=== PATIENT | female | born 1945 | race Caucasian/White ===

== ENCOUNTER 2022-09-21 15:17 | Inpatient (IN) | payer MEDICARE, SELFPAY ==
--- NOTE | ~2022-09-21 | CT_ITS ---
EXAMINATION: CT HEAD WITHOUT CONTRAST (STROKE PROTOCOL) CLINICAL INFORMATION: Stroke protocol. Dysarthria and left mouth drop. COMPARISON: None TECHNIQUE: Contiguous axial imaging was performed from the skull base to vertex without intravenous administration of contrast. This CT examination was performed using dose optimization techniques as appropriate, variously including the following: *Automated exposure control *Adjustment of mA and/or kV according to patient size (this includes techniques or standardized protocols for targeted exams where dose is matched to indication/reason for exam; i.e. extremities or head) *Use of iterative reconstruction technique DLP: 687 mGy-cm FINDINGS: There is no acute intra-axial, extra-axial bleed, masses or midline shift. There is encephalomalacia left occipital lobe from old insult. There is extensive white matter changes with hypodensity in the deep white matter right frontal lobe and left posterior parietal lobe. There is encephalomalacia along the tract of previous left parietal craniotomy and likely ventriculostomy catheter. No acute infarction evolution seen. There is extensive periventricular hypodensity in both cerebral hemispheres. The lateral ventricles are symmetrical in size and configuration without enlargement. Bone windows reveal no calvarial fracture or bony normality. There is no scalp soft tissue normality. The paranasal sinuses and mastoid air cells are well-aerated. CT/CT head for stroke IMPRESSION: No acute intracranial process seen. Left occipital lobe encephalomalacia from old insult or surgery. Left posterior parietal lobe craniotomy with encephalomalacia tract from and colostomy. Extensive white matter changes most prominent in the right frontal lobe and left posterior parietal lobe. These are unchanged to previous exam 08/18/2014 This critical result was discussed with Dr. Brooks Hugo at 3:45 PM on 09/21/2022. It was ascertained that the content and urgency of the report was understood at the time of direct communication.
--- NOTE | ~2022-09-21 | CT_ITS ---
EXAMINATION: CT ANGIOGRAM NECK WITH CONTRAST CT ANGIOGRAM BRAIN WITH CONTRAST CLINICAL INFORMATION: Dysarthria. Left mouth droop. COMPARISON: Head CT performed earlier today. TECHNIQUE: Test bolus sequences followed by intravenous administration 100 mL of Omnipaque 350. Helical imaging was performed in the axial plane from the thoracic inlet to the skull vertex. Delayed postcontrast imaging of the head was also performed. The data was processed at the cytology technologist workstation for generation of MIP sequences. Angled MIPs and volume rendered reformatted images were also generated at an offline 3D workstation. Stenoses are assessed in accordance with NASCET criteria unless otherwise indicated. This CT examination was performed using dose optimization techniques as appropriate, variously including the following: *Automated exposure control *Adjustment of mA and/or kV according to patient size (this includes techniques or standardized protocols for targeted exams where dose is matched to indication/reason for exam; i.e. extremities or head) *Use of iterative reconstruction technique DLP: 1509 mGy-cm FINDINGS: Head CT: There is no intracranial hemorrhage, extra-axial collection, or mass effect. Multiple chronic infarcts are seen including in the bilateral frontal lobes, left more than right parietal lobes, bilateral cerebellar hemispheres, and gerson. Background changes of moderate chronic microangiopathy is also noted. There is no abnormal enhancement. The dural venous sinuses appear patent. Left parietal craniotomy changes are noted. The extracranial structures are within normal limits. Neck CTA: The aortic arch demonstrates atheromatous calcifications but the great vessel origins are patent. Significant atheromatous changes are seen along the bilateral subclavian arteries. Both common carotid arteries are patent with atheromatous changes noted. Atheromatous changes are seen at the carotid bifurcations resulting in 60% stenosis the proximal right internal carotid artery and 50% stenosis of the proximal left internal carotid artery. Both cervical ICAs are patent. Significant atheromatous changes are seen at the carotid siphons without significant narrowing. 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 However, the more superior V2 through V3 segments are occluded. The left vertebral artery appears significantly dominant and patent throughout its cervical course. Head CTA: The dominant left vertebral artery is patent and reconstitutes the right vertebral artery. The basilar artery is patent. Both laboratory asst are patent. There is focal moderate to severe stenosis of the proximal right P2 TALENT SCOUT segment. Intracranial ICAs are patent. Both ACAs are patent. Both MCAs are patent with mild atheromatous changes noted. A focus of calcific plaque is seen within the left M2 segment in the mid sylvian fissure resulting in moderate stenosis. No aneurysm is seen. Non-vascular findings: The cervical soft tissues are within normal limits. No consolidation is seen in the upper lungs. Significant emphysema is demonstrated. There is a left chest wall pacemaker. Significant degenerative changes are seen within the spine. There is chronic fusion across the C5-C6 level with grade 1 anterolisthesis of C4 on C5. Chronic appearing compression fractures are seen at T4, T5, and T6 CT/CT angio head neck stroke IMPRESSION: CT HEAD: No intracranial hemorrhage or large acute infarction. Multiple chronic infarcts are seen in the cerebral hemispheres, cerebellar hemispheres, and gerson. Background changes of moderate chronic microangiopathy. CTA NECK: 1. 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 However, the more superior V2 through V3 segments are occluded. Left vertebral artery is patent. 2. Atheromatous changes at the bilateral carotid bifurcations resulting in 60% stenosis of the proximal right internal carotid artery and 50% stenosis of the proximal left internal carotid artery. CTA HEAD: 1. No large vessel occlusion. Focal moderate to severe stenosis of the proximal right P2 TALENT SCOUT segment. 2. Moderate stenosis of the left M2 segment in the mid Sylvian fissure.
--- NOTE | 2022-09-21 15:25 | ECG_ITS ---
Test Reason : STROKE Blood Pressure : / mmHG Vent. Rate : 080 BPM Atrial Rate : 080 BPM P-R Int : 166 ms QRS Dur : 148 ms QT Int : 458 ms P-R-T Axes : 000 151 028 degrees QTc Int : 528 ms AV dual-paced rhythm Abnormal ECG When compared with ECG of 13-JAN-2020 16:15, No significant change was found Referred By: Oanh Guy Electronically Signed By:JAQUAN PINEDA
--- NOTE | 2022-09-21 15:29 | ED_ITS ---
HPI - Neuro Symptoms/Deficit General Chief Complaint: Stroke Stated Complaint: L side droop per EMS Time Seen by Provider: 09/21/22 15:21 Source: patient and EMS Mode of arrival: EMS Limitations: no limitations History of Present Illness HPI Narrative: Patient comes to the emergency room complaining of sudden onset of difficulty speaking, left-sided mouth drooping and left arm weakness. Patient states it occurred approximately 30-40 minutes prior to arrival. Patient has history of CVAs, patient's daughter noticed that the patient had left-sided mouth drooping, when patient tried speaking, she could not speak right. Patient states that her symptoms lasted for approximately 10 minutes. When EMS arrived, patient's symptoms were still present. They gradually starting improving. On arrival, patient speaking in full sentences, barely noticeable slurred speech. Patient has left-sided mouth drooping. Minimally decreased strength in the left upper extremity, normal strength in lower extremities. Patient is not on any blood thinners, initial blood pressure recorded by EMS, 125/79 Related Data Allergies Allergy/AdvReac Type Severity Reaction Status Date / Time latex [LATEX] Allergy Severe ANAPHYLAXIS Unverified 02/01/21 10:05 Sulfa (Sulfonamide Allergy Severe ANAPHYLAXIS Unverified 02/01/21 10:05 Antibiotics) [SULFA (SULFONAMIDE ANTIBIOTICS)] walnut Allergy Severe ANAPHYLAXIS Unverified 02/01/21 10:05 heparin [HEPARIN] Allergy Intermediate HIVES Unverified 02/01/21 10:05 prednisone [PREDNISONE] Allergy Unknown UNKNOWN Unverified 02/01/21 10:05 Review of Systems Review of Systems: Constitutional : No Weight loss, No Fever, No Chills, No Night Sweats, No Fatigue, No Malaise ENT/Mouth : No Hearing loss, No Ear Pain, No Nasal Congestion, No Sinus Pain, No Hoarseness, No sore throat, No Rhinorrhea, No Swallowing Difficulty Eyes: No Eye Pain, No Swelling, No Redness, No Foreign Body, No Discharge, No Vision Changes Cardiovascular : No Chest Pain, No SOB, No Dyspnea on Exertion, No Orthopnea, No Edema, No Palpitations Respiratory : No Cough, No Sputum, No Wheezing, No Smoke Exposure, No Dyspnea Gastrointestinal : No Nausea, No Vomiting, No Diarrhea, No Constipation, No abdominal Pain, No Hematochezia, No Melena Genitourinary : no irregular bleeding, No Dysuria, No Urinary Frequency, No Hematuria, No Urinary Incontinence, No Urgency, No Flank Pain, No Urinary Flow Changes, No Hesitancy Musculoskeletal : No joint pain, No Myalgias, No Joint Swelling Skin : No Skin Lesions, No rash Neuro : Complaining of sudden onset of difficulty speaking, left-sided mouth droop, slurred speech, left arm weakness Dizziness, No Headache Psych : No Anxiety/Panic, No Depression, No SI/HI/AH/VH, No Social Issues, Heme/Lymph: No Bruising, No Bleeding,No Lymphadenopathy Endocrine : No Polyuria, No Polydipsia, No Temperature Intolerance [facility] Social History Social History (System 02/01/21 @ 10:05 by Grace Marquez) Alcohol intake: never Smoked in Last 30 Days: No Use of substances other than those prescribed or required for medical reasons: No Advance Directives: No Advance Directives Information Provided: Yes Physical Exam Vital Signs: Vital Signs: Last Vital Signs Temp 97.9 F 09/21/22 15:49 Pulse 81 09/21/22 15:49 Resp 16 09/21/22 15:49 BP 141/62 H 09/21/22 15:49 Pulse Ox 98 09/21/22 15:49 O2 Del Method 09/21/22 15:49 BMI result Body Mass Index 22.3 Const: Other: Appearance: Alert. Oriented X3. No acute distress. Eyes: Pupils equal, round and reactive to light. ENT: Pharynx normal. Neck: Normal inspection. Neck supple. No lymph nodes noted. No crepitus CVS: Normal heart rate and rhythm. Pulses normal. Normal S1 and S2 Respiratory: No respiratory distress. Breath sounds normal. No Wheezing. No rales Abdomen: Soft and nontender. No rigidity. No distention. Skin: Skin warm and dry. Normal skin color. Normal skin turgor. Extremities: No lower extremity edema. No Lacerations. No Rash Neuro: Oriented X 3. Patient has left-sided mouth droop, for a 5 strength in left upper extremity, 5/5 in right upper extremity, 5/5 strength i in bilateral lower extremities. Patient speaking in full sentences, no dysarthria, barely noticeable slurred speech Psych: calm, cooperative, normal affect Course Course Course Narrative: -on arrival to the ED, NIH score 1. -patient was taking for CT scan of the head, CTA head and neck -at this time on arrival, patient's symptoms are relatively mild: Mild left- sided mouth droop, no significant dysarthria, no aphasia, 4 of 5 strength in left upper extremity, normal strength in other extremities, no drift. Patient unlikely to be a candidate for tPA because patient's symptoms are relatively mild, patient has been improving over the last 20 minutes, and the risk of tPA at waist the benefits. -15:50, I discussed the patient with Dr. Rios, tPA not advised, only full-dose aspirin -head CT is negative for acute findings. CTA of head and neck is pending Medications Administered Discontinued Medications Generic Name Dose Route Start Last Admin Trade Name Freq PRN Reason Stop Dose Admin Aspirin 325 mg 09/21/22 15:50 09/21/22 15:59 Aspirin Enteric Coated 325 Mg Tablet. PO 09/21/22 15:51 325 mg ONCE ONE Administration Iohexol 100 ml 09/21/22 15:45 09/21/22 15:45 Iohexol 350 Mg/Ml 100 Ml Infus..Btl IV 09/21/22 15:46 75 ml ONCE ONE Administration Medical Decision Making Medical Decision Making [facility] Narrative: -at time of admission, patient is alert and oriented x3, no acute distress, speaking in full sentences, states she feels well. Patient still has mild to moderate left-sided mouth droop. -I discussed the patient with Dr. Romeo, no carotid endarterectomy needed at this time. -patient will follow-up with neurology tomorrow. -patient being admitted. Differential Diagnosis Differential Diagnoses: The differential diagnosis associated with the presentation includes (TIA, CVA, migraine) Admission/Observation Consideration of admission/observation: Escalation of care including admissi on/observation considered (Patient has had multiple CVAs in the past, last 1 several years ago. There was significant CT changes from her previous CT scan in 2014) Consult Healthcare Provider Management of the patient was discussed with: Hospitalist (Discussed the patient with Dr. Bell) and Pin Machine Tender (I discussed the patient with Dr. Rios, no tPA recommended at this time. I also discussed the patient with Dr. Romeo, no carotid endarterectomy recommended at this time. ) Lab Data [facility] Lab Attestation statement: I reviewed the patient's lab results. 09/21/22 16:03 09/21/22 16:03 Labs: Lab Results 09/21/22 09/21/22 09/21/22 Range/Units 15:50 16:03 16:03 WBC 10.5 (4.8-10.8) X10*3/uL RBC 4.16 L (4.20-5.50) X10*6/uL Hgb 11.9 L (12.0-16.0) g/dl Hct 36.1 L (37.0-47.0) % MCV 86.8 (80.0-98.0) fL MCH 28.6 (27.0-33.0) pg MCHC 33.0 (31.0-35.0) g/dl RDW 13.4 (11.0-16.0) % Plt Count 165 (160-400) X10*3/uL MPV 10.8 (9.4-12.3) fL Immature Gran % (Auto) 0.4 (0.0-0.4) % Neut % (Auto) 82.7 H (45-73) % Lymph % (Auto) 9.6 L (20-40) % [place] % (Auto) 5.4 (2-11) % Eos % (Auto) 1.7 (0-4) % Baso % (Auto) 0.2 (0-2) % Lymph # (Auto) 1.0 L (1.2-4.9) X10*3/uL [place] # (Auto) 0.6 (0.1-1.2) X10*3/uL Eos # (Auto) 0.2 (0.0-0.4) X10*3/uL Baso # (Auto) 0.0 (0.0-0.2) X10*3/uL Abs Immat Gran (auto) 0.04 H (0.00-0.03) X10*3/uL Absolute Neuts (auto) 8.7 H (2.0-8.3) x10*3/uL Absolute Nucleated RBC 0.000 (0.0-0.012) X10*3/uL Nucleated RBC % (auto) 0.0 (0.0-0.2) /100WBC PT (10.0-13.1) SEC INR (0.9-1.1) Sodium 136 (135-145) mmol/L Potassium 3.7 (3.3-5.1) mmol/L Chloride 98 (96-108) mmol/L Carbon Dioxide 28 (22-29) mmol/L Anion Gap 14 (12-20) BUN 15 (9-16) mg/dL Creatinine 1.00 (0.5-1.4) mg/dL Estim Creat Clear Calc 44.4 Estimated GFR 54 POC Glucose 152 H (60-115) mg/dL Random Glucose 173 H (60-115) mg/dL Calcium 9.2 (8.4-10.2) mg/dL Magnesium 1.8 (1.6-2.6) mg/dL Total Bilirubin 0.5 (0.0-1.0) mg/dL Direct Bilirubin 0.2 (0.0-0.5) mg/dL AST 17 (5-31) U/L ALT 9 (0-31) U/L Alkaline Phosphatase 100 (39-117) U/L Troponin I High Sens (<3.5-17.0) ng/L Total Protein 6.6 (6.5-8.0) g/dL Albumin 4.0 (3.5-5.0) g/dL Urine Color Urine Appearance Urine pH (5.0-9.0) Ur Specific [place] (1.005-1.025) Urine Protein (Neg-Trace) mg/dL Urine Glucose (UA) (Negative) mg/dL Urine Ketones (Negative) mg/dL Urine Blood (Negative) Urine Nitrite (Negative) Ur Leukocyte Esterase (Negative) COVID-19 ([facility]) (Negative) COVID-19 Clin Com 09/21/22 09/21/22 09/21/22 Range/Units 16:03 16:03 16:03 WBC (4.8-10.8) X10*3/uL RBC (4.20-5.50) X10*6/uL Hgb (12.0-16.0) g/dl Hct (37.0-47.0) % MCV (80.0-98.0) fL MCH (27.0-33.0) pg MCHC (31.0-35.0) g/dl RDW (11.0-16.0) % Plt Count (160-400) X10*3/uL MPV (9.4-12.3) fL Immature Gran % (Auto) (0.0-0.4) % Neut % (Auto) (45-73) % Lymph % (Auto) (20-40) % [place] % (Auto) (2-11) % Eos % (Auto) (0-4) % Baso % (Auto) (0-2) % Lymph # (Auto) (1.2-4.9) X10*3/uL [place] # (Auto) (0.1-1.2) X10*3/uL Eos # (Auto) (0.0-0.4) X10*3/uL Baso # (Auto) (0.0-0.2) X10*3/uL Abs Immat Gran (auto) (0.00-0.03) X10*3/uL Absolute Neuts (auto) (2.0-8.3) x10*3/uL Absolute Nucleated RBC (0.0-0.012) X10*3/uL Nucleated RBC % (auto) (0.0-0.2) /100WBC PT 11.8 (10.0-13.1) SEC INR 1.0 (0.9-1.1) Sodium (135-145) mmol/L Potassium (3.3-5.1) mmol/L Chloride (96-108) mmol/L Carbon Dioxide (22-29) mmol/L Anion Gap (12-20) BUN (9-16) mg/dL Creatinine (0.5-1.4) mg/dL Estim Creat Clear Calc Estimated GFR POC Glucose (60-115) mg/dL Random Glucose (60-115) mg/dL Calcium (8.4-10.2) mg/dL Magnesium (1.6-2.6) mg/dL Total Bilirubin (0.0-1.0) mg/dL Direct Bilirubin (0.0-0.5) mg/dL AST (5-31) U/L ALT (0-31) U/L Alkaline Phosphatase (39-117) U/L Troponin I High Sens 6.8 (<3.5-17.0) ng/L Total Protein (6.5-8.0) g/dL Albumin (3.5-5.0) g/dL Urine Color Urine Appearance Urine pH (5.0-9.0) Ur Specific [place] (1.005-1.025) Urine Protein (Neg-Trace) mg/dL Urine Glucose (UA) (Negative) mg/dL Urine Ketones (Negative) mg/dL Urine Blood (Negative) Urine Nitrite (Negative) Ur Leukocyte Esterase (Negative) COVID-19 ([facility]) Negative (Negative) COVID-19 Clin Com See Note 09/21/22 Range/Units 16:10 WBC (4.8-10.8) X10*3/uL RBC (4.20-5.50) X10*6/uL Hgb (12.0-16.0) g/dl Hct (37.0-47.0) % MCV (80.0-98.0) fL MCH (27.0-33.0) pg MCHC (31.0-35.0) g/dl RDW (11.0-16.0) % Plt Count (160-400) X10*3/uL MPV (9.4-12.3) fL Immature Gran % (Auto) (0.0-0.4) % Neut % (Auto) (45-73) % Lymph % (Auto) (20-40) % [place] % (Auto) (2-11) % Eos % (Auto) (0-4) % Baso % (Auto) (0-2) % Lymph # (Auto) (1.2-4.9) X10*3/uL [place] # (Auto) (0.1-1.2) X10*3/uL Eos # (Auto) (0.0-0.4) X10*3/uL Baso # (Auto) (0.0-0.2) X10*3/uL Abs Immat Gran (auto) (0.00-0.03) X10*3/uL Absolute Neuts (auto) (2.0-8.3) x10*3/uL Absolute Nucleated RBC (0.0-0.012) X10*3/uL Nucleated RBC % (auto) (0.0-0.2) /100WBC PT (10.0-13.1) SEC INR (0.9-1.1) Sodium (135-145) mmol/L Potassium (3.3-5.1) mmol/L Chloride (96-108) mmol/L Carbon Dioxide (22-29) mmol/L Anion Gap (12-20) BUN (9-16) mg/dL Creatinine (0.5-1.4) mg/dL Estim Creat Clear Calc Estimated GFR POC Glucose (60-115) mg/dL Random Glucose (60-115) mg/dL Calcium (8.4-10.2) mg/dL Magnesium (1.6-2.6) mg/dL Total Bilirubin (0.0-1.0) mg/dL Direct Bilirubin (0.0-0.5) mg/dL AST (5-31) U/L ALT (0-31) U/L Alkaline Phosphatase (39-117) U/L Troponin I High Sens (<3.5-17.0) ng/L Total Protein (6.5-8.0) g/dL Albumin (3.5-5.0) g/dL Urine Color Yellow Urine Appearance Clear Urine pH 7.5 (5.0-9.0) Ur Specific [place] 1.010 (1.005-1.025) Urine Protein Negative (Neg-Trace) mg/dL Urine Glucose (UA) Negative (Negative) mg/dL Urine Ketones Negative (Negative) mg/dL Urine Blood Negative (Negative) Urine Nitrite Negative (Negative) Ur Leukocyte Esterase Negative (Negative) COVID-19 ([facility]) (Negative) COVID-19 Clin Com Independent Interpretation I performed an independent interpretation of an: EKG (ABD well paced rhythm, heart rate 80, no ST segment depression or elevation, nonspecific T-wave inversion in lead 2, QTC 528) and CT Scan (My head CT scan interpretation: Several chronic infarcts, no bleed) Radiology Impression Discussion of test interpretation with radiology: I have reviewed the radiologist's reading. Radiologist Impression: FINDINGS: Head CT: There is no intracranial hemorrhage, extra-axial collection, or mass effect. Multiple chronic infarcts are seen including in the bilateral frontal lobes, left more than right parietal lobes, bilateral cerebellar hemispheres, and gerson. Background changes of moderate chronic microangiopathy is also noted. There is no abnormal enhancement. The dural venous sinuses appear patent. Left parietal craniotomy changes are noted. The extracranial structures are within normal limits. Neck CTA: The aortic arch demonstrates atheromatous calcifications but the great vessel origins are patent. Significant atheromatous changes are seen along the bilateral subclavian arteries. Both common carotid arteries are patent with atheromatous changes noted. Atheromatous changes are seen at the carotid bifurcations resulting in 60% stenosis the proximal right internal carotid artery and 50% stenosis of the proximal left internal carotid artery. Both cervical ICAs are patent. Significant atheromatous changes are seen at the carotid siphons without significant narrowing. 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 However, the more superior V2 through V3 segments are occluded. The left vertebral artery appears significantly dominant and patent throughout its cervical course. Head CTA: The dominant left vertebral artery is patent and reconstitutes the right vertebral artery. The basilar artery is patent. Both prepress supervisor are patent. There is focal moderate to severe stenosis of the proximal right P2 DIRECTOR OF [employer]POR[employer] REAL E[employer] segment. Intracranial ICAs are patent. Both ACAs are patent. Both MCAs are patent with mild atheromatous changes noted. A focus of calcific plaque is seen within the left M2 segment in the mid sylvian fissure resulting in moderate stenosis. No aneurysm is seen. Non-vascular findings: The cervical soft tissues are within normal limits. No consolidation is seen in the upper lungs. Significant emphysema is demonstrated. There is a left chest wall pacemaker. Significant degenerative changes are seen within the spine. There is chronic fusion across the C5-C6 level with grade 1 anterolisthesis of C4 on C5. Chronic appearing compression fractures are seen at T4, T5, and T6 CT/CT angio head? neck stroke IMPRESSION: CT HEAD: No intracranial hemorrhage or large acute infarction. Multiple chronic infarcts are seen in the cerebral hemispheres, cerebellar hemispheres, and gerson. Background changes of moderate chronic microangiopathy. ? CTA NECK: 1.? 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 However, the more superior V2 through V3 segments are occluded. Left vertebral artery is patent. 2.? Atheromatous changes at the bilateral carotid bifurcations resulting in 60% stenosis of the proximal right internal carotid artery and 50% stenosis of the proximal left internal carotid artery. ? CTA HEAD: 1.? No large vessel occlusion. Focal moderate to severe stenosis of the proximal right P2 [employer] segment. 2.? Moderate stenosis of the left M2 segment in the mid Sylvian fissure. External Record Review External record reviewed: Inpatient record (I reviewed the -system for medical history.) NIH Stroke Scale Level of Consciousness: Alert Level of Consciousness Questions: Answers both questions correctly Level of Consciousness Commands: Performs both tasks correctly Best Gaze: Normal Visual: No visual loss Facial Palsy: Minor paralyis Motor Arm (Right): No drift Motor Arm (Left): No drift Motor Leg (Right): No drift Motor Leg (Left): No drift Limb Ataxia: Absent Sensory: Normal Best Language: No aphasia Dysarthia: Normal Extinction and Inattention: No abnormality Score: 1 Discharge Plan Discharge Clinical Impression: Cerebrovascular accident Patient Disposition: Admitted As Inpatient
[2022-09-21] MEDS: iohexoL 350 MG/ML 100 ML INFUS..BTL IV (15:45)
[2022-09-21 15:49] VITALS: BP 128/86; BP 141/62; PULSE 81; PULSE 85; RESP 16; TEMP 36.6; O2SAT 97; O2SAT 98; BMI 22.3
[2022-09-21 15:54] LABS: Glucose, Whole Blood 152 mg/dL (60-115)
[2022-09-21] MEDS: Aspirin Enteric Coated 325 MG TABLET.DR PO (15:59)
--- NOTE | 2022-09-21 16:12 | MHC.STROKE ---
Addendum entered by Tina Whaley RN 09/22/22 12:02: I MET WITH THE PATIENT AFTER DR. YEAGER ROUNDED, SEE HIS NOTE. WE REVIEWED HIS DIAGNOSIS, PLAN OF CARE, RECOMMENDATIONS. I REVIEWED HER INDIVIDUAL RISK FACTORS, NEW MEDICATIONS, SHE WILL TRY THE STATIN BUT SHE IS NOT SURE IF SHE WILL DEVELOP A RASH LIKE SHE DID IN THE PAST. PNEUMATIC COMPRESSION DEVICES ARE ON. WE DISCUSSED HER 2006 BRAIN SURGERY DONE IN [place] BY DR ROSALES. SHE IS VERY OPTIMISTIC AND POSITIVE AND WILL COMPLY WITH ANY RECOMMENDATIONS. THE STROKE EDUCATION BOOKLET AND POWER POINT HANDOUT WAS REVIEWED. WE DISCUSSED THE LOCATION OF HER STROKE AND THE CORRELATING SYMPTOMS. Addendum entered by Tina Whaley RN 09/22/22 09:59: I CLARIFIED THAT THE PATIENT PASSED THE NURSING SWALLOW SCREEN PRIOR TO ASPIRIN GIVEN AT 1559. Original Note: 1507 STROKE PROTOCOL ACTIVATED, CALLED BY ED. EMS PRE-NOTIFIED AT 1504, PATIENT ARRIVED AT 1517. EXAMINED BY PROVIDER ONSET 30-45MIN PUMP TESTER, SYMPTOMS LEFT DROOPP, WEAKNESS, DYSARTHRIA AND IMPROVING, NIHSS 1. DIRECT TO CT AND CTA, NO BLEED PRIOR STROKE NOTED ? CRANIOTOMY (LEFT PARIETAL AREA PRIOR TO 2013 IN OLD SCANS) CASE DISCUSSED WITH DR GILLIAM AND THROMBOLYTICS (TPA- aLTEPLASE) EXCLUDED BASED ON NIHSS = 1 AND IM[address] SYMPTOMS. SEE DR. THOMPSON NOTE. SHE PASSED NURSING SWALLOW SCREEN. I WILL CONTINUE TO FOLLOW.
[2022-09-21 16:13] LABS: MANUAL DIFF FLAG NO
[2022-09-21 16:14] LABS: White Blood Count 10.5 X10*3/uL (4.8-10.8)
[2022-09-21 16:15] LABS: Basophils Percent Auto 0.2 % (0-2); Eosinophils Absolute Auto 0.2 X10*3/uL (0.0-0.4); Eosinophils Percent Auto 1.7 % (0-4); Hematocrit 36.1 % (37.0-47.0); Hemoglobin 11.9 g/dl (12.0-16.0); Imm Gran Abs Auto 0.04 X10*3/uL (0.00-0.03); Imm Gran Pct Auto 0.4 % (0.0-0.4); Lymphocytes Percent Auto 9.6 % (20-40); Mean Corpuscular Hemoglobin 28.6 pg (27.0-33.0); Mean Corpuscular Volume 86.8 fL (80.0-98.0); Mean Platelet Volume 10.8 fL (9.4-12.3); Monocytes Absolute Auto 0.6 X10*3/uL (0.1-1.2); Monocytes Percent Auto 5.4 % (2-11); Neutrophils Absolute Auto 8.7 x10*3/uL (2.0-8.3); Neutrophils Percent Auto 82.7 % (45-73); Platelet Count 165 X10*3/uL (160-400); Red Blood Count 4.16 X10*6/uL (4.20-5.50); Red Cell Distribution Width 13.4 % (11.0-16.0)
[2022-09-21 16:18] LABS: Appearance Urine Clear; Color Urine Yellow; Glucose Urine UA Negative (Negative); Leukocyte Esterase Urine Negative (Negative); Nitrite Urine Negative (Negative); PH 7.5 (5.0-9.0); Urine Blood Negative (Negative); Urine Ketones Negative (Negative); Urine Protein Negative (Neg-Trace)
[2022-09-21 16:24] LABS: Prothrombin Time 11.8 SEC (10.0-13.1)
[2022-09-21 16:29] LABS: COVID-19 Test Negative (Negative); IDNOW Serial# 16C4AD1C
[2022-09-21 16:35] LABS: Troponin-I High Sensitivity 6.8 ng/L (<3.5-17.0)
--- OUTSIDE RECORDS SUMMARY | 2022-09-21 16:36 | XMS_ITS | Continuity of Care Document ---
:1945 Author Organization [facility] Address [address] [place] [id number] Care Team Providers Name Role Phone Cyrus MAX MD, Riki Grace Primary Care Physician [place] [facility] [place] 02/26/20 - 02/29/[address] [address]- [facility] Discharge Disposition: A-D/C Home Attending Physician: Eddie Salguero MD, Tomas Admitting Physician: Michelle Venegas MD Referring Physician: Not on Staff, Referring MD Allergies, Adverse Reactions, Alerts Substance Reaction Severity Status sulfADIAZINE Active heparin1 Active predniSONE Active Latex Persistent Moderate Active Nuts walnuts Active 1 I go crazy Immunizations Given and Recorded Vaccine Date Status Refusal Reason influenza virus vaccine, inactivated 05/28/15 Given pneumococcal 23-valent vaccine 04/21/12 Given Medications albuterol CFC free 90 mcg/inh inhalation aerosol 2, puffs, Inhalation, Every 4 hours, PRN, # 1 each, Refills 2, Tot. Refills 2, Maintenance, 05/09/1615:55:42, Inhaler, Route to Pharmacy Electronically, [id number], [facility] [id number] Start Date: 05/09/16 Stop Date: 08/07/16 Status: Orderedaspirin 81 mg oral tablet = 81 mg, By Mouth, Daily, # 30 tablet, 2 Refills, Maintenance, 05/09/16 15:57:18, Tablet Start Date: 05/09/16 Stop Date: 08/07/16 Status: OrderedCoreg 6.25 mg oral tablet 6.25 mg, 1, tablet, By Mouth, 2 times a day, Maintenance, 02/27/20 15:29:00 EDT Start Date: 02/27/20 Status: Ordereddigoxin 0.125 mg oral tablet 125 mcg, 1, tablet, By Mouth, Every Wednesday, Wednesday and Wednesday, Maintenance, 02/27/20 15:32:00 EDT Start Date: 02/27/20 Status: Ordereddoxycycline hyclate 100 mg oral tablet = 100 mg, By Mouth, Every 12 hours, for 7 days, # 14 tablet, 0 Refills, Acute 03/07/20 10:32:00 EDT,02/29/20 10:32:00 EDT, Tablet, [facility], 166, cm, 02/29/20 7:54:00 EDT, Height, 55.5, kg, 02/26/20 22:38:00 EDT, Dry Weight Start Date: 02/29/20 Stop Date: 03/07/20 Status: OrderedEntresto 97 mg-103 mg oral tablet 1 tablet, By Mouth, 2 times a day, Maintenance, 02/27/20 15:28:00 EDT, Tablet Start Date: 02/27/20 Status: OrderedFlovent Diskus 250 mcg/inh inhalation powder 2 puffs, Inhalation, 2 times a day Start Date: 02/27/20 Status: Orderedisosorbide mononitrate 60 mg oral tablet, extended release 1.5 tablet = 90 mg, By Mouth, Daily in AM, Maintenance, 02/27/20 15:27:00 EDT, ER Tablet Start Date: 02/27/20 Status: OrderedLasix 40 mg oral tablet 40 mg, 1, tablet, By Mouth, Daily, Refills 0, Maintenance, 02/29/20 10:31:00 EDT Start Date: 02/29/20 Status: Orderedlevothyroxine 0.025 mg oral tablet 1.5 tablet = 37.5 mcg, By Mouth, Daily, Maintenance, 02/27/20 15:27:00 EDT, Tablet Start Date: 02/27/20 Status: Orderedmagnesium oxide 400 mg oral tablet = 400 mg, By Mouth, 2 times a day, # 28 tablet, 0 Refills, Soft Stop, 06/10/18 13:49:02 EDT, Tablet Start Date: 06/10/18 Stop Date: 06/24/18 Status: Orderedmorphine 30 mg oral capsule, extended release = 30 mg, By Mouth, 3 times a day, 0 Refills, Maintenance, 08/16/15 1:48:37 Start Date: 08/16/15 Status: Orderednitroglycerin 0.4 mg sublingual spray 1 sprays = 0.4 mg, Sublingual, Every 5 minutes, PRN for chest pain, # 12 Gm, 3 Refills, Maintenance,09/04/15 8:23:54, [place], 1 sprays Sublingual Every 5 minutes,x3 doses/times,PRN:for chest pain Start Date: 09/04/15 Status: OrderedSensipar 30 mg oral tablet 1 tablet = 30 mg, By Mouth, Daily, # 30 tablet, 0 Refills, Maintenance, 05/09/16 15:58:38, Tablet Start Date: 05/09/16 Status: OrderedSodium Bicarbonate-Sodium Citrate = 650 mg, By Mouth, Daily, 0 Refills, Maintenance, 05/05/16 8:43:37 Start Date: 05/05/16 Status: Ordered Problem List Condition Effective Dates Status Health Status Informant ICD (implantable Active cardioverter-defibrillator) in place(Confirmed) COPD mixed type(Confirmed) Active Chronic systolic heart Active failure(Confirmed) Hx of CABG(Confirmed) Active History of colon cancer(Confirmed) Active Hx of mitral valve repair(Confirmed) Active Ileostomy present(Confirmed) Active Ischemic cardiomyopathy(Confirmed) Active Mitral regurgitation(Confirmed) Active NSVT (nonsustained ventricular Active tachycardia)(Confirmed) Results Orders for Microbiology Reports Name Date Anaerobic Culture (ANAEROBIC CULTURE) 02/27/20 Tissue Culture w/ Gram Smear 02/27/20 Blood Culture 02/26/20 Blood Culture #2 02/26/20 Microbiology Reports TEST:Anaerobic Culture STATUS:Unauthenticated BODY SITE: SOURCE:[email or web address] COLLECTED DATE/TIME:02/27/20 2:09 PMAnaerobic Culture SPECIMEN DESCRIPTION : TISSUE SWAB SPECIAL REQUESTS : NONE CULTURE : NO ANAEROBES ISOLATED SO FAR. REPORT STATUS : PRELIMINARY REPORT TEST:Tissue/Biopsy Culture STATUS:Unauthenticated BODY SITE: SOURCE:TISSUE1 COLLECTED DATE/TIME:02/27/20 2:00 PMTissue/Biopsy Culture SPECIMEN DESCRIPTION : TISSUE CHEST SWAB SPECIAL REQUESTS : NONE GRAM STAIN : 1+ WHITE BLOOD CELLS 3+ RBC'S NO ORGANISMS SEEN CULTURE : NO GROWTH TO DATE REPORT STATUS : PRELIMINARY REPORT TEST:Blood Culture, Second Order STATUS:Unauthenticated BODY SITE: SOURCE:Blood COLLECTED DATE/TIME:02/26/20 11:06 PMBlood Culture, Second Order SPECIMEN DESCRIPTION : BLOOD NO SITE SPECIAL REQUESTS : NONE CULTURE : NO GROWTH AFTER 48 HOURS REPORT STATUS : PRELIMINARY REPORT TEST:Blood Culture STATUS:Unauthenticated BODY SITE: SOURCE:Blood COLLECTED DATE/TIME:02/26/20 10:56 PMBlood Culture SPECIMEN DESCRIPTION : BLOOD NO SITE SPECIAL REQUESTS : NONE CULTURE : NO GROWTH AFTER 48 HOURS REPORT STATUS : PRELIMINARY REPORT Radiology Reports Exam Date Time Procedure Performing Provider Status 02/27/20 11:43 AM Chest 2 Views Frontal and Lat Sundar , Debi; A uth (Verified) Notes:(Chest 2 Views Frontal and Lat) Reason For Exam: F/U abnl PCXR;Other: RESULT: Chest 2 Views Frontal and Lat Chest 2 Views Frontal and Lat Reason: Other:; F U abnl PCXR; Clinical Question(s): Pneumonia COMPARISON: 02/27/2020 at 0744 hours FINDINGS: LINES AND TUBES: Stable pacer leads LUNGS AND PLEURA: No left upper lobe airspace disease current exam. No acute cardiopulmonary process. Convex density noted posteriorly on the lateral view is stable dating back to 09/01/2015. IMPRESSION: No acute cardiopulmonary process. Left upper lobe airspace disease on the prior exam may have been artifactual and related to overlapping bone vasculature. It could have also been due to atelectasis that has resolved. Convex density noted posteriorly on the lateral is stable dating back to at least 09/01/2015. It may correspond to an focus of chronic juxtapleural round atelectasis WSN: [id number] Ordering Physician: Leonor Mann MD Dictated By: Theodore Noyola MD Dictated Date/Time: 02/27/20 1:01 pm Reviewed By: Theodore Noyola MD Signed By: Theodore Noyola MD Signed Date/Time: 02/27/20 1:01 pm Transcribed By: [email or web address] Transcribed Date/Time: 02/27/20 12:56 pm Exam Date Time Procedure Performing Provider Status 02/27/20 8:10 AM Chest Portable Sundar , Debi; Auth (Verified) Notes:(Chest Portable) Reason For Exam: PreopRESULT: Chest Portable Chest Portable Reason: Preop; Clinical Question(s): Preop COMPARISON: 06/09/2018 FINDINGS: LINES AND TUBES: Stable pacer leads LUNGS AND PLEURA: Left upper lobe airspace disease Left lower lobe airspace disease is unchanged Calcified pleural plaques IMPRESSION: Left upper lobe airspace disease. Findings may be due to left upper lobe pneumonia. Follow-up plain film recommended to document resolution. Stable left lower lobe airspace disease may be due to chronic atelectasis or scar A [place] message has been communicated via the [employer] system on 02/27/2020 8:15 AM, Message ID [id number]. WSN: [id number] Ordering Physician: Dafne Aguirre Dictated By: Theodore Noyola MD Dictated Date/Time: 02/27/20 8:15 am Reviewed By: Theodore Noyola MD Signed By: Theodore Noyola MD Signed Date/Time: 02/27/20 8:15 am Transcribed By: JIMENEZ Transcribed Date/Time: 02/27/20 8:12 am Vital Signs Most recent to oldest [Reference 1 2 3 Range]: Height 166 cm 166 cm 166 cm (02/29/20 7:54 AM) (02/29/20 3:11 AM) (02/28/20 11:06 PM) Weight 64.3 kg (02/26/20 7:46 PM) Oxygen Saturation [94-100 %] 96 % 97 % 97 % (02/29/20 7:54 AM) (02/29/20 3:11 AM) (02/28/20 11:06 PM) Pulse Rate [55-90 bpm] 71 bpm 71 bpm 81 bpm (02/29/20 9:48 AM) (02/29/20 7:54 AM) (02/29/20 3:11 A M) Body Mass Index [18.5-24.99] 23.33 (02/26/20 7:46 PM) Blood Pressure [90-138/55-84 mm 110/49 mm Hg 110/49 mm Hg 111/53 mm Hg Hg] (02/29/20 9:48 AM) (02/29/20 7:54 AM) (02/29/20 3:11 A M) Respiratory Rate [16-30 br/min] 16 br/min 16 br/min 18 br/min (02/29/20 2:49 PM) (02/29/20 1:49 PM) (02/29/20 7:54 A M) Temperature [96.8-100.4 DegF] 98.1 DegF 97.9 DegF 97 .7 DegF (02/29/20 7:54 AM) (02/29/20 3:11 AM) (02/28/20 11:06 PM) Liters per Minute 1 L/min 1 L/min 1 L/min (02/29/20 7:54 AM) (02/29/20 3:11 AM) (02/28/20 11:06 PM) Mode of Delivery (Oxygen) Nasal cannula Nasal cannula Room a ir (02/29/20 7:54 AM) (02/29/20 3:11 AM) (02/28/20 11:06 PM) Blood pressure sites Arm, right Arm, right Arm, right (02/29/20 7:54 AM) (02/29/20 3:11 AM) (02/28/20 11:06 PM) Temperature Route Oral Oral Oral (02/29/20 7:54 AM) (02/29/20 3:11 AM) (02/28/20 11:06 PM) Dry Weight 55.5 kg (02/26/20 7:46 PM) Social History Social History Type Response Smoking Status Former 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
[2022-09-21 16:48] LABS: Alanine Aminotransferase 9 U/L (0-31); Alkaline Phosphatase 100 U/L (39-117); Anion Gap 14 (12-20); Aspartate Amino Transferase 17 U/L (5-31); Bilirubin Direct 0.2 mg/dL (0.0-0.5); Bilirubin Total 0.5 mg/dL (0.0-1.0); Blood Urea Nitrogen 15 mg/dL (9-16); Calcium 9.2 mg/dL (8.4-10.2); Carbon Dioxide 28 mmol/L (22-29); Chloride 98 mmol/L (96-108); Creatinine Clr Calc Pharmacy 44.4; Estimated Glomerular Filt Rate 54; Glucose Random 173 mg/dL (60-115); Magnesium 1.8 mg/dL (1.6-2.6); Potassium 3.7 mmol/L (3.3-5.1); Sodium 136 mmol/L (135-145); Total Protein 6.6 g/dL (6.5-8.0)
--- NOTE | 2022-09-21 20:23 | PHA.MEDREC ---
Pharmacy Consult ? Medication Reconciliation Pharmacy has completed the medication reconciliation.
--- NOTE | 2022-09-21 20:26 | PM.IMHP ---
History of Present Illness Date of Service: 09/21/22 Attending physician on admission: Adenike Bell Chief Complaint: facial droop, dysarthria 76-year-old female with history of coronary artery disease s/p CABG, HFrEF of 15-20%, s/p resection of left ventricular aneurysm in 2005, history of sustained V-tach with AICD in place, history of colon cancer s/p ileostomy, hypertension, dyslipidemia, history of cavernous hemangioma of the occipital lobe s/p resection, hypoparathyroidism, hypothyroidism, history CVA, depression/anxiety, osteoarthritis of multiple joints on chronic opioids presented to the ED via EMS earlier today after developing sudden onset dysarthria with left-sided facial droop with immediate EMS dispatch. By the time EMS arrived, dysarthria had resolved though facial droop has persisted. She does take baby aspirin daily but is no longer on a statin as she has experienced rashes in the past. She does follow with Dr. Novoa at [facility]. She is a former smoker who quit 8 years ago but denies any drug or alcohol use. On arrival vital stable, BP 141/62. Hematology studies significant for a stable chronic normocytic anemia. Renal function baseline, electrolytes normal. Glucose 152. Lipid panel pending . Urinalysis unremarkable. Head CT was without any acute intracranial process but did show extensive white matter changes most prominent the right frontal lobe and left posterior parietal lobe unchanged from prior exam. CTA of the head and neck did not reveal any large vessel occlusion does show focal moderate to severe stenosis of the proximal right P2 SCCM ADMINISTRATOR segment and moderate stenosis of the left M2 segment in the mid sylvian fissure. Patient treated with 324 mg aspirin in the ED. case discussed with vascular surgery, no carotid endarterectomy needed at this time. Case discussed with Neurology, no tPA recommended at this time given limited deficit. Patient to be observed overnight for TIA versus CVA. Review of Systems Review of Systems: General: No fevers, malaise, unintentional weight loss HEENT: No blurred vision, diplopia. Cardiovascular: No chest pain, palpitations, or leg edema Respiratory: No shortness of breath, wheezing, cough GI: No abdominal pain, nausea, vomiting, diarrhea, constipation, melena, hematochezia : No dysuria, hematuria, increased urinary frequency, decreased urinary output MSK: No myalgia, back pain Neuro: +dysarthria, + left-sided facial droop. No headaches, weakness, paresthesias Skin: No rashes or lesions [facility] Medical History (Updated 09/21/22 @ 20:41 by MADINA Santos) CAD (coronary artery disease) Carotid artery stenosis Cavernous hemangioma Cerebrovascular accident CHF (congestive heart failure) Former smoker History of colon cancer History of sustained ventricular tachycardia HLD (hyperlipidemia) HTN (hypertension) Hypoparathyroidism Hypothyroidism Opioid dependence Osteoarthritis Surgical History AICD (automatic cardioverter/defibrillator) present S/P aneurysm repair S/P CABG (coronary artery bypass graft) S/P ileostomy Social History Household Members: Family Household Members Other:: Daughter [facility] Do you presently have visiting nurse or other home services: Yes (home health aides 5 days a week, 2 hours a day) Alcohol intake: never Patient Tobacco Use Status: Never used Tobacco Smoked in Last 30 Days: No Use of substances other than those prescribed or required for medical reasons: No Have you been hit, kicked, punched, or otherwise hurt by someone within the past year? If so, by whom?: No Do you feel safe in your current relationship?: No Current Relationship Is there a partner from a previous relationship who is making you feel unsafe now?: No Are you made to feel afraid or neglected: No Spiritual Healthcare Practices: Sabianist Advance Directives: No Advance Directives Information Provided: Yes Do you have thoughts of harming others: None Do you have a plan to hurt others: No Plan Recently lost weight without trying: No Nutrition Risks: No Nutritional Risk Patient : No : No Poor oral hygiene: No service: No Current occupational status: retired Meds Allergies Allergy/AdvReac Type Severity Reaction Status Date / Time latex [LATEX] Allergy Severe ANAPHYLAXIS Verified 09/22/22 01:58 Sulfa (Sulfonamide Allergy Severe ANAPHYLAXIS Verified 09/22/22 01:58 Antibiotics) [SULFA (SULFONAMIDE ANTIBIOTICS)] walnut Allergy Severe ANAPHYLAXIS Verified 09/22/22 01:58 heparin [HEPARIN] Allergy Intermediate HIVES Verified 09/22/22 01:58 prednisone [PREDNISONE] Allergy Unknown UNKNOWN Verified 09/22/22 01:58 Active Medications: Current Medications Acetaminophen (Acetaminophen 325 Mg Tablet) 650 mg PO Q6H PRN PRN Reason: Pain, Mild (Pain Scale 1-3) Aspirin (Aspirin Enteric Coated 81 Mg Tablet.) 81 mg PO DAILY [facility] Carvedilol (Carvedilol 6.25 Mg Tablet) 6.25 mg PO BID [facility]; Protocol Cinacalcet (Cinacalcet Hcl 30 Mg Tablet) 30 mg PO DAILY [facility] Digoxin (Digoxin 0.125 Mg Tablet) 0.125 mg PO MOWEFR@0900 [facility] Enoxaparin Sodium (Enoxaparin Sodium 40 Mg/0.4 Ml Syringe) 40 mg SUBCUT Q24H [facility] Fluticasone Propionate (Fluticasone Propionate 250 Mcg Blst.W.Dev) 2 puff INHALE DAILY [facility] Furosemide (Furosemide 40 Mg Tablet) 40 mg PO DAILY@1700 [facility]; Protocol Furosemide (Furosemide 40 Mg Tablet) 80 mg PO DAILY [facility]; Protocol Isosorbide Mononitrate (Isosorbide Mononitrate 30 Mg Tab.Er.24h) 90 mg PO DAILY [facility]; Protocol Levothyroxine Sodium (Levothyroxine Sodium 25 Mcg Tablet) 37.5 mcg PO DAILY [facility] Magnesium Oxide (Magnesium Oxide 400 Mg Tablet) 800 mg PO DAILY [facility] Morphine Sulfate (Morphine Sulfate Er 30 Mg Tablet.Er) 30 mg PO TID [facility] Omeprazole (Omeprazole 20 Mg Capsule.) 20 mg PO BID [facility] Ondansetron HCl (Ondansetron Hcl 4 Mg/2 Ml Vial) 4 mg IVPUSH Q8H PRN PRN Reason: Nausea and Vomiting Pharmacy Consult (Consult Rx Perform Med Rec) 1 each MISCELLANE ONCE PRN PRN Reason: Consult order Sacubitril/Valsartan (Sacubitril/Valsartan 97/103 1 Tab Tablet) 1 tab PO BID [facility]; Protocol Sodium Bicarbonate (Sodium Bicarbonate 650 Mg Tablet) 650 mg PO BID [facility] Home Medications Medication Instructions Recorded Confirmed Last Taken Type albuterol sulfate 90 mcg/actuation 2 puff inhalation Q4H PRN 09/21/22 09/21/22 Unknown History aerosol inhaler (Ventolin HFA) Shortness Of Breath carvedilol 6.25 mg tablet 1 tab PO BID 09/21/22 09/21/22 09/21/22 History cinacalcet 30 mg tablet 1 tab PO DAILY 09/21/22 09/21/22 09/21/22 History digoxin 125 mcg (0.125 mg) tablet 0.125 mg PO MOWEFR@0900 09/21/22 09/21/22 09/21/22 History fluticasone propionate 250 1 puff inhalation BID 09/21/22 09/21/22 09/21/22 History mcg/actuation blister powder for inhalation (Flovent Diskus) furosemide 80 mg tablet 40 mg PO DAILY@1700 09/21/22 09/21/22 09/20/22 History furosemide 80 mg tablet 80 mg PO DAILY 09/21/22 09/21/22 09/21/22 History isosorbide mononitrate 60 mg 90 mg PO DAILY 09/21/22 09/21/22 09/21/22 History tablet,extended release 24 hr levothyroxine 25 mcg tablet 37.5 mcg PO DAILY 09/21/22 09/21/22 09/21/22 History magnesium oxide 400 mg (241.3 mg 1 tab PO BID 09/21/22 09/21/22 09/21/22 History magnesium) tablet morphine 30 mg tablet,extended 1 tab PO TID 09/21/22 09/21/22 09/21/22 History release nitroglycerin 400 mcg/spray 1 - 2 spray sublingual Q5M PRN 09/21/22 09/21/22 Unknown History translingual PALPATATIONS omeprazole 20 mg capsule,delayed 20 mg PO BID 09/21/22 09/21/22 09/21/22 History release sacubitril 97 mg-valsartan 103 mg 1 tab PO BID 09/21/22 09/21/22 09/21/22 History tablet (Entresto) sodium bicarbonate 650 mg tablet 1 tab PO BID 09/21/22 09/21/22 09/21/22 History sucralfate 1 gram tablet 1 tab PO QID 09/21/22 09/21/22 09/21/22 History Physical Exam Vital Signs and Narrative: Vital Signs: Last Vital Signs Temp 97.9 F 09/21/22 15:49 Pulse 81 09/21/22 15:49 Resp 16 09/21/22 15:49 BP 141/62 H 09/21/22 15:49 Pulse Ox 98 09/21/22 15:49 O2 Del Method 09/21/22 15:49 BMI result Body Mass Index 22.3 Constitutional - Awake and Alert, No apparent distress Eyes - PERRLA, EOMI Cardiovascular - S1S2, RRR, No edema Respiratory - Normal lung expansion, Normal respiratory effort, No respiratory distress, CTA bilaterally Gastrointestinal - NT / ND; +BS; No rebound or guarding Extremities - no calf tenderness bilaterally, no swelling Skin - Warm/Dry Neurological - Alert & oriented x3, CN II-XII in tact, 5/5 strength BUE and BLE. Speaking in full sentences, no slurred speech Psychological - Appropriate affect Results Labs 09/21/22 16:03 09/21/22 16:03 Labs: Laboratory Results - last 24 hr 09/21/22 09/21/22 09/21/22 15:50 16:03 16:03 MCV 86.8 MCH 28.6 MCHC 33.0 RDW 13.4 Plt Count 165 MPV 10.8 Immature Gran % (Auto) 0.4 Neut % (Auto) 82.7 H Lymph % (Auto) 9.6 L Mcintosh % (Auto) 5.4 Eos % (Auto) 1.7 Baso % (Auto) 0.2 Lymph # (Auto) 1.0 L Mcintosh # (Auto) 0.6 Eos # (Auto) 0.2 Baso # (Auto) 0.0 Abs Immat Gran (auto) 0.04 H Absolute Neuts (auto) 8.7 H Absolute Nucleated RBC 0.000 Nucleated RBC % (auto) 0.0 PT INR Anion Gap 14 Estim Creat Clear Calc 44.4 Estimated GFR 54 POC Glucose 152 H Random Glucose 173 H Calcium 9.2 Magnesium 1.8 Total Bilirubin 0.5 Direct Bilirubin 0.2 AST 17 ALT 9 Alkaline Phosphatase 100 Troponin I High Sens Total Protein 6.6 Albumin 4.0 Urine Color Urine Appearance Urine pH Ur Specific [place] Urine Protein Urine Glucose (UA) Urine Ketones Urine Blood Urine Nitrite Ur Leukocyte Esterase COVID-19 ([facility]) COVID-19 Clin Com 09/21/22 09/21/22 09/21/22 16:03 16:03 16:03 MCV MCH MCHC RDW Plt Count MPV Immature Gran % (Auto) Neut % (Auto) Lymph % (Auto) Mcintosh % (Auto) Eos % (Auto) Baso % (Auto) Lymph # (Auto) Mcintosh # (Auto) Eos # (Auto) Baso # (Auto) Abs Immat Gran (auto) Absolute Neuts (auto) Absolute Nucleated RBC Nucleated RBC % (auto) PT 11.8 INR 1.0 Anion Gap Estim Creat Clear Calc Estimated GFR POC Glucose Random Glucose Calcium Magnesium Total Bilirubin Direct Bilirubin AST ALT Alkaline Phosphatase Troponin I High Sens 6.8 Total Protein Albumin Urine Color Urine Appearance Urine pH Ur Specific [place] Urine Protein Urine Glucose (UA) Urine Ketones Urine Blood Urine Nitrite Ur Leukocyte Esterase COVID-19 ([facility]) Negative COVID-19 Clin Com See Note 09/21/22 16:10 MCV MCH MCHC RDW Plt Count MPV Immature Gran % (Auto) Neut % (Auto) Lymph % (Auto) Mcintosh % (Auto) Eos % (Auto) Baso % (Auto) Lymph # (Auto) Mcintosh # (Auto) Eos # (Auto) Baso # (Auto) Abs Immat Gran (auto) Absolute Neuts (auto) Absolute Nucleated RBC Nucleated RBC % (auto) PT INR Anion Gap Estim Creat Clear Calc Estimated GFR POC Glucose Random Glucose Calcium Magnesium Total Bilirubin Direct Bilirubin AST ALT Alkaline Phosphatase Troponin I High Sens Total Protein Albumin Urine Color Yellow Urine Appearance Clear Urine pH 7.5 Ur Specific [place] 1.010 Urine Protein Negative Urine Glucose (UA) Negative Urine Ketones Negative Urine Blood Negative Urine Nitrite Negative Ur Leukocyte Esterase Negative COVID-19 ([facility]) COVID-19 Clin Com Imaging Radiologist's Impressions: Impressions Head CT 09/21/22 15:25 IMPRESSION: No acute intracranial process seen. Left occipital lobe encephalomalacia from old insult or surgery. Left posterior parietal lobe craniotomy with encephalomalacia tract from and colostomy. Extensive white matter changes most prominent in the right frontal lobe and left posterior parietal lobe. These are unchanged to previous exam 08/18/2014 This critical result was discussed with Dr. Brooks Hugo at 3:45 PM on 09/21/2022. It was ascertained that the content and urgency of the report was understood at the time of direct communication. Head/Neck CTA 09/21/22 15:44 IMPRESSION: CT HEAD: No intracranial hemorrhage or large acute infarction. Multiple chronic infarcts are seen in the cerebral hemispheres, cerebellar hemispheres, and gerson. Background changes of moderate chronic microangiopathy. CTA NECK: 1. 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 However, the more superior V2 through V3 segments are occluded. Left vertebral artery is patent. 2. Atheromatous changes at the bilateral carotid bifurcations resulting in 60% stenosis of the proximal right internal carotid artery and 50% stenosis of the proximal left internal carotid artery. CTA HEAD: 1. No large vessel occlusion. Focal moderate to severe stenosis of the proximal right P2 SCCM ADMINISTRATOR segment. 2. Moderate stenosis of the left M2 segment in the mid Sylvian fissure. Assessment and Plan (1) Cerebrovascular accident: Status: Acute Plan 76-year-old female with history of coronary artery disease s/p CABG, COPD, HFrEF of 15-20%, s/p resection of left ventricular aneurysm in 2005, history of sustained V-tach with AICD in place, history of colon cancer s/p ileostomy, hypertension, dyslipidemia, history of cavernous hemangioma of the occipital lobe s/p resection, hypoparathyroidism, hypothyroidism, history CVA, depression/anxiety, osteoarthritis of multiple joints on chronic opioids to be observed for TIA vs CVA. #TIA vs acute CVA -dysarthria resolved. Still with left-sided facial droop. No other focal weakness/paresthesias -head CT without acute intracranial abnormality. CTA head/neck with moderate to severe right-sided carotid stenosis and moderate left carotid stenosis -no endarterectomy per vascular surgery -neurology consulted -given 325 mg aspirin in the ED. Continue baby aspirin daily -initiate atorvastatin 80 mg nightly (historically has gotten rash from statins but no anaphylaxis, agrees to Benadryl if she develops rash) -passed nursing swallow eval. Speech consult placed -PT/OT -echocardiogram ordered -MRI brain ordered -admit to telemetry #CAD/HLD -continue asa, bb, initiate statin, isosorbide -Follows with Dr. Novoa at [facility] #HFrEF- no acute exacerbation -continue Lasix, Entresto #Sustained VTach -AICD in place -Continue digoxin #COPD- without acute exacerbation -continue Flovent -albuterol p.r.n. # osteoarthritis/opioid dependence -continue morphine # hypothyroidism -continue levothyroxine Do not intubate per patient DVT prophylaxis-Lovenox Time Spent With Patient Time: Total time managing care of this patient today ____ minutes. Quality Stroke Does the patient have a stroke diagnosis?: Yes Reason for No Anti-thrombotic by Day Two: Not indicated VTE Prior VTE?: No VTE Risk Level:: Medical - moderate - high VTE Device Contraindication: Treatment Not Indicated VTE Drug Contraindication: N/A - Med Ordered
[2022-09-21 20:33] LABS: Cholesterol 215 mg/dL; HDL Cholesterol 41 mg/dL; LDL Cholesterol Calculated 121 mg/dl; Triglycerides 267 mg/dL
[2022-09-21 21:04] VITALS: BP 128/73; PULSE 80; RESP 12; TEMP 36.8; O2SAT 98
[2022-09-21] MEDS: Sodium Bicarbonate 650 MG TABLET PO (21:12)
[2022-09-21] MEDS: Magnesium Oxide 400 MG TABLET PO (21:13)
[2022-09-21] MEDS: Morphine Sulfate ER 30 MG TABLET.ER PO (21:13)
[2022-09-21] MEDS: Atorvastatin Calcium 80 MG TABLET PO (21:13)
[2022-09-21] MEDS: Omeprazole 20 MG CAPSULE.DR PO (21:26)
[2022-09-21] MEDS: Sucralfate 1 GM TABLET PO (21:26)
[2022-09-21] MEDS: Sacubitril/Valsartan 97/103 1 TAB TABLET PO (21:27)
--- NOTE | 2022-09-21 21:35 | PC.NURSE ---
Pt refused Lovenox due to allergy to Heparin in the past. Hospitalist made aware.
--- NOTE | 2022-09-21 21:39 | PC.NURSE ---
Pt refused carvedilol. Pt stated that she takes this med BID but she normally takes it once in the morning and again around 1400. Pt had already taken second dose of carvedilol at home this afternoon.
--- NOTE | 2022-09-21 22:49 | MHC.CM.PN ---
MIA 09/21. Met with Lina mcgovern&Ox4 woman, who lives with her daughter. Pt has an extensive medical hx. HCP on file. HCP/daughter Stephanie Wells ([phone]). PCP Luis Alberto Bridges. GRIS on file. Full Code. [facility]. 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 Uses home Oxygen at 2L from [employer]. Has a nebulizer and a rollator walker. J&J, Pfizer x4. D/C plan: Home without services. Daughter will transport home. CM following for d/c needs.
[2022-09-22] VITALS (10 sets, daily range): BP systolic 109–163; BP diastolic 53–73; PULSE 75–92; RESP 16–20; TEMP 36.3–37.1; O2SAT 94–100; BMI 21.5
--- NOTE | 2022-09-22 01:03 | PC.NURSE ---
Nurse to nurse report called to [facility], spoke to JOANA Taylor patient to be transported to to [facility] bed [id number] in a stretcher bed, on continuous rn cardiac, and supplemental O2 at 2 LPM NC.
[2022-09-22] MEDS: Levothyroxine Sodium 25 MCG TABLET 37.5 MCG PO (05:53)
[2022-09-22 06:14] LABS: MANUAL DIFF FLAG NO
[2022-09-22 06:17] LABS: Basophils Percent Auto 0.3 % (0-2); Eosinophils Absolute Auto 0.2 X10*3/uL (0.0-0.4); Eosinophils Percent Auto 2.1 % (0-4); Hematocrit 35.7 % (37.0-47.0); Hemoglobin 11.7 g/dl (12.0-16.0); Imm Gran Abs Auto 0.04 X10*3/uL (0.00-0.03); Imm Gran Pct Auto 0.4 % (0.0-0.4); Lymphocytes Absolute Auto 1.3 X10*3/uL (1.2-4.9); Mean Corpuscular HGB Conc 32.8 g/dl (31.0-35.0); Mean Corpuscular Hemoglobin 28.5 pg (27.0-33.0); Mean Corpuscular Volume 87.1 fL (80.0-98.0); Monocytes Absolute Auto 0.7 X10*3/uL (0.1-1.2); Monocytes Percent Auto 6.2 % (2-11); Neutrophils Absolute Auto 8.4 x10*3/uL (2.0-8.3); Platelet Count 151 X10*3/uL (160-400); Red Cell Distribution Width 13.5 % (11.0-16.0); White Blood Count 10.6 X10*3/uL (4.8-10.8)
[2022-09-22 06:33] LABS: Anion Gap 14 (12-20); Blood Urea Nitrogen 13 mg/dL (9-16); Carbon Dioxide 33 mmol/L (22-29); Chloride 99 mmol/L (96-108); Creatinine Clr Calc Pharmacy 44.4; Estimated Glomerular Filt Rate 54; Glucose Random 110 mg/dL (60-115); Potassium 4.1 mmol/L (3.3-5.1); Sodium 142 mmol/L (135-145)
--- NOTE | 2022-09-22 07:00 | CA_ITS ---
Transthoracic Echocardiogram Patient (Last, First, Middle): Marilu Whaley, Gender: Female Date of : 1945 Age: 76 Procedure Date: 09/22/2022 Procedure Type: Transthoracic Echocardiogram [place] [facility] [place]: 165.1 cm Weight: 58.51 kg BSA: 1.64 m2 Heart Rate: bpm BP: 141 / 60 mmHg Warehouse Lead: MIGUEL Referring MD: Ronald Corea MD Symptoms: tia Study Quality: Fair, contrast Conclusions: - The left ventricular systolic function is severely decreased. The visually estimated ejection fraction is between 25-30%. - The apical inferior, basal inferior, apical septum, and basal inferolateral segments are akinetic. - The mid inferolateral segment is aneurysmal. - There is mildly decreased right ventricular systolic function. - There is moderate mitral valve regurgitation. Findings Procedure Information Contrast agent, definity, is being given per protocol without apparent complications. Left Ventricle Moderately increased left ventricular cavity size. The left ventricular systolic function is severely decreased. The visually estimated ejection fraction is between 25-30%. There is evidence of regional wall motion abnormalities. Diastolic function is indeterminate on the basis of available data. There is moderate septal asymmetric hypertrophy. Wall Motion Rest Echo Findings The apical inferior, basal inferior, apical septum, and basal inferolateral segments are akinetic. The mid inferolateral segment is aneurysmal. Right Ventricle Normal right ventricular cavity size. There is mildly decreased right ventricular systolic function. There is an ICD wire seen in the right ventricle. Atria The left atrium is moderately dilated. The right atrium is normal in size. Aortic Valve There is a normal trileaflet aortic valve. There is mild calcification of the aortic valve. There is no aortic valve stenosis. There is trace (trivial) aortic valve regurgitation. Mitral Valve There is moderate mitral valve regurgitation. There is no mitral valve stenosis. Mitral annuloplasty ring. Mean gradient across the mitral valve 3mmHg. Pulmonic Valve The pulmonic valve is likely normal. Tricuspid Valve Normal tricuspid valve structure. There is trace tricuspid valve regurgitation. There is no evidence of pulmonary hypertension. Great Vessels The asc aorta is normal in size. Small plaque is seen in the sino tubular ridge. Venous The inferior vena cava is normal in size and collapses greater than 50% with inspiration. Pericardium/Pleural There is no evidence of pericardial effusion. Prior Study Comparison Changes noted compared to prior study dated: 01/09/2019. Inferolateral wall appearing aneurysmal. Measurements 2D Linear Measurements IVSd: 1.40 0.6-0.9/0.6-1.0 cm LVIDd: 5.80 3.9-5.3/4.2-5.9 cm LVIDd Index: 3.54 2.4-3.2/2.2-3.1 cm/m2 LVIDs: 4.60 2.0-3.6 cm LVPWd: 1.01 0.7-1.1 cm LA Diam: 3.50 2.7-3.8/3.0-4.0 cm LAIDs Index: 2.13 1.5-2.3 cm/m2 LV Mass: 372.61 67-162/88-224 g LV Mass Index: 227.20 43-95/49-115 g/m2 LVOT Diam: 2.00 3.0+(-)1.3 cm 2D Systolic Function EF 4C: 41.60 >55% EF 2C: 36.30 >55% EF BiP: 38.60 >55% Mitral Valve MV VTI: 0.32 MV Pk Josep: 1.24 MV Mn Josep: 0.91 MV Pk Grad: 6.00 MV Mn Grad: 3.00 MV Pk E: 1.03 MV PK A: 1.13 MV Decel Time: 251.00 E/A: 0.90 E'Lateral: 3.68 E'Medial: 3.45 E/E' Med: 29.90 E/E' Lat: 28.00 PHT: 73.00 MVA PHT: 3.01 MVA Continuity: 1.87 Decel [place]: 4.10 MR VTI: 1.56 Aortic Valve AoV Pk Josep: 1.23 AoV Mn Josep: 0.98 AoV VTI: 0.25 AoV Pk Grad: 6.00 Aov Mn Grad: 4.00 STORMY Cont.VTI: 2.45 AI Pk Josep: 3.61 AI [place]: 2.31 LVOT LVOT Pk Josep: 0.87 LVOT Mn Josep: 0.66 LVOT VTI: 0.19 LVOT Pk Grad: 3.00 LVOT Mn Grad: 2.00 LVOT Diam: 2.00 LVOT Area: 3.14 Diastolic Function MV Pk E: 1.03 MV Pk A: 1.13 E/A: 0.90 E'Medial: 3.45 E/E' Med: 29.90 E' Laterial: 3.68 E/E' Lat: 28.00 Right Ventricle TAPSE (mm): 14.60 TVS' Josep: 7.95 Tricuspid Valve TR Pk Josep: 1.59 TR Pk Grad: 10.00 RA Press: 3.00 RVSP: 13.00 Great Vessels Aorta Sinus of Valsalva: 3.69 2.0-3.[address] [place]: 2.60 1.7-3.4 cm Ao Asc: 3.80 2.1-3.4 cm Updated in Other Vendor System with Status of Final Lawson Cho MD electronically signed on 09/23/2022 12:26:29 PM with status of Final
[2022-09-22] MEDS: Magnesium Oxide 400 MG TABLET PO ×2 (07:46→20:57)
[2022-09-22] MEDS: Sodium Bicarbonate 650 MG TABLET PO ×2 (07:46→20:58)
[2022-09-22] MEDS: Sucralfate 1 GM TABLET PO ×4 (07:47→20:58)
[2022-09-22] MEDS: Sacubitril/Valsartan 97/103 1 TAB TABLET PO ×2 (07:47→20:58)
[2022-09-22] MEDS: carvediloL 6.25 MG TABLET PO ×2 (07:47→20:57)
[2022-09-22] MEDS: Isosorbide Mononitrate 30 MG TAB.ER.24H 90 MG PO (07:47)
[2022-09-22] MEDS: Morphine Sulfate ER 30 MG TABLET.ER PO ×3 (07:48→20:57)
[2022-09-22] MEDS: Furosemide 40 MG TABLET 80 MG PO (07:49)
[2022-09-22] MEDS: Cinacalcet HCl 30 MG TABLET PO (07:50)
[2022-09-22] MEDS: Aspirin Enteric Coated 81 MG TABLET.DR PO (07:50)
[2022-09-22] MEDS: Fluticasone Propionate 250 MCG BLST.W.DEV 1 PUFF INHALE ×2 (08:03→19:12)
--- NOTE | 2022-09-22 08:30 | PC.NURSE ---
At 0827, pt had 5 beats of PVCs. Pt was asymptomatic. notified, cont monitoring
--- NOTE | 2022-09-22 09:31 | P.CNNE_ITS ---
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 By the time EMS arrived, dysarthria had resolved though facial droop has persisted. She is on aspirin 81mg daily but is no longer on a statin as she has experienced rashes in the past. Vascular surgery with no need for immediate intervention.? Patient has a vascular surgeon outpatient that she will follow with.Head CT shows no acute intracranial process but did show extensive white matter changes most prominent the right frontal lobe and left posterior parietal lobe unchanged from prior exam.? CTA of the head and neck did not reveal any large vessel occlusion does show focal moderate to severe stenosis of the proximal right P2 COURSE DEVELOPER segment and moderate stenosis of the left M2 segment in the mid sylvian fissure. Review of Systems Review of Systems: General: No fevers, malaise, unintentional weight loss HEENT: No blurred vision, diplopia. Cardiovascular: No chest pain, palpitations, or leg edema Respiratory: No shortness of breath, wheezing, cough GI: No abdominal pain, nausea, vomiting, diarrhea, constipation, melena, hematochezia : No dysuria, hematuria, increased urinary frequency, decreased urinary output MSK: No myalgia, back pain Neuro: +dysarthria, + left-sided facial droop. No headaches, weakness, paresthesias Skin: No rashes or lesions PMFSH Past Medical History Medical History CAD (coronary artery disease) Carotid artery stenosis Cavernous hemangioma Cerebrovascular accident CHF (congestive heart failure) Former smoker History of colon cancer History of sustained ventricular tachycardia HLD (hyperlipidemia) HTN (hypertension) Hypoparathyroidism Hypothyroidism Opioid dependence Osteoarthritis Surgical History Surgical History AICD (automatic cardioverter/defibrillator) present S/P aneurysm repair S/P CABG (coronary artery bypass graft) S/P ileostomy Social History Social History Household Members: Family Household Members Other:: Daughter Housing: Condominium Do you presently have visiting nurse or other home services: Yes (home health aides 5 days a week, 2 hours a day) Alcohol intake: never Patient Tobacco Use Status: Never used Tobacco Smoked in Last 30 Days: No Use of substances other than those prescribed or required for medical reasons: No Have you been hit, kicked, punched, or otherwise hurt by someone within the past year? If so, by whom?: No Do you feel safe in your current relationship?: No Current Relationship Is there a partner from a previous relationship who is making you feel unsafe now?: No Are you made to feel afraid or neglected: No Spiritual Healthcare Practices: Rastafari Advance Directives: No Advance Directives Information Provided: Yes Do you have thoughts of harming others: None Do you have a plan to hurt others: No Plan Recently lost weight without trying: No Nutrition Risks: No Nutritional Risk Patient : No : No Poor oral hygiene: No service: No Current occupational status: retired [employer] Allergies Allergy/AdvReac Type Severity Reaction Status Date / Time latex [LATEX] Allergy Severe ANAPHYLAXIS Verified 09/22/22 01:58 Sulfa (Sulfonamide Allergy Severe ANAPHYLAXIS Verified 09/22/22 01:58 Antibiotics) [SULFA (SULFONAMIDE ANTIBIOTICS)] walnut Allergy Severe ANAPHYLAXIS Verified 09/22/22 01:58 heparin [HEPARIN] Allergy Intermediate HIVES Verified 09/22/22 01:58 prednisone [PREDNISONE] Allergy Unknown UNKNOWN Verified 09/22/22 01:58 Active Medications: Current Medications Acetaminophen (Acetaminophen 325 Mg Tablet) 650 mg PO Q6H PRN PRN Reason: Pain, Mild (Pain Scale 1-3) Aspirin (Aspirin Enteric Coated 81 Mg Tablet.) 81 mg PO DAILY [facility] Last Admin: 09/22/22 07:50 Dose: 81 mg Carvedilol (Carvedilol 6.25 Mg Tablet) 6.25 mg PO BID [facility]; Protocol Last Admin: 09/22/22 07:47 Dose: 6.25 mg Cinacalcet (Cinacalcet Hcl 30 Mg Tablet) 30 mg PO DAILY [facility] Last Admin: 09/22/22 07:50 Dose: 30 mg Digoxin (Digoxin 0.125 Mg Tablet) 0.125 mg PO MOWEFR@0900 [facility] Fluticasone Propionate (Fluticasone Propionate 250 Mcg Blst.W.Dev) 1 puff INHALE RBID [facility] Last Admin: 09/22/22 08:03 Dose: 1 puff Furosemide (Furosemide 40 Mg Tablet) 40 mg PO DAILY@1700 [facility]; Protocol Furosemide (Furosemide 40 Mg Tablet) 80 mg PO DAILY [facility]; Protocol Last Admin: 09/22/22 07:49 Dose: 80 mg Isosorbide Mononitrate (Isosorbide Mononitrate 30 Mg Tab.Er.24h) 90 mg PO DAILY [facility]; Protocol Last Admin: 09/22/22 07:47 Dose: 90 mg Levothyroxine Sodium (Levothyroxine Sodium 25 Mcg Tablet) 37.5 mcg PO DAILY@0630 [facility] Last Admin: 09/22/22 05:53 Dose: 37.5 mcg Magnesium Oxide (Magnesium Oxide 400 Mg Tablet) 400 mg PO BID [facility] Last Admin: 09/22/22 07:46 Dose: 400 mg Morphine Sulfate (Morphine Sulfate Er 30 Mg Tablet.Er) 30 mg PO TID [facility] Last Admin: 09/22/22 07:48 Dose: 30 mg Omeprazole (Omeprazole 20 Mg Capsule.Dr) 20 mg PO BID@0630,1630 [facility] Last Admin: 09/22/22 06:00 Dose: Not Given Ondansetron HCl (Ondansetron Hcl 4 Mg/2 Ml Vial) 4 mg IVPUSH Q8H PRN PRN Reason: Nausea and Vomiting Pharmacy Consult (Consult Rx Perform Med Rec) 1 each MISCELLANE ONCE PRN PRN Reason: Consult order Sacubitril/Valsartan (Sacubitril/Valsartan 97/103 1 Tab Tablet) 1 tab PO BID [facility]; Protocol Last Admin: 09/22/22 07:47 Dose: 1 tab Sodium Bicarbonate (Sodium Bicarbonate 650 Mg Tablet) 650 mg PO BID [facility] Last Admin: 09/22/22 07:46 Dose: 650 mg Sucralfate (Sucralfate 1 Gm Tablet) 1 gm PO QID [facility] Last Admin: 09/22/22 07:47 Dose: 1 gm Home Medications Medication Instructions Recorded Confirmed Last Taken Type albuterol sulfate 90 mcg/actuation 2 puff inhalation Q4H PRN 09/21/22 09/21/22 Unknown History aerosol inhaler (Ventolin HFA) Shortness Of Breath carvedilol 6.25 mg tablet 1 tab PO BID 09/21/22 09/21/22 09/21/22 History cinacalcet 30 mg tablet 1 tab PO DAILY 09/21/22 09/21/22 09/21/22 History digoxin 125 mcg (0.125 mg) tablet 0.125 mg PO MOWEFR@0900 09/21/22 09/21/22 09/21/22 History fluticasone propionate 250 1 puff inhalation BID 09/21/22 09/21/22 09/21/22 History mcg/actuation blister powder for inhalation (Flovent Diskus) furosemide 80 mg tablet 40 mg PO DAILY@1700 09/21/22 09/21/22 09/20/22 History furosemide 80 mg tablet 80 mg PO DAILY 09/21/22 09/21/22 09/21/22 History isosorbide mononitrate 60 mg 90 mg PO DAILY 09/21/22 09/21/22 09/21/22 History tablet,extended release 24 hr levothyroxine 25 mcg tablet 37.5 mcg PO DAILY 09/21/22 09/21/22 09/21/22 History magnesium oxide 400 mg (241.3 mg 1 tab PO BID 09/21/22 09/21/22 09/21/22 History magnesium) tablet morphine 30 mg tablet,extended 1 tab PO TID 09/21/22 09/21/22 09/21/22 History release nitroglycerin 400 mcg/spray 1 - 2 spray sublingual Q5M PRN 09/21/22 09/21/22 Unknown History translingual PALPATATIONS omeprazole 20 mg capsule,delayed 20 mg PO BID 09/21/22 09/21/22 09/21/22 History release sacubitril 97 mg-valsartan 103 mg 1 tab PO BID 09/21/22 09/21/22 09/21/22 History tablet (Entresto) sodium bicarbonate 650 mg tablet 1 tab PO BID 09/21/22 09/21/22 09/21/22 History sucralfate 1 gram tablet 1 tab PO QID 09/21/22 09/21/22 09/21/22 History Physical Exam Vital Signs: Vital Signs: Last Vital Signs Temp 97.4 F 09/22/22 07:31 Pulse 84 09/22/22 08:15 Resp 20 09/22/22 08:05 BP 141/60 H 09/22/22 07:31 Pulse Ox 94 09/22/22 07:31 O2 Del Method 09/22/22 07:31 O2 Flow Rate 2 09/22/22 07:31 BMI result Body Mass Index 21.5 Const: Other: Appearance: Alert. Oriented X3. No acute distress. Eyes: Pupils equal, round and reactive to light. ENT: Pharynx normal. Neck: Normal inspection. Neck supple. No lymph nodes noted. No crepitus CVS: Normal heart rate and rhythm. Pulses normal. Normal S1 and S2 Respiratory: No respiratory distress. Breath sounds normal. No Wheezing. No rales Abdomen: Soft and nontender. No rigidity. No distention. Skin: Skin warm and dry. Normal skin color. Normal skin turgor. Extremities: No lower extremity edema. No Lacerations. No Rash Neuro: Oriented X 3. Patient has left-sided mouth droop, for a 5 strength in left upper extremity, 5/5 in right upper extremity, 5/5 strength i in bilateral lower extremities. Patient speaking in full sentences, no dysarthria, barely noticeable slurred speech Psych: calm, cooperative, normal affect Neuro: Other: No dysarthria. slight left angle of mouth droop but no other facial weakness. Visual jain are full. 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 Results Labs 09/22/22 05:38 09/22/22 05:38 Labs: Short CBC 09/21/22 09/22/22 Range/Units 16:03 05:38 WBC 10.5 10.6 (4.8-10.8) X10*3/uL Hgb 11.9 L 11.7 L (12.0-16.0) g/dl Hct 36.1 L 35.7 L (37.0-47.0) % Plt Count 165 151 L (160-400) X10*3/uL BMP 09/21/22 09/22/22 16:03 05:38 Sodium 136 142 Potassium 3.7 4.1 Chloride 98 99 Carbon Dioxide 28 33 H BUN 15 13 Creatinine 1.00 1.00 Calcium 9.2 10.0 D Liver Function 09/21/22 Range/Units 16:03 Total Bilirubin 0.5 (0.0-1.0) mg/dL Direct Bilirubin 0.2 (0.0-0.5) mg/dL AST 17 (5-31) U/L ALT 9 (0-31) U/L Alkaline Phosphatase 100 (39-117) U/L Albumin 4.0 (3.5-5.0) g/dL Urine 09/21/22 Range/Units 16:10 Urine Color Yellow Urine Appearance Clear Urine pH 7.5 (5.0-9.0) Ur Specific [place] 1.010 (1.005-1.025) Urine Protein Negative (Neg-Trace) mg/dL Urine Glucose (UA) Negative (Negative) mg/dL Assessment and Plan (1) Cerebrovascular accident: Status: Acute New small vessel right hemisphere stroke. Unable to get MRI because of defibrillator. Recommendation. She is not a candidate for vascular intervention. Start Plavix 75 mg in addition to ASA 81mg. Review list of her allergies with statins and see if one of them can be started. Reports itching rash previously to some of them. PT/OT. Time Spent With Patient Time: Total time managing care of this patient today ____ minutes. Procedures Date of Service Date of Service: 09/22/22
--- NOTE | 2022-09-22 10:56 | MHC.CM.PN ---
pt now inpatient imm on chart
--- NOTE | 2022-09-22 11:25 | MHC.SP.ADU ---
Referring provider: Loranie Moore NP Reason for Referral: Assess speech and langauge, s/p TIA V. CVA Type of Treatment: Date of Plan of Treatment: 09/22/22 Onset of Symptoms/Illness: 09/21/23 Date Treatment Started: 09/22/22 Medical Diagnosis: TIA v. Acute CVA Primary Speech Language Diagnosis: R47.1 Dysarthria Secondary Speech Language Diagnosis: History Patient is a 76 year old woman who lives with her daughter. Patient was at home when she suddenly began to have garbled speech, L Facial droop, daughter called EMS who brought her to the ED. In ED, most of patients issues with slurred/garbled speech had resolved. CT of heat completed 09/21 indicated no acute findings. 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 Patient reported that at baseline, she is on 2L O2. Patient passed nurses' swallow screening, is on and has been tolerating regular food with thin liquids. Patient reported very occasional difficulty swallowing at baseline (coughing occasionally on liquids). Medical History: Cancer: other Cardiovascular Disease High Blood Pressure Stroke Thyroid Issues Other: s/p CABG, HfEP of 15-20, s/p resection of L ventricular aneurysm (2005), Colon CA s/p ileostomy, HLD, Hypoparathyroidism Hypothyroidism, Depression/Anxiety, osteoarthritis of multiple joints. Medication List: See chart Recent Hospitalizations: No Respiratory Needs: Nasal Cannula Patient Orientation: Alert & Oriented x 4 Social History: Employment Status: Retired Highest level of education obtained: Completed Bachelor's Current Living Situation: Lives in private home with daughter. Assistive Devices in use: Glasses/Contacts Comment: Past Speech Language Therapy: None Other Therapies Seen in Current Calendar Year: None Other: Swallowing History: Dysphagia Specific: Within Functional Limits Comments: Patient passed nursing swallowing screening. Full bedside swallow was not requested for this patient, patient was observed taking sips of water with timely swallow noted, no evidence of signs of aspiration. Pre-eval Risk for Aspiration: Pre-evaluation Dietary Consistencies: Regular Pre-eval Liquid Intake: Thin Pre-eval Medication Intake: Whole with Liquid Reported Speech, Language, Cognition difficulties: Not Applicable Comments: Patient had episode of difficulty with speech (slurred, garbled) at onset of her symptoms, but they are now largely resolved. Quality of Life: Excellent Patient Stated Goal of Speech-Language Therapy: Assess speech and language Assessment Speech Production: Within Functional Limits Clinical Impression: Intact Observations: Patient evidences clear speech with appropriate intonation and prosody. On close observation, patient had very mild difficulty with production of multisyllabic words (mild slurring), with patient reporting some mild lingual heaviness. As most of patient's speech issues have resolved since yesterday, it is likely this mild residual issue will also resolve. Informal Voice Assessment: Voice Loudness: Normal Voice Nasal Resonance: Normal Voice Oral Resonance: Normal Voice Phonatory-based Quality: Normal Voice Pitch: Normal Voice Other Observations: Reverse Phonation Clinical Impression: Intact Clinicial Observations: Tests of Speech & Lang Adults: BNT Clinical Impression: Intact Observations: Patient was administered the [place] Naming Test, Short Version, in its entirety, evidencing 100% accuracy on all tasks, including confrontation naming, word finding, concrete and abstract comprehension tasks, conversational and narrative verbal expression, basic reading and writing tasks. All aspects of language are WFL. During testing, patient evidenced and noted some mild issues with her L visual field, including noting some gold flashes in L eye. Tests of Cognition: Clinical Impression: Observations: Augmentative and Alternative Communication: Observations: Impressions and Recommendations Summary: Impact on Daily Function/Activity Limitations: Daily Activities: None Interpersonal Interactions: None Education: None Employment: None Community: None Prognosis for Improvement: Excellent Comment: All aspects of language are WFL. All aspects of speech are also WFL, with the exception of mild difficulty producing multisyllabic words. As all other aspects of speech difficulty quickly resolved, prognosis for spontaneous resolution of mild residual speech issues is also very likely. Recommendation for Speech Therapy: NA:Typical Evaluation Frequency/Duration: Discharge from speech as all aspects are WFL. 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
--- NOTE | 2022-09-22 12:39 | HO.PM.IMPN ---
Subjective Subjective Date of Service: 09/22/22 Interval History: stroke with dysarthria and facial droop Review of Systems Denies any chest pain or shortness of breath Speech seems to be improving Physical Exam Vital Signs: Vital Signs: Last Vital Signs Temp 98.0 F 09/22/22 10:59 Pulse 82 09/22/22 10:59 Resp 16 09/22/22 10:59 BP 114/59 L 09/22/22 10:59 Pulse Ox 98 09/22/22 10:59 O2 Del Method 09/22/22 10:59 O2 Flow Rate 2 09/22/22 07:31 BMI result Body Mass Index 21.5 Appearance: Alert.? Oriented X3.? not in distress.? cvs: rrr, [id number] . res: clear to auscultation ,no rhonchii or wheezing abd: no rebound or guarding ,nt, bs present. ext pulses present , no cyanosis ,Gait well balanced well coordinated. neuro: axo3 , left-sided mouth droop, for a 5 strength in left upper extremity, 5/5 in right upper extremity, 5/5 strength i in bilateral lower extremities.? Patient speaking in full sentences, no dysarthria, barely noticeable slurred speech Objective Data Active Medications Acetaminophen (Acetaminophen 325 Mg Tablet) 650 mg PO Q6H PRN PRN Reason: Pain, Mild (Pain Scale 1-3) Aspirin (Aspirin Enteric Coated 81 Mg Tablet.) 81 mg PO DAILY [facility] Last Admin: 09/22/22 07:50 Dose: 81 mg Documented By: BERTA Carvedilol (Carvedilol 6.25 Mg Tablet) 6.25 mg PO BID [facility]; Protocol Last Admin: 09/22/22 07:47 Dose: 6.25 mg Documented By: BERTA Cinacalcet (Cinacalcet Hcl 30 Mg Tablet) 30 mg PO DAILY [facility] Last Admin: 09/22/22 07:50 Dose: 30 mg Documented By: BERTA Clopidogrel Bisulfate (Clopidogrel Bisulfate 75 Mg Tablet) 75 mg PO DAILY [facility] Digoxin (Digoxin 0.125 Mg Tablet) 0.125 mg PO MOWEFR@0900 [facility] Fluticasone Propionate (Fluticasone Propionate 250 Mcg Blst.W.Dev) 1 puff INHALE RBID [facility] Last Admin: 09/22/22 08:03 Dose: 1 puff Documented By: TRACEY Furosemide (Furosemide 40 Mg Tablet) 40 mg PO DAILY@1700 [facility]; Protocol Furosemide (Furosemide 40 Mg Tablet) 80 mg PO DAILY [facility]; Protocol Last Admin: 09/22/22 07:49 Dose: 80 mg Documented By: BERTA Isosorbide Mononitrate (Isosorbide Mononitrate 30 Mg Tab.Er.24h) 90 mg PO DAILY [facility]; Protocol Last Admin: 09/22/22 07:47 Dose: 90 mg Documented By: BERTA Levothyroxine Sodium (Levothyroxine Sodium 25 Mcg Tablet) 37.5 mcg PO DAILY@0630 [facility] Last Admin: 09/22/22 05:53 Dose: 37.5 mcg Documented By: BERNARD Magnesium Oxide (Magnesium Oxide 400 Mg Tablet) 400 mg PO BID [facility] Last Admin: 09/22/22 07:46 Dose: 400 mg Documented By: BERTA Morphine Sulfate (Morphine Sulfate Er 30 Mg Tablet.Er) 30 mg PO TID [facility] Last Admin: 09/22/22 07:48 Dose: 30 mg Documented By: BERTA Omeprazole (Omeprazole 20 Mg Capsule.Dr) 20 mg PO BID@0630,1630 [facility] Last Admin: 09/22/22 06:00 Dose: Not Given Documented By: BERNARD Non-Admin Reason: ytoo soon Ondansetron HCl (Ondansetron Hcl 4 Mg/2 Ml Vial) 4 mg IVPUSH Q8H PRN PRN Reason: Nausea and Vomiting Pharmacy Consult (Consult Rx Perform Med Rec) 1 each MISCELLANE ONCE PRN PRN Reason: Consult order Sacubitril/Valsartan (Sacubitril/Valsartan 97/103 1 Tab Tablet) 1 tab PO BID [facility]; Protocol Last Admin: 09/22/22 07:47 Dose: 1 tab Documented By: BERTA Sodium Bicarbonate (Sodium Bicarbonate 650 Mg Tablet) 650 mg PO BID [facility] Last Admin: 09/22/22 07:46 Dose: 650 mg Documented By: BERTA Sucralfate (Sucralfate 1 Gm Tablet) 1 gm PO QID [facility] Last Admin: 09/22/22 07:47 Dose: 1 gm Documented By: HO.PHANLYM Labs 09/22/22 05:38 09/22/22 05:38 Labs: Laboratory Results - last 24 hr 09/21/22 09/21/22 09/21/22 15:50 16:03 16:03 MCV 86.8 MCH 28.6 MCHC 33.0 RDW 13.4 Plt Count 165 MPV 10.8 Immature Gran % (Auto) 0.4 Neut % (Auto) 82.7 H Lymph % (Auto) 9.6 L Candler % (Auto) 5.4 Eos % (Auto) 1.7 Baso % (Auto) 0.2 Lymph # (Auto) 1.0 L Candler # (Auto) 0.6 Eos # (Auto) 0.2 Baso # (Auto) 0.0 Abs Immat Gran (auto) 0.04 H Absolute Neuts (auto) 8.7 H Absolute Nucleated RBC 0.000 Nucleated RBC % (auto) 0.0 PT INR Anion Gap 14 Estim Creat Clear Calc 44.4 Estimated GFR 54 POC Glucose 152 H Random Glucose 173 H Calcium 9.2 Magnesium 1.8 Total Bilirubin 0.5 Direct Bilirubin 0.2 AST 17 ALT 9 Alkaline Phosphatase 100 Troponin I High Sens Total Protein 6.6 Albumin 4.0 Triglycerides 267 Cholesterol 215 LDL Cholesterol, Calc 121 HDL Cholesterol 41 Urine Color Urine Appearance Urine pH Ur Specific Grants Urine Protein Urine Glucose (UA) Urine Ketones Urine Blood Urine Nitrite Ur Leukocyte Esterase COVID-19 ([facility]) COVID-19 Clin Com 09/21/22 09/21/22 09/21/22 16:03 16:03 16:03 MCV MCH MCHC RDW Plt Count MPV Immature Gran % (Auto) Neut % (Auto) Lymph % (Auto) Candler % (Auto) Eos % (Auto) Baso % (Auto) Lymph # (Auto) Candler # (Auto) Eos # (Auto) Baso # (Auto) Abs Immat Gran (auto) Absolute Neuts (auto) Absolute Nucleated RBC Nucleated RBC % (auto) PT 11.8 INR 1.0 Anion Gap Estim Creat Clear Calc Estimated GFR POC Glucose Random Glucose Calcium Magnesium Total Bilirubin Direct Bilirubin AST ALT Alkaline Phosphatase Troponin I High Sens 6.8 Total Protein Albumin Triglycerides Cholesterol LDL Cholesterol, Calc HDL Cholesterol Urine Color Urine Appearance Urine pH Ur Specific Grants Urine Protein Urine Glucose (UA) Urine Ketones Urine Blood Urine Nitrite Ur Leukocyte Esterase COVID-19 ([facility]) Negative COVID-19 Clin Com See Note 09/21/22 09/22/22 09/22/22 16:10 05:38 05:38 MCV 87.1 MCH 28.5 MCHC 32.8 RDW 13.5 Plt Count 151 L MPV 11.0 Immature Gran % (Auto) 0.4 Neut % (Auto) 79.0 H Lymph % (Auto) 12.0 L Candler % (Auto) 6.2 Eos % (Auto) 2.1 Baso % (Auto) 0.3 Lymph # (Auto) 1.3 Candler # (Auto) 0.7 Eos # (Auto) 0.2 Baso # (Auto) 0.0 Abs Immat Gran (auto) 0.04 H Absolute Neuts (auto) 8.4 H Absolute Nucleated RBC 0.000 Nucleated RBC % (auto) 0.0 PT INR Anion Gap 14 Estim Creat Clear Calc 44.4 Estimated GFR 54 POC Glucose Random Glucose 110 Calcium 10.0 D Magnesium Total Bilirubin Direct Bilirubin AST ALT Alkaline Phosphatase Troponin I High Sens Total Protein Albumin Triglycerides Cholesterol LDL Cholesterol, Calc HDL Cholesterol Urine Color Yellow Urine Appearance Clear Urine pH 7.5 Ur Specific Grants 1.010 Urine Protein Negative Urine Glucose (UA) Negative Urine Ketones Negative Urine Blood Negative Urine Nitrite Negative Ur Leukocyte Esterase Negative COVID-19 ([facility]) COVID-19 Clin Com Assessment and Plan (1) Cerebrovascular accident: Status: Acute (2) Carotid artery stenosis: Status: Acute Plan 76-year-old female with history of coronary artery disease s/p CABG, COPD, HFrEF of 15-20%, s/p resection of left ventricular aneurysm in 2005, history of sustained V-tach with AICD in place, history of colon cancer s/p ileostomy, hypertension, dyslipidemia, history of cavernous hemangioma of the occipital lobe s/p resection, hypoparathyroidism, hypothyroidism, history CVA, depression/anxiety, osteoarthritis of multiple joints on chronic opioids to be observed for TIA vs CVA. #possible New small vessel right hemisphere stroke: -dysarthria resolved.? Still with left-sided facial droop.? No other focal weakness/paresthesias -head CT without acute intracranial abnormality.? CTA head/neck with moderate to severe right-sided carotid stenosis and moderate left carotid stenosis vascular -no acute intervention ,outpatient follow up for above. -passed nursing swallow eval.? Speech consult placed,PT/OT mri,echocardiogram ordered continue asa,plavix , atorvastatin 80 mg nightly (historically has gotten rash from statins but no anaphylaxis, agrees to Benadryl if she develops rash) admit to telemetry #CAD/HLD -continue asa, bb, initiate statin, isosorbide -Follows with Dr. Novoa at [facility] #HFrEF- no acute exacerbation -continue Lasix, Entresto #Sustained VTach -AICD in place -Continue digoxin #COPD- without acute exacerbation -continue Flovent -albuterol p.r.n. # osteoarthritis/opioid dependence -continue morphine # hypothyroidism -continue levothyroxine Do not intubate per patient DVT prophylaxis-Lovenox inpatient need:possible New small vessel right hemisphere stroke:neuro workup and echo pending Time Spent With Patient Time: Total time managing care of this patient today ____ minutes. Quality Stroke Does the patient have a stroke diagnosis?: Yes Reason for No Anti-thrombotic by Day Two: Not indicated VTE Prior VTE?: No VTE Risk Level:: Medical - moderate - high VTE Device Contraindication: N/A - Device Ordered VTE Drug Contraindication: Treatment Not Indicated
[2022-09-22] MEDS: Clopidogrel Bisulfate 75 MG TABLET PO (13:06)
[2022-09-22] MEDS: Omeprazole 20 MG CAPSULE.DR PO (16:30)
[2022-09-23 04:00] VITALS: BP 123/56; PULSE 80; RESP 18; TEMP 36.9; O2SAT 98
[2022-09-23] MEDS: Acetaminophen 325 MG TABLET 650 MG PO (04:04)
[2022-09-23] MEDS: Omeprazole 20 MG CAPSULE.DR PO (06:31)
[2022-09-23] MEDS: Levothyroxine Sodium 25 MCG TABLET 37.5 MCG PO (06:31)
[2022-09-23 07:20] VITALS: BP 130/63; PULSE 80; RESP 14; TEMP 35.8; O2SAT 99
[2022-09-23] MEDS: Sacubitril/Valsartan 97/103 1 TAB TABLET PO (07:29)
[2022-09-23] MEDS: Sodium Bicarbonate 650 MG TABLET PO (07:30)
[2022-09-23] MEDS: Cinacalcet HCl 30 MG TABLET PO (07:30)
[2022-09-23] MEDS: Morphine Sulfate ER 30 MG TABLET.ER PO ×2 (07:30→14:04)
[2022-09-23] MEDS: Isosorbide Mononitrate 30 MG TAB.ER.24H 90 MG PO (07:31)
[2022-09-23] MEDS: Digoxin 0.125 MG TABLET PO (07:31)
[2022-09-23] MEDS: Magnesium Oxide 400 MG TABLET PO (07:32)
[2022-09-23] MEDS: Aspirin Enteric Coated 81 MG TABLET.DR PO (07:32)
[2022-09-23] MEDS: Sucralfate 1 GM TABLET PO ×2 (07:32→14:04)
[2022-09-23] MEDS: Furosemide 40 MG TABLET 80 MG PO (07:32)
[2022-09-23] MEDS: Clopidogrel Bisulfate 75 MG TABLET PO (07:32)
[2022-09-23] MEDS: Fluticasone Propionate 250 MCG BLST.W.DEV 1 PUFF INHALE (07:40)
[2022-09-23 07:44] VITALS: PULSE 62; RESP 20; O2SAT 98
[2022-09-23] MEDS: carvediloL 6.25 MG TABLET PO (08:06)
[2022-09-23] MEDS: Atorvastatin Calcium 80 MG TABLET PO (09:19)
--- NOTE | 2022-09-23 11:11 | W.MHC.F2F ---
Service Date Service Date: 09/23/22 Encounter Date of encounter: 09/23/22 Encounter: cva Reasons for Services Signs and symptoms assessed: Monitor for any weakness or numbness or speech problems or any vision changes. Reason for long term: CV/CP assess and/or care, medication management, medication treatment and teach disease management Reason for physical therapy: home safety and mobility, therapeutic exercises, restore joint function, gait/transfer training, assess need for DME, ADL training, energy conservation and other MD Overseeing Care: Riki Bridges III Homebound: Leaving the home is medically contraindicated at this time without the asist of a device and/or another person due th the listed conditions above and below. Reason homebound: weakness related to hospital stay Homebound supporting statement: Patient came with the possible CVA , generalized weak post hospitalization-need help to go to appointments and PT at home. Certification: Based on the above findings, I certify that this patient is confined to the home and needs intermittent long term care, physical therapy and/or speech therapy, or continues to need occupational therapy. The patient is under my care, and I have initiated the establishment of the plan of care. The patient will be followed by a physician who will periodically review the plan of care. Time Spent With Patient Time: Total time managing care of this patient today ____ minutes.
--- NOTE | 2022-09-23 11:50 | MHC.CM.PN ---
pt dcd today with suzanne yi
[2022-09-23 12:00] VITALS: BP 130/58; PULSE 80; RESP 12; TEMP 36; O2SAT 97
--- NOTE | 2022-09-24 08:49 | P.DS_ITS ---
DS: Providers Provider Date of Service: 09/23/22 Date of admission: 09/22/22 10:01 Primary care physician: Riki Bridges III, MD Consults: 09/21/22 20:07 Consult to Neurology Routine Consulting Provider: [facility] Reason for consultation: TIA/CVA DS: Diagnosis Discharge Diagnosis (1) Cerebrovascular accident: Status: Acute (2) Carotid artery stenosis: Status: Acute DS: Summary Hospital Course Hospital Course: Date of service and discharge:09/23/22 76-year-old female with history of coronary artery disease s/p CABG, HFrEF of 15-20%, s/p resection of left ventricular aneurysm in 2005, history of sustained V-tach with AICD in place, history of colon cancer s/p ileostomy, hypertension, dyslipidemia, history of cavernous hemangioma of the occipital lobe s/p resection, hypoparathyroidism, hypothyroidism, history CVA, depression/anxiety, osteoarthritis of multiple joints on chronic opioids presented to the ED via EMS earlier today after developing sudden onset dysarthria with left-sided facial droop with immediate EMS dispatch.? By the time EMS arrived, dysarthria had resolved though facial droop has persisted.? She does take baby aspirin daily but is no longer on a statin as she has experienced rashes in the past.? She does follow with Dr. Novoa at [facility].? She is a former smoker who quit 8 years ago but denies any drug or alcohol use.? On arrival vital stable, BP 141/62.? Hematology studies significant for a stable chronic normocytic anemia.? Renal function baseline, electrolytes normal.? Glucose 152.? Lipid panel pending .? Urinalysis unremarkable.? Head CT was without any acute intracranial process but did show extensive white matter changes most prominent the right frontal lobe and left posterior parietal lobe unchanged from prior exam.? CTA of the head and neck did not reveal any large vessel occlusion does show focal moderate to severe stenosis of the proximal right P2 DRILL SERGEANT segment and moderate stenosis of the left M2 segment in the mid sylvian fissure.? Patient treated with 324 mg aspirin in the ED. case discussed with vascular surgery, no carotid endarterectomy needed at this time.? Case discussed with Neurology, no tPA recommended at this time given limited deficit.? Patient to be observed overnight for TIA versus CVA. Hospital course: Patient was admitted for dysarthria with left-sided facial droop-further workup including CTA head was done:carotid stenosis as seen on head and neck CT angiogram-seen by neuro and also discussed with vascular: No immediate surgical intervention recommended. Patient was started on aspirin/Plavix/statin on admission. echo seems similar to before (01/09/19)-ef 20-30%(please see detailed report in imaging section. Unable to get MRI because of defibrillator. Patient said she had previously rash with statin but this time with atorvastatin she is so far tolerating. She is advised to stop statin if any rash, in addition also given Benadryl prescription. Liver functions and this admission seems fine. Echo: Findings noted, please see details in imaging section. Both cardiac echo and carotid findings of CTA: Discussed with the patient's item processor Dr. Novoa: Patient's item processor has appointment with the patient tomorrow, considering new echo findings(The mid inferolateral segment is aneurysmal): Her item processor will decide out patiently use of anticoagulation if needed. Patient was advised to follow-up out patiently with vascular. Patient said she had previously rash with statin but this time with atorvastatin she is so far tolerating. She is advised to stop statin if any rash, in addition also given Benadryl prescription. Liver functions and this admission seems fine. Plan: Continue aspirin Plavix and statin If any new rash or itching with statin please stop statin and use Benadryl and check with nearest emergency room or PCP. Needs to follow-up with vascular. Above management discussed with the patient in detail and she understand and in agreement with the above plan, time spent 50 minute. Time Spent with Patient Time attestation: Total time managing care of this patient today ____ minutes. Discharge coordination time: Greater than 30 minutes Quality: Safe Use of Opioids Does Pt have an Active Cancer Diagnosis on the Problem List?: No Quality: Stroke Does the patient have a stroke diagnosis?: No Physical Exam Vital Signs: Vital Signs: Last Vital Signs Temp 96.8 F 09/23/22 12:00 Pulse 80 09/23/22 12:00 Resp 12 09/23/22 12:00 BP 130/58 L 09/23/22 12:00 Pulse Ox 97 09/23/22 12:00 O2 Del Method 09/23/22 12:00 O2 Flow Rate 3 09/23/22 12:00 BMI result Body Mass Index 21.5 Appearance: Alert.? Oriented X3.? not in distress.? cvs: rrr, [id number] . res: clear to auscultation ,no rhonchii or wheezing abd: no rebound or guarding ,nt, bs present. ext pulses present , no cyanosis ,Gait well balanced well coordinated. neuro: axo3 ,? left-sided mouth droop, for a 5 strength in left upper extremity, 5/5 in right upper extremity, 5/5 strength i in bilateral lower extremities.? Patient speaking in full sentences, no dysarthria, barely noticeable slurred speech. DS: Data Imaging Chest x-ray: Radiologist's impression: ITS Impressions Head CT 09/21/22 15:25 IMPRESSION: No acute intracranial process seen. Left occipital lobe encephalomalacia from old insult or surgery. Left posterior parietal lobe craniotomy with encephalomalacia tract from and colostomy. Extensive white matter changes most prominent in the right frontal lobe and left posterior parietal lobe. These are unchanged to previous exam 08/18/2014 This critical result was discussed with Dr. Brooks Hugo at 3:45 PM on 09/21/2022. It was ascertained that the content and urgency of the report was understood at the time of direct communication. Head/Neck CTA 09/21/22 15:44 IMPRESSION: CT HEAD: No intracranial hemorrhage or large acute infarction. Multiple chronic infarcts are seen in the cerebral hemispheres, cerebellar hemispheres, and gerson. Background changes of moderate chronic microangiopathy. CTA NECK: 1. 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 However, the more superior V2 through V3 segments are occluded. Left vertebral artery is patent. 2. Atheromatous changes at the bilateral carotid bifurcations resulting in 60% stenosis of the proximal right internal carotid artery and 50% stenosis of the proximal left internal carotid artery. CTA HEAD: 1. No large vessel occlusion. Focal moderate to severe stenosis of the proximal right P2 DRILL SERGEANT segment. 2. Moderate stenosis of the left M2 segment in the mid Sylvian fissure. echo: Conclusions: - The left ventricular systolic function is severely decreased.? The visually estimated ejection fraction is between 25-30%.? ? ? - The apical inferior, basal inferior, apical septum, and basal? inferolateral segments are akinetic. ? - The mid inferolateral segment is aneurysmal. ? - There is mildly decreased right ventricular systolic function. - There is moderate mitral valve regurgitation.? Findings Procedure Information Contrast agent, definity, is being given per protocol without apparent complications. Left Ventricle Moderately increased left ventricular cavity size.? The left ventricular systolic function is severely decreased.? The visually estimated ejection fraction is between 25-30%.? There is evidence of regional wall motion abnormalities.? Diastolic function is indeterminate on the basis of available data.? There is moderate septal asymmetric hypertrophy. Wall Motion Rest Echo Findings The apical inferior, basal inferior, apical septum, and basal inferolateral segments are akinetic. The mid inferolateral segment is aneurysmal. Right Ventricle Normal right ventricular cavity size.? There is mildly decreased right ventricular systolic function.? There is an ICD wire seen in the right ventricle. Atria The left atrium is moderately dilated.? The right atrium is normal in size. Aortic Valve There is a normal trileaflet aortic valve.? There is mild calcification of the aortic valve.? There is no aortic valve stenosis.? There is trace (trivial) aortic valve regurgitation. Mitral Valve There is moderate mitral valve regurgitation.? There is no mitral valve stenosis.? Mitral annuloplasty ring. Mean gradient across the mitral valve 3mmHg. Pulmonic Valve The pulmonic valve is likely normal. Tricuspid Valve Normal tricuspid valve structure.? There is trace tricuspid valve regurgitation.? There is no evidence of pulmonary hypertension. Great Vessels The asc aorta is normal in size.? Small plaque is seen in the sino tubular ridge. Venous The inferior vena cava is normal in size and collapses greater than 50% with inspiration. Pericardium/Pleural There is no evidence of pericardial effusion. Prior Study Comparison Changes noted compared to prior study dated:? 01/09/2019.? Inferolateral wall appearing aneurysmal. Discharge Plan Discharge Anticipated Discharge Date/Time: 09/23/22 08:10 Patient Disposition: Home Health Service Discharge Diagnosis: CVA ,carotid stenosis Referrals: elara [Other] - 1 Week Riki Bridges III, MD [Primary Care Provider] - 1 Week (follow up outpatient) Loco Romeo MD [Physician] - 1 Week (follow up outpatient.) Physician,Unknown J [Physician] - 1 Week Discharge Medications: New clopidogrel 75 mg Tablet 75 mg PO DAILY Qty: 30 0RF aspirin 81 mg Tablet,Delayed Release (Dr/Ec) 81 mg PO DAILY Qty: 30 0RF atorvastatin 80 mg tablet 80 mg PO DAILY Qty: 30 0RF diphenhydramine HCl [Benadryl] 25 mg capsule 25 mg PO DAILY PRN (Reason: itching) Qty: 10 0RF Continued carvedilol 6.25 mg tablet 1 tab PO BID sucralfate 1 gram tablet 1 tab PO QID morphine 30 mg tablet extended release 1 tab PO TID levothyroxine 25 mcg tablet 37.5 mcg PO DAILY isosorbide mononitrate 60 mg tablet extended release 24 hr 90 mg PO DAILY magnesium oxide 400 mg (241.3 mg magnesium) tablet 1 tab PO BID furosemide 80 mg tablet 80 mg PO DAILY furosemide 80 mg tablet 40 mg PO DAILY@1700 sodium bicarbonate 650 mg tablet 1 tab PO BID nitroglycerin 400 mcg/spray spray,non-aerosol 1 - 2 spray sublingual Q5M PRN (Reason: PALPATATIONS) omeprazole 20 mg capsule,delayed release(DR/EC) 20 mg PO BID digoxin 125 mcg (0.125 mg) tablet 0.125 mg PO MOWEFR@0900 albuterol sulfate [Ventolin HFA] 90 mcg/actuation Hfa Aerosol Inhaler 2 puff INHALATION Q4H PRN (Reason: Shortness Of Breath) Flovent Diskus 250 mcg/actuation blister with device 1 puff inhalation BID cinacalcet 30 mg tablet 1 tab PO DAILY Entresto 97-103 mg tablet 1 tab PO BID Discharge Orders: Discharge Order (Routine); Ordered 09/23/22 Ordered By: Ronald Corea Diet: Low fat, low cholesterol Activity on Discharge: As tolerated Stand Alone Forms: Patient Portal Discharge page Care Plan Goals: patient came with dysarthria/facial droop-please see below. Health Concerns: Patient was admitted for dysarthria with left-sided facial droop-further workup including CTA head was done:carotid stenosis as seen on head and neck CT angiogram-seen by neuro and also discussed with vascular: No immediate surgical intervention recommended. Patient was started on aspirin/Plavix/statin on admission. Unable to get MRI because of defibrillator. Patient said she had previously rash with statin but this time with atorvastatin she is so far tolerating. She is advised to stop statin if any rash, in addition also given Benadryl prescription. Liver functions and this admission seems fine. Echo: Findings noted, please see details in imaging section. Patient was advised to follow-up out patiently with vascular. Plan of Treatment: As above. Assessment: As above. Patient Instructions: Carotid Artery Disease (DC), Ischemic Stroke (DC) Discharge Date/Time: 09/23/22 15:40
== END 2022-09-23 15:40 | disposition home health service (06) | DRG 65 ==
LOC: HO.ED 20:11 → HO.EDOVER 20:22 → HO.IMC 09-22 00:50
PROVIDERS: Admitting Provider Physician Assistant; Emergency Provider Emergency Medicine; PCP Internal Medicine; Visit Provider Internal Medicine
DX: I63.9 Cerebral infarction, unspecified (principal); F11.20 Opioid dependence, uncomplicated; I50.22 Chronic systolic (congestive) heart failure; I47.20 Ventricular tachycardia, unspecified; R29.810 Facial weakness; I25.10 Atherosclerotic heart disease of native coronary artery without angina pectoris; E78.5 Hyperlipidemia, unspecified; R29.701 NIHSS score 1; E03.9 Hypothyroidism, unspecified; M19.90 Unspecified osteoarthritis, unspecified site; Z20.822 Contact with and (suspected) exposure to COVID-19; Z95.1 Presence of aortocoronary bypass graft; Z95.810 Presence of automatic (implantable) cardiac defibrillator; Z85.038 Personal history of other malignant neoplasm of large intestine; Z87.892 Personal history of anaphylaxis; Z91.040 Latex allergy status; Z88.2 Allergy status to sulfonamides; Z88.8 Allergy status to other drugs, medicaments and biological substances; Z79.02 Long term (current) use of antithrombotics/antiplatelets; Z79.82 Long term (current) use of aspirin; Z79.890 Hormone replacement therapy; Z79.899 Other long term (current) drug therapy; I65.23 Occlusion and stenosis of bilateral carotid arteries
CPT/HCPCS: 36415; 70450; 70496; 70498; 80048; 80061; 80076; 81003; 82947; 83735; 84484; 85025; 85610; 87635; 93005; 93306; 94640; 97162; 97166; 97535; 99222; 99285; Q9957; Q9967

== ENCOUNTER 2023-03-19 14:42 | Emergency (ER) | payer MEDICARE, SELFPAY ==
--- NOTE | ~2023-03-19 | XR_ITS ---
EXAMINATION: XR CHEST CLINICAL INFORMATION: Respiratory distress COMPARISON: 01/13/2020 TECHNIQUE: 2 views of the chest were obtained. FINDINGS: Left chest wall pacer remains in place. Spinal stimulator wiring over the lower thoracic spine. Cardiac leads overlie the chest. Mitral annular hardware. Lungs are well expanded. Increased patchy opacity at the right base. No pleural effusion or pneumothorax. The cardiomediastinal silhouette is unchanged, with a calcified aorta. XR/XR chest 2V IMPRESSION: Increased patchy opacity at the right base which could represent atelectasis or pneumonia.
--- NOTE | 2023-03-19 14:49 | ECG_ITS ---
Test Reason : resp distress Blood Pressure : / mmHG Vent. Rate : 080 BPM Atrial Rate : 080 BPM P-R Int : 152 ms QRS Dur : 140 ms QT Int : 436 ms P-R-T Axes : 000 148 021 degrees QTc Int : 502 ms AV dual paced rhythm Abnormal ECG When compared with ECG of 21-SEP-2022 16:16, No significant changes seen Referred By: Ciara Coyle Electronically Signed By:Nilesh Meza
[2023-03-19 14:51] VITALS: BP 110/64; BP 119/59; PULSE 80; RESP 16; TEMP 37.1; O2SAT 100; O2SAT 96; BMI 21.9
[2023-03-19 15:00] VITALS: BP 119/59; PULSE 81; RESP 15; TEMP 37.1; O2SAT 99
--- NOTE | 2023-03-19 15:12 | PC.NURSE ---
pt a&o x4, pleasant, calm, and cooperative. reporting sob with increasingly worse cough. pt comes from home where she lives with her daughter and daughter is certified orthoptist. pt med list and medical scenario provided by daughter and on cart at bedside. pt changed over to hospital attire and placed on monitor. on 2L O2 N/C and sating 100%. vss. wctm
[2023-03-19 15:42] LABS: MANUAL DIFF FLAG NO
[2023-03-19 15:54] LABS: Basophils Percent Auto 0.1 % (0-2); Eosinophils Absolute Auto 0.2 X10*3/uL (0.0-0.4); Eosinophils Percent Auto 1.7 % (0-4); Hematocrit 31.8 % (37.0-47.0); Hemoglobin 9.5 g/dl (12.0-16.0); Imm Gran Abs Auto 0.14 X10*3/uL (0.00-0.03); Imm Gran Pct Auto 1.1 % (0.0-0.4); Lymphocytes Absolute Auto 1.1 X10*3/uL (1.2-4.9); Lymphocytes Percent Auto 8.3 % (20-40); Mean Corpuscular HGB Conc 29.9 g/dl (31.0-35.0); Mean Corpuscular Hemoglobin 25.5 pg (27.0-33.0); Mean Corpuscular Volume 85.5 fL (80.0-98.0); Mean Platelet Volume 10.8 fL (9.4-12.3); Monocytes Absolute Auto 0.9 X10*3/uL (0.1-1.2); Monocytes Percent Auto 6.6 % (2-11); Neutrophils Absolute Auto 10.9 x10*3/uL (2.0-8.3); Neutrophils Percent Auto 82.2 % (45-73); Platelet Count 170 X10*3/uL (160-400); Red Blood Count 3.72 X10*6/uL (4.20-5.50); Red Cell Distribution Width 13.7 % (11.0-16.0); White Blood Count 13.3 X10*3/uL (4.8-10.8)
[2023-03-19 15:59] LABS: Alanine Aminotransferase 19 U/L (0-31); Albumin Level 3.6 g/dL (3.5-5.0); Alkaline Phosphatase 85 U/L (39-117); Anion Gap 9 (12-20); Aspartate Amino Transferase 12 U/L (5-31); Bilirubin Total 0.5 mg/dL (0.0-1.0); Blood Urea Nitrogen 21 mg/dL (9-16); Calcium 9.7 mg/dL (8.4-10.2); Carbon Dioxide 31 mmol/L (22-29); Chloride 101 mmol/L (96-108); Creatinine Clr Calc Pharmacy 42.8; Estimated Glomerular Filt Rate 53; Glucose Random 147 mg/dL (60-115); Magnesium 2.1 mg/dL (1.6-2.6); Potassium 3.5 mmol/L (3.3-5.1); Sodium 137 mmol/L (135-145); Total Protein 6.1 g/dL (6.5-8.0)
[2023-03-19 16:01] LABS: COVID-19 Test Negative (Negative); IDNOW Serial# 08D9AD1C; IDNOW Serial# BCCEAD1C; Influenza A Negative (Negative); Influenza B2 Negative (Negative)
[2023-03-19 16:03] LABS: Troponin-I High Sensitivity 5.6 ng/L (<3.5-17.0)
[2023-03-19 16:03] LABS: VBG Base Excess 13.2 mmol/L; VBG HCO3 38 mmol/L (22-26); VBG pCO2 49 mmHg; VBG pH 7.49 (7.32-7.43); VBG pO2 96 mmHg
[2023-03-19 16:04] LABS: Venous Blood Gas Refer to POC result
[2023-03-19 16:27] VITALS: BP 106/55; PULSE 80; RESP 19; TEMP 36.7; O2SAT 97
--- NOTE | 2023-03-19 16:31 | MHC.EDTECH ---
Patient checked for inc and is dry
--- NOTE | 2023-03-19 16:41 | ED.GENADULT ---
HPI - General Adult General Chief complaint: Dyspnea Stated complaint: Respiratory distress per EMS Time Seen by Provider: 03/19/23 16:27 Source: patient Mode of arrival: EMS Limitations: no limitations History of Present Illness HPI narrative: Patient comes emergency room complaining of worsening cough. Patient states that she was recently discharged with a upper respiratory infection, finished a course of doxycycline. Patient states that after she finished a course of antibiotics, the cough started getting worse. Patient uses 2 L of oxygen at home at baseline for cardiac issues. Patient states that other than the cough and shortness of breath with coughing, she does not have any other complaints. Related Data Home Medications Medication Instructions Recorded Confirmed albuterol sulfate 90 mcg/actuation 2 puff inhalation Q4H PRN 09/21/22 09/21/22 aerosol inhaler (Ventolin HFA) Shortness Of Breath carvedilol 6.25 mg tablet 1 tab PO BID 09/21/22 09/21/22 cinacalcet 30 mg tablet 1 tab PO DAILY 09/21/22 09/21/22 digoxin 125 mcg (0.125 mg) tablet 0.125 mg PO MOWEFR@0900 09/21/22 09/21/22 fluticasone propionate 250 1 puff inhalation BID 09/21/22 09/21/22 mcg/actuation blister powder for inhalation (Flovent Diskus) furosemide 80 mg tablet 40 mg PO DAILY@1700 09/21/22 09/21/22 furosemide 80 mg tablet 80 mg PO DAILY 09/21/22 09/21/22 isosorbide mononitrate 60 mg 90 mg PO DAILY 09/21/22 09/21/22 tablet,extended release 24 hr levothyroxine 25 mcg tablet 37.5 mcg PO DAILY 09/21/22 09/21/22 magnesium oxide 400 mg (241.3 mg 1 tab PO BID 09/21/22 09/21/22 magnesium) tablet morphine 30 mg tablet,extended 1 tab PO TID 09/21/22 09/21/22 release nitroglycerin 400 mcg/spray 1 - 2 spray sublingual Q5M PRN 09/21/22 09/21/22 translingual PALPATATIONS omeprazole 20 mg capsule,delayed 20 mg PO BID 09/21/22 09/21/22 release sacubitril 97 mg-valsartan 103 mg 1 tab PO BID 09/21/22 09/21/22 tablet (Entresto) sodium bicarbonate 650 mg tablet 1 tab PO BID 09/21/22 09/21/22 sucralfate 1 gram tablet 1 tab PO QID 09/21/22 09/21/22 Previous Rx's Medication Instructions Recorded aspirin 81 mg tablet,delayed 81 mg PO DAILY #30 tabs 09/23/22 release atorvastatin 80 mg tablet 80 mg PO DAILY #30 tabs 09/23/22 clopidogrel 75 mg tablet 75 mg PO DAILY #30 tabs 09/23/22 diphenhydramine HCl 25 mg capsule 25 mg PO DAILY PRN itching #10 caps 09/23/22 (Benadryl) levofloxacin 500 mg tablet 500 mg PO DAILY #9 tabs 03/19/23 Allergies Allergy/AdvReac Type Severity Reaction Status Date / Time latex [LATEX] Allergy Severe ANAPHYLAXIS Verified 09/22/22 01:58 Sulfa (Sulfonamide Allergy Severe ANAPHYLAXIS Verified 09/22/22 01:58 Antibiotics) [SULFA (SULFONAMIDE ANTIBIOTICS)] walnut Allergy Severe ANAPHYLAXIS Verified 09/22/22 01:58 heparin [HEPARIN] Allergy Intermediate HIVES Verified 09/22/22 01:58 prednisone [PREDNISONE] Allergy Unknown UNKNOWN Verified 09/22/22 01:58 Review of Systems Review of Systems: Constitutional : No Weight loss, No Fever, No Chills, No Night Sweats, No Fatigue, No Malaise ENT/Mouth : No Hearing loss, No Ear Pain, No Nasal Congestion, No Sinus Pain, No Hoarseness, No sore throat, No Rhinorrhea, No Swallowing Difficulty Eyes: No Eye Pain, No Swelling, No Redness, No Foreign Body, No Discharge, No Vision Changes Cardiovascular : No Chest Pain, No SOB, No Dyspnea on Exertion, No Orthopnea, No Edema, No Palpitations Respiratory : Complaining productive cough , complaining of Wheezing, No Smoke Exposure, complaining of dyspnea with coughing Gastrointestinal : No Nausea, No Vomiting, No Diarrhea, No Constipation, No abdominal Pain, No Hematochezia, No Melena Genitourinary : no irregular bleeding, No Dysuria, No Urinary Frequency, No Hematuria, No Urinary Incontinence, No Urgency, No Flank Pain, No Urinary Flow Changes, No Hesitancy Musculoskeletal : No joint pain, No Myalgias, No Joint Swelling Skin : No Skin Lesions, No rash Neuro : No Weakness, No Numbness, No Paresthesias, No Loss of Consciousness, No Dizziness, No Headache Psych : No Anxiety/Panic, No Depression, No SI/HI/AH/VH, No Social Issues, Heme/Lymph: No Bruising, No Bleeding,No Lymphadenopathy Endocrine : No Polyuria, No Polydipsia, No Temperature Intolerance [facility] Past Medical History Medical History CAD (coronary artery disease) Carotid artery stenosis Cavernous hemangioma Cerebrovascular accident CHF (congestive heart failure) Former smoker History of colon cancer History of sustained ventricular tachycardia HLD (hyperlipidemia) HTN (hypertension) Hypoparathyroidism Hypothyroidism Opioid dependence Osteoarthritis Surgical History AICD (automatic cardioverter/defibrillator) present S/P aneurysm repair S/P CABG (coronary artery bypass graft) S/P ileostomy Social History Social History Household Members: Family Household Members Other:: Daughter Housing: Condominium Do you presently have visiting nurse or other home services: Yes (home health aides 5 days a week, 2 hours a day) Alcohol intake: never Patient Tobacco Use Status: Never used Tobacco Smoked in Last 30 Days: No Use of substances other than those prescribed or required for medical reasons: No Advance Directives: No Advance Directives Information Provided: Yes service: No Current occupational status: retired Physical Exam ED Vital Signs: Vital Signs - 24 hr 03/19/23 14:51 03/19/23 15:00 03/19/23 16:27 Temperature 98.8 F 98.8 F 98.0 F Pulse Rate 80 81 80 Respiratory Rate 16 15 19 Blood Pressure 119/59 L 119/59 L 106/55 L Pulse Oximetry 96 99 97 Oxygen Delivery Method Nasal Cannula Nasal Cannula Nasal Cannula Oxygen Flow Rate 2 2 BMI result Body Mass Index 21.9 Const Other: Appearance: Alert. Oriented X3. No acute distress. Eyes: Pupils equal, round and reactive to light. ENT: Pharynx normal. Neck: Normal inspection. Neck supple. No lymph nodes noted. No crepitus CVS: Normal heart rate and rhythm. Pulses normal. Normal S1 and S2 Respiratory: No respiratory distress. Bilateral rales, no wheezing, no crackles Abdomen: Soft and nontender. No rigidity. No distention. Colostomy bag in the abdomen Skin: Skin warm and dry. Normal skin color. Normal skin turgor. Extremities: No lower extremity edema. No Lacerations. No Rash Neuro: Oriented X 3. No motor deficit. No sensory deficit. Moving all extremities. No slurred speech. CN 2 through 12 grossly intact Psych: calm, cooperative, normal affect Medical Decision Making Medical Decision Making MDM Narrative: -patient failed outpatient treatment with doxycycline, we will switch her antibiotics to Levaquin. Admission is considered -I discussed the labs with the patient. Patient's white blood cell count is bumped 13.3. Patient has been on steroids in doxycycline for URI. -my interpretation of chest x-ray: Bilateral lower lobe pneumonia. Pacemaker/defibrillator in place. Per Radiology: Right lower lobe pneumonia versus atelectasis -patient uses 2 L at home, patient is saturating 98%. We will give the patient 1 dose of levofloxacin. Patient states that other than the coughing, she feels at baseline and from the respiratory standpoint, she feels that she could go home. -however, I discussed the rest of the labs with the patient, her hemoglobin is 9.5 which is new from her. Since August 2022, her hemoglobin dropped from 11.7-9.5. Patient states that she has notice black stool in the ostomy bag, but attributed to eating a lot of cherries. Patient does take Eliquis , patient has a significant cardiac and vascular history. -occult stools test: Negative -chronic anemia, possibly iron deficiency, patient will follow-up with her primary care physician -as mentioned above, admission was considered and offered/discussed with the patient. Patient did fail outpatient antibiotic treatment. Patient states that she would prefer to home with new antibiotics and states that if she gets any worse, she will return. At this time, patient does not wish to stay in the hospital. Patient states that she is able to walk by herself, feels at baseline, declined any further home services -patient does not have fever, blood pressure 119/59, heart rate 80, oxygen 2 L at baseline, home dose, sepsis not suspected Differential Diagnosis Differential Diagnoses: The differential diagnosis associated with the presentation includes (Pneumonia, bronchitis, CHF) Admission/Observation Consideration of admission/observation: Escalation of care including admission/observation considered (Patient declined admission) Lab Data MDM Lab Attestation statement: I reviewed the patient's lab results. 03/19/23 15:36 03/19/23 15:36 Labs: Lab Results 03/19/23 03/19/23 03/19/23 Range/Units 15:36 15:36 15:36 WBC 13.3 H (4.8-10.8) X10*3/uL RBC 3.72 L (4.20-5.50) X10*6/uL Hgb 9.5 L (12.0-16.0) g/dl Hct 31.8 L (37.0-47.0) % MCV 85.5 (80.0-98.0) fL MCH 25.5 L (27.0-33.0) pg MCHC 29.9 L (31.0-35.0) g/dl RDW 13.7 (11.0-16.0) % Plt Count 170 (160-400) X10*3/uL MPV 10.8 (9.4-12.3) fL Immature Gran % (Auto) 1.1 H (0.0-0.4) % Neut % (Auto) 82.2 H (45-73) % Lymph % (Auto) 8.3 L (20-40) % [place] % (Auto) 6.6 (2-11) % Eos % (Auto) 1.7 (0-4) % Baso % (Auto) 0.1 (0-2) % Lymph # (Auto) 1.1 L (1.2-4.9) X10*3/uL [place] # (Auto) 0.9 (0.1-1.2) X10*3/uL Eos # (Auto) 0.2 (0.0-0.4) X10*3/uL Baso # (Auto) 0.0 (0.0-0.2) X10*3/uL Abs Immat Gran (auto) 0.14 H (0.00-0.03) X10*3/uL Absolute Neuts (auto) 10.9 H (2.0-8.3) x10*3/uL Absolute Nucleated RBC 0.000 (0.0-0.012) X10*3/uL Nucleated RBC % (auto) 0.0 (0.0-0.2) /100WBC VBG pH (7.32-7.43) VBG pCO2 mmHg VBG pO2 mmHg VBG HCO3 (22-26) mmol/L VBG O2 Saturation % VBG Base Excess mmol/L Sodium 137 (135-145) mmol/L Potassium 3.5 (3.3-5.1) mmol/L Chloride 101 (96-108) mmol/L Carbon Dioxide 31 H (22-29) mmol/L Anion Gap 9 L (12-20) BUN 21 H (9-16) mg/dL Creatinine 1.02 (0.5-1.4) mg/dL Estim Creat Clear Calc 42.8 Estimated GFR 53 Random Glucose 147 H (60-115) mg/dL Calcium 9.7 (8.4-10.2) mg/dL Magnesium 2.1 (1.6-2.6) mg/dL Total Bilirubin 0.5 (0.0-1.0) mg/dL AST 12 (5-31) U/L ALT 19 (0-31) U/L Alkaline Phosphatase 85 (39-117) U/L Troponin I High Sens 5.6 (<3.5-17.0) ng/L Total Protein 6.1 L (6.5-8.0) g/dL Albumin 3.6 (3.5-5.0) g/dL Stool Occult Blood (NEGATIVE) COVID-19 (LINH) (Negative) COVID-19 Clin Com Influenza Type A (SHAWNA) (Negative) Influenza Type B (SHAWNA) (Negative) Influenza A & B Note 03/19/23 03/19/23 03/19/23 Range/Units 15:36 15:36 15:56 WBC (4.8-10.8) X10*3/uL RBC (4.20-5.50) X10*6/uL Hgb (12.0-16.0) g/dl Hct (37.0-47.0) % MCV (80.0-98.0) fL MCH (27.0-33.0) pg MCHC (31.0-35.0) g/dl RDW (11.0-16.0) % Plt Count (160-400) X10*3/uL MPV (9.4-12.3) fL Immature Gran % (Auto) (0.0-0.4) % Neut % (Auto) (45-73) % Lymph % (Auto) (20-40) % [place] % (Auto) (2-11) % Eos % (Auto) (0-4) % Baso % (Auto) (0-2) % Lymph # (Auto) (1.2-4.9) X10*3/uL [place] # (Auto) (0.1-1.2) X10*3/uL Eos # (Auto) (0.0-0.4) X10*3/uL Baso # (Auto) (0.0-0.2) X10*3/uL Abs Immat Gran (auto) (0.00-0.03) X10*3/uL Absolute Neuts (auto) (2.0-8.3) x10*3/uL Absolute Nucleated RBC (0.0-0.012) X10*3/uL Nucleated RBC % (auto) (0.0-0.2) /100WBC VBG pH 7.49 H (7.32-7.43) VBG pCO2 49 mmHg VBG pO2 96 mmHg VBG HCO3 38 H (22-26) mmol/L VBG O2 Saturation 100.0 % VBG Base Excess 13.2 mmol/L Sodium (135-145) mmol/L Potassium (3.3-5.1) mmol/L Chloride (96-108) mmol/L Carbon Dioxide (22-29) mmol/L Anion Gap (12-20) BUN (9-16) mg/dL Creatinine (0.5-1.4) mg/dL Estim Creat Clear Calc Estimated GFR Random Glucose (60-115) mg/dL Calcium (8.4-10.2) mg/dL Magnesium (1.6-2.6) mg/dL Total Bilirubin (0.0-1.0) mg/dL AST (5-31) U/L ALT (0-31) U/L Alkaline Phosphatase (39-117) U/L Troponin I High Sens (<3.5-17.0) ng/L Total Protein (6.5-8.0) g/dL Albumin (3.5-5.0) g/dL Stool Occult Blood (NEGATIVE) COVID-19 (LINH) Negative (Negative) COVID-19 Clin Com See Note Influenza Type A (SHAWNA) Negative (Negative) Influenza Type B (SHAWNA) Negative (Negative) Influenza A & B Note See Note 03/19/23 Range/Units 16:55 WBC (4.8-10.8) X10*3/uL RBC (4.20-5.50) X10*6/uL Hgb (12.0-16.0) g/dl Hct (37.0-47.0) % MCV (80.0-98.0) fL MCH (27.0-33.0) pg MCHC (31.0-35.0) g/dl RDW (11.0-16.0) % Plt Count (160-400) X10*3/uL MPV (9.4-12.3) fL Immature Gran % (Auto) (0.0-0.4) % Neut % (Auto) (45-73) % Lymph % (Auto) (20-40) % [place] % (Auto) (2-11) % Eos % (Auto) (0-4) % Baso % (Auto) (0-2) % Lymph # (Auto) (1.2-4.9) X10*3/uL [place] # (Auto) (0.1-1.2) X10*3/uL Eos # (Auto) (0.0-0.4) X10*3/uL Baso # (Auto) (0.0-0.2) X10*3/uL Abs Immat Gran (auto) (0.00-0.03) X10*3/uL Absolute Neuts (auto) (2.0-8.3) x10*3/uL Absolute Nucleated RBC (0.0-0.012) X10*3/uL Nucleated RBC % (auto) (0.0-0.2) /100WBC VBG pH (7.32-7.43) VBG pCO2 mmHg VBG pO2 mmHg VBG HCO3 (22-26) mmol/L VBG O2 Saturation % VBG Base Excess mmol/L Sodium (135-145) mmol/L Potassium (3.3-5.1) mmol/L Chloride (96-108) mmol/L Carbon Dioxide (22-29) mmol/L Anion Gap (12-20) BUN (9-16) mg/dL Creatinine (0.5-1.4) mg/dL Estim Creat Clear Calc Estimated GFR Random Glucose (60-115) mg/dL Calcium (8.4-10.2) mg/dL Magnesium (1.6-2.6) mg/dL Total Bilirubin (0.0-1.0) mg/dL AST (5-31) U/L ALT (0-31) U/L Alkaline Phosphatase (39-117) U/L Troponin I High Sens (<3.5-17.0) ng/L Total Protein (6.5-8.0) g/dL Albumin (3.5-5.0) g/dL Stool Occult Blood NEGATIVE (NEGATIVE) COVID-19 (LINH) (Negative) COVID-19 Clin Com Influenza Type A (SHAWNA) (Negative) Influenza Type B (SHAWNA) (Negative) Influenza A & B Note Independent Interpretation I performed an independent interpretation of an: Plain X-Ray Radiology Impression Discussion of test interpretation with radiology: I have reviewed the radiologist's reading. Radiologist Impression: FINDINGS: Left chest wall pacer remains in place. Spinal stimulator wiring over the lower thoracic spine. Cardiac leads overlie the chest. Mitral annular hardware. Lungs are well expanded. Increased patchy opacity at the right base. No pleural effusion or pneumothorax. The cardiomediastinal silhouette is unchanged, with a calcified aorta. XR/XR chest 2V IMPRESSION: Increased patchy opacity at the right base which could represent atelectasis or pneumonia. ? Critical Care Time Critical Care Time Critical Care Time: Yes Total Critical Care Time: 60 Attestation: I have personally provided critical care time. Time includes review of lab data, radiology results, discussion with consultants, and monitoring for potential decompensation. Intervention performed as documented. Discharge Plan Discharge Clinical Impression: Pneumonia, Anemia in chronic illness Patient Disposition: Home, Self-Care Instructions: Pneumonia (ED) Additional Instructions: Please follow-up with your primary care physician tomorrow. If you have any worsening or new symptoms, please return to the emergency room or call 911 Prescriptions: New levofloxacin 500 mg tablet 500 mg PO DAILY Qty: 9 0RF No Action carvedilol 6.25 mg tablet 1 tab PO BID sucralfate 1 gram tablet 1 tab PO QID morphine 30 mg tablet extended release 1 tab PO TID levothyroxine 25 mcg tablet 37.5 mcg PO DAILY isosorbide mononitrate 60 mg tablet extended release 24 hr 90 mg PO DAILY magnesium oxide 400 mg (241.3 mg magnesium) tablet 1 tab PO BID furosemide 80 mg tablet 80 mg PO DAILY furosemide 80 mg tablet 40 mg PO DAILY@1700 sodium bicarbonate 650 mg tablet 1 tab PO BID nitroglycerin 400 mcg/spray spray,non-aerosol 1 - 2 spray sublingual Q5M PRN (Reason: PALPATATIONS) omeprazole 20 mg capsule,delayed release(DR/EC) 20 mg PO BID digoxin 125 mcg (0.125 mg) tablet 0.125 mg PO MOWEFR@0900 albuterol sulfate [Ventolin HFA] 90 mcg/actuation Hfa Aerosol Inhaler 2 puff INHALATION Q4H PRN (Reason: Shortness Of Breath) Flovent Diskus 250 mcg/actuation blister with device 1 puff inhalation BID cinacalcet 30 mg tablet 1 tab PO DAILY Entresto 97-103 mg tablet 1 tab PO BID clopidogrel 75 mg Tablet 75 mg PO DAILY Qty: 30 0RF aspirin 81 mg Tablet,Delayed Release (Dr/Ec) 81 mg PO DAILY Qty: 30 0RF atorvastatin 80 mg tablet 80 mg PO DAILY Qty: 30 0RF diphenhydramine HCl [Benadryl] 25 mg capsule 25 mg PO DAILY PRN (Reason: itching) Qty: 10 0RF
[2023-03-19 17:14] LABS: OBS Int Ctl Valid YES; OBS1 NEGATIVE (NEGATIVE)
[2023-03-19] MEDS: levoFLOXacin 500 MG TABLET PO (17:41)
== END 2023-03-19 18:14 | disposition home or self-care (01) ==
PROVIDERS: Physician Assistant Medical; Emergency Provider Emergency Medicine; PCP Internal Medicine
DX: J18.9 Pneumonia, unspecified organism (principal); D63.8 Anemia in other chronic diseases classified elsewhere; Z20.822 Contact with and (suspected) exposure to COVID-19; R06.02 Shortness of breath; I11.0 Hypertensive heart disease with heart failure; I50.9 Heart failure, unspecified; Z87.891 Personal history of nicotine dependence; Z79.899 Other long term (current) drug therapy; Z79.82 Long term (current) use of aspirin
CPT/HCPCS: 36415; 71046; 80053; 82272; 82803; 83735; 84484; 85025; 87502; 87635; 93005; 99283; 99284

== ENCOUNTER → 2023-03-19 14:49 | Outpatient (BNV) | payer MEDICARE, SELFPAY | PROVIDERS: Emergency Provider Emergency Medicine; PCP Internal Medicine; Visit Provider Internal Medicine Cardiovascular Disease | DX: R06.03 Acute respiratory distress (principal) | CPT/HCPCS: 93010 ==

== ENCOUNTER 2023-05-10 20:34 | Emergency (ER) | payer MEDICARE, OTHER, SELFPAY ==
--- NOTE | 2023-05-10 | ECG_ITS ---
Test Reason : SYNSCOPY Blood Pressure : / mmHG Vent. Rate : 080 BPM Atrial Rate : 000 BPM P-R Int : 000 ms QRS Dur : 150 ms QT Int : 436 ms P-R-T Axes : 000 146 023 degrees QTc Int : 502 ms AV dual-paced rhythm Abnormal ECG When compared with ECG of 19-MAR-2023 15:01, No significant change was found Referred By: Generic ED Physician Electronically Signed By:SCOOBY TUCKER
--- NOTE | ~2023-05-10 | CT_ITS ---
EXAMINATION: CT HEAD WITHOUT CONTRAST CLINICAL INFORMATION: TIA. Seizure. COMPARISON: None available. TECHNIQUE: Contiguous axial imaging was performed from the skull base to vertex without intravenous administration of contrast. This CT examination was performed using dose optimization techniques as appropriate, variously including the following: *Automated exposure control *Adjustment of mA and/or kV according to patient size (this includes techniques or standardized protocols for targeted exams where dose is matched to indication/reason for exam; i.e. extremities or head) *Use of iterative reconstruction technique DLP: 687 mGy-cm FINDINGS: There is no evidence of an extra-axial collection. There is no evidence of intra-axial or extra-axial hemorrhage. Ventricles and extra-axial CSF spaces are prominent suggestive of generalized atrophy. There is nonspecific periventricular white matter disease. There is a left parietal bone craniotomy defect. There is low-attenuation in the left posterior parietal lobe likely representing post operative encephalomalacia. There is encephalomalacia or old infarct of the left occipital lobe. There is an old periventricular and subcortical white matter infarct in the right frontal lobe and question smaller similar finding in left frontal lobe. There are old bilateral cerebellar infarcts. These findings appear unchanged. No mass, mass effect or acute infarct is seen. No skull fracture. Visualized paranasal sinuses, mastoid air cells and middle ears are clear. CT/CT head/brain wo IV con IMPRESSION: No acute findings. Stable head CT from August 2022.
[2023-05-10 21:00] VITALS: BP 124/60; BP 137/65; PULSE 76; PULSE 78; RESP 18; TEMP 36.8; O2SAT 100; BMI 21.0
--- NOTE | 2023-05-10 21:09 | MHC.EDTECH ---
This tech assumed care of this pt upon arrival. EKG completed and handed into provider. PT placed on cardiac monitorand changed over into hospital gown. Pt placed on 2L Oxygen nasal cannula. Red fall risk precaution wristband and red socks placed on pt
--- NOTE | 2023-05-10 21:36 | ED_ITS ---
HPI - General Adult General Chief complaint: General Medical Stated complaint: nausea and eye twitching Time Seen by Provider: 05/10/23 21:34 Source: patient Mode of arrival: EMS History of Present Illness HPI narrative: This is a 76-year-old female with history of coronary artery disease s/p CABG, EFof 15-20%, s/p resection of left ventricular aneurysm in 2005, history of sustained V-tach with AICD in place, history of colon cancer s/p ileostomy, hypertension, dyslipidemia, history of cavernous hemangioma of the occipital lobe s/p resection, hypoparathyroidism, hypothyroidism, history CVA with no deficits, depression/anxiety, osteoarthritis of multiple joints on chronic opioids presented to the ED a TIA with dysarthria on 09/21 on Eliquis comes here for eye twitching dizziness and nausea symptoms started 18:30 lasted for about half an hour EMS gave patient Zofran and feeling much better patient missed her Eliquis for last 1 week no focal weakness also patient complaining of mild headache Related Data Home Medications Medication Instructions Recorded Confirmed albuterol sulfate 90 mcg/actuation 2 puff inhalation Q4H PRN 09/21/22 09/21/22 aerosol inhaler (Ventolin HFA) Shortness Of Breath carvedilol 6.25 mg tablet 1 tab PO BID 09/21/22 09/21/22 cinacalcet 30 mg tablet 1 tab PO DAILY 09/21/22 09/21/22 digoxin 125 mcg (0.125 mg) tablet 0.125 mg PO MOWEFR@0900 09/21/22 09/21/22 fluticasone propionate 250 1 puff inhalation BID 09/21/22 09/21/22 mcg/actuation blister powder for inhalation (Flovent Diskus) furosemide 80 mg tablet 40 mg PO DAILY@1700 09/21/22 09/21/22 furosemide 80 mg tablet 80 mg PO DAILY 09/21/22 09/21/22 isosorbide mononitrate 60 mg 90 mg PO DAILY 09/21/22 09/21/22 tablet,extended release 24 hr levothyroxine 25 mcg tablet 37.5 mcg PO DAILY 09/21/22 09/21/22 magnesium oxide 400 mg (241.3 mg 1 tab PO BID 09/21/22 09/21/22 magnesium) tablet morphine 30 mg tablet,extended 1 tab PO TID 09/21/22 09/21/22 release nitroglycerin 400 mcg/spray 1 - 2 spray sublingual Q5M PRN 09/21/22 09/21/22 translingual PALPATATIONS omeprazole 20 mg capsule,delayed 20 mg PO BID 09/21/22 09/21/22 release sacubitril 97 mg-valsartan 103 mg 1 tab PO BID 09/21/22 09/21/22 tablet (Entresto) sodium bicarbonate 650 mg tablet 1 tab PO BID 09/21/22 09/21/22 sucralfate 1 gram tablet 1 tab PO QID 09/21/22 09/21/22 Previous Rx's Medication Instructions Recorded aspirin 81 mg tablet,delayed 81 mg PO DAILY #30 tabs 09/23/22 release atorvastatin 80 mg tablet 80 mg PO DAILY #30 tabs 09/23/22 clopidogrel 75 mg tablet 75 mg PO DAILY #30 tabs 09/23/22 diphenhydramine HCl 25 mg capsule 25 mg PO DAILY PRN itching #10 caps 09/23/22 (Benadryl) levofloxacin 500 mg tablet 500 mg PO DAILY #9 tabs 03/19/23 apixaban 5 mg tablet (Eliquis) 5 mg PO BID #90 tabs 05/11/23 Allergies Allergy/AdvReac Type Severity Reaction Status Date / Time latex [LATEX] Allergy Severe ANAPHYLAXIS Verified 05/10/23 21:15 Sulfa (Sulfonamide Allergy Severe ANAPHYLAXIS Verified 05/10/23 21:15 Antibiotics) [SULFA (SULFONAMIDE ANTIBIOTICS)] walnut Allergy Severe ANAPHYLAXIS Verified 05/10/23 21:15 heparin [HEPARIN] Allergy Intermediate HIVES Verified 05/10/23 21:15 prednisone [PREDNISONE] Allergy Unknown Hives Verified 05/10/23 21:15 Review of Systems 2 Review of Systems: Yes all other systems are reviewed and are negative PMFSH Past Medical History Medical History Carotid artery stenosis Former smoker Opioid dependence Osteoarthritis Cavernous hemangioma Hypothyroidism Hypoparathyroidism History of colon cancer History of sustained ventricular tachycardia CHF (congestive heart failure) CAD (coronary artery disease) HLD (hyperlipidemia) HTN (hypertension) Cerebrovascular accident Surgical History S/P ileostomy AICD (automatic cardioverter/defibrillator) present S/P CABG (coronary artery bypass graft) S/P aneurysm repair Social History Social History Household Members: Family Household Members Other:: Daughter [facility] Do you presently have visiting nurse or other home services: Yes (home health aides 5 days a week, 2 hours a day) Alcohol intake: never Patient Tobacco Use Status: Never used Tobacco Smoked in Last 30 Days: No Use of substances other than those prescribed or required for medical reasons: No Advance Directives: No Advance Directives Information Provided: Yes service: No Current occupational status: retired Physical Exam ED Vital Signs: Vital Signs - 24 hr 05/10/23 21:00 05/10/23 21:46 05/10/23 23:30 Temperature 98.2 F Pulse Rate 78 71 Respiratory Rate 18 14 Blood Pressure 137/65 119/56 L Pulse Oximetry 100 100 98 Oxygen Delivery Method Room Air Nasal Cannula Nasal Cannula Oxygen Flow Rate 2 2 05/11/23 01:20 Temperature Pulse Rate 80 Respiratory Rate 16 Blood Pressure 115/52 L Pulse Oximetry 99 Oxygen Delivery Method Nasal Cannula Oxygen Flow Rate 2 BMI result Body Mass Index 21.0 Appearance: Alert. Oriented X3. No acute distress. Eyes: PERRLA, No Nystagmus ENT: Pharynx normal. Oral Mucosa moist Neck: Normal inspection. Neck supple. CVS: Normal heart rate and rhythm. Pulses normal. Respiratory: No respiratory distress. Equal air entry bilateral, no wheezing/rales/rhonchi Abdomen: Soft and nontender. Bowel sounds are present, no mass palpable, no CVA tenderness Skin: Skin warm and dry. Normal skin color. Normal skin turgor. Extremities: No lower extremity edema. No calf tenderness Neuro: Oriented X 3. No motor deficit. No sensory deficit.No cerebellar signs , cranial nerves II-XII intact Medications Administered Discontinued Medications Generic Name Dose Route Start Last Admin Trade Name Freq PRN Reason Stop Dose Admin Apixaban 5 mg 05/11/23 01:05 05/11/23 01:18 Apixaban 5 Mg Tablet PO 05/11/23 01:06 5 mg ONCE ONE Administration Medical Decision Making Medical Decision Making MDM Narrative: patient with short lasting twitching movements of the forehead etiology not clear possible seizure patient advised to follow-up with neurologist/PCP or to the ER if recurrence of the same ,advised to continue same medication will give a dose of Eliquis here and prescribed Differential Diagnosis Differential Diagnoses: The differential diagnosis associated with the presentation includes TIA/ seizure/abnormal muscle movement Lab Data MDM Lab Attestation statement: I reviewed the patient's lab results. 05/10/23 22:27 05/10/23 22:27 Labs: Lab Results 05/10/23 05/10/23 Range/Units 22:27 23:29 WBC 8.3 (4.8-10.8) X10*3/uL RBC 3.48 L (4.20-5.50) X10*6/uL Hgb 8.6 L (12.0-16.0) g/dl Hct 28.1 L (37.0-47.0) % MCV 80.7 (80.0-98.0) fL MCH 24.7 L (27.0-33.0) pg MCHC 30.6 L (31.0-35.0) g/dl RDW 14.7 (11.0-16.0) % Plt Count 167 (160-400) X10*3/uL MPV 10.4 (9.4-12.3) fL Immature Gran % (Auto) 0.2 (0.0-0.4) % Neut % (Auto) 81.3 H (45-73) % Lymph % (Auto) 10.4 L (20-40) % [place] % (Auto) 6.0 (2-11) % Eos % (Auto) 2.0 (0-4) % Baso % (Auto) 0.1 (0-2) % Lymph # (Auto) 0.9 L (1.2-4.9) X10*3/uL [place] # (Auto) 0.5 (0.1-1.2) X10*3/uL Eos # (Auto) 0.2 (0.0-0.4) X10*3/uL Baso # (Auto) 0.0 (0.0-0.2) X10*3/uL Abs Immat Gran (auto) 0.02 (0.00-0.03) X10*3/uL Absolute Neuts (auto) 6.7 (2.0-8.3) x10*3/uL Absolute Nucleated RBC 0.000 (0.0-0.012) X10*3/uL Nucleated RBC % (auto) 0.0 (0.0-0.2) /100WBC PT 11.7 (11.1-13.3) SEC INR 1.0 (0.9-1.1) Sodium 139 (135-145) mmol/L Potassium 3.4 (3.3-5.1) mmol/L Chloride 102 (96-108) mmol/L Carbon Dioxide 28 (22-29) mmol/L Anion Gap 12 (12-20) BUN 13 (9-16) mg/dL Creatinine 1.17 (0.5-1.4) mg/dL Estim Creat Clear Calc 37.3 Estimated GFR 45 Random Glucose 147 H (60-115) mg/dL Calcium 10.5 H D (8.4-10.2) mg/dL Total Bilirubin 0.4 (0.0-1.0) mg/dL AST 16 (5-31) U/L ALT 9 (0-31) U/L Alkaline Phosphatase 87 (39-117) U/L Total Protein 6.3 L (6.5-8.0) g/dL Albumin 3.8 (3.5-5.0) g/dL Urine Color Yellow Urine Appearance Clear Urine pH 7.0 (5.0-9.0) Ur Specific [place] <= 1.005 (1.005-1.025) Urine Protein Negative (Neg-Trace) mg/dL Urine Glucose (UA) Negative (Negative) mg/dL Urine Ketones Negative (Negative) mg/dL Urine Blood Negative (Negative) Urine Nitrite Negative (Negative) Ur Leukocyte Esterase Trace H (Negative) Urine RBC 0-2 (0-2) /HPF Urine WBC 0-5 (0-5) /HPF Ur Squamous Epith Cells 0-2 (0-2) /HPF Urine Bacteria None Seen (None Seen) Hyaline Casts 0-2 (0-2) /LPF Discharge Plan Discharge Clinical Impression: Muscle twitch Patient Disposition: Home, Self-Care Instructions: Muscle Spasm (ED) Additional Instructions: cause of your muscles which again is not very clear possible TIA/ seizure disorder take medication as prescribed and follow with PCP/neurology Prescriptions: New Eliquis 5 mg tablet 5 mg PO BID Qty: 90 0RF No Action carvedilol 6.25 mg tablet 1 tab PO BID sucralfate 1 gram tablet 1 tab PO QID morphine 30 mg tablet extended release 1 tab PO TID levothyroxine 25 mcg tablet 37.5 mcg PO DAILY isosorbide mononitrate 60 mg tablet extended release 24 hr 90 mg PO DAILY magnesium oxide 400 mg (241.3 mg magnesium) tablet 1 tab PO BID furosemide 80 mg tablet 80 mg PO DAILY furosemide 80 mg tablet 40 mg PO DAILY@1700 sodium bicarbonate 650 mg tablet 1 tab PO BID nitroglycerin 400 mcg/spray spray,non-aerosol 1 - 2 spray sublingual Q5M PRN (Reason: PALPATATIONS) omeprazole 20 mg capsule,delayed release(DR/EC) 20 mg PO BID digoxin 125 mcg (0.125 mg) tablet 0.125 mg PO MOWEFR@0900 albuterol sulfate [Ventolin HFA] 90 mcg/actuation Hfa Aerosol Inhaler 2 puff INHALATION Q4H PRN (Reason: Shortness Of Breath) Flovent Diskus 250 mcg/actuation blister with device 1 puff inhalation BID cinacalcet 30 mg tablet 1 tab PO DAILY Entresto 97-103 mg tablet 1 tab PO BID clopidogrel 75 mg Tablet 75 mg PO DAILY Qty: 30 0RF aspirin 81 mg Tablet,Delayed Release (Dr/Ec) 81 mg PO DAILY Qty: 30 0RF atorvastatin 80 mg tablet 80 mg PO DAILY Qty: 30 0RF diphenhydramine HCl [Benadryl] 25 mg capsule 25 mg PO DAILY PRN (Reason: itching) Qty: 10 0RF levofloxacin 500 mg tablet 500 mg PO DAILY Qty: 9 0RF Interventions: ED Discharge Assessment Last Done: 05/11/23 01:35 Discharge Date/Time: 05/11/23 02:12
[2023-05-10 21:46] VITALS: O2SAT 100
--- NOTE | 2023-05-10 21:47 | PC.NURSE ---
Pt BIBA from home, reports onset of left eye twitching lasting about 20 mins while eating and watching TV , Nausea, then when EMS arrived Pt reported dizziness while getting on stretcher. Pt reports chronic ileostomy site pain. Pt reports not taking eliquis d/t pharmacy not being able to fill scrip because physician not approved . Pt placed on bedside monitor, EKG obtained and reviewed by provider. No facial droop, no eye twitching, no arm drift, bilateral hand quality assurance auditor equal, no limb ataxia noted.
[2023-05-10 22:32] LABS: MANUAL DIFF FLAG NO
[2023-05-10 22:33] LABS: Basophils Percent Auto 0.1 % (0-2); Eosinophils Absolute Auto 0.2 X10*3/uL (0.0-0.4); Hematocrit 28.1 % (37.0-47.0); Hemoglobin 8.6 g/dl (12.0-16.0); Imm Gran Abs Auto 0.02 X10*3/uL (0.00-0.03); Imm Gran Pct Auto 0.2 % (0.0-0.4); Lymphocytes Absolute Auto 0.9 X10*3/uL (1.2-4.9); Lymphocytes Percent Auto 10.4 % (20-40); Mean Corpuscular HGB Conc 30.6 g/dl (31.0-35.0); Mean Corpuscular Hemoglobin 24.7 pg (27.0-33.0); Mean Corpuscular Volume 80.7 fL (80.0-98.0); Mean Platelet Volume 10.4 fL (9.4-12.3); Monocytes Absolute Auto 0.5 X10*3/uL (0.1-1.2); Neutrophils Absolute Auto 6.7 x10*3/uL (2.0-8.3); Neutrophils Percent Auto 81.3 % (45-73); Platelet Count 167 X10*3/uL (160-400); Red Blood Count 3.48 X10*6/uL (4.20-5.50); Red Cell Distribution Width 14.7 % (11.0-16.0); White Blood Count 8.3 X10*3/uL (4.8-10.8)
[2023-05-10 22:41] LABS: Prothrombin Time 11.7 SEC (11.1-13.3)
[2023-05-10 22:49] LABS: Alanine Aminotransferase 9 U/L (0-31); Albumin Level 3.8 g/dL (3.5-5.0); Alkaline Phosphatase 87 U/L (39-117); Anion Gap 12 (12-20); Aspartate Amino Transferase 16 U/L (5-31); Bilirubin Total 0.4 mg/dL (0.0-1.0); Blood Urea Nitrogen 13 mg/dL (9-16); Calcium 10.5 mg/dL (8.4-10.2); Carbon Dioxide 28 mmol/L (22-29); Chloride 102 mmol/L (96-108); Creatinine Clr Calc Pharmacy 37.3; Estimated Glomerular Filt Rate 45; Glucose Random 147 mg/dL (60-115); Potassium 3.4 mmol/L (3.3-5.1); Sodium 139 mmol/L (135-145); Total Protein 6.3 g/dL (6.5-8.0)
[2023-05-10 23:30] VITALS: BP 119/56; PULSE 71; RESP 14; O2SAT 98
[2023-05-10 23:36] LABS: Appearance Urine Clear; Color Urine Yellow; Glucose Urine UA Negative (Negative); Leukocyte Esterase Urine Trace (Negative); Nitrite Urine Negative (Negative); Specific Gravity - Urine <= 1.005 (1.005-1.025); UMIC TRIGGER UACC YES; Urine Blood Negative (Negative); Urine Ketones Negative (Negative); Urine Protein Negative (Neg-Trace)
[2023-05-10 23:44] LABS: Bacteria Urine None Seen (None Seen); Hyaline Casts Urine 0-2 /LPF (0-2); RBC Urine 0-2 /HPF (0-2); Squamous Epithelial Cell Urine 0-2 /HPF (0-2); WBC Urine 0-5 /HPF (0-5)
[2023-05-11] MEDS: Apixaban 5 MG TABLET PO (01:18)
[2023-05-11 01:20] VITALS: BP 115/52; PULSE 80; RESP 16; O2SAT 99
== END 2023-05-11 02:12 | disposition home or self-care (01) ==
PROVIDERS: Emergency Provider Internal Medicine
DX: R11.2 Nausea with vomiting, unspecified (principal); R25.3 Fasciculation; I25.10 Atherosclerotic heart disease of native coronary artery without angina pectoris; R55 Syncope and collapse; R94.31 Abnormal electrocardiogram [ECG] [EKG]; R51.9 Headache, unspecified; Z79.899 Other long term (current) drug therapy; Z79.01 Long term (current) use of anticoagulants
CPT/HCPCS: 36415; 70450; 80053; 81001; 85025; 85610; 93005; 99284

== ENCOUNTER 2023-06-30 15:51 | Emergency (ER) | payer MEDICARE, OTHER, SELFPAY ==
[2023-06-30 15:58] VITALS: BP 164/80; PULSE 80; O2SAT 94; BMI 21.3
[2023-06-30 16:05] VITALS: BP 139/64; PULSE 80; RESP 16; TEMP 36.7; O2SAT 97
--- OUTSIDE RECORDS SUMMARY | 2023-06-30 16:46 | XMS_ITS | Continuity of Care Document ---
Author Name Unknown Organization [facility] Address [address] [place] [address] Drd[address] daniel, [address] [place] [address]- Care Team Providers Care Freight Coordinator Name Role Phone Riki Bridges III, MD Primary Care Physician [phone] [id number]): [facility] - 04/14/23 [facility] [address] [place] [address] Drive, [address] [place], [place] [address] Attending Physician: Joi Leyva DO Referring Physician: Riki Bridges III, MD Allergies, Adverse Reactions, Alerts Substance Reaction Severity Status sulfADIAZINE rash Mild Active heparin 1 Mild Active predniSONE Mild Active atorvastatin rash Mild Active Latex rash, trouble breathing Mild Acti ve Nuts hard time breathing walnuts Mild Active Pollen sneezing, watery eyes Mild Active 1 I go crazy Immunizations Given and Recorded Vaccine Date Status Refusal Reason influenza virus vaccine, inactivated 05/28/15 Give n pneumococcal 23-valent vaccine 04/21/12 Given Medications albuterol CFC free 90 mcg/inh inhalation aerosol 2, puffs, Inhalation, Every 4 hours, PRN, # 1 each, Refills 2, Tot. Refills 2, Maintenance, 05/09/16 15:55:42, Inhaler, Route to Pharmacy Electronically, [id number], [facility] [id number] Start Date: 05/09/16 Stop Date: 08/07/16 Status: Ordered apixaban 5 mg oral tablet 1 tablet = 5 mg, By Mouth, 2 times a day, # 60 tablet, 0 Refills, Maintenance, 02/11/23 16:18:00 EDT, Tablet Start Date: 02/11/23 Status: Ordered aspirin 81 mg oral tablet = 81 mg, By Mouth, Daily, # 30 tablet, 2 Refills, Maintenance, 05/09/16 15:57:18, Tablet Start Date: 05/09/16 Stop Date: 08/07/16 Status: Ordered cephalexin monohydrate 500 mg oral capsule 1 capsule = 500 mg, By Mouth, Every 12 hours, # 6 capsule, 0 Refills, Maintenance, 02/16/23 14:05:00 EDT, Capsule, [facility], Partial fill upon patient request if the prescription is for a schedule II opioid drug., 165.1, cm, 02/16/23 9... Start Date: 02/16/23 Stop Date: 02/19/23 Status: Ordered Coreg 6.25 mg oral tablet 6.25 mg, 1, tablet, By Mouth, 2 times a day, Maintenance, 02/27/20 15:29:00 EDT Start Date: 02/27/20 Status: Ordered digoxin 0.125 mg oral tablet 125 mcg, 1, tablet, By Mouth, Every Wednesday, Wednesday and Wednesday, Maintenance, 02/27/20 15:32:00 EDT Start Date: 02/27/20 Status: Ordered Entresto 97 mg-103 mg oral tablet 1 tablet, By Mouth, 2 times a day, Maintenance, 02/27/20 15:28:00 EDT, Tablet Start Date: 02/27/20 Status: Ordered Flovent Diskus 250 mcg/inh inhalation powder 2 puffs, Inhalation, 2 times a day Start Date: 02/27/20 Status: Ordered furosemide 80 mg oral tablet 80 mg, 1, tablet, By Mouth, Daily, # 30 tablet, Refills 0, Maintenance, 02/11/23 16:17:00 EDT Start Date: 02/11/23 Status: Ordered isosorbide mononitrate 60 mg oral tablet, extended release 1.5 tablet = 90 mg, By Mouth, Daily in AM, Maintenance, 02/27/20 15:27:00 EDT, ER Tablet Start Date: 02/27/20 Status: Ordered Lasix 40 mg oral tablet 40 mg, 1, tablet, By Mouth, Daily at supper, Refills 0, Maintenance, 02/29/20 10:31:00 EDT Start Date: 02/29/20 Status: Ordered levothyroxine 0.025 mg oral tablet 1.5 tablet = 37.5 mcg, By Mouth, Daily, Maintenance, 02/27/20 15:27:00 EDT, Tablet Start Date: 02/27/20 Status: Ordered magnesium oxide 400 mg oral tablet = 400 mg, By Mouth, 2 times a day, # 28 tablet, 0 Refills, Soft Stop, 06/10/18 13:49:02 EDT, Tablet Start Date: 06/10/18 Stop Date: 06/24/18 Status: Ordered morphine 30 mg oral capsule, extended release = 30 mg, By Mouth, 3 times a day, 0 Refills, Maintenance, 08/16/15 1:48:37 Start Date: 08/16/15 Status: Ordered nitroglycerin 0.4 mg sublingual spray 1 sprays = 0.4 mg, Sublingual, Every 5 minutes, PRN as needed for chest pain, not to exceed 3 doses/15 min--if pain persists, seek medical attention, # 4.9 Gm, 0 Refills, Maintenance, 02/11/23 16:18:00 EDT, [place] Start Date: 02/11/23 Status: Ordered omeprazole 20 mg oral delayed release tablet 1 tablet = 20 mg, By Mouth, 2 times a day, # 60 tablet, 0 Refills, Maintenance, 02/11/23 16:19:00 EDT, EC Tablet Start Date: 02/11/23 Status: Ordered Praluent Pen 150 mg/mL subcutaneous solution = 150 mg, Subcutaneous Infusion, every 2 weeks, 0 Refills, Maintenance, 02/11/23 16:22:00 EDT Start Date: 02/11/23 Status: Ordered Sensipar 30 mg oral tablet 1 tablet = 30 mg, By Mouth, Daily, # 30 tablet, 0 Refills, Maintenance, 05/09/16 15:58:38, Tablet Start Date: 05/09/16 Status: Ordered Sodium Bicarbonate-Sodium Citrate = 650 mg, By Mouth, 2 times a day, 0 Refills, Maintenance, 05/05/16 8:43:37 EDT Start Date: 05/05/16 Status: Ordered sucralfate 1 gm oral tablet 1 Gm, 1, tablet, By Mouth, 4 times a day, # 120 tablet, Refills 0, Maintenance, 02/11/23 16:19:00 EDT Start Date: 02/11/23 Status: Ordered Problem List Condition Confirmation Course Effective Dates Status Health Status Informant ICD (implantable cardioverter-defibrillat or) in place Confirmed Active COPD mixed type Confirmed Active Chronic pain Confirmed Active Chronic systolic heart failure Confirmed Active Chronic, continuous use of opioids Confirmed Active Chronic GERD Confirmed Active Hx of CABG Confirmed Active History of colon cancer Confirmed Active Hx of mitral valve repair Confirmed Active Hyperlipidemia Confirmed Active Hyperparathyroidism Confirmed Active Hypothyroidism Confirmed Active Ileostomy present Confirmed Active Ischemic cardiomyopathy Confirmed Active Mitral regurgitation Confirmed Active NSVT (nonsustained ventricular tachycardia) Confirmed Active OP (osteoporosis) Confirmed Active Rheumatoid arthritis Confirmed Active Social History Social History Type Response Smoking Status Former smoker; Type: Cigarettes; Other: pt states stopped smoking 2 months ago; entered on: 05/21/15 Sex Patient Care team information Care Team Personnel Name: Lis Rayo RN Position: [facility] SN RN Member Role: Primary Care Nurse Name: Fauzia Griffin Position: [facility] SN Support Member Role: Lifetime Consulting Physician Name: Darrick Yañez MD Position: [facility] PCO w/OE and EZ Script Member Role: Lifetime Consulting Physician Name: Riki Bridges III, MD Position: Reference Physician Member Role: PCP Address: Address: [address] [place] [id number]- Name: Elizabeth López RN Position: [facility] MR W/ Merge Member Role: Primary Care Nurse Name: Twila Torres MD Position: [facility] Physician - Primary Care Member Role: Lifetime Consulting Physician Address: Address: [address] [place] [address] [facility] [address] Name: Nirali Wisdom RN Position: [facility] RN Member Role: Primary Care Nurse Name: Janice Anton NP Position: [facility] Associate Professional Member Role: Primary Care Nurse Address: Address: [address] [place] [address] [place] [address]- Name: Joe Pathak DO Position: [facility] Renal MD Member Role: Lifetime Consulting Physician Address: Address: [address] [place], [place] [address] [place] [address]- Name: Alyssa Brenner RN Position: [facility] OB RN Member Role: Primary Care Nurse Name: Diego Chaney RN Position: S RN Member Role: Primary Care Nurse Name: Walker Mendez RN Position: [facility] RN Member Role: Primary Care Nurse Name: Barbara Tapia RN Position: S RN Member Role: Primary Care Nurse Name: Yaquelin Londono NP Position: Reference Physician Member Role: Primary Care Nurse Address: Address: [address] [place] [id number]- Name: Amira Farah RN Position: [facility] SN RN Member Role: Primary Care Nurse Name: Yunior BERNARD, Manasa Figueredo Position: S RN Member Role: Primary Care Nurse Care Team Related Persons Name: ROBERT MARROQUIN Address: home [address] [place] [address] Name: BRITTNEY SHEFFIELD Address: home [address] [place] [address]
--- OUTSIDE RECORDS SUMMARY | 2023-06-30 16:46 | XMS_ITS | Continuity of Care Document ---
Author Name Unknown Organization [facility] Address [address] [place] [address] Dr[address] daniel, [address] [place] [address]- Care Team Providers Care Internal Controls Specialist Name Role Phone Cyrus MAX MD, Riki Grace Primary Care Physician [place] [facility] Date[place]s): 02/17/23 - 03/19/[address] [facility] [address] [place] [address] Drive, [address] [place] [address]- Allergies, Adverse Reactions, Alerts Substance Reaction Severity [...] 05/09/16 15:55:42, Inhaler, Route to Pharmacy Electronically, [id number], [facility] [address] Start Date: 05/09/16 Stop Date: 08/07/16 Status: [...] 0 Refills, Maintenance, 02/16/23 14:05:00 EDT, Capsule, [facility], Partial fill upon patient [...] Gm, 0 Refills, Maintenance, 02/11/23 16:18:00 EDT, [place] Start Date: 02/11/23 Status: Ordered omeprazole 20 [...] Team Personnel Name: Lis Rayo RN Position: [facility] SN RN Member Role: Primary Care Nurse Name: Fauzia Griffin Position: [facility] SN Support Member Role: Lifetime Consulting Physician Name: Darrick Yañez MD Position: [facility] PCO w/OE and EZ Script Member Role: Lifetime Consulting Physician Name: Riki Bridges III, MD Position: Reference Physician Member Role: PCP Address: Address: [address] [place] [id number] Name: Elizabeth López RN Position: [facility] MR W/ Merge Member Role: Primary Care Nurse Name: Twila Torres MD Position: [facility] Physician - Primary Care Member Role: Lifetime Consulting Physician Address: Address: [address] [place] [address] [facility] [address] Name: Nirali Wisdom RN Position: [facility] RN Member Role: Primary Care Nurse Name: Janice Anton NP Position: [facility] Associate Professional Member Role: Primary Care Nurse Address: Address: [address] [place] [address] Infectious Disease [place], [place] [address] Name: Joe Pathak DO Position: [facility] Renal MD Member Role: Lifetime Consulting Physician Address: Address: [address] [place] [address] [address] [facility] [place] [address]- Name: Alyssa Brenner RN Position: [facility] OB RN Member Role: Primary Care Nurse Name: Diego Chaney RN Position: [facility] RN Member Role: Primary Care Nurse Name: Walker Mendez RN Position: [facility] RN Member Role: Primary Care Nurse Name: Barbara Tapia RN Position: [facility] RN Member Role: Primary Care Nurse Name: Yaquelin Londono NP Position: Reference Physician Member Role: Primary Care Nurse Address: Address: [address] [place] [id number]- Name: Amira Farah RN Position: [facility] RN Member Role: Primary Care Nurse Name: Yunior BERNARD, Manasa Figueredo Position: S RN Member Role: Primary Care Nurse Care Team Related Persons Name: ROBERT MARROQUIN Address: home [address] [place] [address] Name: BRITTNEY SHEFFIELD Address: home [address] [place] [address]
--- OUTSIDE RECORDS SUMMARY | 2023-06-30 16:46 | XMS_ITS | Continuity of Care Document ---
Author Name Unknown Organization [facility] Address [address] [place] [address] maría, [address] [place] [address]- Care Team Providers Care Telecommunications Analyst Name Role Phone Riki Bridges III, MD Primary Care Physician Encounter [facility] Date(s): 09/30/22 - 10/30/22 [facility] [address] [place] [address] Drive, [address] [place], [place] [address] Attending Physician: Admtr, Ar8 Admitting Physician: Admtr, Ar8 Referring Physician: Admtr, Ar8 Allergies, Adverse Reactions, Alerts Substance Reaction Severity Status sulfADIAZINE Active heparin 1 Active predniSONE Active atorvastatin Active Latex Persistent Moderate Active Nuts walnuts [...] 05/09/16 15:55:42, Inhaler, Route to Pharmacy Electronically, [id number], [facility] [id number] Start Date: 05/09/16 Stop Date: 08/07/16 Status: Ordered aspirin 81 mg oral tablet = 81 mg, By Mouth, Daily, # 30 tablet, 2 Refills, Maintenance, 05/09/16 15:57:18, Tablet Start Date: 05/09/16 Stop Date: 08/07/16 Status: Ordered Coreg 6.25 mg oral tablet [...] a day Start Date: 02/27/20 Status: Ordered isosorbide mononitrate 60 mg oral [...] chest pain, # 12 Gm, 3 Refills, Maintenance, 09/04/15 8:23:54, [place], 1 sprays Sublingual Every 5 minutes,x3 doses/times,PRN:for chest pain Start Date: 09/04/15 Status: Ordered Sensipar 30 mg oral tablet 1 tablet = 30 mg, By Mouth, Daily, # 30 tablet, 0 Refills, Maintenance, 05/09/16 15:58:38, Tablet Start Date: 05/09/16 Status: Ordered Sodium Bicarbonate-Sodium Citrate = 650 mg, By Mouth, Daily, 0 Refills, Maintenance, 05/05/16 8:43:37 Start Date: 05/05/16 Status: Ordered Problem List Condition Confirmation Course Effective Dates Status H ealth Status Informant 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 Chronic systolic heart failure Confirmed Active Hx of CABG Confirmed Active History of colon cancer Confirmed Active Hx of mitral valve repair Confirmed Active Ileostomy present Confirmed Active Ischemic cardiomyopathy Confirmed Active Mitral regurgitation Confirmed Active NSVT (nonsustained ventricular tachycardia) Confirmed Active Social History Social History Type Response Smoking Status Former smoker; Type: Cigarettes; Other: pt states stopped smoking 2 months ago; entered on: 05/21/15 Sex Patient Care team information Care Team Personnel Name: Lis Rayo RN Position: [facility] SN RN Member Role: Primary Care Nurse Name: Fauzia Griffin Position: [facility] PCO OFFICE STAFF Member Role: Lifetime Consulting Physician Name: Darrick Yañez MD Position: [facility] PCO w/OE and EZ Script Member Role: Lifetime Consulting Physician Name: Liliana Gunderson RN Position: [facility] RN Member Role: Primary Care Nurse Name: Riki Bridges III, MD Position: [facility] Ambulatory (view) Member Role: PCP Address: Address: [address] [place] [address] Name: Elizabeth López RN Position: [facility] MR W/ Merge Member Role: Primary Care Nurse Name: Twila Torres MD Position: [facility] Physician -Physician Practices Member Role: Lifetime Consulting Physician Address: Address: [address] [place] [address] [facility] [address] Name: Nirali Wisdom RN Position: [facility] RN Member Role: Primary Care Nurse Name: Janice Anton NP Position: [facility] Associate Professional Member Role: Primary Care Nurse Address: Address: [address] [place] [address] Infectious Disease [place], [place] [address] Name: Joe Pathak DO Position: [facility] Renal MD Member Role: Lifetime Consulting Physician Address: Address: [address] [place] [address] [address] [facility] [place] [address]- [place] Name: Alyssa Brenner RN Position: [facility] OB RN Member Role: Primary Care Nurse Name: Ritu RNDiego Position: S RN Member Role: Primary Care Nurse Name: Vanessa RNWalker Position: S RN Member Role: Primary Care Nurse Name: Barbara Tapia RN Position: [facility] RN Member Role: Primary Care Nurse Name: Yaquelin Londono NP Position: Reference Physician Member Role: Primary Care Nurse Address: Address: [address] [place] [address]- Name: Amira Farah RN Position: [facility] SN RN Member Role: Primary Care Nurse Name: Manasa Mojica RN Position: S RN Member Role: Primary Care Nurse Care Team Related Persons Name: ROBERT MARROQUIN Address: home [address] [place] [address] Name: BRITTNEY SHEFFIELD Address: home [address] [place] [address]
--- OUTSIDE RECORDS SUMMARY | 2023-06-30 16:46 | XMS_ITS | Continuity of Care Document ---
Author Name Unknown Organization [facility] Address [address] [place] [address]- Care Team Providers Care Degreaser Operator Name Role Phone Cyrus MAX MD, Riki Grace Primary Care Physician [phone] Encounter [facility] Date(s): 02/12/23 - 03/14/23 [facility] [address] [place], [place] [address] Attending Physician: Admtr, Yaron Admitting Physician: Admtr, Ar8 Referring Physician: Admtr, [...] 05/09/16 15:55:42, Inhaler, Route to Pharmacy Electronically, [id number], [facility] [id number] Start Date: 05/09/16 Stop Date: 08/07/16 Status: [...] 0 Refills, Maintenance, 02/16/23 14:05:00 EDT, Capsule, [facility], Partial fill upon patient [...] Gm, 0 Refills, Maintenance, 02/11/23 16:18:00 EDT, [place] Start Date: 02/11/23 Status: Ordered omeprazole 20 [...] Team Personnel Name: Lis Rayo RN Position: [facility] SN RN Member Role: Primary Care Nurse Name: Fauzia Griffin Position: [facility] SN Support Member Role: Lifetime Consulting Physician Name: Darrick Yañez MD Position: [facility] PCO w/OE and EZ Script Member Role: Lifetime Consulting Physician Name: Riki Bridges III, MD Position: Reference Physician Member Role: PCP Address: Address: [address] [place] [address]- Name: Elizabeth López RN Position: [facility] MR W/ Merge Member Role: Primary Care Nurse Name: Twila Torres MD Position: [facility] Physician - Primary Care Member Role: Lifetime Consulting Physician Address: Address: [address] [place] [address] [facility] [address] Name: Nirali Wisdom RN Position: [facility] RN Member Role: Primary Care Nurse Name: Janice Anton NP Position: [facility] Associate Professional Member Role: Primary Care Nurse Address: Address: [address] [place] [address] [place] [address]- Name: Joe Pathak DO Position: [facility] Renal MD Member Role: Lifetime Consulting Physician Address: Address: [address] [place], [place] [address]E [facility] [place] [address]- Name: Alyssa Brenner RN Position: [facility] OB RN Member Role: Primary Care Nurse Name: Diego Chaney RN Position: S RN Member Role: Primary Care Nurse Name: Walker Mendez RN Position: [facility] RN Member Role: Primary Care Nurse Name: Barbara Tapia RN Position: S RN Member Role: Primary Care Nurse Name: Yaquelin Londono NP Position: Reference Physician Member Role: Primary Care Nurse Address: Address: [address] [place] [address]- Name: Amira Farah RN Position: [facility] SN RN Member Role: Primary Care Nurse Name: Yunior BERNARD, Manasa Figueredo Position: S RN Member Role: Primary Care Nurse Care Team Related Persons Name: ROBERT MARROQUIN Address: home [address] [place] [address] Name: BRITTNEY SHEFFIELD Address: home [address] [place] [address]
--- OUTSIDE RECORDS SUMMARY | 2023-06-30 16:46 | XMS_ITS | Continuity of Care Document ---
Author Name Unknown Organization [facility] Address [address] [place] [address] Drdania daniel, [address] [place] [address]- Care Team Providers Care Cotton Weigher Operator Name Role Phone Cyrus MAX MD, Riki Grace Primary Care Physician Encounter [facility] Date(s): 03/15/23 - 04/14/23 [facility] [address] [place] [address] Drive, [address] [place], [place] [address] Attending Physician: Admtr, Ar8 Admitting Physician: Admtr, Ar8 Referring Physician: Admtr, Ar8 Allergies, Adverse Reactions, Alerts Substance Reaction Severity Status sulfADIAZINE rash Mild Active heparin 1 Mild Active Latex rash, trouble breathing Mild Acti ve Pollen sneezing, watery eyes Mild Active Nuts hard time breathing walnuts Mild Active predniSONE Mild Active atorvastatin rash Mild Active 1 I go crazy Immunizations Given and Recorded Vaccine Date Status Refusal Reason influenza virus vaccine, inactivated 05/28/15 Give n pneumococcal 23-valent vaccine 04/21/12 Given Medications albuterol CFC free 90 mcg/inh inhalation aerosol 2, puffs, Inhalation, Every 4 hours, PRN, # 1 each, Refills 2, Tot. Refills 2, Maintenance, 05/09/16 15:55:42, Inhaler, Route to Pharmacy Electronically, [id number], [facility] [address] Start Date: 05/09/16 Stop Date: 08/07/16 Status: [...] 0 Refills, Maintenance, 02/16/23 14:05:00 EDT, Capsule, [facility], Partial fill upon patient request [...] Gm, 0 Refills, Maintenance, 02/11/23 16:18:00 EDT, [place] Start Date: 02/11/23 Status: Ordered omeprazole 20 [...] 0, Maintenance, 02/11/23 16:19:00 EDT Start Date: 6/15/23 Status: Ordered Problem List Condition Confirmation Course [...] Team Personnel Name: Lis Rayo RN Position: [facility] SN RN Member Role: Primary Care Nurse Name: Fauzia Griffin Position: [facility] SN Support Member Role: Lifetime Consulting Physician Name: Darrick Yañez MD Position: [facility] PCO w/OE and EZ Script Member Role: Lifetime Consulting Physician Name: Riki Bridges III, MD Position: Reference Physician Member Role: PCP Address: Address: [address] [place] [address]- Name: Elizabeth López RN Position: [facility] MR W/ Merge Member Role: Primary Care Nurse Name: Twila Torres MD Position: [facility] Physician - Primary Care Member Role: Lifetime Consulting Physician Address: Address: [address] [place] [address] Geriatric [facility] [place] [address]- Name: Nirali Wisdom RN Position: [facility] RN Member Role: Primary Care Nurse Name: Janice Anton NP Position: [facility] Associate Professional Member Role: Primary Care Nurse Address: Address: [address] [place] [address] [place] [address]- Name: Joe Pathak DO Position: [facility] Renal MD Member Role: Lifetime Consulting Physician Address: Address: [address] [place], [place] [address]E [facility] [place] [address]- Name: Alyssa Brenner RN Position: [facility] OB RN Member Role: Primary Care Nurse Name: Diego Chaney RN Position: [facility] RN Member Role: Primary Care Nurse Name: Walker Mendez RN Position: [facility] RN Member Role: Primary Care Nurse Name: Barbara Tapia RN Position: S RN Member Role: Primary Care Nurse Name: Yaquelin Londono NP Position: Reference Physician Member Role: Primary Care Nurse Address: Address: [address] [place] [id number] Name: Amira Farah RN Position: [facility] RN Member Role: Primary Care Nurse Name: Manasa Mojica RN Position: [facility] RN Member Role: Primary Care Nurse Care Team Related Persons Name: CARA ROBERTSHELLEY PEREZ Address: home [address] [place] [address] Name: BRITTNEY SHEFFIELD Address: home [address] [place] [address]
--- OUTSIDE RECORDS SUMMARY | 2023-06-30 16:46 | XMS_ITS | Continuity of Care Document ---
Author Name Unknown Organization [facility] Address [address] [place] [address] Drdania daniel, [address] [place] [address]- Care Team Providers Care Telephone Lineworker Name Role Phone Cyrus MAX MD, Riki Grace Primary Care Physician Encounter [facility] [id number] Date(s): 01/27/23 - 02/26/23 [facility] [address] [place] [address] Drive, [address] [place] [address]- Allergies, Adverse Reactions, Alerts Substance Reaction Severity [...] 05/09/16 15:55:42, Inhaler, Route to Pharmacy Electronically, [id number], [facility] [id number] Start Date: 05/09/16 Stop Date: 08/07/16 Status: [...] 0 Refills, Maintenance, 02/16/23 14:05:00 EDT, Capsule, [facility], Partial fill upon patient request [...] Gm, 0 Refills, Maintenance, 02/11/23 16:18:00 EDT, [place] Start Date: 02/11/23 Status: Ordered omeprazole 20 [...] Team Personnel Name: Lis Rayo RN Position: [facility] SN RN Member Role: Primary Care Nurse Name: Fauzia Griffin Position: [facility] SN Support Member Role: Lifetime Consulting Physician Name: Darrick Yañez MD Position: [facility] PCO w/OE and EZ Script Member Role: Lifetime Consulting Physician Name: Riki Bridges III, MD Position: Reference Physician Member Role: PCP Address: Address: [address] [place] [address] Name: Elizabeth López RN Position: [facility] MR W/ Merge Member Role: Primary Care Nurse Name: Twila Torres MD Position: [facility] Physician - Primary Care Member Role: Lifetime Consulting Physician Address: Address: [address] [place] [address] [facility] [address] Name: Nirali Wisdom RN Position: [facility] RN Member Role: Primary Care Nurse Name: Janice Anton NP Position: [facility] Associate Professional Member Role: Primary Care Nurse Address: Address: [address] [place] [address] Infectious Disease [place], [place] [address] Name: Joe Pathak DO Position: [facility] Renal MD Member Role: Lifetime Consulting Physician Address: Address: [address] [place] [address] [address] [facility] [place] [address]- Name: Alyssa Brenner RN Position: [facility] OB RN Member Role: Primary Care Nurse Name: Diego Chaney RN Position: [facility] RN Member Role: Primary Care Nurse Name: Walker Mendez RN Position: [facility] RN Member Role: Primary Care Nurse Name: Barbara Tapia RN Position: [facility] RN Member Role: Primary Care Nurse Name: Yaquelin Londono NP Position: Reference Physician Member Role: Primary Care Nurse Address: Address: [address] [place] [address]- Name: Amira Farah RN Position: [facility] RN Member Role: Primary Care Nurse Name: Yunior BERNARD, Manasa Figueredo Position: S RN Member Role: Primary Care Nurse Care Team Related Persons Name: ROBERT MARROQUIN Address: home [address] [place] [address] Name: BRITTNEY SHEFFIELD Address: home [address] [place] [address]
--- OUTSIDE RECORDS SUMMARY | 2023-06-30 16:46 | XMS_ITS | Continuity of Care Document ---
Author Name Unknown Organization [facility] Address [address] [place] [address] Drdania daniel, [address] [place] [address]- Care Team Providers Care Rotary Cutter Name Role Phone Riki Bridges III, MD Primary Care Physician [phone] [id number] - 03[facility]10[facility] [address] [place] [address] Drive, [address] [place], [place] [address] Attending Physician: Joi Leyva DO Referring [...] 05/09/16 15:55:42, Inhaler, Route to Pharmacy Electronically, [id number], [facility] [id number] Start Date: 05/09/16 Stop Date: 08/07/16 Status: [...] 0 Refills, Maintenance, 02/16/23 14:05:00 EDT, Capsule, [facility], Partial fill upon patient [...] Gm, 0 Refills, Maintenance, 02/11/23 16:18:00 EDT, [place] Start Date: 02/11/23 Status: Ordered omeprazole 20 [...] (osteoporosis) Confirmed Active Rheumatoid arthritis Confirmed Active Vital Signs Most recent to oldest [Reference Range]: 1 Height 165.10 cm (03/03/23 10:49 AM) Weight 57 kg (03/03/23 10:49 AM) Body Mass Index [18.5-24.99 kg/m2] 20.91 kg/m2 (03/03/23 10:49 AM) Social History Social History Type Response Smoking Status Former smoker; Type: Cigarettes; Other: pt states stopped smoking 2 months ago; entered on: 05/21/15 Sex Patient Care team information Care Team Personnel Name: Lis Rayo RN Position: [facility] SN RN Member Role: Primary Care Nurse Name: Fauzia Griffin Position: [facility] SN Support Member Role: Lifetime Consulting Physician Name: Darrick Yañez MD Position: [facility] PCO w/OE and EZ Script Member Role: Lifetime Consulting Physician Name: Riki Bridges III, MD Position: Reference Physician Member Role: PCP Address: Address: [address] [place] [id number] Name: Elizabeth López RN Position: [facility] MR W/ Merge Member Role: Primary Care Nurse Name: Twila Torres MD Position: [facility] Physician - Primary Care Member Role: Lifetime Consulting Physician Address: Address: [address] [place] [address] [facility] [address] Name: Nirali Wisdom RN Position: [facility] RN Member Role: Primary Care Nurse Name: Janice Anton NP Position: [facility] Associate Professional Member Role: Primary Care Nurse Address: Address: [address] [place] [address] Infect[address] Name: Joe Pathak DO Position: [facility] Renal MD Member Role: Lifetime Consulting Physician Address: Address: [address] [place], [place] [address]E [facility] [place] [address]- Name: Alyssa Brenner RN Position: [facility] OB RN Member Role: Primary Care Nurse Name: Diego Chaney RN Position: S RN Member Role: Primary Care Nurse Name: Walker Mendez RN Position: S RN Member Role: Primary Care Nurse Name: Barbara Tapia RN Position: S RN Member Role: Primary Care Nurse Name: Yaquelin Londono NP Position: Reference Physician Member Role: Primary Care Nurse Address: Address: [address] [place] [address]- Name: Amira Farah RN Position: [facility] SN RN Member Role: Primary Care Nurse Name: Yunior BERNARD, Manasa Figueredo Position: [facility] RN Member Role: Primary Care Nurse Care Team Related Persons Name: ROBERT MARROQUIN Address: home [address] [place] [address] Name: BRITTNEY SHEFFIELD Address: home [address] [place] [address]
--- OUTSIDE RECORDS SUMMARY | 2023-06-30 16:46 | XMS_ITS | Continuity of Care Document ---
Author Name Unknown Organization [facility] ter Address [address] [place] [address]- Care Team Providers Care Brush Fabrication Supervisor Name Role Phone Cyrus MAX MD, Riki Grace Primary Care Physician [phone] Encounter [facility] Date(s): 02/16/23 - 02/16/[address] [address] Discharge Disposition: A-D/C Home Attending Physician: Joi Leyva DO Admitting Physician: Joi Leyva DO Referring Physician: Joi Leyva DO Allergies, Adverse Reactions, Alerts Substance Reaction Severity [...] 05/09/16 15:55:42, Inhaler, Route to Pharmacy Electronically, [id number], [email or web address] Start Date: 05/09/16 Stop Date: 08/07/16 Status: [...] 0 Refills, Maintenance, 02/16/23 14:05:00 EDT, Capsule, [facility], Partial fill upon patient [...] Gm, 0 Refills, Maintenance, 02/11/23 16:18:00 EDT, [place] Start Date: 02/11/23 Status: Ordered omeprazole 20 [...] Most recent to oldest [Reference Range]: 1 2 3 Height 165.10 cm (02/16/23 9:50 AM) 165.10 cm (02/11/23 5:07 PM) Weight 57.72 kg (02/16/23 9:50 AM) 57.27 kg (02/11/23 5:07 PM) Oxygen Saturation [94-100 %] 98 % (02/16/23 2:30 PM) 97 % (02/16/23 1:45 PM) 96 % (02/16/23 1:30 PM) Pulse Rate [55-90 bpm] 79 bpm (02/16/23 9:50 AM) Body Mass Index [18.5-24.99 kg/m2] 21.18 kg/m2 (02/16/23 9:50 AM) 21.01 kg/m2 (02/11/23 5:07 PM) Blood Pressure [90-138/55-84 mm Hg] 130/61mm Hg (02/16/23 1:45 PM) 108/45mm Hg (02/16/23 1:30 PM) 108/45mm Hg (02/16/23 1:15 PM) Respiratory Rate [16-30 br/min] 24 br/min (02/16/23 1:45 PM) 13 br/min *L* (02/16/23 1:30 PM) 20 br/min (02/16/23 1:15 PM) Temperature [96.8-100.4 DegF] 98.9 DegF (02/16/23 12:45 PM) 98.1 DegF (02/16/23 9:50 AM) Liters per Minute 2 L/min (02/16/23 1:15 PM) 5 L/min (02/16/23 12:45 PM) 2 L/min (02/16/23 9:50 AM) Mode of Delivery (Oxygen) Nasal cannula (02/16/23 2:30 PM) Nasal cannula (02/16/23 1:15 PM) Simple face mask (02/16/23 12:45 PM) Blood pressure sites Arm, right (02/16/23 9:50 AM) Temperature Route Temporal (02/16/23 12:45 PM) Temporal (02/16/23 9:50 AM) Dry Weight 57.27 kg (02/11/23 5:07 PM) Weight Obtained Via Patient/family state d (02/16/23 9:50 AM) Patient/family stated (02/11/23 5:07 PM) Dry Weight Obtained Via Patient/family s tated (02/11/23 5:07 PM) Social History Social History Type Response Smoking Status Former smoker; Type: Cigarettes; Other: pt states stopped smoking 2 months ago; entered on: 05/21/15 Sex Note * Kirstie Bull RN: PERFORM Event Display: Discharge/Transfer Note Hospital Authored Date: [id number] Nursing Discharge Note Entered On: 02/16/2023 15:24 EDT Performed On: 02/16/2023 15:23 EDT by Kirstie Bull RN Nursing Discharge Note 2 Discharge Time : 02/16/2023 14:58 EDT Discharge Level of Care at Discharge : Home/Long Term/Foster Care Patient Left Unit Via : Wheelchair Patient Accompanied Off Unit with : Responsible adult DC Instructions Provided & Signed by Pt : Yes Patient Understands D/C Instructions : Yes Patient Instructions Discharge Signed : Yes Did Pt have Specialty Bed or Wound Vac : No Kirstie Bull RN - 02/16/2023 15:23 EDT * Elizabeth Henao: PERFORM, MODIFY, SIGN, VERIFY Event Display: Discharge/Transfer Note Hospital Authored Date: [id number] Patient: ZAID ORONA Age: 77 years Sex: Female : 1945 Associated Diagnoses: None Author: Elizabeth Henao Discharge Information Date: 02/16/23 Service: Neurosurgery Pre-operative diagnosis: Chronic Pain Syndrome, Lqg-zu-Lasrasj of [place] Spinal Cord Stimulator Post-operative diagnosis: same Operation: removal and replacement of Briceno Spinal Cord Stimulator Generator. (Entire system is MRI compatible) Surgeon: Joi Leyva DO [facility] Hospital Course This is a 77-year-old female who presented outpatient for evaluation of SCS generator battery change. She had no focal neurologic deficits on exam. Surgery was tolerated well, without complication. Postoperatively, she is ambulatory, tolerating p.o., and voiding freely. She will be discharged home with Keflex 500 mg twice daily x3 days. Discussed postoperative expectations with patient. She expressed good understanding, all questions answered. Neurosurgery postoperative instructions provided ondischarge. Alert and oriented x 3 No acute cardio respiratory distress Surgical incision closed with dermabond, C/D/I Speech is clear, fluent and appropriate Slight left facial droop, corrects with smile Cranial nerves are grossly intact. Upper extremities; deltoid 5/5 bilaterally, triceps 5/5 bilaterally, biceps 5/5 bilaterally, hand oxyhydrogen welder 5/5 bilaterally, finger intrinsics 5/5 bilaterally Sensation intact throughout upper extremities Lower extremities: hip flexion 5/5 bilaterally, knee extension 5/5 bilaterally, dorsiflexion 5/5 bilaterally, plantar flexion 5/5 bilaterally, EHL 5/5 bilaterally Sensation intact throughout lower extremities Discharge Plan Diet/Activity/Patient Education/Follow Up Follow Up with: Riki Leyva 03/03/2023 10:45 AM. Discharge Disposition Discharge: home. MEDICATION LIST (Selected) Prescriptions Prescribed Sensipar 30 mg oral tablet: 1 tablet = 30 mg, By Mouth, Daily, # 30 tablet, 0 Refills, Maintenance,05/09/16 15:58:38, Tablet albuterol CFC free 90 mcg/inh inhalation aerosol: 2, puffs, Inhalation, Every 4 hours, PRN, # 1 each, Refills 2, Tot. Refills 2, Maintenance, 05/09/16 15:55:42, Inhaler, Route to Pharmacy Electronically, [id number], [facility] [id number] aspirin 81 mg oral tablet: = 81 mg, By Mouth, Daily, # 30 tablet, 2 Refills, Maintenance, 05/09/16 15:57:18, Tablet cephalexin monohydrate 500 mg oral capsule: 1 capsule = 500 mg, By Mouth, Every 12 hours, # 6 capsule, 0 Refills, Maintenance, 02/16/23 14:05:00 EDT, Capsule, [facility], Partial fill upon patient request if the prescription is for a schedule II opioid drug., 165.1, cm, 02/16/23 9... magnesium oxide 400 mg oral tablet: = 400 mg, By Mouth, 2 times a day, # 28 tablet, 0 Refills, SoftStop, 06/10/18 13:49:02 EDT, Tablet Documented Medications Documented Coreg 6.25 mg oral tablet: 6.25 mg, 1, tablet, By Mouth, 2 times a day, Maintenance, 02/27/20 15:29:00 EDT Entresto 97 mg-103 mg oral tablet: 1 tablet, By Mouth, 2 times a day, Maintenance, 02/27/20 15:28:00 EDT, Tablet Flovent Diskus 250 mcg/inh inhalation powder: 2 puffs, Inhalation, 2 times a day Lasix 40 mg oral tablet: 40 mg, 1, tablet, By Mouth, Daily at supper, Refills 0, Maintenance, 02/29/20 10:31:00 EDT Praluent Pen 150 mg/mL subcutaneous solution: = 150 mg, Subcutaneous Infusion, every 2 weeks, 0 Refills, Maintenance, 02/11/23 16:22:00 EDT Sodium Bicarbonate-Sodium Citrate: = 650 mg, By Mouth, 2 times a day, 0 Refills, Maintenance, 05/05/16 8:43:37 EDT apixaban 5 mg oral tablet: 1 tablet = 5 mg, By Mouth, 2 times a day, # 60 tablet, 0 Refills, Maintenance, 02/11/23 16:18:00 EDT, Tablet digoxin 0.125 mg oral tablet: 125 mcg, 1, tablet, By Mouth, Every Wednesday, Wednesday and Wednesday, Maintenance, 02/27/20 15:32:00 EDT furosemide 80 mg oral tablet: 80 mg, 1, tablet, By Mouth, Daily, # 30 tablet, Refills 0, Maintenance, 02/11/23 16:17:00 EDT isosorbide mononitrate 60 mg oral tablet, extended release: 1.5 tablet = 90 mg, By Mouth, Daily in AM, Maintenance, 02/27/20 15:27:00 EDT, ER Tablet levothyroxine 0.025 mg oral tablet: 1.5 tablet = 37.5 mcg, By Mouth, Daily, Maintenance, 02/27/20 15:27:00 EDT, Tablet morphine 30 mg oral capsule, extended release: = 30 mg, By Mouth, 3 times a day, 0 Refills, Maintenance, 08/16/15 1:48:37 nitroglycerin 0.4 mg sublingual spray: 1 sprays = 0.4 mg, Sublingual, Every 5 minutes, PRN as needed for chest pain, not to exceed 3 doses/15 min--if pain persists, seek medical attention, # 4.9 Gm, 0 Refills, Maintenance, 02/11/23 16:18:00 EDT, [place] omeprazole 20 mg oral delayed release tablet: 1 tablet = 20 mg, By Mouth, 2 times a day, # 60 tablet, 0 Refills, Maintenance, 02/11/23 16:19:00 EDT, EC Tablet sucralfate 1 gm oral tablet: 1 Gm, 1, tablet, By Mouth, 4 times a day, # 120 tablet, Refills 0, Maintenance, 02/11/23 16:19:00 EDT * Kirstie Bull RN: PERFORM Event Display: Patient Education/Instruction Authored Date: [id number] Inpatient Adult Discharge Instructions [address] [address] Name: ZAID OROAN : 1945 Visit: 02/16/2023 09:18:00 Current Date: 02/16/2023 14:30 Account: [id number] Inpatient Adult Discharge Instructions We would like to thank you for allowing us to assist you with your healthcare needs. The following includes patient education materials and information regarding your injury/illness. Our entire staffstrives to provide an excellent experience for our patients and their families. PLEASE ENSURE YOU FOLLOW-UP PER THE INSTRUCTIONS BELOW! ?? YOUR OPINION IS IMPORTANT TO US! Please complete the survey you may receive by mail or email. Your feedback will be used to make improvements to the healthcare experiences of our patients and their families. Surveys are administered by [employer] ?? If further treatment with your primary care physician or another doctor is recommended, it is important for you to keep the appointment. Call your primary care physician or return to the Emergency Department immediately if your condition worsens, fails to improve, or new symptoms develop. If you need to find a doctor, you can call [facility] for a referral at [phone] or toll free at [phone] ([phone]) or log in to [email or web address].. ?? You can view and manage your care through the patient portal or by using a health care bette of your choosing. [email or web address] is a website that allows you to securely view your medical information including your hospital discharge summary, office visit summaries, medications and follow-up visits. You can also request appointments, renew medications, and request access to your medical information using a health care bette of your choosing, or just ask a question. You can enroll at [email or web address] or register during your next office visit. You have been discharged from [facility], Patient Care Unit: PANU. If you have any questions regarding these instructions after you leave, please call us and we will be happy to assist you. [facility] Your Care Team Attending Physician Joi Leyva DO Discharging Providers Elizabeth Henao Reason for Admission CHRONIC PAIN REPLACEMENTSPIN CORD STIM [facility] IP Tests Performed Below is a partial list of the tests performed during your hospitalization. You may have had other tests and procedures not included in this list. Please discuss all test results with your provider. Primary Care Provider Cyrus MAX MD, Riki Grace Advance Directive Health Care Proxy on File Yes - Health Care Proxy Discharge Vitals Temperature: 98.9 DegF Height: 165.1 cm Pulse Rate: 79 bpm Weight: 57.72 kg Respiratory Rate: 24 br/min Body Mass Index: 21.18 kg/m2 Systolic Blood Pressure: 130 mm Hg Body surface area: 1.63 Diastolic Blood Pressure: 61 mm Hg ?? Oxygen Saturation: 97 % ?? Studies Pending All tests and labs ordered during this hospital stay have been completed unless listed below. Please discuss all pending results with your provider listed above in these instructions. ?? No incomplete studies found What to do next Instructions From Your Doctor Discharge Orders Scheduled Follow-Up Appointments Wednesday 10:45 AM EDT ?? With: Joi Leyva DO Where: [facility] [address] [place] [address] [place] [address]- Status: Pending Wednesday 10:45 AM EDT ?? With: Joi Leyva DO Where: [facility] [address] [place] [address] [place] [address]- Status: Pending You Need to Schedule the Following Appointments Follow Up with??Joi Leyva When:??03/03/2023 10:45 AM EDT Where: [address] [place] [address]- Business (1) Follow Up with??Riki Bridges When:??In 0 days Where: [address] [place] [id number]- Business (1) Discharge Medications ZAID ORONA :1945 Visit Date:02/16/2023 Medications: Please continue your medications until treatment is completed or stopped by your provider. Medications not listed below should be discontinued. Discuss any questions related to medications with your provider. What How Much When Instructions Next Dose New Cephalexin (cephalexin monohydrate 500 mg oral capsule) 1 capsule Oral Every 12 hours Duration: 3 [facility] SCH[facility] Unchanged Albuterol (albuterol CFC free 90 mcg/ inh inhalation aerosol) 2 puff(s) Inhalation Every 4 hours as needed for Wheezing/Shortness of Breath Duration: 30 Days as scheduled Unchanged alirocumab (Praluent Pen 150 mg/ mL subcutaneous solution) 150 Milligram Subcutaneous Infusion every 2 weeks ?? as scheduled Unchanged apixaban (apixaban 5 mg oral tablet) 1 tab(s) Oral Twice a day Resume tomorrow Unchanged Aspirin (aspirin 81 mg oral tablet) 81 Milligram Oral Daily Duration: 30 Days Resume Tomorrow Unchanged Carvedilol (Coreg 6.25 mg oral tablet) 1 tab(s) Oral Twice a day As scheduled Unchanged Cinacalcet (Sensipar 30 mg oral tablet) 1 tab(s) Oral Daily as scheduled Unchanged Digoxin (digoxin 0.125 mg oral tablet) 1 tab(s) Oral Wednesday, Wednesday and Wednesday as scheduled Unchanged Fluticasone (Flovent Diskus 250 mcg/ inh inhalation powder) 2 puff(s) Inhalation Twice a day as scheduled Unchanged Furosemide (furosemide 80 mg oral tablet) 1 tab(s) Oral Daily as scheduled Unchanged Furosemide (Lasix 40 mg oral tablet) 1 tab(s) Oral Daily at supper as scheduled Unchanged Isosorbide Mononitrate (isosorbide mononitrate 60 mg oral tablet, extended release) 1.5 tab(s) Oral Daily in the morning as scheduled Unchanged Levothyroxine (levothyroxine 0.025 mg oral tablet) 1.5 tab(s) Oral Daily as scheduled Unchanged Magnesium Oxide (magnesium oxide 400 mg oral tablet) 400 Milligram Oral Twice a day Duration: 14 Days as scheduled Unchanged Morphine (morphine 30 mg oral capsule, extended release) 30 Milligram Oral 3 times a day as scheduled Unchanged Nitroglycerin (nitroglycerin 0.4 mg sublingual spray) 1 spray(s) Sublingual Every 5 minutes as needed for as needed for chest pain not to exceed 3 doses/ 15 min--if pain persists, seek medical attention ?? as Needed Unchanged Omeprazole (omeprazole 20 mg oral delayed release tablet) 1 tab(s) Oral Twice a day as scheduled Unchanged sacubitril-valsartan (Entresto 97 mg-103 mg oral tablet) 1 tab(s) Oral Twice a day as scheduled Unchanged Sodium Bicarbonate-Sodium Citrate 650 Milligram Oral Twice a day as scheduled Unchanged Sucralfate (sucralfate 1 gm oral tablet) 1 tab(s) Oral 4 times a day as scheduled Pharmacy Information [facility]: [address] [place], [place] [id number] [phone] Test Results Below is a partial list of the most recent Laboratory test results done prior to this discharge. You may have had other tests and procedures not included in this list. Please discuss all test resultswith your provider. Allergies (NKA means No Known Allergies) Latex??(rash, trouble breathing) Nuts??(hard time breathing, walnuts) Pollen??(sneezing, watery eyes) atorvastatin??(rash) heparin predniSONE sulfADIAZINE??(rash) Problems Active Problems??(18) Chronic GERD?? Chronic pain?? Chronic systolic heart failure?? Chronic, continuous use of opioids?? COPD mixed type?? History of colon cancer?? Hx of CABG?? Hx of mitral valve repair?? Hyperlipidemia?? Hyperparathyroidism?? Hypothyroidism?? ICD (implantable cardioverter-defibrillator) in place?? Ileostomy present?? Ischemic cardiomyopathy?? Mitral regurgitation?? NSVT (nonsustained ventricular tachycardia)?? OP (osteoporosis)?? Rheumatoid arthritis?? Education Materials Below is the list of Educational Leaflet Providered with your Discharge Instructions. Surgery Medical Daystay Surgical Overnight Discharge Instructions?? Neurosurgery-Lumbar Discharge Instructions?? Valuables and Belongings I fully understand and agree that [facility] accepts no responsibility for all my personal property including clothing, toilet articles, radios, jewelry, dentures, hearing aids, rings, money, or any other property that is in my possession or is brought to me after admission. I understand certain valuables may be placed in a hospital safe for a short period of time. I understand that the hospital is not liable for loss or damage due to accident, fire, or other natural occurrence while said property is in the safe. I accept full responsibility for any personal property that I keep with me, and will not hold the hospital responsible in case of loss or disappearance. I acknowledge that i have been encouraged to send valuables and belongings home. ?? Review of Valuable and Belonging List: With patient Date for Pt to Sign Valuables/Belongings: 02/16/23 09:50:00 ?? Valuables & Belongings ?? Clothes Electronic devices Jewelry Monetary Items Personal devices Miscellaneous Medications (Valuables) Valuables at Bedside Pants, Shirt, Shoes, Undergarments ? Wheelchair, Other: O2 tank ? Valuables Sent Home ? Valuables Sent to Security ? Other Discharge Information ? Pulmonary Rehab Status?? Pulmonary Rehab Discharge Status?? Respiratory Rate: 24 br/min ? Common Emergency Awareness Tips IS IT A STROKE? Act FAST and Check for these signs: FACE Does the face look uneven? ARM Does one arm drift down? SPEECH Does their speech sound strange? TIME Call at any sign of stroke ?? Heart Attack Signs Chest discomfort: Most heart attacks involve discomfort in the center of the chest and lasts more than a few minutes, or goes away and comes back. It can feel like uncomfortable pressure, squeezing, fullness or pain. Discomfort in upper body: Symptoms can include pain or discomfort in one or both arms, back, neck, jaw or stomach. Shortness of breath: With or without discomfort. Other signs: Breaking out in a cold sweat, nausea, or lightheaded. Remember, MINUTES DO MATTER. If you experience any of these heart attack warning signs, call to get immediate medical attention! ?? Smoking can increase your chances of developing chronic health problems and can cause harmful effects to other family members in your house. If you smoke, you are strongly encouraged to quit. Please call [facility] at [phone] or [phone] ([phone]) or log in to [email or web address] for referrals to smoking cessation programs. ?? 873 Suicide & Crisis Lifeline is available 22/03 if you or someone you know needs to find a reason to keep living. By calling 224 you'll be connected to a skilled, trained counselor at a crisis center in your area. INPATIENT DISCHARGE INSTRUCTIONS SIGNATURE PAGE ZAID ORONA Location:[facility] Registration Date and Time:02/16/2023 09:18 EDT Primary Care Physician: Cyrus MAX MD, Riki Grace, Attending Physician: Joi Leyva DO, I ZAID ORONA, have received the above patient education materials/instructions and have verbalized understanding. If ambulance or transport services are being used I further acknowledge being given a choice of service. ?? If you need to contact me, please call me at this number: . Patient/Hose Handler Name: Patient/Hose Handler Signature: Relationship to Patient: Witness Name/Signature: Date: * Elizabeth Henao: PERFORM, SIGN, VERIFY Event Display: Patient Education Handout Authored Date: [id number] * Sammie Camacho RN: PERFORM Event Display: Patient Education Leaflets Authored Date: [id number] Surgery Medical Daystay Surgical Overnight Discharge Instructions ?? 295 Medical Daystay/Surgical Overnight Discharge Instructions ? Since your coordination and judgment may be altered by medication and/or anesthesia, a responsible adult must drive you home from the hospital. ? If you have received medication for pain or sedation while under our care, you should not drive, operate machinery, drink alcohol, or sign any legal documents for 24 hours.?? You should have someone with you at home tonight. ? Remain at home the day of discharge.?? You may be up and about unless otherwise instructed by your physician. ? You may resume your daily prescription medication schedule.?? Any depressant medication should be avoided for 24 hours unless otherwise instructed by your surgeon or anesthesiologist. ? Call your physician for a follow-up appointment.? If you experience unusual or severe pain not relied by your pain medication, excessive bleedingor drainage, persistent nausea and vomiting, excessive swelling or redness, foul odor from incisionsite or fever over 100.6F, you need to call your physician. ? A follow-up phone call by a nurse will be made the day after your procedure.?? If you have stayed with us over night, you will not be receiving a follow-up phone call. ? Nausea and vomiting are a common side effect of prescription pain medication.?? We recommend that pills are not taken on an empty stomach.?? While taking any prescription pain medication you should not drive or drink alcohol. ? * Ratna PAINTER, Elizabeth Reese: PERFORM Event Display: Patient Education Leaflets Authored Date: [id number] Neurosurgery-Lumbar Discharge Instructions ?? 205 Neurosurgery Discharge Instructions ?? Postoperative instructions vary due to many different types of surgery.?? Your specific needs may require modifications to these instructions by your surgeon. ?? Diet ??? You should resume your usual diet at home unless instructed otherwise ?? Medications ??? You will be provided with a medication reconciliation when you leave the hospital explaining which medications you should continue and which you should stop ??? You may be discharged home with prescriptions with new medications which should be explained to you prior to discharge ?? Bowel Regimen ??? Narcotic pain medications commonly cause constipation ??? You should use an uodj-llo-nlwbftw stool softener, such as Colace or Senna, for as long as you are experiencing constipation ??? You should use an ehyc-ooi-havpqzc oral laxative or rectal suppository if you do not have a bowel movement within 3 days after your surgery ?? Incision and Wound Care ??? You should remove your dressing on the 3rd postoperative day ??? You do not need to apply any other dressing or bandage ??? Do not apply creams, lotions, or ointments to the incision ??? If you have steri-strips, these will fall off on their own ??? * Remove after 2 weeks if they have not fallen off yet ??? If you have manan/sutures, these will be removed at your follow up appointment ??? Yo u should call the office if you experience any of the following: ??? Redness, swelling, or increasing pain/tenderness of the surgical incision site ??? Discharge of pus, blood, or other fluid from the surgical incision site ??? Wound separation ??? Temperature greater than 101.5 F ?? Bathing ??? Do not shower or get your incision wet until the 3rd postoperative day ??? Do not soak the incision in a bath, pool or any other body of water for 4 weeks ??? You should gently pat the incision dry with a towel immediately after bathing ? Activity ??? Do not drive for 2 weeks unless instructed otherwise ??? Do not drive while taking narcotic pain medication or muscle relaxants ??? Do not lift more than 15 to 20 lbs until seen again by your surgeon ??? Do not perform any strenuous activities, exercises or movements until instructed otherwise ??? Do not resume sexual activity until you feel comfortable.?? Do not perform activities or positions that place stress on the operated area ??? _ ??? Call your primary care physician for all questions and problems not related to your surgery, such as chronic medical conditions, e.g., diabetes, hypertension, etc. ??? Call [facility] for any questions or problems related to your surgery??? _ [facility] [address] [place] [address] , [address], [place], [place] [phone] _ ? Patient Care team information Care Team Personnel Name: Lis Rayo RN Position: [facility] SN RN Member Role: Primary Care Nurse Name: Fauzia Griffin Position: [facility] AMB Office Staff Member Role: Lifetime Consulting Physician Name: Darrick Yañez MD Position: [facility] PCO w/OE and EZ Script Member Role: Lifetime Consulting Physician Name: Riki Brigdes III, MD Position: Reference Physician Member Role: PCP Address: Address: [address] [place] [id number]- Name: Elizabeth López RN Position: [facility] MR W/ Merge Member Role: Primary Care Nurse Name: Twila Torres MD Position: [facility] Physician - Primary Care Member Role: Lifetime Consulting Physician Address: Address: [address] [place] [address] [facility] [place] [address]- Name: Nirali Wisdom RN Position: [facility] RN Member Role: Primary Care Nurse Name: Janice Anton NP Position: [facility] Associate Professional Member Role: Primary Care Nurse Address: Address: [address] [place] [address] [place] [address]- Name: Joe Pathak DO Position: [facility] Renal MD Member Role: Lifetime Consulting Physician Address: Address: [address] [place], [place] [address] [place] [address]- Name: Alyssa Brenner RN Position: [facility] OB RN Member Role: Primary Care Nurse Name: Diego Chaney RN Position: [facility] RN Member Role: Primary Care Nurse Name: Walker Mendez RN Position: [facility] RN Member Role: Primary Care Nurse Name: Barbara Tapia RN Position: [facility] RN Member Role: Primary Care Nurse Name: Yaquelin Londono NP Position: Reference Physician Member Role: Primary Care Nurse Address: Address: [address] [place] [address]- Name: Amira Farah RN Position: [facility] SN RN Member Role: Primary Care Nurse Name: Manasa Mojica RN Position: [facility] RN Member Role: Primary Care Nurse Care Team Related Persons Name: ROBERT MARROQUIN Address: [address] [facility] [address] [place] [address] Name: BRITTNEY SHEFFIELD Address: home [address] [place] [address]
--- OUTSIDE RECORDS SUMMARY | 2023-06-30 16:46 | XMS_ITS | Continuity of Care Document ---
Author Name Unknown Organization [facility] y Address [address] [place] [address] maría, [address] [place] [address]- Care Team Providers Care Utility Technician Name Role Phone Riki Bridges III, MD Primary Care Physician [phone] Encounter [facility] Date(s): 09/30/22 - 10/07/22 [facility] [address] [place] [address] Drive, [address] [place], [place] [address] Attending Physician: Gilberto Melendez MD Referring Physician: Riki Bridges III, MD Allergies, [...] 05/09/16 15:55:42, Inhaler, Route to Pharmacy Electronically, [id number], [place] [id number] Start Date: 05/09/16 Stop Date: 08/07/16 Status: [...] 12 Gm, 3 Refills, Maintenance, 09/04/15 8:23:54, Rowena, 1 sprays Sublingual Every 5 minutes,x3 doses/times,PRN:for [...] Active NSVT (nonsustained ventricular tachycardia) Confirmed Active Vital Signs Most recent to oldest [Reference Range]: 1 Height 166 cm (09/30/22 11:00 AM) Weight 59 kg (09/30/22 11:00 AM) Body Mass Index [18.5-24.99 kg/m2] 21.41 kg/m2 (09/30/22 11:00 AM) Social History Social History Type Response Smoking Status Former smoker; Type: Cigarettes; Other: pt states stopped smoking 2 months ago; entered on: 05/21/15 Sex Patient Care team information Care Team Personnel Name: Lis Rayo RN Position: [facility] SN RN Member Role: Primary Care Nurse Name: Fauzia Griffin Position: [facility] PCO OFFICE STAFF Member Role: Lifetime Consulting Physician Name: Darrick Yañez MD Position: [facility] PCO w/OE and EZ Script Member Role: Lifetime Consulting Physician Name: Liliana Gunderson RN Position: [facility] RN Member Role: Primary Care Nurse Name: Riki Bridges III, MD Position: [facility] Ambulatory (view) Member Role: PCP Address: Address: [address] [place] [id number] Name: Elizabeth López RN Position: [facility] MR W/ Merge Member Role: Primary Care Nurse Name: Twila Torres MD Position: [facility] Physician -Physician Practices Member Role: Lifetime Consulting Physician Address: Address: [address] [place] [address] [facility] [place] [address]- Name: Nirali Wisdom RN Position: [facility] RN Member Role: Primary Care Nurse Name: Janice Anton NP Position: [facility] Associate Professional Member Role: Primary Care Nurse Address: Address: [address] [facility] [place] [address]- [place] Name: Joe Pathak DO Position: [facility] Renal MD Member Role: Lifetime Consulting Physician Address: Address: [address] [facility] [address] [facility] [place] [address]- [place] Name: Alyssa Brenner RN Position: [facility] OB RN Member Role: Primary Care Nurse Name: Diego Chaney RN Position: [facility] RN Member Role: Primary Care Nurse Name: Walker Mendez RN Position: [facility] RN Member Role: Primary Care Nurse Name: Kristen Vu RN Position: [facility] RN Member Role: Primary Care Nurse Name: Barbara Tapia RN Position: [facility] RN Member Role: Primary Care Nurse Name: Yaquelin Londono NP Position: Reference Physician Member Role: Primary Care Nurse Address: Address: [address] [place] [id number]- [place] Name: Amira Farah RN Position: [facility] SN RN Member Role: Primary Care Nurse Name: Yunior BERNARD, Manasa Figueredo Position: [facility] RN Member Role: Primary Care Nurse Care Team Related Persons Name: ROBERT MARROQUIN Address: home [address] [place] [address] Name: BRITTNEY SHEFFIELD Address: home [address] [place] [address]
[2023-06-30 17:50] VITALS: BP 124/49; PULSE 80; RESP 16; O2SAT 100
--- NOTE | 2023-06-30 18:02 | ED.FEMALEGU ---
HPI - Female Genitourinary General Chief complaint: Vaginal Bleeding Stated complaint: VAGINAL BLEEDING SINCE MORNING, HAS NOT SUBSIDED Time Seen by Provider: 06/30/23 16:33 Source: patient Mode of arrival: EMS History of Present Illness HPI Narrative: 77-year-old female is on chronic anticoagulation presents via EMS for an episode of urinating this morning and noting that she had significant amount of blood in the toilet bowl and she feels that this is coming from her vagina. Patient has recently started Ranolazine. Related Data Home Medications Medication Instructions Recorded Confirmed albuterol sulfate 90 mcg/actuation 2 puff inhalation Q4H PRN 09/21/22 06/30/23 aerosol inhaler (Ventolin HFA) Shortness Of Breath carvedilol 6.25 mg tablet 1 tab PO BID 09/21/22 06/30/23 cinacalcet 30 mg tablet 1 tab PO DAILY 09/21/22 06/30/23 digoxin 125 mcg (0.125 mg) tablet 0.125 mg PO MOWEFR@0900 09/21/22 06/30/23 fluticasone propionate 250 2 puff inhalation DAILY 09/21/22 06/30/23 mcg/actuation blister powder for inhalation (Flovent Diskus) furosemide 80 mg tablet 40 mg PO DAILY@1700 09/21/22 06/30/23 furosemide 80 mg tablet 80 mg PO DAILY 09/21/22 06/30/23 isosorbide mononitrate 60 mg 90 mg PO DAILY 09/21/22 06/30/23 tablet,extended release 24 hr levothyroxine 25 mcg tablet 37.5 mcg PO DAILY 09/21/22 06/30/23 magnesium oxide 400 mg (241.3 mg 1 tab PO BID 09/21/22 06/30/23 magnesium) tablet morphine 30 mg tablet,extended 1 tab PO TID 09/21/22 06/30/23 release nitroglycerin 400 mcg/spray 1 - 2 spray sublingual Q5M PRN 09/21/22 06/30/23 translingual PALPATATIONS omeprazole 20 mg capsule,delayed 20 mg PO BID 09/21/22 06/30/23 release sacubitril 97 mg-valsartan 103 mg 1 tab PO BID 09/21/22 06/30/23 tablet (Entresto) sodium bicarbonate 650 mg tablet 1 tab PO BID 09/21/22 06/30/23 sucralfate 1 gram tablet 1 tab PO QID 09/21/22 06/30/23 alirocumab 150 mg/mL subcutaneous 150 mg subcut Q14D 06/30/23 06/30/23 pen injector (Praluent Pen) diclofenac sodium 1 % topical gel 1 g topical 5XD PRN Pain 06/30/23 06/30/23 Previous Rx's Medication Instructions Recorded aspirin 81 mg tablet,delayed 81 mg PO DAILY #30 tabs 09/23/22 release apixaban 5 mg tablet (Eliquis) 5 mg PO BID #90 tabs 05/11/23 Allergies Allergy/AdvReac Type Severity Reaction Status Date / Time latex [LATEX] Allergy Severe ANAPHYLAXIS Verified 06/30/23 15:58 Sulfa (Sulfonamide Allergy Severe ANAPHYLAXIS Verified 06/30/23 15:58 Antibiotics) [SULFA (SULFONAMIDE ANTIBIOTICS)] walnut Allergy Severe ANAPHYLAXIS Verified 06/30/23 15:58 heparin [HEPARIN] Allergy Intermediate HIVES Verified 06/30/23 15:58 prednisone [PREDNISONE] Allergy Unknown Hives Verified 06/30/23 15:58 Review of Systems Review of Systems: Pertinent positives and negatives as stated in HPI [facility] Past Medical History Source: nursing notes reviewed Medical History Carotid artery stenosis Former smoker Opioid dependence Osteoarthritis Cavernous hemangioma Hypothyroidism Hypoparathyroidism History of colon cancer History of sustained ventricular tachycardia CHF (congestive heart failure) CAD (coronary artery disease) HLD (hyperlipidemia) HTN (hypertension) Cerebrovascular accident Surgical History S/P ileostomy AICD (automatic cardioverter/defibrillator) present S/P CABG (coronary artery bypass graft) S/P aneurysm repair Social History Social History Household Members: Family Household Members Other:: Daughter Housing: Condominium Do you presently have visiting nurse or other home services: Yes (home health aides 5 days a week, 2 hours a day) Alcohol intake: never Patient Tobacco Use Status: Never used Tobacco Smoked in Last 30 Days: No Use of substances other than those prescribed or required for medical reasons: No Any prior treatment program specific to substance use: No Advance Directives: No service: No Current occupational status: retired Physical Exam Vital Signs: Vital Signs: Last Vital Signs Temp 98.1 F 06/30/23 16:05 Pulse 80 06/30/23 17:50 Resp 16 06/30/23 17:50 BP 124/49 L 06/30/23 17:50 Pulse Ox 100 06/30/23 17:50 O2 Del Method Room Air 06/30/23 17:50 O2 Flow Rate 2 06/30/23 16:05 BMI result Body Mass Index 21.3 VITAL SIGNS: Reviewed. GENERAL: Well developed, well nourished, in no acute distress. HEAD: Normocephalic/atraumatic EYES: PERRLA, EOMI EARS: Ext canals without abnormality NOSE: Nares patent bilateral OROPHARYNX: no oral lesions noted, posterior pharynx clear NECK: Supple, no adenopathy LUNGS: Normal breath sounds. No adventitious sounds or accessory muscle use. SpO2<100> CARDIOVASCULAR: Regular rate and rhythm without noted murmurs ABDOMEN: Soft, non-tender, non-distended with bowel sounds, ostomy is patent with no evidence of bleeding in the stool. JOANIE: [assembly machine set up mechanic- Janice]There are no a no rectal abnormalities, no stigmata of bleeding, no inflamed hemorrhoids. : [assembly machine set up mechanic- Janice]There is noted stigmata of bleeding along the labia majora but on visual inspection there is no obvious blood around the urethral meatus and no obvious bleeding coming from the vaginal opening. PELVIC Exam: [assembly machine set up mechanic- Janice] on insertion of the smallest speculum that we have there is no stigmata of bleeding, no blood noted in any of the vaginal fornices. MUSCULOSKELETAL: No tenderness, deformities, or effusions noted on gross inspection. EXTREMITIES: No cyanosis, clubbing or edema. SKIN: Inspection of the skin reveals no rashes NEUROLOGIC: Alert and oriented x 4. Strength and sensation to light touch were grossly intact x 4. Medical Decision Making Medical Decision Making MDM Narrative: 77-year-old female with history and clinical presentation, DDX: Hematuria, rectal bleeding. I reviewed all investigations and hematologic indices are not significant for leukocytosis or thrombocytopenia and patient has a chronically stable anemia. Patient is on anticoagulation and urine sample does demonstrate presence of microscopic blood. Coagulation results are consistent with chronic anticoagulation with INR-1.3 and PT-15.6. Chemistry indices are negative for CALLI and there is no evidence of electrolyte or liver enzyme abnormalities. I discussed all results with patient at bedside and she knows that she will follow-up with primary care doctor and also be provided with a referral for Urology. Differential Diagnosis Differential Diagnoses: The differential diagnosis associated with the presentation includes Please see the discussion above Admission/Observation Consideration of admission/observation: Escalation of care including admission/observation considered Please see the discussion above Lab Data MDM Lab Attestation statement: I reviewed the patient's lab results. Please see the discussion above 06/30/23 19:28 06/30/23 19:28 Labs: Lab Results 06/30/23 06/30/23 Range/Units 19:04 19:28 WBC 8.8 (4.8-10.8) X10*3/uL RBC 3.64 L (4.20-5.50) X10*6/uL Hgb 8.6 L (12.0-16.0) g/dl Hct 28.5 L (37.0-47.0) % MCV 78.3 L (80.0-98.0) fL MCH 23.6 L (27.0-33.0) pg MCHC 30.2 L (31.0-35.0) g/dl RDW 15.3 (11.0-16.0) % Plt Count 180 (160-400) X10*3/uL MPV 10.9 (9.4-12.3) fL Immature Gran % (Auto) 0.2 (0.0-0.4) % Neut % (Auto) 87.2 H (45-73) % Lymph % (Auto) 7.5 L (20-40) % Hooker % (Auto) 4.3 (2-11) % Eos % (Auto) 0.6 (0-4) % Baso % (Auto) 0.2 (0-2) % Lymph # (Auto) 0.7 L (1.2-4.9) X10*3/uL Hooker # (Auto) 0.4 (0.1-1.2) X10*3/uL Eos # (Auto) 0.1 (0.0-0.4) X10*3/uL Baso # (Auto) 0.0 (0.0-0.2) X10*3/uL Abs Immat Gran (auto) 0.02 (0.00-0.03) X10*3/uL Absolute Neuts (auto) 7.7 (2.0-8.3) x10*3/uL Absolute Nucleated RBC 0.000 (0.0-0.012) X10*3/uL Nucleated RBC % (auto) 0.0 (0.0-0.2) /100WBC PT 15.6 H D (11.1-13.3) SEC INR 1.3 H (0.9-1.1) Sodium 138 (135-145) mmol/L Potassium 4.1 D (3.3-5.1) mmol/L Chloride 99 (96-108) mmol/L Carbon Dioxide 28 (22-29) mmol/L Anion Gap 15 (12-20) BUN 14 (9-16) mg/dL Creatinine 0.95 (0.5-1.4) mg/dL Estim Creat Clear Calc 46.0 Estimated GFR 57 Random Glucose 134 H (60-115) mg/dL Calcium 10.5 H (8.4-10.2) mg/dL Total Bilirubin 0.3 (0.0-1.0) mg/dL AST 22 (5-31) U/L ALT 8 (0-31) U/L Alkaline Phosphatase 79 (39-117) U/L Total Protein 7.1 (6.5-8.0) g/dL Albumin 4.0 (3.5-5.0) g/dL Urine Color Yellow Urine Appearance Clear Urine pH 7.5 (5.0-9.0) Ur Specific [place] 1.010 (1.005-1.025) Urine Protein Trace (Neg-Trace) mg/dL Urine Glucose (UA) Negative (Negative) mg/dL Urine Ketones Negative (Negative) mg/dL Urine Blood Large (3+) H (Negative) Urine Nitrite Negative (Negative) Ur Leukocyte Esterase Negative (Negative) Urine RBC 0-2 (0-2) /HPF Urine WBC 0-5 (0-5) /HPF Ur Squamous Epith Cells 0-2 (0-2) /HPF Urine Bacteria None Seen (None Seen) Hyaline Casts 0-2 (0-2) /LPF External Record Review External record reviewed: Outpatient record, Prior outpatient labs and Prior outpatient radiology Chronic Conditions Patient?s care impacted by: Hypertension and Other Chronic anticoagulation. Critical Care Time Critical Care Time Critical Care Time: Yes Total Critical Care Time: 30 Attestation: I personally attest to this time spent taking care of the patient. Discharge Plan Discharge Clinical Impression: Chronic anticoagulation, Hematuria Patient Disposition: Home, Self-Care Instructions: Hematuria (ED), Blood Thinners (ED) Additional Instructions: 1. Resume all home medications as prescribed. 2. Please call the office of your primary care doctor 1st thing in the morning and set up an appointment for re-evaluation further outpatient management. 3. You have been given a referral to follow-up with urology and should call the office as well in the morning and set up an appointment for re-evaluation. Return to the ER for any worsening symptoms. Prescriptions: No Action carvedilol 6.25 mg tablet 1 tab PO BID sucralfate 1 gram tablet 1 tab PO QID morphine 30 mg tablet extended release 1 tab PO TID levothyroxine 25 mcg tablet 37.5 mcg PO DAILY isosorbide mononitrate 60 mg tablet extended release 24 hr 90 mg PO DAILY magnesium oxide 400 mg (241.3 mg magnesium) tablet 1 tab PO BID furosemide 80 mg tablet 80 mg PO DAILY furosemide 80 mg tablet 40 mg PO DAILY@1700 sodium bicarbonate 650 mg tablet 1 tab PO BID nitroglycerin 400 mcg/spray spray,non-aerosol 1 - 2 spray sublingual Q5M PRN (Reason: PALPATATIONS) omeprazole 20 mg capsule,delayed release(DR/EC) 20 mg PO BID digoxin 125 mcg (0.125 mg) tablet 0.125 mg PO MOWEFR@0900 albuterol sulfate [Ventolin HFA] 90 mcg/actuation Hfa Aerosol Inhaler 2 puff INHALATION Q4H PRN (Reason: Shortness Of Breath) Flovent Diskus 250 mcg/actuation blister with device 2 puff inhalation DAILY cinacalcet 30 mg tablet 1 tab PO DAILY Entresto 97-103 mg tablet 1 tab PO BID aspirin 81 mg Tablet,Delayed Release (Dr/Ec) 81 mg PO DAILY Qty: 30 0RF Eliquis 5 mg tablet 5 mg PO BID Qty: 90 0RF diclofenac sodium 1 % gel 1 g topical 5XD PRN (Reason: Pain) Praluent Pen 150 mg/mL pen injector 150 mg subcut Q14D Referrals: Riki Bridges III, MD [Primary Care Provider] - Taran Arias MD [Physician] -
--- NOTE | 2023-06-30 18:13 | PC.NURSE ---
vss and up to date. nsr on the cardiac care unit nurse. dr. cantu performed vaginal exam on pt - exam displayed no presence of blood at this time. pt repositioned to comfort. call solano placed within reach.
--- NOTE | 2023-06-30 19:05 | PC.NURSE ---
urine obtained and sent to lab.
[2023-06-30 19:14] LABS: Appearance Urine Clear; Color Urine Yellow; Glucose Urine UA Negative (Negative); Leukocyte Esterase Urine Negative (Negative); Nitrite Urine Negative (Negative); PH 7.5 (5.0-9.0); UMIC TRIGGER UACC YES; Urine Blood Large (3+) (Negative); Urine Ketones Negative (Negative); Urine Protein Trace mg/dL (Neg-Trace)
[2023-06-30 19:22] LABS: Bacteria Urine None Seen (None Seen); Hyaline Casts Urine 0-2 /LPF (0-2); RBC Urine 0-2 /HPF (0-2); Squamous Epithelial Cell Urine 0-2 /HPF (0-2); WBC Urine 0-5 /HPF (0-5)
[2023-06-30 19:32] LABS: MANUAL DIFF FLAG NO
[2023-06-30 19:33] LABS: Basophils Percent Auto 0.2 % (0-2); Eosinophils Absolute Auto 0.1 X10*3/uL (0.0-0.4); Eosinophils Percent Auto 0.6 % (0-4); Hematocrit 28.5 % (37.0-47.0); Hemoglobin 8.6 g/dl (12.0-16.0); Imm Gran Abs Auto 0.02 X10*3/uL (0.00-0.03); Imm Gran Pct Auto 0.2 % (0.0-0.4); Lymphocytes Absolute Auto 0.7 X10*3/uL (1.2-4.9); Lymphocytes Percent Auto 7.5 % (20-40); Mean Corpuscular HGB Conc 30.2 g/dl (31.0-35.0); Mean Corpuscular Hemoglobin 23.6 pg (27.0-33.0); Mean Corpuscular Volume 78.3 fL (80.0-98.0); Mean Platelet Volume 10.9 fL (9.4-12.3); Monocytes Absolute Auto 0.4 X10*3/uL (0.1-1.2); Monocytes Percent Auto 4.3 % (2-11); Neutrophils Absolute Auto 7.7 x10*3/uL (2.0-8.3); Neutrophils Percent Auto 87.2 % (45-73); Platelet Count 180 X10*3/uL (160-400); Red Blood Count 3.64 X10*6/uL (4.20-5.50); Red Cell Distribution Width 15.3 % (11.0-16.0); White Blood Count 8.8 X10*3/uL (4.8-10.8)
--- NOTE | 2023-06-30 19:40 | PC.NURSE ---
labs obtained and sent to lab. pt currently c/o 04/08 RLQ abdominal pain and requesting medication. pt just verbalized to this RN that afternoon meds were missed - will complete med rec and notify provider.
[2023-06-30 19:43] LABS: INTERNATIONAL NORM RATIO 1.3 (0.9-1.1); Prothrombin Time 15.6 SEC (11.1-13.3)
[2023-06-30 19:50] LABS: Alanine Aminotransferase 8 U/L (0-31); Alkaline Phosphatase 79 U/L (39-117); Anion Gap 15 (12-20); Aspartate Amino Transferase 22 U/L (5-31); Bilirubin Total 0.3 mg/dL (0.0-1.0); Blood Urea Nitrogen 14 mg/dL (9-16); Calcium 10.5 mg/dL (8.4-10.2); Carbon Dioxide 28 mmol/L (22-29); Chloride 99 mmol/L (96-108); Estimated Glomerular Filt Rate 57; Glucose Random 134 mg/dL (60-115); Potassium 4.1 mmol/L (3.3-5.1); Sodium 138 mmol/L (135-145); Total Protein 7.1 g/dL (6.5-8.0)
--- NOTE | 2023-06-30 20:33 | PHA.MEDREC ---
Pharmacy Consult ? Medication Reconciliation Pharmacy has completed the medication reconciliation. Utilizde list from [facility] which match current claim history. Joselin Petersen, LowD
--- NOTE | 2023-06-30 20:54 | PC.NURSE ---
medications verified by ED pharmacist - will notify provider so night time meds can be ordered.
[2023-06-30 21:39] VITALS: BP 152/41; PULSE 92; RESP 20; O2SAT 96
--- NOTE | 2023-06-30 21:44 | PC.NURSE ---
vitals up to date, pt dressed and awaiting on ride for p/u. w/c with O2 for transport to car
== END 2023-06-30 22:01 | disposition home or self-care (01) ==
PROVIDERS: Emergency Provider Student in an Organized Health Care Education/Training Program; PCP Internal Medicine
DX: N02.9 Recurrent and persistent hematuria with unspecified morphologic changes (principal); Z79.01 Long term (current) use of anticoagulants; I10 Essential (primary) hypertension; E78.5 Hyperlipidemia, unspecified; Z87.891 Personal history of nicotine dependence; Z79.899 Other long term (current) drug therapy; Z79.82 Long term (current) use of aspirin; Z95.1 Presence of aortocoronary bypass graft
CPT/HCPCS: 36415; 80053; 81001; 85025; 85610; 99283; 99284

== ENCOUNTER 2023-11-06 13:14 | Emergency (ER) | payer MEDICARE, OTHER, SELFPAY ==
[2023-11-06 13:35] VITALS: BP 110/60; BP 138/47; PULSE 80; RESP 18; TEMP 36.6; O2SAT 97; BMI 20.1
--- NOTE | 2023-11-06 13:58 | ED.FEMALEGU ---
HPI - Female Genitourinary General Chief complaint: Urogenital-Female Stated complaint: UNABLE TO URINATE X3 DAYS PER EMS Time Seen by Provider: 11/06/23 13:40 Source: patient Mode of arrival: EMS History of Present Illness HPI Narrative: 77-year-old female who arrives via EMS and states that she has had difficulty passing urine since Wednesday and says that she is on both Xarelto and Lasix. Patient states that she has had to strain in order to forced out drops of urine. She denies any associated fever, chills. She is also on home oxygen at baseline. Related Data Home Medications Medication Instructions Recorded Confirmed albuterol sulfate 90 mcg/actuation 2 puff inhalation Q4H PRN 09/21/22 06/30/23 aerosol inhaler (Ventolin HFA) Shortness Of Breath carvedilol 6.25 mg tablet 1 tab PO BID 09/21/22 06/30/23 cinacalcet 30 mg tablet 1 tab PO DAILY 09/21/22 06/30/23 digoxin 125 mcg (0.125 mg) tablet 0.125 mg PO MOWEFR@0900 09/21/22 06/30/23 fluticasone propionate 250 2 puff inhalation DAILY 09/21/22 06/30/23 mcg/actuation blister powder for inhalation (Flovent Diskus) furosemide 80 mg tablet 40 mg PO DAILY@1700 09/21/22 06/30/23 furosemide 80 mg tablet 80 mg PO DAILY 09/21/22 06/30/23 isosorbide mononitrate 60 mg 90 mg PO DAILY 09/21/22 06/30/23 tablet,extended release 24 hr levothyroxine 25 mcg tablet 37.5 mcg PO DAILY 09/21/22 06/30/23 magnesium oxide 400 mg (241.3 mg 1 tab PO BID 09/21/22 06/30/23 magnesium) tablet morphine 30 mg tablet,extended 1 tab PO TID 09/21/22 06/30/23 release nitroglycerin 400 mcg/spray 1 - 2 spray sublingual Q5M PRN 09/21/22 06/30/23 translingual PALPATATIONS omeprazole 20 mg capsule,delayed 20 mg PO BID 09/21/22 06/30/23 release sacubitril 97 mg-valsartan 103 mg 1 tab PO BID 09/21/22 06/30/23 tablet (Entresto) sodium bicarbonate 650 mg tablet 1 tab PO BID 09/21/22 06/30/23 sucralfate 1 gram tablet 1 tab PO QID 09/21/22 06/30/23 alirocumab 150 mg/mL subcutaneous 150 mg subcut Q14D 06/30/23 06/30/23 pen injector (Praluent Pen) diclofenac sodium 1 % topical gel 1 g topical 5XD PRN Pain 06/30/23 06/30/23 Previous Rx's Medication Instructions Recorded aspirin 81 mg tablet,delayed 81 mg PO DAILY #30 tabs 09/23/22 release apixaban 5 mg tablet (Eliquis) 5 mg PO BID #90 tabs 05/11/23 Allergies Allergy/AdvReac Type Severity Reaction Status Date / Time latex [LATEX] Allergy Severe ANAPHYLAXIS Verified 06/30/23 15:58 Sulfa (Sulfonamide Allergy Severe ANAPHYLAXIS Verified 06/30/23 15:58 Antibiotics) [SULFA (SULFONAMIDE ANTIBIOTICS)] walnut Allergy Severe ANAPHYLAXIS Verified 06/30/23 15:58 heparin [HEPARIN] Allergy Intermediate HIVES Verified 06/30/23 15:58 prednisone [PREDNISONE] Allergy Unknown Hives Verified 06/30/23 15:58 Review of Systems Review of Systems: Pertinent positives and negatives as stated in [facility] Past Medical History Source: nursing notes reviewed Medical History Carotid artery stenosis Former smoker Opioid dependence Osteoarthritis Cavernous hemangioma Hypothyroidism Hypoparathyroidism History of colon cancer History of sustained ventricular tachycardia CHF (congestive heart failure) CAD (coronary artery disease) HLD (hyperlipidemia) HTN (hypertension) Cerebrovascular accident Surgical History S/P ileostomy AICD (automatic cardioverter/defibrillator) present S/P CABG (coronary artery bypass graft) S/P aneurysm repair Social History Social History Household Members: Family Household Members Other:: Daughter Housing: Condominium Do you presently have visiting nurse or other home services: Yes (home health aides 5 days a week, 2 hours a day) Alcohol intake: never Patient Tobacco Use Status: Never used Tobacco Smoked in Last 30 Days: No Use of substances other than those prescribed or required for medical reasons: No Advance Directives: No Advance Directives Information Provided: Yes service: No Current occupational status: retired Physical Exam Vital Signs: Vital Signs: Last Vital Signs Temp 97.9 F 11/06/23 13:35 Resp 18 11/06/23 13:35 BP 138/47 L 11/06/23 13:35 Pulse Ox 97 11/06/23 13:35 O2 Del Method Nasal Cannula 11/06/23 13:35 Oxygen Flow Rate 2 11/06/23 13:35 BMI result Body Mass Index 20.1 VITAL SIGNS: Reviewed. GENERAL: Well developed, well nourished, in no acute distress. HEAD: Normocephalic/atraumatic EYES: PERRLA, EOMI EARS: Ext canals without abnormality NOSE: Nares patent bilateral OROPHARYNX: no oral lesions noted, posterior pharynx clear NECK: Supple, no adenopathy LUNGS: Normal breath sounds. No adventitious sounds or accessory muscle use. SpO2<97> on home 2 L oxygen. CARDIOVASCULAR: Regular rate and rhythm without noted murmurs, no JVD or lower extremity edema. ABDOMEN: Soft, non-tender, non-distended with bowel sounds. MUSCULOSKELETAL: No tenderness, deformities, or effusions noted on gross inspection. EXTREMITIES: No cyanosis, clubbing or edema. SKIN: Inspection of the skin reveals no rashes NEUROLOGIC: Alert and oriented x 4. Strength and sensation to light touch were grossly intact x 4. Medical Decision Making Medical Decision Making MDM Narrative: 77-year-old female with history and clinical presentation, DDX: Urinary retention, inadequate fluid intake, urinary tract infection. Patient otherwise appears well and there are no constitutional symptoms or complaints of shortness of breath/abdominal discomfort. Urinalysis is negative for UTI, bladder scan of patient's bladder only significant for approximately 20 cc, patient otherwise appears well and all results discussed with her bedside and she was encouraged to increase her fluid intake. Differential Diagnosis Differential Diagnoses: The differential diagnosis associated with the presentation includes Please see the discussion above Admission/Observation Consideration of admission/observation: Escalation of care including admission/observation considered Please see the discussion above Lab Data MDM Lab Attestation statement: I reviewed the patient's lab results. Please see the discussion above Labs: Lab Results 11/06/23 Range/Units 13:56 Urine Color Yellow Urine Appearance Clear Urine pH 6.5 (5.0-9.0) Ur Specific [place] 1.015 (1.005-1.025) Urine Protein 300 (3+) H (Neg-Trace) mg/dL Urine Glucose (UA) Negative (Negative) mg/dL Urine Ketones Negative (Negative) mg/dL Urine Blood Trace H (Negative) Urine Nitrite Negative (Negative) Ur Leukocyte Esterase Negative (Negative) Urine RBC 3-5 H (0-2) /HPF Urine WBC 0-5 (0-5) /HPF Ur Squamous Epith Cells 0-2 (0-2) /HPF Urine Bacteria None Seen (None Seen) Hyaline Casts 3-5 (0-2) /LPF External Record Review External record reviewed: Outpatient record and Prior outpatient labs Critical Care Time Critical Care Time Critical Care Time: Yes Total Critical Care Time: 30 Attestation: I personally attest to this time spent taking care of the patient. Discharge Plan Discharge Clinical Impression: Dysuria Patient Disposition: Home, Self-Care Instructions: Dysuria (ED) Additional Instructions: 1. Resume all home medications as prescribed. 2. Although you are on a fluid restriction, you may want to increase your fluids by 250 cc to help facilitate urination. All testing was negative for evidence to suggest a urinary tract infection. 3. Please follow-up with primary care doctor on Wednesday morning. Return to the ER for any worsening symptoms. Prescriptions: No Action carvedilol 6.25 mg tablet 1 tab PO BID sucralfate 1 gram tablet 1 tab PO QID morphine 30 mg tablet extended release 1 tab PO TID levothyroxine 25 mcg tablet 37.5 mcg PO DAILY isosorbide mononitrate 60 mg tablet extended release 24 hr 90 mg PO DAILY magnesium oxide 400 mg (241.3 mg magnesium) tablet 1 tab PO BID furosemide 80 mg tablet 80 mg PO DAILY furosemide 80 mg tablet 40 mg PO DAILY@1700 sodium bicarbonate 650 mg tablet 1 tab PO BID nitroglycerin 400 mcg/spray spray,non-aerosol 1 - 2 spray sublingual Q5M PRN (Reason: PALPATATIONS) omeprazole 20 mg capsule,delayed release(DR/EC) 20 mg PO BID digoxin 125 mcg (0.125 mg) tablet 0.125 mg PO MOWEFR@0900 albuterol sulfate [Ventolin HFA] 90 mcg/actuation Hfa Aerosol Inhaler 2 puff INHALATION Q4H PRN (Reason: Shortness Of Breath) Flovent Diskus 250 mcg/actuation blister with device 2 puff inhalation DAILY cinacalcet 30 mg tablet 1 tab PO DAILY Entresto 97-103 mg tablet 1 tab PO BID aspirin 81 mg Tablet,Delayed Release (Dr/Ec) 81 mg PO DAILY Qty: 30 0RF Eliquis 5 mg tablet 5 mg PO BID Qty: 90 0RF diclofenac sodium 1 % gel 1 g topical 5XD PRN (Reason: Pain) Praluent Pen 150 mg/mL pen injector 150 mg subcut Q14D Referrals: Riki Bridges III, MD [Primary Care Provider] -
[2023-11-06 14:02] LABS: Appearance Urine Clear; Color Urine Yellow; Glucose Urine UA Negative (Negative); Leukocyte Esterase Urine Negative (Negative); Nitrite Urine Negative (Negative); PH 6.5 (5.0-9.0); Specific Gravity - Urine 1.015 (1.005-1.025); UMIC TRIGGER UACC YES; Urine Blood Trace (Negative); Urine Ketones Negative (Negative); Urine Protein 300 (3+) mg/dL (Neg-Trace)
[2023-11-06 14:07] LABS: Bacteria Urine None Seen (None Seen); Squamous Epithelial Cell Urine 0-2 /HPF (0-2); WBC Urine 0-5 /HPF (0-5)
[2023-11-06 14:43] VITALS: BP 133/55; PULSE 68; RESP 16; TEMP 37; O2SAT 96
== END 2023-11-06 16:27 | disposition home or self-care (01) ==
PROVIDERS: Emergency Provider Student in an Organized Health Care Education/Training Program; PCP Internal Medicine
DX: R30.0 Dysuria (principal); R39.198 Other difficulties with micturition; I10 Essential (primary) hypertension
CPT/HCPCS: 81001; 81003; 99283; 99284

== ENCOUNTER 2023-11-11 13:53 | Emergency (ER) | payer MEDICARE, OTHER, SELFPAY ==
--- NOTE | ~2023-11-11 | CT_ITS ---
EXAMINATION: CT ABDOMEN AND PELVIS WITHOUT CONTRAST CLINICAL INFORMATION: Urinary retention. COMPARISON: None available. TECHNIQUE: Multidetector volumetric imaging was performed from the superior aspect of the liver through the pubic symphysis. Sagittal and coronal reformatted images were obtained on the technologist's workstation. This CT examination was performed using dose optimization techniques as appropriate, variously including the following: *Automated exposure control *Adjustment of mA and/or kV according to patient size (this includes techniques or standardized protocols for targeted exams where dose is matched to indication/reason for exam; i.e. extremities or head) *Use of iterative reconstruction technique DLP: 539 mGy-cm FINDINGS: LUNG BASES: There is a right posterior and left diaphragmatic calcified pleural plaques and pleural thickening likely from asbestosis exposure. Heart size enlarged. There are pacer electrodes in right atrium and right ventricle. Also visualized are posterior spinal needle electrodes with hardware along the left posterior back. LIVER, GALLBLADDER, AND BILIARY TREE: The liver is enlarged measuring 18 cm. It has normal contour and no focal lesion seen. No intrahepatic ductal dilatation. Gallbladder is not visualized. PANCREAS: Unremarkable. SPLEEN: Spleen measures 12.2 cm. ADRENAL GLANDS: Bilateral adrenal glands are unremarkable. KIDNEYS AND URETERS: The kidneys are normal in size, shape, and attenuation. No hydronephrosis, hydroureter, or calculi seen. No perinephric stranding. BLADDER: Bladder is nondistended with a Zuniga catheter within. GASTROINTESTINAL TRACT: There is a right lower quadrant ileostomy without any distended small bowel loops. There is likely total or partial colectomy changes. No free air or free fluid seen. ABDOMINAL WALL: No significant hernia is appreciated. LYMPH NODES: No abnormal retroperitoneal lymph nodes. VASCULAR: There is aneurysmal dilatation of mid abdominal aorta measuring 2.7 x 2.1 cm on axial image 23/3. PELVIC VISCERA: There is no pelvic mass, hernia or free fluid. The uterus appears surgically absent. No adnexal mass seen. OSSEOUS STRUCTURES: Mild degenerative disc changes L4-L5 and L5-S1 disc levels. No aggressive lytic or sclerotic process seen. There is a spinal electrode with hardware in the left upper back region. CT/CT abdomen pelvis wo IV con IMPRESSION: 1. No acute intra-abdominal process seen. 2. There is a right lower quadrant ileostomy without any distended small bowel loops. There is likely total or partial colectomy . 3. There is no radiopaque urolith or hydroureteronephrosis. The bladder is nondistended with a Zuniga catheter within. 4. Mild aneurysmal dilatation of mid abdominal aorta. 5. Hepatomegaly Fleischner guidelines were followed.
[2023-11-11 14:11] VITALS: BP 124/64; PULSE 86; O2SAT 94
--- NOTE | 2023-11-11 14:13 | ED.GENADULT ---
HPI - General Adult General Chief complaint: Urogenital-Female Stated complaint: TROUBLE URINATING,ON HOME O2 PER EMS Time Seen by Provider: 11/11/23 17:01 Source: patient and RN notes reviewed Mode of arrival: ambulatory Limitations: no limitations History of Present Illness HPI narrative: This is a 77-year-old female, with a past medical history of carotid artery stenosis, opioid dependence, osteoarthritis, cavernous hemangioma, hypothyroidism, hypoparathyroidism, CHF, CAD, HLD, HTN, and CVA, who presents to the emergency department via EMS with complaints of ?trouble urinating?. Patient states that urinalysis 2 weeks ago she had a blood transfusion as she states that her hemoglobin was 5. She is unsure what caused her to be this anemic. She states that she has had multiple blood transfusions in the past. She states that she was admitted for 5 days at [facility] and states that she was using appear wake for urination. She states that when she was discharged home, she noticed that every time she use the bathroom she really had to strain to empty her bladder. She states that she has to strain so hard a causes her to feel dizzy. She states that she came to [facility] for these symptoms along however there was no acute findings seen on for physical exam. She is here today as she has had worsening trouble urinating, states that she really has to push to empty her bladder. Denies dysuria, hematuria, urinary frequency or urgency. She denies any fevers, chills, dizziness, lightheadedness, chest pain, shortness of breath, abdominal pain, nausea, vomiting or diarrhea. Denies any bloody or black stool. No other complaints or concerns at this time. complaint: Trouble urinating Onset (ago): week(s) Radiation: non-radiation Severity: moderate Pain Consistency: constant Relieving factors: none Exacerbating factors: none Associated symptoms: denies other symptoms Treatments prior to arrival: none Related Data Home Medications Medication Instructions Recorded Confirmed albuterol sulfate 90 mcg/actuation 2 puff inhalation Q4H PRN 09/21/22 06/30/23 aerosol inhaler (Ventolin HFA) Shortness Of Breath carvedilol 6.25 mg tablet 1 tab PO BID 09/21/22 06/30/23 cinacalcet 30 mg tablet 1 tab PO DAILY 09/21/22 06/30/23 digoxin 125 mcg (0.125 mg) tablet 0.125 mg PO MOWEFR@0900 09/21/22 06/30/23 fluticasone propionate 250 2 puff inhalation DAILY 09/21/22 06/30/23 mcg/actuation blister powder for inhalation (Flovent Diskus) furosemide 80 mg tablet 40 mg PO DAILY@1700 09/21/22 06/30/23 furosemide 80 mg tablet 80 mg PO DAILY 09/21/22 06/30/23 isosorbide mononitrate 60 mg 90 mg PO DAILY 09/21/22 06/30/23 tablet,extended release 24 hr levothyroxine 25 mcg tablet 37.5 mcg PO DAILY 09/21/22 06/30/23 magnesium oxide 400 mg (241.3 mg 1 tab PO BID 09/21/22 06/30/23 magnesium) tablet morphine 30 mg tablet,extended 1 tab PO TID 09/21/22 06/30/23 release nitroglycerin 400 mcg/spray 1 - 2 spray sublingual Q5M PRN 09/21/22 06/30/23 translingual PALPATATIONS omeprazole 20 mg capsule,delayed 20 mg PO BID 09/21/22 06/30/23 release sacubitril 97 mg-valsartan 103 mg 1 tab PO BID 09/21/22 06/30/23 tablet (Entresto) sodium bicarbonate 650 mg tablet 1 tab PO BID 09/21/22 06/30/23 sucralfate 1 gram tablet 1 tab PO QID 09/21/22 06/30/23 alirocumab 150 mg/mL subcutaneous 150 mg subcut Q14D 06/30/23 06/30/23 pen injector (Praluent Pen) diclofenac sodium 1 % topical gel 1 g topical 5XD PRN Pain 06/30/23 06/30/23 Previous Rx's Medication Instructions Recorded aspirin 81 mg tablet,delayed 81 mg PO DAILY #30 tabs 09/23/22 release apixaban 5 mg tablet (Eliquis) 5 mg PO BID #90 tabs 05/11/23 Allergies Allergy/AdvReac Type Severity Reaction Status Date / Time latex [LATEX] Allergy Severe ANAPHYLAXIS Verified 06/30/23 15:58 Sulfa (Sulfonamide Allergy Severe ANAPHYLAXIS Verified 06/30/23 15:58 Antibiotics) [SULFA (SULFONAMIDE ANTIBIOTICS)] walnut Allergy Severe ANAPHYLAXIS Verified 06/30/23 15:58 heparin [HEPARIN] Allergy Intermediate HIVES Verified 06/30/23 15:58 prednisone [PREDNISONE] Allergy Unknown Hives Verified 06/30/23 15:58 Review of Systems Review of Systems: Yes all other systems are reviewed and are negative Constitutional: Constitutional: Reports as per [facility] Past Medical History Attestation statement: The following information was validated with the patient. Medical History Carotid artery stenosis Former smoker Opioid dependence Osteoarthritis Cavernous hemangioma Hypothyroidism Hypoparathyroidism History of colon cancer History of sustained ventricular tachycardia CHF (congestive heart failure) CAD (coronary artery disease) HLD (hyperlipidemia) HTN (hypertension) Cerebrovascular accident Surgical History S/P ileostomy AICD (automatic cardioverter/defibrillator) present S/P CABG (coronary artery bypass graft) S/P aneurysm repair Social History Social History Household Members: Family Household Members Other:: Daughter Housing: Condominium Do you presently have visiting nurse or other home services: Yes (home health aides 5 days a week, 2 hours a day) Alcohol intake: never Patient Tobacco Use Status: Never used Tobacco Advance Directives: No Advance Directives Information Provided: Yes service: No Current occupational status: retired Physical Exam ED Vital Signs: Vital Signs - 24 hr 11/11/23 15:32 11/11/23 18:07 11/11/23 19:59 Temperature 98.7 F 97.9 F 98.0 F Pulse Rate 84 74 Respiratory Rate 17 20 Blood Pressure 117/80 135/56 L 141/51 H Pulse Oximetry 95 100 Oxygen Delivery Method Nasal Cannula Nasal Cannula Oxygen Flow Rate 2 11/11/23 20:01 Temperature 98.0 F Pulse Rate 74 Respiratory Rate 20 Blood Pressure 141/55 H Pulse Oximetry 100 Oxygen Delivery Method Nasal Cannula Oxygen Flow Rate 2 BMI result Body Mass Index 0.0 Const General: cooperative, comfortable and no acute distress Orientation/consciousness: patient oriented x3 Limitations: no limitations HENMT Head: Yes normal to inspection, Yes normocephalic and Yes atraumatic Ears: hearing grossly normal bilaterally General nose exam: Normal external nose present Face and sinus: Yes normal facial exam Mouth: Normal oral and palatal mucosa present, oropharynx normal and moist mucous membranes Throat: Yes posterior oropharynx normal Eyes General: appearance normal, both eyes and all related structures Eyelids: Yes eyelids normal Conjunctivae: conjunctivae normal Sclerae: sclerae normal Pupils: Equal, round and reactive pupils present EOM: EOMs intact bilaterally Neck Neck: Yes normal visual inspection, Yes full ROM and Yes no lymphadenopathy Lymphatic: no lymphadenopathy noted Chest Chest palpation & inspection: normal inspection of the chest Resp Effort & Inspection: normal respiratory effort and able to speak in complete sentences Auscultation: clear to auscultation bilaterally, no crackles, no rales, no rhonchi and no wheezes Cardio Rate: regular rate Rhythm: regular rhythm Heart sounds: S1 normal heart sound present and S2 normal heart sound present GI Other: Abdomen is soft, nontender, nondistended Inspection: Yes normal to inspection Skin General skin exam: no rashes or lesions noted Trauma: no lacerations or abrasions Wounds: no wounds Neuro General: patient oriented x3 and moves all extremities Cranial nerves: Yes Equal, round and reactive pupils present Extrem General: Yes normal to inspection Right upper extremity: normal to inspection Left upper extremity: normal to inspection Right lower extremity: normal to inspection Left lower extremity: normal to inspection Course Course Course Narrative: This is an RME: Additional HPI, ROS, PE not included below will be deferred to primary provider. 77-year-old female history of opiate dependence, osteoarthritis, cavernous hemangioma, hypothyroidism, hypoparathyroidism, CHF, CAD, hyperlipidemia, hypertension, CVA presenting with complaints of burning on urination, reports recent hospitalization with anemia that required blood transfusions. Reporting fatigue. Plan at this time labs Reevaluation(s) Reevaluation #1: Bladder scan revealing greater than 650 cc of urine within the bladder, Pitts catheter was placed. CT abdomen and pelvis still pending Time: 18:16 Reevaluation #2: CT abdomen and pelvis revealing no acute intra abdominal process. There is a right lower quadrant ileostomy without any distended small bowel loops. No radiopaque urolith or hydroureteronephrosis. The bladder is nondistended with a Pitts catheter within. 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 Patient is comfortable. I re-evaluated patient, vital signs within normal limits. I explained to her that we need to keep a pitts catheter indwelling until she is able to f/u with outpatient urology. She understands. She is requesting pain medication as she typically gets morphine 30 mg p.o. 3 times a day. Patient medicated with her usual dose, morphine extended release 30 mg by mouth. Patient given strict return precautions. She understands and agrees with plan. Consult with Dr. Gregorio, will do a voiding trial next week. Advised patient to follow-up with the office, advised to call to tomorrow morning. Patient stable for discharge. Time: 19:29 Medications Administered Discontinued Medications Generic Name Dose Route Start Last Admin Trade Name Freq PRN Reason Stop Dose Admin Morphine Sulfate 30 mg 11/11/23 19:40 11/11/23 19:44 Morphine Sulfate Er 30 Mg Tablet.Er PO 11/11/23 19:41 30 mg ONCE ONE Administration Medical Decision Making Medical Decision Making [facility] Narrative: This is a 77-year-old female, with a past medical history of carotid artery stenosis, opioid dependence, osteoarthritis, cavernous hemangioma, hypothyroidism, hypoparathyroidism, CHF, CAD, HLD, HTN, and CVA, who presents to the emergency department via EMS with complaints of ?trouble urinating?. On arrival, vital signs within normal limits, she is nontoxic appearing. She is on 2 L nasal cannula at her baseline. Patient states that she has had these issues since her discharge from [facility] after having appear work for 5 days after being transfused. She was seen at [facility] for similar symptoms last week. This has unresolved. Differential diagnoses include urethral stricture, urethral mass, nephrolithiasis, pyelonephritis, UTI. Plan: Labs, UA, CT Differential Diagnosis Differential Diagnoses: The differential diagnosis associated with the presentation includes See above Admission/Observation Consideration of admission/observation: Escalation of care including admission/observation considered Escalation of care including admission/observation considered however given workup today not warranted at this time. Consult Healthcare Provider Management of the patient was discussed with: Almond Grinder Dr. Gregorio, urologist Lab Data [facility] Lab Attestation statement: I reviewed the patient's lab results. Patient has no leukocytosis, normocytic anemia noted with an H&H of 8.2/27.4. Chemistry within normal limits. Mild hyperglycemia at 133. Urine does not appear to be infected 11/11/23 14:54 11/11/23 14:54 Labs: Lab Results 11/11/23 11/11/23 Range/Units 14:54 15:07 WBC 10.6 (4.8-10.8) X10*3/uL RBC 3.61 L (4.20-5.50) X10*6/uL Hgb 8.2 L (12.0-16.0) g/dl Hct 27.4 L (37.0-47.0) % MCV 75.9 L (80.0-98.0) fL MCH 22.7 L (27.0-33.0) pg MCHC 29.9 L (31.0-35.0) g/dl RDW 21.8 H (11.0-16.0) % Plt Count 198 (160-400) X10*3/uL MPV 10.3 (9.4-12.3) fL Immature Gran % (Auto) 0.3 (0.0-0.4) % Neut % (Auto) 86.5 H (45-73) % Lymph % (Auto) 7.2 L (20-40) % [place] % (Auto) 4.5 (2-11) % Eos % (Auto) 1.2 (0-4) % Baso % (Auto) 0.3 (0-2) % Lymph # (Auto) 0.8 L (1.2-4.9) X10*3/uL [place] # (Auto) 0.5 (0.1-1.2) X10*3/uL Eos # (Auto) 0.1 (0.0-0.4) X10*3/uL Baso # (Auto) 0.0 (0.0-0.2) X10*3/uL Abs Immat Gran (auto) 0.03 (0.00-0.03) X10*3/uL Absolute Neuts (auto) 9.1 H (2.0-8.3) x10*3/uL Absolute Nucleated RBC 0.000 (0.0-0.012) X10*3/uL Nucleated RBC % (auto) 0.0 (0.0-0.2) /100WBC Sodium 137 (135-145) mmol/L Potassium 3.7 (3.3-5.1) mmol/L Chloride 97 (96-108) mmol/L Carbon Dioxide 29 (22-29) mmol/L Anion Gap 15 (12-20) BUN 14 (9-16) mg/dL Creatinine 1.01 (0.5-1.4) mg/dL Estim Creat Clear Calc TNP Estimated GFR 53 Random Glucose 133 H (60-115) mg/dL Calcium 9.8 D (8.4-10.2) mg/dL Total Bilirubin 0.5 (0.0-1.0) mg/dL AST 14 (5-31) U/L ALT 8 (0-31) U/L Alkaline Phosphatase 81 (39-117) U/L Total Protein 6.6 (6.5-8.0) g/dL Albumin 4.1 (3.5-5.0) g/dL Urine Color Yellow Urine Appearance Clear Urine pH 7.5 (5.0-9.0) Ur Specific [place] <= 1.005 (1.005-1.025) Urine Protein Negative (Neg-Trace) mg/dL Urine Glucose (UA) Negative (Negative) mg/dL Urine Ketones Negative (Negative) mg/dL Urine Blood Negative (Negative) Urine Nitrite Negative (Negative) Ur Leukocyte Esterase Negative (Negative) Radiology Impression Discussion of test interpretation with radiology: I have reviewed the radiologist's reading. Discharge Plan Discharge Clinical Impression: Acute urinary retention Patient Disposition: Home, Self-Care Instructions: Pitts Catheter Placement and Care (ED), Acute Urinary Retention in Women (ED) Additional Instructions: You were seen in the emergency department due to difficulty urinating. Your CT scan of your abdomen and pelvis did not show any abnormalities in regards to why you are retaining urine. Your urine does not appear to be infected. Your blood work was reassuring. You do have aneurysmal dilatation of mid abdominal aorta. Please follow-up with your primary care physician regarding this. I have contacted the urologist, Dr. Gregorio, please call tomorrow to make an appointment. Prescriptions: No Action carvedilol 6.25 mg tablet 1 tab PO BID sucralfate 1 gram tablet 1 tab PO QID morphine 30 mg tablet extended release 1 tab PO TID levothyroxine 25 mcg tablet 37.5 mcg PO DAILY isosorbide mononitrate 60 mg tablet extended release 24 hr 90 mg PO DAILY magnesium oxide 400 mg (241.3 mg magnesium) tablet 1 tab PO BID furosemide 80 mg tablet 80 mg PO DAILY furosemide 80 mg tablet 40 mg PO DAILY@1700 sodium bicarbonate 650 mg tablet 1 tab PO BID nitroglycerin 400 mcg/spray spray,non-aerosol 1 - 2 spray sublingual Q5M PRN (Reason: PALPATATIONS) omeprazole 20 mg capsule,delayed release(DR/EC) 20 mg PO BID digoxin 125 mcg (0.125 mg) tablet 0.125 mg PO MOWEFR@0900 albuterol sulfate [Ventolin HFA] 90 mcg/actuation Hfa Aerosol Inhaler 2 puff INHALATION Q4H PRN (Reason: Shortness Of Breath) Flovent Diskus 250 mcg/actuation blister with device 2 puff inhalation DAILY cinacalcet 30 mg tablet 1 tab PO DAILY Entresto 97-103 mg tablet 1 tab PO BID aspirin 81 mg Tablet,Delayed Release (Dr/Ec) 81 mg PO DAILY Qty: 30 0RF Eliquis 5 mg tablet 5 mg PO BID Qty: 90 0RF diclofenac sodium 1 % gel 1 g topical 5XD PRN (Reason: Pain) Praluent Pen 150 mg/mL pen injector 150 mg subcut Q14D Referrals: [facility] [Provider Group] Interventions: ED Discharge Assessment Last Done: 11/11/23 19:59 Discharge Date/Time: 11/11/23 20:07
[2023-11-11 15:00] LABS: MANUAL DIFF FLAG NO
[2023-11-11 15:06] LABS: Basophils Percent Auto 0.3 % (0-2); Eosinophils Absolute Auto 0.1 X10*3/uL (0.0-0.4); Eosinophils Percent Auto 1.2 % (0-4); Hematocrit 27.4 % (37.0-47.0); Hemoglobin 8.2 g/dl (12.0-16.0); Imm Gran Abs Auto 0.03 X10*3/uL (0.00-0.03); Imm Gran Pct Auto 0.3 % (0.0-0.4); Lymphocytes Absolute Auto 0.8 X10*3/uL (1.2-4.9); Lymphocytes Percent Auto 7.2 % (20-40); Mean Corpuscular HGB Conc 29.9 g/dl (31.0-35.0); Mean Corpuscular Hemoglobin 22.7 pg (27.0-33.0); Mean Corpuscular Volume 75.9 fL (80.0-98.0); Mean Platelet Volume 10.3 fL (9.4-12.3); Monocytes Absolute Auto 0.5 X10*3/uL (0.1-1.2); Monocytes Percent Auto 4.5 % (2-11); Neutrophils Absolute Auto 9.1 x10*3/uL (2.0-8.3); Neutrophils Percent Auto 86.5 % (45-73); Platelet Count 198 X10*3/uL (160-400); Red Blood Count 3.61 X10*6/uL (4.20-5.50); Red Cell Distribution Width 21.8 % (11.0-16.0); White Blood Count 10.6 X10*3/uL (4.8-10.8)
[2023-11-11 15:14] LABS: Alanine Aminotransferase 8 U/L (0-31); Albumin Level 4.1 g/dL (3.5-5.0); Alkaline Phosphatase 81 U/L (39-117); Anion Gap 15 (12-20); Aspartate Amino Transferase 14 U/L (5-31); Bilirubin Total 0.5 mg/dL (0.0-1.0); Blood Urea Nitrogen 14 mg/dL (9-16); Calcium 9.8 mg/dL (8.4-10.2); Carbon Dioxide 29 mmol/L (22-29); Chloride 97 mmol/L (96-108); Estimated Glomerular Filt Rate 53; Glucose Random 133 mg/dL (60-115); Potassium 3.7 mmol/L (3.3-5.1); Sodium 137 mmol/L (135-145); Total Protein 6.6 g/dL (6.5-8.0)
[2023-11-11 15:26] LABS: Appearance Urine Clear; Color Urine Yellow; Glucose Urine UA Negative (Negative); Leukocyte Esterase Urine Negative (Negative); Nitrite Urine Negative (Negative); PH 7.5 (5.0-9.0); Specific Gravity - Urine <= 1.005 (1.005-1.025); Urine Blood Negative (Negative); Urine Ketones Negative (Negative); Urine Protein Negative (Neg-Trace)
[2023-11-11 15:32] VITALS: BP 117/80; PULSE 84; RESP 17; TEMP 37.1; O2SAT 95
[2023-11-11 18:07] VITALS: BP 135/56; TEMP 36.6
[2023-11-11] MEDS: Morphine Sulfate ER 30 MG TABLET.ER PO (19:44)
[2023-11-11 19:59] VITALS: BP 141/51; PULSE 74; RESP 20; TEMP 36.7; O2SAT 100
[2023-11-11 20:01] VITALS: BP 141/55; PULSE 74; RESP 20; TEMP 36.7; O2SAT 100
== END 2023-11-11 20:07 | disposition home or self-care (01) ==
PROVIDERS: Physician Assistant; Emergency Provider Emergency Medicine; PCP Internal Medicine
DX: R33.9 Retention of urine, unspecified (principal); R10.2 Pelvic and perineal pain; I25.10 Atherosclerotic heart disease of native coronary artery without angina pectoris; Z79.899 Other long term (current) drug therapy
CPT/HCPCS: 36415; 51702; 74176; 80053; 81003; 85025; 99284

== ENCOUNTER 2023-11-24 10:25 | Outpatient (AMB) | payer MEDICARE, OTHER, SELFPAY ==
--- NOTE | 2023-11-24 10:53 | A.OFFVIS_ITS ---
Intake Intake Visit Reasons: retention/VT Intake Note: New Patient presents for initial visit for retention and voiding trial Urology Medications: none Blood Thinner: aspirin, apixaban PVR: 0ml's Telegraph And Teletype Operator Required: No Accompanied by: Daughter Allergies latex [LATEX] Allergy (Severe, Verified 11/24/23 11:38) ANAPHYLAXIS Sulfa (Sulfonamide Antibiotics) [SULFA (SULFONAMIDE ANTIBIOTICS)] Allergy (S evere, Verified 11/24/23 11:38) ANAPHYLAXIS walnut Allergy (Severe, Verified 11/24/23 11:38) ANAPHYLAXIS heparin [HEPARIN] Allergy (Intermediate, Verified 11/24/23 11:38) HIVES prednisone [PREDNISONE] Allergy (Unknown, Verified 11/24/23 11:38) Hives Medication List - Last Reconciled 11/24/23 by VIRGINIE Milan-SANCHEZ albuterol sulfate 90 mcg/actuation (Ventolin HFA) 2 puffs inhalation Q4H PRN alirocumab (Praluent Pen) 150 mg subcut Q14D apixaban (Eliquis) 5 mg PO BID aspirin 81 mg PO DAILY carvedilol 3.125 mg PO BID cinacalcet 1 tab PO DAILY diclofenac sodium 1% 1 g topical 5XD PRN digoxin 0.125 mg PO MOWEFR@0900 fluticasone furoate 100 mcg/actuation (Arnuity Ellipta) 1 inh inhalation DAILY fluticasone propionate 250 mcg/actuation (Flovent Diskus) 2 puffs inhalation DAILY furosemide 80 mg PO DAILY furosemide 40 mg PO DAILY@1700 isosorbide mononitrate ER 90 mg PO DAILY levothyroxine 37.5 mcg PO DAILY magnesium oxide 1 tab PO BID morphine ER 1 tab PO TID nitroglycerin 1 - 2 sprays sublingual Q5M PRN omeprazole 20 mg PO BID sacubitril-valsartan 24-26 mg (Entresto) 1 tab PO BID sodium bicarbonate 1 tab PO BID sucralfate 1 tab PO QID tamsulosin 0.4 mg PO BEDTIME 30 days HPI HPI Comments History of Present Illness Details Marilu is a very pleasant 77-year-old female patient of Dr. Bridges who was accompanied by her daughter at today's office visit. She has a past medical history of carotid artery stenosis, former smoker, opioid dependence, osteoarthritis, hypothyroidism, congestive heart failure, coronary artery disease status post AICD placement, hyperlipidemia, hypertension, colon cancer status post ileostomy and cerebrovascular accident. She presents to the office today as a new patient for urinary retention. In discussion with the patient today she reports having seeked emergency room care approximately 2 weeks ago for complaints of trouble urinating at which time bladder scan revealed 650 mL at which time a Zuniga catheter was placed and recommendations were made for urology referral. In office voiding trial performed today. Patient was able to successfully independently void without Zuniga catheter. Discussed at length potential causes for urinary retention. She denies any previous history of urinary issues or concerns. In review of patient's chart it appears CT of the abdomen was ordered and performed mi patient was in the emergency room. These results reviewed with the patient today. Bilateral kidneys with no hydronephrosis, hydroureter, or calculi seen. No perinephric stranding. The bladder is nondistended with a Zuniga catheter placed. She otherwise offers no other issues or concerns at this time. [facility] Medical History Carotid artery stenosis Former smoker Opioid dependence Osteoarthritis Cavernous hemangioma Hypothyroidism Hypoparathyroidism History of colon cancer History of sustained ventricular tachycardia CHF (congestive heart failure) CAD (coronary artery disease) HLD (hyperlipidemia) HTN (hypertension) Cerebrovascular accident Surgical History S/P ileostomy AICD (automatic cardioverter/defibrillator) present S/P CABG (coronary artery bypass graft) S/P aneurysm repair Social History Household Members: Family Household Members Other:: Daughter Housing: Condominium Do you presently have visiting nurse or other home services: Yes (home health aides 5 days a week, 2 hours a day) Alcohol intake: never Patient Tobacco Use Status: Never used Tobacco service: No Current occupational status: retired Review of Systems Const Reports as per HPI Eyes Reports no additional complaints ENT Reports no additional complaints Card Reports as per HPI Resp Details: 02 dependent via [place] GI Reports as per HPI Reports as per HPI Musc Reports as per HPI Neuro Reports as per HPI Psych Reports as per HPI Endo Reports as per HPI Physical Exam Const General: cooperative, comfortable, no acute distress, well developed, alert and awake Orientation/consciousness: patient oriented x3 Limitations: wheelchair HEENT Head: Yes normal to inspection, Yes normocephalic and Yes atraumatic Ears: hearing grossly normal bilaterally Eyes General: appearance normal, both eyes and all related structures Neck Neck: Yes normal visual inspection and Yes trachea midline Chest Chest palpation & inspection: normal inspection of the chest Resp Effort & Inspection: normal respiratory effort and able to speak in complete sentences Cardio Rate: regular rate GI Inspection: Yes normal to inspection General: Yes no CVA tenderness Back/Spine/Pelvis Back: no CVA tenderness Skin General skin exam: no rashes or lesions noted Neuro General: patient oriented x3 Extrem General: Yes normal to inspection Psych Appearance: grossly normal and well kempt Mental Status: mental status grossly normal Speech and movement: Normal speech and movement present and Clear speech present Affect: normal affect Attitude: cooperative Thought process: Normal thought process present Thought content: Normal thought content present Insight: Fair insight present (Psych) Judgement: Fair judgement present (Psych) Office Procedures Bladder/Catheter Procedure Details: Patient presents to office for VT and visit with Stacy. 120 mls sterile water instilled through catheter. 16 fr catheter with 10ml balloon removed, patient tolerated well. Patient to void and MA to bladder scan [id number] of Bladder Procedure code (CPT) selection complete Post Void Residual Post Residual Void Post Void Residual (PVR): 0 [id number]-[id number] Void Residual by ultrasound Results Reviewed Results Reviewed: Date of Service: 11/11/23 EXAMINATION: CT ABDOMEN AND PELVIS WITHOUT CONTRAST FINDINGS: LUNG BASES: There is a right posterior and left diaphragmatic calcified pleural plaques and pleural thickening likely from asbestosis exposure. Heart size enlarged. There are pacer electrodes in right atrium and right ventricle. Also visualized are posterior spinal needle electrodes with hardware along the left posterior back. LIVER, GALLBLADDER, AND BILIARY TREE: The liver is enlarged measuring 18 cm. It has normal contour and no focal lesion seen. No intrahepatic ductal dilatation. Gallbladder is not visualized. PANCREAS: Unremarkable. SPLEEN: Spleen measures 12.2 cm. ADRENAL GLANDS: Bilateral adrenal glands are unremarkable. KIDNEYS AND URETERS: The kidneys are normal in size, shape, and attenuation. No hydronephrosis, hydroureter, or calculi seen. No perinephric stranding. BLADDER: Bladder is nondistended with a Zuniga catheter within. GASTROINTESTINAL TRACT: There is a right lower quadrant ileostomy without any distended small bowel loops. There is likely total or partial colectomy changes. No free air or free fluid seen. ABDOMINAL WALL: No significant hernia is appreciated. LYMPH NODES: No abnormal retroperitoneal lymph nodes. VASCULAR: There is aneurysmal dilatation of mid abdominal aorta measuring 2.7 x 2.1 cm on axial image /. PELVIC VISCERA: There is no pelvic mass, hernia or free fluid. The uterus appears surgically absent. No adnexal mass seen. OSSEOUS STRUCTURES: Mild degenerative disc changes L4-L5 and L5-S1 disc levels. No aggressive lytic or sclerotic process seen. There is a spinal electrode with hardware in the left upper back region. IMPRESSION: 1. No acute intra-abdominal process seen. 2. There is a right lower quadrant ileostomy without any distended small bowel loops. There is likely total or partial colectomy . 3. There is no radiopaque urolith or hydroureteronephrosis. The bladder is nondistended with a Zuniga catheter within. 4. Mild aneurysmal dilatation of mid abdominal aorta. 5. Hepatomegaly Assessment & Plan Assessment & Plan (1) Acute urinary retention: Code(s): R33.8 - Other retention of urine Plan In office voiding trial performed; patient was successfully able to independently void Discussed seeking medical treatment if unable to void independently. Start Flomax as discussed and prescribed. Discussed at length potential causes for urinary retention. Recent CT results reviewed with the patient today; as noted above. Follow-up in 1-3 months with PVR; or sooner with any issues, concerns, and or questions. Orders: Orders AMB Bladder/Catheter Procedure Today R33.8 - Other retention of urine AMB Post Void Residual by ultrasound Today R33.8 - Other retention of urine Medications: New tamsulosin 0.4 mg PO BEDTIME 30 days 30 caps 2RF N40.1 - Benign prostatic hyperplasia with lower urinary tract symptoms, R35.1 - Nocturia tamsulosin 0.4 mg PO BEDTIME 30 days 30 caps 2RF N40.1 - Benign prostatic hyperplasia with lower urinary tract symptoms, R35.1 - Nocturia Patient Instructions: The patient had an opportunity to ask questions regarding the treatment plan. All questions were answered. Physical exam, labs, and imaging were discussed and reviewed in detail. As well as risks, benefits, and discussion of treatment choices. No major barriers to understanding were identified. The patient expressed understanding and agreement with the above treatment plan. The patient was made aware they should contact our office by phone for worsening of their current condition, the appearance of new symptoms, or with any questions or concerns. Compliance is encouraged with any medications and follow up testing that is ordered. It is a privilege to be allowed the opportunity to participate in? your urological care.? Again, if you have any questions or concerns If you have any questions or concerns please do not hesitate to contact me. The office is [phone]. This note is constructed using voice recognition software. While every effort has been made to ensure accuracy pull over machine operator errors may have been included. Yours sincerely, VIRGINIE Milan-SANCHEZ Coding Level of Care Code New Pt Level 4 (96867) Diagnoses Acute urinary retention R33.8 CPT Codes Bladder/Catheter Procedure - CPT: 21157-Hyeywckhdz of Bladder ([id number]) Post Residual Void - PVR CPT Code: 41924-Atwl Void Residual by ultrasound ([id number])
== END 2023-11-24 11:35 | disposition home or self-care (01) ==
PROVIDERS: PCP Internal Medicine; Visit Provider Nurse Practitioner Family
DX: R33.8 Other retention of urine (principal)
CPT/HCPCS: 51700; 99204

== ENCOUNTER → 2023-11-24 10:25 | Outpatient (BNVA) | payer MEDICARE, OTHER, SELFPAY | PROVIDERS: PCP Internal Medicine; Visit Provider Nurse Practitioner Family | DX: R33.9 Retention of urine, unspecified (principal); R35.1 Nocturia | CPT/HCPCS: 51700; 51798; 99202 ==

== ENCOUNTER → 2024-03-10 11:22 | Outpatient (BNVA) | payer MEDICARE, OTHER, SELFPAY | PROVIDERS: PCP Internal Medicine; Visit Provider Nurse Practitioner Family | DX: R33.9 Retention of urine, unspecified (principal) | CPT/HCPCS: 51798; 81003; 99212 ==

== ENCOUNTER 2024-04-03 10:26 | Inpatient (IN) | payer MEDICARE, OTHER, SELFPAY ==
[2024-04-03] VITALS (7 sets, daily range): BP systolic 127–146; BP diastolic 56–79; PULSE 66–85; RESP 15–18; TEMP 36.1–37; O2SAT 90–98; BMI 22.4
--- NOTE | ~2024-04-03 | XR_ITS ---
EXAMINATION: XR CHEST CLINICAL INFORMATION: Dyspnea COMPARISON: 2 view chest 03/19/2023 TECHNIQUE: Frontal view of the chest was obtained. FINDINGS: The heart is enlarged. There is central pulmonary vascular prominence and increased interstitial markings increased when compared to 03/19/2023. Again seen are changes of median sternotomy with a 3-lead left chest wall pacemaker, mitral valve annuloplasty and spinal stimulation leads. No focal consolidations or large effusions. XR/XR chest 1V IMPRESSION: Cardiomegaly with pulmonary vascular congestion and increased interstitial markings. Findings are suggestive of CHF with interstitial edema.
--- NOTE | 2024-04-03 10:32 | ECG_ITS ---
Test Reason : SOB Blood Pressure : / mmHG Vent. Rate : 070 BPM Atrial Rate : 000 BPM P-R Int : 000 ms QRS Dur : 144 ms QT Int : 444 ms P-R-T Axes : 000 164 031 degrees QTc Int : 479 ms Ventricular-paced rhythm Abnormal ECG When compared with ECG of 10-MAY-2023 20:50, Vent. rate has decreased BY 10 BPM Referred By: Gina Johnson Electronically Signed By:EREN MCGEE MD
--- OUTSIDE RECORDS SUMMARY | 2024-04-03 11:24 | XMS_ITS | Continuity of Care Document ---
Author Organization [facility] ter Address [address] [place] [address]- Care Team Providers Care Program Director/Traffic Director Name Role Phone Cyrus MAX MD, Riki Grace Primary Care Physician [phone] Encounter [facility] Date(s): 01/12/24 - 01/13/[address] [address] Discharge Disposition: A-Transfer VNA/Home Health Attending Physician: Veronica Lorenz MD Admitting Physician: Veronica Lorenz MD Referring Physician: Patrice Novoa MD Allergies, Adverse Reactions, Alerts Substance Reaction [...] 05/09/16 15:55:42, Inhaler, Route to Pharmacy Electronically, [id number], Subtext [id number] Start Date: 05/09/16 Stop Date: 08/07/16 Status: Ordered amoxicillin 500 mg oral capsule TAKE 4 CAPSULES BY MOUTH ONE HOUR PRIOR TO DENTAL APPOINTMENT Start Date: 12/17/23 Status: Ordered Arnuity Ellipta 100 mcg inhalation powder = 100 mcg, INHALE 1 PUFF INTO THE LUNGS DAILY Start Date: 12/17/23 Status: Ordered aspirin 81 mg oral tablet = 81 mg, By Mouth, Daily, # 30 tablet, 2 Refills, Maintenance, 05/09/16 15:57:18, Tablet Start Date: 05/09/16 Stop Date: 08/07/16 Status: Ordered Coreg 6.25 mg oral tablet 3.125 mg, 0.5, tablet, By Mouth, 2 times a day, Maintenance, 02/27/20 15:29:00 EDT Start Date: 02/27/20 Status: Ordered digoxin 0.125 mg oral tablet 125 mcg, 1, tablet, By Mouth, Every Wednesday, Wednesday and Wednesday, Maintenance, 02/27/20 15:32:00 EDT Start Date: 02/27/20 Status: Ordered Entresto 24 mg-26 mg oral tablet 1 tablet, By Mouth, 2 times a day, # 60 tablet, 0 Refills, Maintenance, 11/03/23 12:48:00 EST, Tablet, [facility], Partial fill upon patient request if the prescription is for a schedule II opioid drug., 1 tablet By Mouth 2 times a day,... Start Date: 11/03/23 Status: Ordered ferrous sulfate 325 mg oral enteric coated tablet 325 mg, By Mouth, Every Wednesday, Wednesday and Wednesday, # 45 tablet, Refills 0, Tot. Refills 0, Maintenance, 11/03/23 12:48:00 EST, Route to Pharmacy Electronically, [facility], Partial fill upon patient request if the prescription is for... Start Date: 11/03/23 Stop Date: 02/01/24 Status: Ordered furosemide 80 mg oral tablet 80 mg, 1, tablet, By Mouth, Daily, # 30 tablet, Refills 0, Maintenance, 02/11/23 16:17:00 EDT Start Date: 02/11/23 Status: Ordered levothyroxine 0.025 mg oral tablet 1.5 tablet = 37.5 mcg, By Mouth, Daily, Maintenance, 02/27/20 15:27:00 EDT, Tablet Start Date: 02/27/20 Status: Ordered magnesium oxide 400 mg oral tablet = 400 mg, By Mouth, 2 times a day, # 28 tablet, 0 Refills, Soft Stop, 06/10/18 13:49:02 EDT, Tablet Start Date: 06/10/18 Stop Date: 06/24/18 Status: Ordered Morphine 30 mg, CR Tablet, By Mouth, 01/13/24 9:00:00 EDT Start Date: 01/13/24 Stop Date: 01/13/24 Status: Completed morphine 30 mg oral capsule, extended release [...] Gm, 0 Refills, Maintenance, 02/11/23 16:18:00 EDT, [place] Start Date: 02/11/23 Status: Ordered omeprazole 20 mg oral delayed release tablet 1 tablet = 20 mg, By Mouth, 2 times a day, # 60 tablet, 0 Refills, Maintenance, 02/11/23 16:19:00 EDT, EC Tablet Start Date: 02/11/23 Status: Ordered Plavix 75 mg oral tablet 75 mg, 1, tablet, By Mouth, Daily, # 90 tablet, Refills 0, Tot. Refills 0, Maintenance, 01/13/24 11:06:00 EDT, Route to Pharmacy Electronically, [id number], Partial fill upon patientrequest if the prescription is for a schedule II op... Start Date: 01/13/24 Status: Ordered Praluent Pen 150 mg/mL subcutaneous [...] 16:19:00 EDT Start Date: 02/11/23 Status: Ordered Tylenol Caplet Extra Strength = 1,000 mg, By Mouth, Every 6 hours, PRN Pain , Moderate, 0 Refills, Maintenance, 12/17/23 10:47:00EDT, Partial fill upon patient request if the prescription is for a schedule II opioid drug. Start Date: 12/17/23 Status: Ordered Problem List Condition Confirmation Course [...] (osteoporosis) Confirmed Active Rheumatoid arthritis Confirmed Active Results Radiology Reports * Exam Date Time Procedure Performing Provider Status 01/13/24 10:06 AM Chest 2 Views Frontal and Lat Lucila Nguyen (Verified) Notes: (Chest 2 Views Frontal and Lat) Reason For Exam: Postop;Postop RESULT: Chest 2 Views Frontal and Lat Examination: Chest performed on 01/13/2024. History: Postop. Findings: Frontal and lateral views of the chest are compared to a prior study dated 10/29/2023. Sternotomy wires are intact. Valve replacement and left atrial occluder device are seen. AICD is demonstrated. The cardiac silhouette is enlarged. The lungs are clear. The osseous and soft tissue structures are unremarkable. Impression: There is no acute cardiopulmonary disease. WSN: [id number] Ordering Physician: Veronica Lorenz Dictated By: Dory Heredia MD Dictated Date/Time: 01/13/24 10:14 a Reviewed By: Dory Heredia MD Signed By: Dory Heredia MD Signed Date/Time: 01/13/24 10:14 am Transcribed By: JIMENEZ Transcribed Date/Time: 01/13/24 10:12 am Vital Signs Most recent to oldest [Reference Range]: 1 2 3 Height 165 cm (01/13/24 1:17 PM) 165 cm (01/13/24 11:45 AM) 165 cm (01/13/24 7:53 AM) Weight 55.7 kg (01/12/24 6:16 PM) 55.7 kg (01/12/24 1:00 PM) 54.5 kg (01/07/24 5:37 PM) Oxygen Saturation [94-100 %] 100 % (01/13/24:17 PM) 100 % (01/13/24 11:45 AM) 100 % (01/13/24 7:53 AM) Pulse Rate [55-90 bpm] 70 bpm (01/13/24:17 PM) 74 bpm (01/13/24 11:45 AM) 70 bpm (01/13/24 7:53 AM) Body Mass Index [18.5-24.99 kg/m2] 20.46 kg/m2 (01/12/24 6:16 PM) 20.46 kg/m2 (01/12/24 1:00 PM) 20.02 kg/m2 (01/07/24 5:37 PM) Blood Pressure [90-138/55-84 mm Hg] 109/37mm Hg (01/13/24 1:17 PM) 125/53mm Hg (01/13/24 11:45 AM) 112/44mm Hg (01/13/24 7:53 AM) Respiratory Rate [16-30 br/min] 18 br/min (01/13/24 1:17 PM) 20 br/min (01/13/24 11:45 AM) 16 br/min (01/13/24 9:04 AM) Temperature [96.8-100.4 DegF] 98.3 DegF (01/13/24 1:17 PM) 98.1 DegF (01/13/24 11:45 AM) 97.7 DegF (01/13/24 7:53 AM) Liters per Minute 2 L/min (01/13/24 1:17 PM) 2 L/min (01/13/24 11:45 AM) 2 L/min (01/13/24 7:53 AM) Mode of Delivery (Oxygen) Nasal cannula (01/13/24 1:17 PM) Nasal cannula (01/13/24 11:45 AM) Nasal cannula (01/13/24 7:53 AM) Blood pressure sites Arm, left (01/13/24 1:17 PM) Arm, left (01/13/24 11:45 AM) Arm, left (01/13/24 7:53 AM) Temperature Route Oral (01/13/24 1:17 PM) Oral (01/13/24 11:45 AM) Oral (01/13/24 7:53 AM) Dry Weight 54.5 kg (01/07/24 5:37 PM) Weight Obtained Via Bed scale (01/12/24 6:16 PM) Patient/family stated (01/12/24 1:00 PM) Patient/family stated (01/07/24 5:37 PM) Dry Weight Obtained Via Patient/family stated (01/07/24 5:37 PM) Social History Social History Type Response Smoking Status Former smoker; Type: Cigarettes; Other: pt states stopped smoking 2 months ago; entered on: 05/21/15 Sex Note * Sammie Alexis RN: PERFORM Event Display: Discharge/Transfer Note Hospital Authored Date: [id number] Nursing Discharge Note Entered On: 01/13/2024 14:02 EDT Performed On: 01/13/2024 13:57 EDT by Sammie Alexis RN Nursing Discharge Note 2 Discharge Time : 01/13/2024 16:00 EDT Sammie Alexis RN - 01/13/2024 16:12 EDT Discharge Level of Care at Discharge : Homehealth/VNA Discharge VNA/Hospice/Home Care(v001) : [facility] [phone] Patient Left Unit Via : Wheelchair Patient Accompanied Off Unit with : Responsible adult, Other: STAFF DC Instructions Provided & Signed by Pt : Yes Patient Understands D/C Instructions : Yes Patient Instructions Discharge Signed : Yes Did Pt have Specialty Bed or Wound Vac : No Sammie Alexis RN - 01/13/2024 13:57 EDT * Veronica Lorenz MD: PERFORM, SIGN, VERIFY Event Display: Discharge/Transfer Note Hospital Authored Date: Patient: ZAID WHALEY Age: 78 years Sex: Female : 1945 Associated Diagnoses: None Author: Veronica Lorenz MD No acute events; chest x-ray shows appendage closure device in left atrium. Physical Examination Vital Signs Reviewed Results: Vitals : VITALS(Date Range: 01/12/2024 0:00 EDT - 01/13/2024 11:09 EDT). General Appearance NAD. HEENT Moist mucous membranes. Respiratory Lungs: CTA. Cardiac Cardiac: no M/G/R. Rhythms: RRR. Abdomen/GI Abdomen: soft, non-tender. Extremities Extremities: no clubbing, no cyanosis. Neurologic Alert & oriented x 3 . 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 hyperlipidemia, ileostomy-chronic abdominal pain is on narcotics daily -- S/P appendage closure device. -- OK to stop apixaban and start ASA 81 mg PO QD and Plavix 75 mg po QD for six months, -- Follow-up SHARMILA in 45 days Discharge Diagnosis: Paroxysmal Atrial Fibrillation TIA Anemia Chronic systolic congestive heart failure NYHA III Congestive heart Failure Discharge Medications Entresto Morphine Mag oxide Levothryoxine Lasix 80 mg PO QD Plavix 75 mg PO QD Coreg 6.25 mg PO BID ASA 81 mg PO QD Albuterol inhaler Sucralfate Sod Bicarb Omeprazole Ntro Fluticasone Ferrous Sulfate Digoxin Sensipar Amoxicillin as prescribed Praluent SQ Acetaminiphen PRN Follow-Up with [facility] Cardiology Kelechi Discharge Medications * Sammie Alexis RN: PERFORM Event Display: Patient Education/Instruction Authored Date: [id number] Inpatient Adult Discharge Instructions. [address] [address] Name: ZAID WHALEY : 1945?? Visit: 01/12/2024 12:49?? Current Date: 01/13/2024 14:37 ?? Account: [id number]?? Inpatient Adult Discharge Instructions We would like [...] and their families. Surveys are administered by [employer], [employer]. ?? If further treatment with your primary care physician or another doctor is recommended, it is important for you to keep the appointment. Call your primary care physician or return to the Emergency Department immediately if your condition worsens, fails to improve, or new symptoms develop. If you need to find a doctor, you can call [facility] [employer] Link for a referral at [phone] or toll free at [phone] ([phone]) or log in to [email or web address].. ?? [facility], in keeping with [facility] guidance, no longer requires face masks for staff, patientsor visitors in most situations. Similiar to time spent indoors at other locations, there is the chance that you were exposed to repiratory viruses during your time with us (such as flu or COVID-19). If you develop symptoms concerning for a viral respiratory infection, please seek testing (and treatment if indicated) from your medical provider or home test kit. ?? You can view and manage your care through the patient portal or by using a health care bette of your choosing. [employer] is a website that allows you to securely view your medical information including your hospital discharge summary, office visit summaries, medications and follow-up visits. You can also request appointments, renew medications, and request access to your medical information using a health care bette of your choosing, or just ask a question. You can enroll at [email or web address] or register during your next office visit. You have been discharged from [facility], Patient Care Unit: S3??. If you have any questions regarding these instructions, including results of studies pending, afteryou leave, please call us and we will be happy to assist you 22/03. [facility] Your Care Team Attending Physician Veronica Lorenz MD?? Consulting Providers Veronica Lorenz MD?? Discharging Providers Veronica Lorenz MD Tests Performed Below is a partial list of the tests performed during your hospitalization. You may have had other tests and procedures not included in this list. Please discuss all test results with your provider. BUN CBC Creatinine INR Lytes Type and Screen XR Chest 2 Views Frontal and Lat No tests performed during this visit.?? Primary Care Provider Riki Bridges III, MD? Advance Directive Health Care Proxy on File Yes - Health Care Proxy Discharge Vitals Temperature: 98.3 DegF Height: 165 cm Pulse Rate: 70 bpm Weight: 55.7 kg Respiratory Rate: 18 br/min Body Mass Index: 20.46 kg/m2 Systolic Blood Pressure: 109 mm Hg Body surface area: 1.6 Diastolic Blood Pressure:??37 mm Hg??Low ?? Oxygen Saturation: 100 % ?? Studies Pending All studies ordered during this hospital stay have been completed unless listed below. Please discuss all pending results with your provider listed above in these instructions. ?? No incomplete studies found?? What to do next Instructions From Your Doctor ?? Orders? 01/13/24 11:15:00 EDT?? You Need to Schedule the Following Appointments Follow Up with??As Needed Follow Up with??Riki Bridges III, MD Where: [address] [place] [id number]- Discharge Medications ZAID WHALEY :1945 Visit Date:01/12/2024 Medications: Please continue your medications until treatment is completed or stopped by your provider. Medications not listed below should be discontinued. Discuss any questions related to medications with your provider. What How Much When Instructions Next Dose New Clopidogrel (Plavix 75 mg oral tablet) 1 tab(s) Oral Daily Pickup at [facility] #[id number] 01/13 Unchanged Acetaminophen (Tylenol Caplet Extra Strength) 1,000 Milligram Oral Every 6 hours as needed for Pain , Moderate as needed Unchanged Albuterol (albuterol CFC free 90 mcg/ inh inhalation aerosol) 2 puff(s) Inhalation Every 4 hours as needed for Wheezing/Shortness of Breath Duration: 30 Days as needed Unchanged alirocumab (Praluent Pen 150 mg/ mL subcutaneous solution) 150 Milligram Subcutaneous Infusion every 2 weeks ?? see instruction Unchanged Amoxicillin (amoxicillin 500 mg oral capsule) TAKE 4 CAPSULES BY MOUTH ONE HOUR PRIOR TO DENTAL APPOINTMENT ?? Unchanged Aspirin (aspirin 81 mg oral tablet) 81 Milligram Oral Daily Duration: 30 Days 01/13 Unchanged Carvedilol (Coreg 6.25 mg oral tablet) 0.5 tab(s) Oral Twice a day 01/12 Unchanged Cinacalcet (Sensipar 30 mg oral tablet) 1 tab(s) Oral Daily 01/13 Unchanged Digoxin (digoxin 0.125 mg oral tablet) 1 tab(s) Oral Wednesday, Wednesday and Wednesday see instruction Unchanged Ferrous Sulfate (ferrous sulfate 325 mg oral enteric coated tablet) 325 Milligram Oral Wednesday, Wednesday and Wednesday Duration: 90 Days see instruction Unchanged Fluticasone (Arnuity Ellipta 100 mcg inhalation powder) 100 Microgram INHALE 1 PUFF INTO THE LUNGS DAILY ?? 01/13 Unchanged Furosemide (furosemide 80 mg oral tablet) 1 tab(s) Oral Daily 01/13 Unchanged Levothyroxine (levothyroxine 0.025 mg oral tablet) 1.5 tab(s) Oral Daily 01/13 Unchanged Magnesium Oxide (magnesium oxide 400 mg oral tablet) 400 Milligram Oral Twice a day Duration: 14 Days 01/12 Unchanged Morphine (morphine 30 mg oral capsule, extended release) 30 Milligram Oral 3 times a day 01/12 Unchanged Nitroglycerin (nitroglycerin 0.4 mg sublingual spray) 1 spray(s) Sublingual Every 5 minutes as needed for as needed for chest pain not to exceed 3 doses/ 15 min--if pain persists, seek medical attention ?? as needed Unchanged Omeprazole (omeprazole 20 mg oral delayed release tablet) 1 tab(s) Oral Twice a day 01/12 Unchanged sacubitril-valsartan (Entresto 24 mg-26 mg oral tablet) 1 tab(s) Oral Twice a day 01/12 Unchanged Sodium Bicarbonate-Sodium Citrate 650 Milligram Oral Twice a day 01/12 Unchanged Sucralfate (sucralfate 1 gm oral tablet) 1 tab(s) Oral 4 times a day 01/12 Pharmacy Information [facility] #[id number]: [address], [place] [id number] [phone] ?? What How Much When Comments Stop Taking apixaban (apixaban 5 mg oral tablet) 1 tab(s) Oral Twice a day Prescription Given During Visit Clopidogrel (Plavix 75 mg oral tablet) - 1 tablet = 75 mg, By Mouth, Daily, # 90 tablet, 0 Refills,[facility] #[id number], [address] [place] [phone]?? Laboratory Results Below is a partial list of the most recent Laboratory test results done prior to this discharge. You may have had other tests and procedures not included in this list. Please discuss all test resultswith your provider. Est Creatinine Clearance - 37.10 mL/min (01/12/2024) BUN (01/12/2024) ???BUN - 17 mg/dL CBC (01/12/2024) ???WBC - 7.7 k/mm3???RBC - 3.68 m/mm3???Hgb - 9.4 Gm/dL???Hct - 31.8 %???MCV - 86.4 femtoliters???MCH - 25.5 pg???MCHC - 29.6 g/dL???Platelet Count - 149 k/mm3???RDW-SD - 48.3 femtoliters???MPV - 10.5 femtoliters???Nucleated RBC (Automated) - 0.0 #/100 WBC'S???Abs. NRBC - 0.0 k/mm3 Creatinine (01/12/2024) ???Creatinine-Blood - 1.11 mg/dL???Estimated GFR Creatinine - 52 ML/MIN/1.73 M2 INR (01/12/2024) ???INR - 1.1???Protime (PT) - 11.4 seconds Lytes (01/12/2024) ???Sodium - 136 mmol/L???Potassium - 4.3 mmol/L???Chloride - 97 mmol/L???Bicarbonate Level - 29 mmol/L???Anion Gap - 10 Type and Screen (01/12/2024) ???Blood Type - O Positive???Antibody Screen - Negative Allergies (NKA means No Known Allergies) Latex??(rash, [...] Educational Leaflet Providered with your Discharge Instructions. [employer] Patient Education - Atrial Fibrillation?? [employer] Patient Education - Afib Guidelines Patient Discharge Instructions?? Valuables and Belongings I fully understand and agree that [facility] accepts no responsibility for all my personal [...] patient Date for Pt to Sign Valuables/Belongings: 01/13/24 13:17:00 ?? Other Discharge Information ? Case Management Discharge Plan?? Discharge Plan?? Discharge Agency Information?? Discharge Level of Care at Discharge: Homehealth/VNA Name of Agency #1: [facility] Dis[facility] VNA/Hospice/Home Care: [facility] [phone] Service Categories #1: Long Term ?? Service Comments #1: The nurse will see you the day after discharge. They will call before they come to set up a time to see you. If they do not call within 24 hours, please call the main VNA number to inquire when they are coming. ?? Pulmonary Rehab Status?? Pulmonary Rehab Discharge Status?? Respiratory Rate: 18 br/min ? Common Emergency Awareness Tips IS [...] are strongly encouraged to quit. Please call [facility] [employer] Link at [phone] or [phone] ([phone]) or log in to [email or web address] for referrals to smoking cessation programs. ?? 620 Suicide & Crisis Lifeline is available 22/03 if you or someone you know needs to find a reason to keep living. By calling 221 you'll be connected to a skilled, trained counselor at a crisis center in your area. INPATIENT DISCHARGE INSTRUCTIONS SIGNATURE ZAID ENGEL Location:[facility] Registration Date and Time:01/12/2024 12:49 EDT Primary Care Physician: Riki Bridges III, MD, Attending Physician: Kelechi ASHFORD, Veronica Ward, I ZAID WHALEY, have received the above patient education materials/instructions and have verbalized understanding. If ambulance or transport services are being used I further acknowledge being given a choice of service. ?? If you need to contact me, please call me at this number: . Patient/Packing Clerk Name: Patient/Packing Clerk Signature: Relationship to Patient: Witness Name/Signature: Date: * Sammie Alexis RN: PERFORM Event Display: Patient Education Leaflets Authored Date: [id number] Atrial Fibrillation ?? Atrial Fibrillation - Video Atrial fibrillation is when the upper chambers of the heart don???t pump normally. Learn what happens in the heart, and how it can be managed. To view the video go to this web address: [email or web address] Or, scan this QR code with your smart phone Last Reviewed Date: 2019 ?? [id number] [employer]. All rights reserved. This information is not intended as a substitute for professional medical care. Always follow your healthcare professional's instructions. ?? * Sammie Alexis RN: PERFORM Event Display: Patient Education Leaflets Authored Date: [id number] Afib Guidelines Patient Discharge Instructions ?? 2 Emergency Department Atrial Fibrillation Patient Discharge Instructions ?? You have been diagnosed with an irregular heart beat called ???AFIB?? or atrial fibrillation. Information about this condition is included below. The emergency room doctor may have given you medication to help control how fast your heart was beating or may have shocked your heart to try to get it back into normal rhythm. You may also have been started on a blood thinner based upon your health and how long you have been in AFIB or are expected to remain in AFIB. If you were started on a blood thinner, it is VERY IMPORTANT that you take the medication as prescribed to help prevent blood clots or a possible stroke. Your doctor or a cold meat cook will decide any further testing and treatment. 1. If prescribed, take medication as directed to control your heart rate and rhythm. 2. Schedule a follow-up appointment with your regular physician within 1week. 3. Call the ED Follow-up nurse at [phone] if you have questions about your medication or need help scheduling a follow-up appointment within 1 week. ?? If you were prescribed a blood thinner, please follow these instructions: ?? 1. Take the medication as prescribed to help prevent blood clots or a possible stroke. 2. You may be prescribed Eliquis (apixaban). This is a newer blood thinner. We strongly recommend you go to the [facility] located on [facility] where they will arrange for you to receive a one month supply. In most instances the initial prescription will be free of charge to you. Your insurance may have special requirements but the pharmacy will do their best to help you. ?([facility] Pharm[facility] telephone ??# [phone]) ?? GENERAL INFORMATION ABOUT ATRIAL FIBRILLATION (see below) ? Atrial Fibrillation?? is a condition where the heart beats in an irregular pattern. It is due to adisturbance in the electrical pathways of the heart. It is a sign of heart disease or other health problem affecting the heart. ?? The most common symptom is ???palpitations?? . This is the feeling that your heart is fluttering, beating fast, hard or irregular. When the heart beats too fast it does not pump blood very well. This can cause other symptoms such as anxiety, fatigue, shortness of breath, chest pain, dizziness orfainting. Atrial Fibrillation may come and go, lasting from a few hours to a couple of days. Or, itmay become chronic, lasting for months at a time, or longer. ?? Atrial Fibrillation may be caused by a disease of the heart or other conditions in the body thataffect the heart: ??? Coronary artery disease (atherosclerosis) ??? High blood pressure ??? Disease of the heart valves ??? Enlarged heart ?? Atrial Fibrillation can also occur without heart disease due to: ??? Overactive thyroid (hyperthyroid) ??? Chronic lung disease (COPD, emphysema, bronchitis) ??? Heavy alcoholuse ??? Cardiac stimulants (cocaine, amphetamines, diet pills, certain decongestant cold medicines,caffeine or nicotine) ??? Infection ??? Blood clot in the lung (pulmonary embolus) ?? Treating or removing these causes will improve success in the treatment of Atrial Fibrillation and reduce your risk of recurrence. ?? Atrial Fibrillation can alternate back and forth with another abnormal rhythm ca lled Atrial Flutter . The risk of stroke increases with either of these conditions. Proper treatment can reduce your risk of stroke. ?? HOME CARE: ??? Resume your usual activities as soon as you are feeling back to normal. ??? If you smoke, stop smoking. Contact your doctor or a local stop-smoking program for help. ??? Avoid cardiac stimulants (cocaine, amphetamines, diet pills, certain decongestant cold medicines, caffeine or nicotine). ??? If medicine is prescribed to prevent recurrence of Atrial Fibrillation, take it exactly as directed. Some medicines must be taken daily, not just when you have symptoms, in order to be effective. ??? If you were prescribed medication to reduce stroke risk (a blood thinner), have your blood tested as advised by your doctor. ?? FOLLOW UP with your doctor as advised by our staff within 1 week. ?? [NOTE: If you had an X-ray or EKG (cardiogram), it will be reviewed by a specialist. You will be notified of any new findings that may affect your care.] ??GET PROMPT MEDICAL ATTENTION if any of the following occur: ? Increasing shortness of breath or swelling in the legs ??? Unexpected weight gain ??? Chest pain or palpitations (the sense that your heart is fluttering, beating fast or hard) ??? Weakness, dizziness, or passing out. ??? Fever of 100.4??F (38??C) or higher, or as directed by your healthcare provider ??? Cough with dark colored orbloody sputum (mucus) ??? Pain, redness or swelling in one leg ??? Signs of stroke: ??? Weakness ofan arm or leg or one side of the face ??? Difficulty with speech or vision ??? Extreme drowsiness, confusion, dizziness or fainting ??? Any signs of bleeding if taking a blood thinner ?? Adapted [id number] [facility], [address] [place] [address]. All rights reserved. This information is not intended as a substitute for professional medical care. Always follow your healthcare professional's instructions. ?? For Patients Prescribed APIXABAN ??MEDICATION INFORMATION SHEET for APIXABAN (Eliquis??) ?? Apixaban is commonly known as a ???blood thinner.?? It affects the ability of the blood to formclots. It is used to prevent or treat blood clots in the legs, lungs, pelvis and heart. ?? DIRECTIONS FOR USE: ??? Take this medicine with a full glass of water, with or without food, at the same time each day.??? Apixaban is a very effective drug, but it can be dangerous if not taken properly. It reduces the ability of the blood to form clots. If you take too much, the medication can cause excess internalor external bleeding. ??? You will NOT need to have regular blood tests to measure the effect of Apixaban. ??? Do not abruptly stop the medicine without talking to your doctor. Stopping these medications when you are not supposed to may increase the chance of blood clots. WHAT TO WATCH FOR: POSSIBLE SIDE EFFECTS: Signs of excess bleeding: increased bruising, prolonged bleeding from cuts, bleeding from the nose or gums, blood in urine, vomit, or stools (red or black color), coughing up blood, or unusually heavy menstrual bleeding (Call your doctor promptly or return to this facility). Bloating, nausea, diarrhea, vomiting, decreased appetite (Contact your doctor if these symptoms persist or become severe). Severe headache, confusion, drowsiness or dizziness (Contact your doctor or return to this facility at once). ?? ALLERGIC REACTIONS: Rash, itching, swelling, trouble swallowing or breathing (Contact your doctor or return to this facility promptly). ?? MEDICAL CONDITIONS: Before starting this medicine, be sure your doctor knows if you have any of the following conditions: ???Stomach ulcer (now, or in the past), ever vomited blood or had bloody stools (black or red color), aneurysm, pericarditis or pericardial effusion, blood disorder ??? Any of these conditions recently:surgery, stroke or TIA (mini-stroke) or spinal puncture ??? Kidney or liver disease, uncontrolled high blood pressure, diabetes, vasculitis, congestive heart failure (CHF), lupus or other collagen-vascular disease, high cholesterol ??? A mechanical or prosthetic heart valve ??? , ; if you are under 18 years of age ??? Recent or planned surgery or dental procedure ?? DRUG INTERACTIONS: Some medicines interfere with the effect of Apixaban. Before starting the medicine, be sure your doctor knows about any prescription or kbfc-ygr-rtluyig/herbal drugs you are taking, especially if you are taking any of the following: ??? Antibiotics: clarithromycin, erythromycin, rifampin ??? Antifungals: intraconazole, ketoconazole ??? HIV medications: indinavir/ritonavir, lopinavir/ritonavir, ??? Cardiac medications: diltiazem, verapamil, dronedarone, avasimibe ??? Seizure medications: carbamazepine, phenytoin ??? Herbals: [place]???s Wort? Others: conivaptan WARNINGS: ??? Consult your doctor if you become while taking this drug. ??? Before having surgery or a dental procedure, notify your doctor that you are taking this drug. They will instruct you when to stop taking this medication before your procedure. ??? Avoid activities with a high riskof injury. If you have a serious blow to the head (fall or car accident with or without loss of consciousness), contact your doctor to be checked for bleeding around the brain. ??? Add this medication to the updated medication list you carry with you so doctors will know you are on it in case of anemergency. ?? [NOTE: This information topic may not include all directions, precautions, medical con ditions, drug/food interactions, and warnings for this drug. Check with your doctor, nurse, or pharmacist for any questions that you may have.] ?? Taking Apixaban ?? Apixaban helps keep your blood from clotting. But they also increase your risk for bleeding. Because of this, it must be taken exactly as directed. You also need to protect yourself from injury. ?? Follow These Tips Take Apixaban at the same time each day. If you miss a dose, take it as soon as you remember???unless it???s almost time for your next dose. If so, skip the missed dose. Do not take a double dose. ??? Don???t take any other medications without checking with your healthcare provider first. This includes aspirin, vitamins, and herbal and other dietary supplements. ??? Tell ALL your healthcare providers (including dentists) that you are taking Apixaban. ??? It???s also a good idea to carry a medication list with you with this medication, and all your other scheduled medications, on it. ??? Use a soft toothbrush and an electric razor. ??? Don???t go barefoot. Exercise care when trimming corns or calluses. ?? When to Call Your Healthcare Provider Call your healthcare provider right away before you take your next dose of Apixaban if you have anyof these problems: ??? Bleeding that doesn???t stop in 10 minutes ??? A xdbqiff-wduh-sadzhc period or bleeding between periods ??? Coughing or throwing up blood ??? Diarrhea or bleeding hemorrhoids ??? Dark urine or black stools ??? Red or shana-dtp-ktsm coe on the skin that get larger ??? A fever or an illness that gets worse ??? Dizziness or fatigue ??? Severe headache and/or confusion ??? Chest pain or trouble breathing ??? A serious fall or a blow to the head ?? Prepared by [facility] Pharmacy staff (GM & DA) 01-11 ? * Event Display: Hemodynamic Procedure Report Authored Date: * Event Display: Lab Data & Pts Medical History Authored Date: EKG study * Event Display: EKG Authored Date: Cardiology * Event Display: Cardiac Rhythm Strips Authored Date: Hospital Progress note * Nirali Wisdom RN: PERFORM, SIGN, VERIFY Event Display: Progress Note Hospital Authored Date: Patient: ZAID WHALEY Age: 78 years Sex: Female : 1945 Associated Diagnoses: None Author: Nirali Wisdom RN Findings Problem Related to Alteration in Cardiac Function (new) : Alteration in Cardiac Function/new 01/13/2024 9:00 EDT Alteration in Cardiac Status Related to Cardiac Procedure Goals & Outcomes, Cardiac Status Pt will resume/maintain adequate cardiac output, Pt will resume/maintain adequate hemodynamic status, Pt will resume/maintain adequate respiratory function, Pt will resume/maintain intact neuro function, Pt will maintain adequate GI/ function appropriate for pt Cardiac Interventions Implemented Assess/monitor cardiac status, Assess/monitor neuro status, Assess/monitor respiratory status Goals/Interventions, Cardiac Yes Cardiac, Problem Start 01/12/2024 12:06 Reviewed Plan with, Cardiac Status Patient Patient Progression, Cardiac Status Plan Initiation . Evaluation Pt alert and oriented X3, paced on tele. Denies any CP, dizziness or SOB. R. groin dsd in place, small staining, intact. 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 Plan for d/c today. See biophysical, CIS and tele for full assessments,.. Patient Care team information Care Team Personnel Name: Dasia Perkins RN Position: [facility] RN Member Role: Primary Care Nurse Name: Lis Rayo RN Position: [facility] MICHAEL Office Staff Member Role: Primary Care Nurse Name: Fauzia Griffin Position: [facility] SN Support Member Role: Lifetime Consulting Physician Name: Darrick Yañez MD Position: [facility] PCO w/OE and EZ Script Member Role: Lifetime Consulting Physician Name: Dory Stack RN Position: [facility] RN Member Role: Primary Care Nurse Name: Riki Bridges III, MD Position: Reference Physician Member Role: PCP Address: Address: [address] [place] [address]- Name: Elizabeth López RN Position: [facility] MR W/ Merge Member Role: Primary Care Nurse Name: Twila Torres MD Position: [facility] Physician - Primary Care Member Role: Lifetime Consulting Physician Address: Address: [address] [place] [address] [facility] [place] [address]- [place] Name: Nirali Wisdom RN Position: [facility] RN Member Role: Primary Care Nurse Name: Janice Anton NP Position: [facility] Associate Professional Member Role: Primary Care Nurse Address: Address: [address] [place] [address] [place] [address]- Name: Joe Pathak DO Position: [facility] Renal MD Member Role: Lifetime Consulting Physician Address: Address: [address] [place], [place] [address] [place] [address]- Name: Saúl Tafoya RN Position: [facility] RN Member Role: Primary Care Nurse Name: Alyssa Brenner RN Position: [facility] OB RN Member Role: Primary Care Nurse Name: Diego Chaney RN Position: [facility] RN Member Role: Primary Care Nurse Name: Rubina Chavez RN Position: [facility] RN Member Role: Primary Care Nurse Name: Jessica Borden RN Position: [facility] RN Member Role: Primary Care Nurse Name: Kristen Vu RN Position: [facility] AMB Nurse Member Role: Primary Care Nurse Name: Barbara Tapia RN Position: [facility] RN Member Role: Primary Care Nurse Name: Yaquelin Londono NP Position: Reference Physician Member Role: Primary Care Nurse Address: Address: [address] [facility] [place] [address]- [place] Name: Amira Farah RN Position: [facility] SN RN Member Role: Primary Care Nurse Name: Uche Whaley RN Position: [facility] RN Member Role: Primary Care Nurse Name: Sammie Alexis RN Position: S RN Member Role: Primary Care Nurse Name: Yunior BERNARD, Manasa Figueredo Position: S RN Member Role: Primary Care Nurse Care Team Related Persons Name: CARA ROBERT PEREZ Address: home [address] [place] [address] Name: YOHANNESBRITTNEY Schreiber Address: home [address] [place] [address]
--- OUTSIDE RECORDS SUMMARY | 2024-04-03 11:24 | XMS_ITS | Continuity of Care Document ---
Author Organization [facility] ter Address [address] [place] [address]- Care Team Providers Care Legal Document Assistant Name Role Phone Cyrus MAX MD, Riki Grace Primary Care Physician Encounter [facility] Date(s): 12/22/23 - 12/22/[address] [address] Discharge Disposition: A-D/C Home Attending Physician: Veronica Lorenz MD Admitting Physician: Veronica Lorenz MD Referring Physician: Patrice Novoa MD Allergies, Adverse Reactions, Alerts Substance Reaction Severity Status sulfADIAZINE rash Mild Active atorvastatin rash Mild Active Latex rash, trouble breathing Mild Acti ve Pollen sneezing, watery eyes Mild Active Nuts hard time breathing walnuts Mild Active heparin 1 Mild Active predniSONE Mild Active 1 I go crazy Immunizations Given and Recorded Vaccine Date Status Refusal Reason influenza virus vaccine, inactivated 05/28/15 Give n pneumococcal 23-valent vaccine 04/21/12 Given Medications albuterol CFC free 90 mcg/inh inhalation aerosol 2, puffs, Inhalation, Every 4 hours, PRN, # 1 each, Refills 2, Tot. Refills 2, Maintenance, 05/09/16 15:55:42, Inhaler, Route to Pharmacy Electronically, [id number], [id number] Start Date: 05/09/16 Stop Date: 08/07/16 Status: Ordered amoxicillin 500 mg oral capsule TAKE 4 CAPSULES BY MOUTH ONE HOUR PRIOR TO DENTAL APPOINTMENT Start Date: 12/17/23 Status: Ordered apixaban 5 mg oral tablet 1 tablet = 5 mg, By Mouth, 2 times a day, # 60 tablet, 0 Refills, Maintenance, 02/11/23 16:18:00 EDT, Tablet Start Date: 02/11/23 Status: Ordered Arnuity Ellipta 100 mcg inhalation powder = 100 mcg, INHALE 1 PUFF INTO THE LUNGS DAILY Start Date: 12/17/23 Status: Ordered aspirin 81 mg oral tablet = 81 mg, By Mouth, Daily, # 30 tablet, 2 Refills, Maintenance, 05/09/16 15:57:18, Tablet Start Date: 05/09/16 Stop Date: 08/07/16 Status: Ordered Centrum Women 50 Plus Multigummies oral tablet, chewable 0 Refills, Maintenance, 12/17/23 11:12:00 EDT, Partial fill upon patient request if the prescription is for a schedule II opioid drug. Start Date: 12/17/23 Status: Ordered Claritin 10 mg oral tablet 10 mg, 1, tablet, By Mouth, Daily, # 10 tablet, Refills 0, Maintenance, 12/17/23 11:12:00 EDT, Partial fill upon patient request if the prescription is for a schedule II opioid drug. Start Date: 12/17/23 Stop Date: 12/27/23 Status: Ordered Coreg 6.25 mg oral tablet [...] 0 Refills, Maintenance, 11/03/23 12:48:00 EST, Tablet, [facility], Partial fill upon patient [...] 11/03/23 12:48:00 EST, Route to Pharmacy Electronically, [facility], Partial fill upon patient [...] 08/16/15 1:48:37 Start Date: 08/16/15 Status: Ordered Mucinex 600 mg oral tablet, extended release 1 tablet = 600 mg, By Mouth, Every 12 hours, PRN Cough, # 14 tablet, 0 Refills, Maintenance, 12/17/23 10:46:00 EDT, ER Tablet, Partial fill upon patient request if the prescription is for a schedule II opioid drug. Start Date: 12/17/23 Stop Date: 12/24/23 Status: Ordered nitroglycerin 0.4 mg sublingual spray 1 sprays = 0.4 mg, Sublingual, Every 5 minutes, PRN as needed for chest pain, not to exceed 3 doses/15 min--if pain persists, seek medical attention, # 4.9 Gm, 0 Refills, Maintenance, 02/11/23 16:18:00 EDT, [place] Start Date: 02/11/23 Status: Ordered omeprazole 20 [...] 16:19:00 EDT Start Date: 02/11/23 Status: Ordered tamsulosin 0.4 mg oral capsule TAKE 1 CAPSULE BY MOUTH AT BEDTIME FOR 30 DAYS Start Date: 12/17/23 Status: Ordered Tums 500 mg oral tablet, chewable 1,000 mg, 2, tablet, Chew, 2 times a day, PRN, # 12 tablet, Refills 0, Maintenance, as needed for dyspepsia, 12/17/23 10:48:00 EDT, Partial fill upon patient request if the prescription is for a schedule II opioid drug. Start Date: 12/17/23 Status: Ordered Tylenol Caplet Extra Strength = [...] 2 months ago; entered on: 05/21/15 Sex EKG study * Event Display: ECG 12-Lead Authored Date: Please click on pdf link to open report * Event Display: ECG 12-Lead Authored Date: Ventricular Rate: 72 BPM Atrial Rate: 72 BPM P-R Interval: 160 ms QRS Duration: 250 ms Q-T Interval: 588 ms QTC Calculation(Bazett): 643 ms R [place]: 114 degrees T [place]: 72 degrees Poor data quality, interpretation may be adversely affected Atrial flutter Right axis deviation Non-specific intra-ventricular conduction block Right ventricular hypertrophy Cannot rule out Septal infarct , age undetermined T wave abnormality, consider inferior ischemia Abnormal ECG When compared with ECG of 01-NOV-2023 09:23, Fusion complexes are now Present Premature ventricular complexes are now Present Vent. rate has increased BY 2 BPM [id number] on 12/22/2023 8:14:06 AM [place]: [facility] * Paty Pagan: PERFORM, SIGN, VERIFY Event Display: [facility] Authored Date: [id number] Patient: ZAID WHALEY Age: 78 years Sex: Female : 1945 Associated Diagnoses: None Author: Paty Pagan Findings Narrative/Incidental pt took pills this AM with jodee, notified anesthesia and Dr. Lorenz, procedure was cancelled. RN called daughter and arranged for pickup. . Patient Care team information Care Team Personnel Name: Dasia Perkins RN Position: [facility] RN Member Role: Primary Care Nurse Name: Lis Rayo RN Position: [facility] MICHAEL Office Staff Member Role: Primary Care Nurse Name: Fauzia Griffin Position: [facility] SN Support Member Role: Lifetime Consulting Physician Name: Darrick Yañez MD Position: [facility] PCO w/OE and EZ Script Member Role: Lifetime Consulting Physician Name: Dory Stack RN Position: [facility] RN Member Role: Primary Care Nurse Name: Riki Bridges III, MD Position: Reference Physician Member Role: PCP Address: Address: [address] [place] [address] - [place] Name: Elizabeth López RN Position: [facility] MR W/ Merge Member Role: Primary Care Nurse Name: Twila Torres MD Position: [facility] Physician - Primary Care Member Role: Lifetime Consulting Physician Address: Address: [address] [facility] [place] [address]- [place] Name: Nirali Wisdom RN Position: [facility] RN Member Role: Primary Care Nurse Name: Janice Anton NP Position: [facility] Associate Professional Member Role: Primary Care Nurse Address: Address: [address] [place] [address] [place]ious [place] [address]- [place] Name: Joe Pathak DO Position: [facility] Renal MD Member Role: Lifetime Consulting Physician Address: Address: [address] [facility] [address] [facility] [place] [address]- [place] Name: Alyssa Brenner RN Position: [facility] OB RN Member Role: Primary Care Nurse Name: Diego Chaney RN Position: [facility] RN Member Role: Primary Care Nurse Name: Jessica Borden RN Position: [facility] RN Member Role: Primary Care Nurse Name: Kristen Vu RN Position: [facility] AMB Nurse Member Role: Primary Care Nurse Name: Barbara Tapia RN Position: [facility] RN Member Role: Primary Care Nurse Name: Yaquelin Londono NP Position: Reference Physician Member Role: Primary Care Nurse Address: Address: [address] [place] [address]- [place] Name: Amira Farah RN Position: [facility] SN RN Member Role: Primary Care Nurse Name: Uche Whaley RN Position: [facility] RN Member Role: Primary Care Nurse Name: Manasa Mojica RN Position: [facility] RN Member Role: Primary Care Nurse Care Team Related Persons Name: CARA ROBERTSHELLEY PEREZ Address: home [address] [place] [address] Name: BRITTNEY SHEFFIELD Address: home [address] [place]
--- OUTSIDE RECORDS SUMMARY | 2024-04-03 11:24 | XMS_ITS | Continuity of Care Document ---
Author Organization [facility] Address [address] [place] [address]- Care Team Providers Care Medical Associate Name Role Phone Cyrus MAX MD, Riki Grace Primary Care Physician Encounter [facility] [place] Date(s): 11/07/23 - 12/07/23 [facility] [address] [place] [address]- [place] Allergies, Adverse Reactions, Alerts Substance Reaction Severity Status sulfADIAZINE rash Mild Active atorvastatin rash Mild Active Latex rash, trouble breathing Mild Acti ve Pollen sneezing, watery eyes Mild Active heparin 1 Mild Active predniSONE Mild Active Nuts hard time breathing walnuts Mild Active 1 I go crazy Immunizations Given and Recorded Vaccine Date Status Refusal Reason influenza virus vaccine, inactivated 05/28/15 Give n pneumococcal 23-valent vaccine 04/21/12 Given Medications albuterol CFC free 90 mcg/inh inhalation aerosol 2, puffs, Inhalation, Every 4 hours, PRN, # 1 each, Refills 2, Tot. Refills 2, Maintenance, 05/09/16 15:55:42, Inhaler, Route to Pharmacy Electronically, [id number], [id number] Start Date: 05/09/16 Stop Date: 08/07/16 Status: [...] 0 Refills, Maintenance, 11/03/23 12:48:00 EST, Tablet, [facility], Partial fill upon patient [...] 11/03/23 12:48:00 EST, Route to Pharmacy Electronically, [facility], Partial fill upon patient request if the prescription is for... Start Date: 11/03/23 Stop Date: 02/01/24 Status: Ordered Flovent Diskus 250 mcg/inh inhalation [...] Gm, 0 Refills, Maintenance, 02/11/23 16:18:00 EDT, [place] Start Date: 02/11/23 Status: Ordered omeprazole 20 [...] Team Personnel Name: Dasia Perkins RN Position: [facility] RN Member Role: Primary Care Nurse Name: Lis Rayo RN Position: [facility] MICHAEL Office Staff Member Role: Primary Care Nurse Name: Fauzia Griffin Position: [facility] SN Support Member Role: Lifetime Consulting Physician Name: Darrick Yañez MD Position: [facility] PCO w/OE and EZ Script Member Role: Lifetime Consulting Physician Name: oDry Stack RN Position: [facility] RN Member Role: Primary Care Nurse Name: Riki Bridges III, MD Position: Reference Physician Member Role: PCP Address: Address: [address] [place] [id number] Name: Elizabeth López RN Position: [facility] MR W/ Merge Member Role: Primary Care Nurse Name: Twila Torres MD Position: [facility] Physician - Primary Care Member Role: Lifetime Consulting Physician Address: Address: [address] [place] [address] Geriatric & [place] [address]- Name: Nirali Wisdom RN Position: [facility] RN Member Role: Primary Care Nurse Name: Janice Anton NP Position: [facility] Associate Professional Member Role: Primary Care Nurse Address: Address: [address] [place] [address] [place] [address]- Name: Joe Pathak DO Position: [facility] Renal MD Member Role: Lifetime Consulting Physician Address: Address: [address] [place] [address] [address] [facility] [place] [address]- Name: Alyssa Brenner RN Position: [facility] OB RN Member Role: Primary Care Nurse Name: Diego Chaney RN Position: [facility] RN Member Role: Primary Care Nurse Name: Jessica Borden RN Position: [facility] RN Member Role: Primary Care Nurse Name: Kristen Vu RN Position: [facility] SN RN Member Role: Primary Care Nurse Name: Barbara Tapia RN Position: [facility] RN Member Role: Primary Care Nurse Name: Yaquelin Londono NP Position: Reference Physician Member Role: Primary Care Nurse Address: Address: [address] [place] [address] [place] [address]- Name: Amira Farah RN Position: [facility] SN RN Member Role: Primary Care Nurse Name: Uche Whaley RN Position: S RN Member Role: Primary Care Nurse Name: Yunior BERNARD, Manasa Figueredo Position: [facility] RN Member Role: Primary Care Nurse Care Team Related Persons Name: ROBERT MARROQUIN Address: home [address] [place] [address] Name: BRITTNEY SHEFFIELD Address: home [address] [place] [address]
--- OUTSIDE RECORDS SUMMARY | 2024-04-03 11:24 | XMS_ITS | Continuity of Care Document ---
Author Organization [facility] ter Address [address] [place] [address]- Care Team Providers Care Research Technician Name Role Phone Cyrus MAX MD, Riki Grace Primary Care Physician Encounter [facility] Date(s[place] 01/18/24 - 02/27/[address] [id number] Attending Physician: Peter Cruz MD Admitting Physician: Peter Cruz MD Referring Physician: Veronica Lorenz MD Allergies, Adverse Reactions, Alerts Substance Reaction Severity Status sulfADIAZINE rash Mild Active Pollen sneezing, watery eyes Mild Active heparin [...] 05/09/16 15:55:42, Inhaler, Route to Pharmacy Electronically, [id number], [facility] [id number] Start Date: 05/09/16 Stop Date: 08/07/16 Status: [...] 0 Refills, Maintenance, 11/03/23 12:48:00 EST, Tablet, [facility], Partial fill upon patient request if the prescription is for a schedule II opioid drug., 1 tablet By Mouth 2 times a day,... Start Date: 11/03/23 Status: Ordered ferrous sulfate 325 mg oral enteric coated tablet 325 mg, By Mouth, Every Wednesday, Wednesday and Wednesday, # 45 tablet, Refills 0, Tot. Refills 0, Maintenance, 11/03/23 12:48:00 EST, Route to Pharmacy Electronically, [facility], Partial fill upon patient [...] Gm, 0 Refills, Maintenance, 02/11/23 16:18:00 EDT, [place] Start Date: 02/11/23 Status: Ordered omeprazole 20 [...] 01/13/24 11:06:00 EDT, [facility] to [facility]ically[id number], Partial fill upon patientrequest if the prescription [...] Team Personnel Name: Dasia Perkins RN Position: [facility] RN Member Role: Primary Care Nurse Name: Lis Rayo RN Position: [facility] MICHAEL Office Staff Member Role: Primary Care Nurse Name: Fauzia Griffin Position: [facility] SN Schedule View Only Member Role: Lifetime Consulting Physician Name: Darrick Yañez MD Position: [facility] PCO w/OE and EZ Script Member Role: Lifetime Consulting Physician Name: Dory Stack RN Position: [facility] RN Member Role: Primary Care Nurse Name: Riki Bridges III, MD Position: Reference Physician Member Role: PCP Address: Address: [address] [place] [id number] Name: Elizabeth López RN Position: [facility] MR W/ Merge Member Role: Primary Care Nurse Name: Twila Torres MD Position: [facility] Physician - Primary Care Member Role: Lifetime Consulting Physician Address: Address: [address] [place] [address] Geriatric & Palliative [place], [place] [address] Name: Nirali Wisdom RN Position: [facility] RN Member Role: Primary Care Nurse Name: Janice Anton NP Position: [facility] Associate Professional Member Role: Primary Care Nurse Address: Address: [address] [place] [address] Infectious Disease [place], [place] [address] Name: Palomo Pathak DOel Elliott Position: [facility] Renal MD Member Role: Lifetime Consulting Physician Address: Address: [address] [facility] [place] [place] [address]- [place] Name: Saúl Tafoya RN Position: [facility] RN Member Role: Primary Care Nurse Name: Alyssa Brenner RN Position: [facility] OB RN Member Role: Primary Care Nurse Name: Diego Chaney RN Position: [facility] RN Member Role: Primary Care Nurse Name: Rubina Chavez RN Position: [facility] RN Member Role: Primary Care Nurse Name: Jessica Borden RN Position: [facility] RN Member Role: Primary Care Nurse Name: Kristen Vu RN Position: [facility] AMB Nurse Member Role: Primary Care Nurse Name: Barbara Tapia RN Position: [facility] RN Member Role: Primary Care Nurse Name: Yaquelin Londono NP Position: Reference Physician Member Role: Primary Care Nurse Address: Address: [address] [place] [address]- Name: Amira Farah RN Position: [facility] SN RN Member Role: Primary Care Nurse Name: Uche Whaley RN Position: [facility] RN Member Role: Primary Care Nurse Name: Sammie Alexis RN Position: [facility] RN Member Role: Primary Care Nurse Name: Manasa Mojica RN Position: [facility] RN Member Role: Primary Care Nurse Care Team Related Persons Name: ROBERT MARROQUIN Address: home [address] [place] [address] Name: BRITTNEY SHEFFIELD Address: home [address] [place] [address]
--- OUTSIDE RECORDS SUMMARY | 2024-04-03 11:25 | XMS_ITS | Continuity of Care Document ---
Author Organization [facility] Address [address] [place] [address]- Care Team Providers Care Retail Center Receptionist Name Role Phone Cyrus MAX MD, Riki Grace Primary Care Physician [place] [facility] [place] 12/[place]/23 - 01/30/24 [facility] [address] [place] [address] [place] Allergies, Adverse Reactions, Alerts Substance Reaction Severity Status sulfADIAZINE rash Mild Active heparin 1 Mild Active predniSONE Mild Active Pollen sneezing, watery eyes Mild Active Nuts hard time breathing walnuts Mild Active atorvastatin rash Mild Active Latex rash, trouble breathing Mild Acti ve 1 I go crazy Immunizations Given and Recorded Vaccine Date Status Refusal Reason influenza virus vaccine, inactivated 05/28/15 Give n pneumococcal 23-valent vaccine 04/21/12 Given Medications albuterol CFC free 90 mcg/inh inhalation aerosol 2, puffs, Inhalation, Every 4 hours, PRN, # 1 each, Refills 2, Tot. Refills 2, Maintenance, 05/09/16 15:55:42, Inhaler, Route to Pharmacy Electronically, [id number], [facility] [id number] Start Date: 05/09/16 Stop Date: 08/07/16 Status: [...] 0 Refills, Maintenance, 11/03/23 12:48:00 EST, Tablet, [facility], Partial fill upon patient [...] 11/03/23 12:48:00 EST, Route to Pharmacy Electronically, [facility], Partial fill upon patient [...] Gm, 0 Refills, Maintenance, 02/11/23 16:18:00 EDT, [place] Start Date: 02/11/23 Status: Ordered omeprazole 20 [...] 01/13/24 11:06:00 EDT, Route to Pharmacy Electronically, [id number], Partial fill upon patientrequest if the prescription [...] Team Personnel Name: Dasia Perkins RN Position: [facility] RN Member Role: Primary Care Nurse Name: Lis Rayo RN Position: [facility] MICHAEL Office Staff Member Role: Primary Care Nurse Name: Fauzia Griffin Position: [facility] SN Schedule View Only Member Role: Lifetime Consulting Physician Name: Darrick Yañez MD Position: [facility] PCO w/OE and EZ Script Member Role: Lifetime Consulting Physician Name: Sreekanth BERNARD, Dory Position: [facility] RN Member Role: Primary Care Nurse Name: Riki Bridges III, MD Position: Reference Physician Member Role: PCP Address: Address: [address] [place] [address]- Name: Elizabeth López RN Position: [facility] MR W/ Merge Member Role: Primary Care Nurse Name: Twila Torres MD Position: [facility] Physician - Primary Care Member Role: Lifetime Consulting Physician Address: Address: [address] [place] [address] Geriatric [place] [address]- Name: Nirali Wisdom RN Position: [facility] RN Member Role: Primary Care Nurse Name: Janice Anton NP Position: [facility] Associate Professional Member Role: Primary Care Nurse Address: Address: [address] [place] [address] [place] [address]- Name: Joe Pathak DO Position: [facility] Renal MD Member Role: Lifetime Consulting Physician Address: Address: [address] [place] [address] [address] [facility] [place] [address]- [place] Name: Saúl Tafoya RN Position: [facility] RN Member Role: Primary Care Nurse Name: Alyssa Brenner RN Position: [facility] OB RN Member Role: Primary Care Nurse Name: Diego Chaney RN Position: [facility] RN Member Role: Primary Care Nurse Name: Rubina Chavez RN Position: [facility] RN Member Role: Primary Care Nurse Name: Jessica Borden RN Position: [facility] RN Member Role: Primary Care Nurse Name: Kristen Vu RN Position: [facility] AMB Nurse Member Role: Primary Care Nurse Name: Barbara Tapia RN Position: [facility] RN Member Role: Primary Care Nurse Name: Yaquelin Londono NP Position: Reference Physician Member Role: Primary Care Nurse Address: Address: [address] [place] [address] [place] [address]- Name: Amira Farah RN Position: [facility] SN RN Member Role: Primary Care Nurse Name: Sammie Alexis RN Position: [facility] RN Member Role: Primary Care Nurse Name: Yunior RN, Manasa Figueredo Position: [facility] RN Member Role: Primary Care Nurse Care Team Related Persons Name: ROBERT MARROQUIN Address: home [address] [place] [address] Name: BRITTNEY SHEFFIELD Address: home [address] [place] [address]
--- OUTSIDE RECORDS SUMMARY | 2024-04-03 11:25 | XMS_ITS | Continuity of Care Document ---
Author Organization [facility] ter Address [address] [place] [id number] Care Team Providers Care Radioisotope Technologist Name Role Phone Cyrus MAX MD, Riki Grace Primary Care Physician [place] [facility] [place]): [place]23 - 11/03/[address] [id number]- Encounter Diagnosis Symptomatic anemia(Final) - 10/29/23 Elevated troponin(Final) - 10/29/23 Chest pain(Final) - 10/29/23 Discharge Disposition: A-Transfer VNA/Home Health Attending Physician: Yamilka Lopes MD Admitting Physician: Kamla Reece MD Referring Physician: Not on Staff, Referring [...] 05/09/16 15:55:42, Inhaler, Route to Pharmacy Electronically, [id number], [facility] [id number] Start Date: 05/09/16 Stop Date: 08/07/16 Status: [...] 0 Refills, Maintenance, 11/03/23 12:48:00 EST, Tablet, [facility], Partial fill upon patient [...] 11/03/23 12:48:00 EST, Route to Pharmacy Electronically, [facility], Partial fill upon patient [...] 08/16/15 1:48:37 Start Date: 08/16/15 Status: Ordered MorPHINE CR Tablet 30 mg, CR Tablet, By Mouth, 11/03/23 9:00:00 EST Start Date: 11/03/23 Stop Date: 11/03/23 Status: Completed MorPHINE CR Tablet 30 mg, CR Tablet, By Mouth, 11/03/23 15:00:00 EST Start Date: 11/03/23 Stop Date: 11/03/23 Status: Completed nitroglycerin 0.4 mg sublingual spray 1 sprays = 0.4 mg, Sublingual, Every 5 minutes, PRN as needed for chest pain, not to exceed 3 doses/15 min--if pain persists, seek medical attention, # 4.9 Gm, 0 Refills, Maintenance, 02/11/23 16:18:00 EDT, [facility] Start Date: 02/11/23 Status: Ordered omeprazole 20 [...] Exam Date Time Procedure Performing Provider Status 10/30/23 11:[address] Abdomen and Pelvi s W/O Contrast Elizabeth Shepherd; Auth (Verified) Notes: (CT Abdomen and Pelvis W/O Contrast) Reason For Exam: pain and low hemoglobin;Pain RESULT: CT Abdomen and Pelvis W/O Contrast CT Abdomen and Pelvis W/O Contrast INDICATION/CLINICAL QUESTION: Reason: Pain; pain and low hemoglobin; Clinical Question(s): Bowel Perforation; Order Comment: / Bowel Perforation. TECHNIQUE: Spiral CT through the abdomen and pelvis without IV contrast formatted in 3 planes. The study was performed without oral contrast. Weight- based protocol using automatic tube modulation wasused to optimize exposure parameters. CTDIvol Body: 13.70 mGy, DLP Body: 639 mGy*cm. COMPARISON: 06/09/2018 CT abdomen and pelvis. FINDINGS: Evaluation of the abdominal and pelvic viscera is suboptimal without intravenous contrast. Epic [facility] Specialist View Findings, Lines and Tubes: ICD in place with leads in the right ventricle and overlying the coronary sinus. Visualized Chest: Bibasilar atelectasis and scarring. Chronic pleural calcification and trace effusion along the right lower lobe, unchanged from 2018. Mild cardiomegaly. Pericardial calcification along the left ventricle, unchanged. Diaphragm: Unremarkable. Liver: Normal morphology and attenuation. Gallbladder: Prior cholecystectomy. Bile ducts: Mild bile duct dilation is similar to prior study and could be due to post cholecystectomy change. Spleen: Calcified granulomas within the spleen related to prior granulomatous disease exposure. Spleen size is normal. Pancreas: Fatty atrophy of the pancreas. No peripancreatic inflammatory changes. Adrenal Glands: Normal. Kidneys and Ureters: No calculi or hydronephrosis. No suspicious masses. Simple appearing cyst in the right kidney interpolar region, not requiring any follow- up. 1.9 cm cyst in the upper pole of theleft kidney has decreased in size from prior study 2018. Bladder: Moderately distended, but otherwise normal. Stomach, Small bowel and Large Bowel: The stomach is normal. The small bowel is normal in caliber, without evidence of a bowel obstruction. The patient is status post proctocolectomy and right lower quadrant end ileostomy. Appendix: Surgically absent Peritoneum, omentum and mesentery: No ascites or pneumoperitoneum. No omental or mesenteric lesions. No evidence of peritoneal or retroperitoneal hemorrhage. Lymph nodes: No pathologically enlarged lymph nodes. Blood vessels: Severe atherosclerotic vascular calcification. 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 Abdominal and pelvic wall: Postoperative changes in the abdominal wall. Right lower quadrant end ileostomy. Mild body wall edema. Reproductive organs: Prior hysterectomy. No adnexal masses. Bones: Old left inferior pubic ramus fracture. Degenerative changes in the sacroiliac joints. Degenerative changes in the lower lumbar spine. Stimulator battery pack in the left gluteal region, with leads extending into the thoracic spine. Median sternotomy, partially imaged. IMPRESSION: 1. No acute findings in the abdomen or pelvis. No evidence of hemorrhage in the abdomen or pelvis. 2. Moderate bladder distention. WSN: [id number] Ordering Physician: Mickey Ruth Dictated By: Joselito Wilkins MD Dictated Date/Time: 10/30/23 5:12 pm Reviewed By: Joselito Wilkins MD Signed By: Joselito Wilkins MD Signed Date/Time: 10/30/23 5:12 pm Transcribed By: JIMENEZ Transcribed Date/Time: 10/30/23 5:03 pm * Exam Date Time Procedure Performing Provider Status 10/29/23 8:[address] Head/Brain W/O Contrast Isaias Fairchild; Auth (Verified) Notes: (CT Head/Brain W/O Contrast) Reason For Exam: altered mental status;Other: RESULT: CT Head/Brain W/O Contrast CT Head/Brain W/O Contrast Reason: Low hemoglobin; altered mental status; Clinical Question(s): Hematoma; TECHNIQUE: Noncontrast head CT using axial technique and reconstructed in axial and coronal planes.Iterative reconstruction techniques are used to optimize dose and image quality. CTDIvol Head: 36.61 mGy, DLP Head: 659 mGy*cm. COMPARISON: None. FINDINGS: Epic [facility] Specialist view findings, lines and tubes: None. BRAIN AND EXTRA-AXIAL SPACES: No parenchymal hemorrhage, midline shift, or mass effect. Gaviria-white matter differentiation is wellpreserved. No acute infarct. Negative insular ribbon sign. Atherosclerotic vascular calcification of the carotid arteries but negative hyperdense vessel sign. 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 Encephalomalacia of the left parieto-occipital lobe. Moderate prominence of the ventricles and sulci consistent with parenchymal volume loss. Severe low-density white matter changes. No subarachnoid hemorrhage. No subdural or epidural collection. CALVARIUM, SKULL BASE, AND SOFT TISSUES: No fractures or suspicious bony lesions. Craniotomy defect and postsurgical changes at the left posterior parietal bone. The paranasal sinuses and mastoid air cells are clear. Status-post bilateral lens extraction. The extracranial soft tissues are unremarkable. IMPRESSION: 1. No acute intracranial pathology. 2. 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 Encephalomalacia of the left parieto-occipital lobe. 3. Severe white matter disease. I have personally reviewed the images and I agree with this report. WSN: [id number] Ordering Physician: Ruthann Baer Dictated By: Dheeraj Araya MD Dictated Date/Time: 10/29/23 9:45 pm Reviewed By: Joe Obrien MD Signed By: Joe Obrien MD Signed Date/Time: 10/29/23 9:50 pm Transcribed By: JIMENEZ Transcribed Date/Time: 10/29/23 9:37 pm * Exam Date Time Procedure Performing Provider Status 10/29/23 8:01 PM Chest 2 Views Frontal and Lat Sylvia Escalante; Auth (Verified) Notes: (Chest 2 Views Frontal and Lat) Reason For Exam: COPD RESULT: Chest 2 Views Frontal and Lat Chest 2 Views Frontal and Lat Hx of Present Illness: coming from home. was seen at [facility], H H extreme low per outpt labs. Using nitro x3 at home for CP, denies CP at this time. 2L NC baseline; Reason: COPD; Clinical Question(s): Pneumonia COMPARISON: 02/27/2020 FINDINGS: LINES AND TUBES: Reidentified neurostimulator and left-sided AICD. LUNGS AND PLEURA: Central vascular engorgement and interstitial prominence has increased since the prior study. No definite focal consolidation. Hyperinflated lungs. HEART, MEDIASTINUM AND SHIRLEY: Slightly increased prominence. BONES AND SOFT TISSUES: No acute abnormality. IMPRESSION: Findings likely related to mild pulmonary edema. No focal consolidation is visualized. WSN: [id number] Ordering Physician: Ruthann Baer Dictated By: Kieran Mendez MD Dictated Date/Time: 10/29/23 8:14 pm Reviewed By: Kieran Mendez MD Signed By: Kieran Mendez MD Signed Date/Time: 10/29/23 8:14 pm Transcribed By: JIMENEZ Transcribed Date/Time: 10/29/23 8:11 pm Vital Signs Most recent to oldest [Reference Range]: 1 2 3 Height 165 cm (11/03/23 3:39 PM) 165 cm (11/03/23 7:28 AM) 165 cm (11/03/23 4:02 AM) Weight 57 kg (11/02/23 8:19 AM) 57 kg (10/30/23 2:22 AM) Oxygen Saturation [94-100 %] 99 % (11/03/23 3:39 PM) 100 % (11/03/23 7:28 AM) 100 % (11/03/23 4:02 AM) Pulse Rate [55-90 bpm] 70 bpm (11/03/23 3:39 PM) 70 bpm (11/03/23 7:28 AM) 78 bpm (11/03/23 4:02 AM) Body Mass Index [18.5-24.99 kg/m2] 20.94 kg/m2 (11/02/23 8:19 AM) 20.94 kg/m2 (10/30/23 2:22 AM) Blood Pressure [90-138/55-84 mm Hg] 102/48mm Hg (11/03/23 3:39 PM) 117/46mm Hg (11/03/23 7:28 AM) 116/46mm Hg (11/03/23 4:02 AM) Respiratory Rate [16-30 br/min] 18 br/min (11/03/23 4:35 PM) 18 br/min (11/03/23 3:39 PM) 17 br/min (11/03/23 8:36 AM) Temperature [96.8-100.4 DegF] 97.9 DegF (11/03/23 3:39 PM) 97.7 DegF (11/03/23 7:28 AM) 97.9 DegF (11/03/23 4:02 AM) Liters per Minute 2 L/min (11/03/23 7:28 AM) 2 L/min (11/03/23 4:02 AM) 2 L/min (11/03/23 12:02 AM) Mode of Delivery (Oxygen) Room air (11/03/23 3:39 PM) Nasal cannula (11/03/23 7:28 AM) Nasal cannula (11/03/23 4:02 AM) Blood pressure sites Arm, right (11/03/23 3:39 PM) Arm, right (11/03/23 7:28 AM) Arm, right (11/03/23 4:02 AM) Temperature Route Oral (11/03/23 3:39 PM) Oral (11/03/23 7:28 AM) Oral (11/03/23 4:02 AM) Dry Weight 57 kg (10/30/23 2:22 AM) Social History Social History Type Response Smoking Status Former smoker; Type: Cigarettes; Other: pt states stopped smoking 2 months ago; entered on: 05/21/15 Sex Endoscopy study * Event Display: GG EGD Please click on pdf link to open report History and physical note * Radha ASHFORD, [place]: PERFORM, MODIFY Event Display: History and Physical Hospital Authored Date: Patient: ??ZAID WHALEY ? Age:??77 Years?Sex:??Female?:??1945?? Chief Complaint/Reason for Consultation coming from home. was seen at [facility], H&H extremly ??low per outpt labs. using nitro x3 at home for CP, denies CP at this time. 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 The patient underwent lab work in the outpatient setting and was called back within normal results of hemoglobin of 5.3 and advised to come to the emergency room for further evaluation. The patient describes worsening shortness of breath for the last 4 days.?? She claims that she was diagnosed with pneumonia over a month ago and continues having mild persistent cough.?? She walks from room to room and gets winded. Denies any lower extremity swelling.?? She denies any fever but complains of occasional chills.?? She has poor appetite and has find herself craving for ice. She denies any nausea or vomiting.?? She has a ileostomy bag and has not paid attention to the stool content and see if there is any dark or red blood in it. In the emergency room, she was found to have a hemoglobin of 5.8 and is currently receiving the first unit of packed red blood cells. Chest x-ray shows mild pulmonary edema. Patient is speaking in full sentences and saturating 100% on 2 L via nasal cannula. Review of Systems A full review of systems was completed and is otherwise negative except as mentioned in history of present illness. Objective ? Vital Signs?? Temperature: 98.3 DegF (10/29/23 22:37:00) Temperature Route: Oral (10/29/23 22:37:00) Pulse Rate: 72 bpm (10/29/23 23:32:00) Respiratory Rate: 18 br/min (10/29/23 23:32:00) Vented: No (10/29/23 23:32:00) Systolic Blood Pressure: 115 mm Hg (10/29/23 23:32:00) Diastolic Blood Pressure: 55 mm Hg (10/29/23 23:32:00) Pulse Pressure: 60 mm Hg (10/29/23 23:32:00) Oxygen Saturation: 100 % (10/29/23 23:32:00) Liters per Minute: 2 L/min (10/29/23 23:32:00) Mode of Delivery (Oxygen): Nasal cannula (10/29/23 23:32:00) Early Warning Score: 0 (10/29/23 23:38:57) ? Physical Exam Constitutional: Alert, in no distress. Mental Status: Oriented to person, place and time. Head: Normocephalic. Eyes: Pupils are equal, round and reactive to light. Extraocular muscles intact. Ear, Nose and Throat: Oropharynx clear, pallor without jaundice,??mucous membranes moist. Ears and nose without masses, lesions or deformities. Trachea midline. Neck: Supple, Full range of motion. Respiratory:??Decreased breath sounds diffusely but clear to auscultation. No wheezing, rales or rhonchi. Cardiovascular: S1 S2 regular. ??She has a loud murmur??5 out of 6??with a palpable thrill. Gastrointestinal: Obese, ileostomy bag in place,??abdomen soft, non-tender, non- distended. Normal bowel sounds. No pulsatile mass. No hepatosplenomegaly. Genitourinary: No costovertebral angle tenderness. Neurologic: Cranial nerves II-XII grossly intact. No focal neurological deficits. Flexor plantar response. Moves all extremities spontaneously. Sensation intact bilaterally. Skin: No rashes or lesions. No petechiae or purpura.?No lower extremity edema. Musculoskeletal: No cyanosis or clubbing. No gross deformities. Normal range of motion. Heme/Lymphatics/Immun: Palpation of neck reveals no swelling or tenderness of neck nodes. Palpationof groin reveals no swelling or tenderness of groin nodes. Psychiatric: Normal mood and affect Assessment/Plan Diagnoses Acute on chronic congestive heart failure ??(I50.9) COPD without exacerbation ??(J44.9) Chest pain ??(R07.9) Chronic kidney disease (CKD), stage II (mild) ??(N18.2) Chronic pain syndrome ??(G89.4) Elevated troponin ??(R79.89) Paroxysmal atrial fibrillation ??(I48.0) Symptomatic anemia ??(D64.9) ?? Assessment:??This is a 77-year-old woman who??was referred by primary care physician??to the emergency room for evaluation and management of severe anemia.??Patient found to have hemoglobin of 5.8??with complaints of worsening shortness of breath for the last 4 days.??Patient unsure about having??bl ack/tarry??colored stool??or??red blood through the??ostomy. ?? Symptomatic anemia (D64.9):??She will be admitted to telemetry bed as inpatient. Patient does describe worsening shortness of breath in the last 4 days, unclear if this bleeding is??subacute or chronic. She has??decreased??MCV??suggestive of iron deficiency anemia. She is currently receiving 1 unit of packed red blood cells. The patient will receive??most likely second unit??of blood tonight. O2 supplementation via nasal cannula 2 L/min. Incentive spirometry every 2 hours while awake Repeat??H&H??1 hour after transfusion is done??and reassess the need for further transfusion.??Monitor H&H every 6 hours afterwards. Patient is hemodynamically stable. The patient will be kept??n.p.o. except for medications after midnight. Protonix 40 mg p.o.??twice a day. Holding Eliquis. I will add iron studies, reticulocyte count??and ferritin level to her previous lab work. GI consult ? Acute on chronic congestive heart failure (I50.9):??Patient with ejection fraction of??20 to 25%. O2 supplementation as mentioned above. She will receive??80 mg of Lasix IV??after??first??transfusion, then continue 80 mg p.o. daily. Patient's chest x-ray shows mild pulmonary edema??but patient??clinically does not look fluid overload. She is saturating 100% on 2 L via nasal cannula. Continue Entresto 1 tablet p.o. twice a day, Coreg??6.25 mg p.o. twice a day??and Imdur 60 mg p.o. daily. Monitor I's and O's??and daily weight. ?ACEI or ARB for LVSD:??ARB has been ordered ?? Paroxysmal atrial fibrillation (I48.0):??Patient with a??permanent pacemaker in place. Continue??beta-siobhan as mentioned above. Holding Eliquis for now??due to severe anemia possible??GI bleed. ?? COPD without exacerbation (J44.9):??O2 supplementation??and??incentive spirometry??as mentioned above. Albuterol??MDI 2 puffs every??4 hours as needed for shortness of breath. ?? Chronic pain syndrome (G89.4):??Patient with a??spinal cord stimulator in place. She??is chronically on morphine??extended release 30 mg p.o. every 8 hours. Continue ?? Chronic kidney disease (CKD), stage II (mild) (N18.2):??Continue to monitor BUN and creatinine. ?? VTE Prophylaxis:??Bilateral compression boots. ?VTE Prophylaxis Assessment:??VTE Prophylaxis Ordered ?? Code Status:??She is a full code. ?Order Code Status:??Code Status Ordered ?? Patient seen and evaluated??on October 29, 2023 at??11:30 PM ?? I spent a total of 75 minutes today reviewing the chart/medical records, speaking with the patient, formulating and discussing the treatment plan, and documenting the findings and encounter. Discharge Planning:? Histories Allergies Allergies ?(Active and Proposed Allergies Only) Pollen? (Severity: Mild, Onset: Unknown) ?Reactions: sneezing, watery eyes sulfADIAZINE? (Severity: Mild, Onset: Unknown) ?Reactions: rash predniSONE? (Severity: Mild, Onset: Unknown) Nuts? (Severity: Mild, Onset: Unknown) ?Reactions: walnuts, hard time breathing Latex? (Severity: Mild, Onset: Unknown) ?Reactions: rash, trouble breathing heparin? (Severity: Mild, Onset: Unknown) ?Comments: I go crazy atorvastatin? (Severity: Mild, Onset: Unknown) ?Reactions: rash ? Past Medical History/Problem List Active Problems??(18) Chronic GERD Chronic pain Chronic systolic heart failure Chronic, continuous use of opioids COPD mixed type History of colon cancer Hx of CABG Hx of mitral valve repair Hyperlipidemia Hyperparathyroidism Hypothyroidism ICD (implantable cardioverter-defibrillator) in place Ileostomy present Ischemic cardiomyopathy Mitral regurgitation NSVT (nonsustained ventricular tachycardia) OP (osteoporosis) Rheumatoid arthritis ? Past Surgical History Endoscopy of GI tract: 03/18/15 History of mitral valve repair occipital lobe Venous malformation surgery CABG (Coronary artery bypass grafting) planned History of shoulder surgery Cholecystectomy Complete resection of colon History of hysterectomy Appendectomy ? Social History Alcohol Details:??Use: Past. Employment/School Details:??Status: Retired. Exercise Details:??Self assessment: Fair condition. ??Other: states not anymore other than physical therapy.??Regular exercise: Yes. ??Exercise frequency: Daily. Home/Environment Details:??Living situation: Home with assistance. ??Lives with: Children. Nutrition/Health Details:??Diet: Low sodium, cardiac. Substance Abuse Details:??Use: Never. Tobacco Details:??Former smoker, Other: pt states stopped smoking 2 months ago. ??Type: Cigarettes. Details:??Current every day smoker, Type: Cigarettes. ??Started at age: 14 Years. ? Family History Mother: Hypertension Father: Heart attack ? Medications Home Medications Albuterol (albuterol CFC free 90 mcg/inh inhalation aerosol)?2?puff(s)?Inhalation?Every4 hours?as needed?for 30?Days?Wheezing/Shortness of Breath alirocumab (Praluent Pen 150 mg/mL subcutaneous solution)?150?Milligram?Subcutaneous Infusion?every 2 weeks apixaban (apixaban 5 mg oral tablet)?1?tab(s)?5?Milligram?By Mouth?2 times a day Aspirin (aspirin 81 mg oral tablet)?81?Milligram?By Mouth?Daily?for 30?Days Carvedilol (Coreg 6.25 mg oral tablet)?6.25?Milligram?1?tablet?By Mouth?2 times aday Cephalexin (cephalexin monohydrate 500 mg oral capsule)?1?capsule?500?Milligram?By Mouth?Every 12 hours?for 3?Days Cinacalcet (Sensipar 30 mg oral tablet)?1?tab(s)?30?Milligram?By Mouth?Daily Digoxin (digoxin 0.125 mg oral tablet)?125?Microgram?1?tablet?By Mouth?Every Wednesday, Wednesday and Wednesday Fluticasone (Flovent Diskus 250 mcg/inh inhalation powder)?2?puff(s)?Inhalation?2 timesa day Furosemide (Lasix 40 mg oral tablet)?40?Milligram?1?tablet?By Mouth?Daily at supper Furosemide (furosemide 80 mg oral tablet)?80?Milligram?1?tablet?By Mouth?Daily Isosorbide Mononitrate (isosorbide mononitrate 60 mg oral tablet, extended release)?1.5?tab(s)?90?Milligram?By Mouth?Daily in AM Levothyroxine (levothyroxine 0.025 mg oral tablet)?1.5?tab(s)?37.5?Microgram?By Mouth?Daily Magnesium Oxide (magnesium oxide 400 mg oral tablet)?400?Milligram?By Mouth?2 times a day?for 14?Days Morphine (morphine 30 mg oral capsule, extended release)?30?Milligram?By Mouth?3 times a day Nitroglycerin (nitroglycerin 0.4 mg sublingual spray)?1?spray(s)?0.4?Milligram?Sublingual?Every 5 minutes?as needed?as needed for chest pain?not to exceed 3 doses/15 min--if pain persists, seek medical attention Omeprazole (omeprazole 20 mg oral delayed release tablet)?1?tab(s)?20?Milligram?By Mouth?2 times a day sacubitril-valsartan (Entresto 97 mg-103 mg oral tablet)?1?tab(s)?By Mouth?2 times a day Sodium Bicarbonate-Sodium Citrate?650?Milligram?By Mouth?2 times a day Sucralfate (sucralfate 1 gm oral tablet)?1?gram?1?tablet?By Mouth?4 times a day ? Results Recent Labs BLOOD BANK Blood Type O Positive ()?? 10/29/2023 18:49 Antibody Screen Negative ()?? 10/29/2023 18:49 RBC Unit ID [id number] ()?? 10/29/2023 21:18 RBC Available XM ()?? 10/29/2023 21:18 ?? BLOOD COUNT & DIFF WBC 12.3 k/mm3 (High)?? 10/29/2023 18:52 RBC 3.01 m/mm3 (Low)?? 10/29/2023 18:52 Hgb 5.8 Gm/dL (Critical)?? 10/29/2023 18:52 Hct 21.0 % (Low)?? 10/29/2023 18:52 MCV 69.8 femtoliters (Low)?? 10/29/2023 18:52 MCH 19.3 pg (Low)?? 10/29/2023 18:52 MCHC 27.6 g/dL (Low)?? 10/29/2023 18:52 Platelet Count 203 k/mm3 ()?? 10/29/2023 18:52 RDW-SD 42.3 femtoliters ()?? 10/29/2023 18:52 MPV 11.0 femtoliters ()?? 10/29/2023 18:52 Nucleated RBC (Automated) 0.0 #/100 WBC'S ()?? 10/29/2023 18:52 Abs. NRBC 0.0 k/mm3 ()?? 10/29/2023 18:52 Abs. Neut 10.9 k/mm3 (High)?? 10/29/2023 18:52 Abs. Lymph 0.6 k/mm3 (Low)?? 10/29/2023 18:52 Abs. [place] 0.6 k/mm3 ()?? 10/29/2023 18:52 Abs. Eo 0.1 k/mm3 ()?? 10/29/2023 18:52 Abs. Baso 0.0 k/mm3 ()?? 10/29/2023 18:52 Neut % 88.9 % (High)?? 10/29/2023 18:52 Lymph % 5.2 % (Low)?? 10/29/2023 18:52 [place] % 4.7 % ()?? 10/29/2023 18:52 Eos % 0.6 % ()?? 10/29/2023 18:52 Baso % 0.2 % ()?? 10/29/2023 18:52 Imm Gran 0.4 % ()?? 10/29/2023 18:52 Abs. Imm Gran 0.1 k/mm3 ()?? 10/29/2023 18:52 ?? CARDIAC High Sensitivity Troponin (HSTnT) 55 ng/L (Critical)?? 10/29/2023 20:59 ?? CHEM GENERAL Sodium 136 mmol/L ()?? 10/29/2023 18:53 Potassium 3.6 mmol/L ()?? 10/29/2023 18:53 Chloride 95 mmol/L (Low)?? 10/29/2023 18:53 Bicarbonate Level 27 mmol/L ()?? 10/29/2023 18:53 Anion Gap 14 ()?? 10/29/2023 18:53 Glucose Level 161 mg/dL (High)?? 10/29/2023 18:53 BUN 21 mg/dL ()?? 10/29/2023 18:53 Creatinine-Blood 1.3 mg/dL (High)?? 10/29/2023 18:53 Estimated GFR Creatinine 44 ML/MIN/1.73 M2 ()?? 10/29/2023 18:53 Calcium 9.6 mg/dL ()?? 10/29/2023 18:53 Magnesium 2.0 mg/dL ()?? 10/29/2023 18:53 Iron Level 13 mcg/dL (Low)?? 10/29/2023 18:53 Iron Binding Capacity, Unsaturated 358 mcg/dL ()?? 10/29/2023 18:53 Iron Binding Capacity, Estimated Total 371 mcg/dL ()?? 10/29/2023 18:53 % Iron Saturation 4 % (Low)?? 10/29/2023 18:53 ?? IMMUNOLOGY GENERAL Transferrin 292 mg/dL ()?? 10/29/2023 18:53 ? Imaging(s) ?CT Head/Brain W/O Contrast ?? 10/29/2023 20:48??by Joe Obrien MD ?IMPRESSION: ?? 1. No acute intracranial pathology. 2. 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 Encephalomalacia of the left parieto-occipital lobe. 3. Severe white matter disease. ?Chest 2 Views Frontal and Lat ?? 10/29/2023 20:01??by Kieran Mendez MD ?IMPRESSION: ?? Findings likely related to mild pulmonary edema. No focal consolidation is visualized. ?Other Image ?EKG. Atrial paced at 70 bpm. LVH. Wide QRS. Right bundle branch block. ? EKG study * Event Display: ECG 12-Lead Authored Date: Please click on pdf link to open report * Event Display: ECG 12-Lead Authored Date: Ventricular Rate: 70 BPM QRS Duration: 136 ms Q-T Interval: 444 ms QTC Calculation(Bazett): 479 ms R [place]: 147 degrees T [place]: -44 degrees Electronic ventricular pacemaker with underlying atrial flutter Right bundle branch block Minimal voltage criteria for LVH, may be normal variant ( R in aVL ) Septal infarct , age undetermined Abnormal ECG When compared with ECG of 09-JUN-2018 02:32, Confirmed by NIMESH SANTOS MD ([id number]) on 11/03/2023 12:52:24 PM [place]: NIMESH SANTOS MD Cardiology * Event Display: Cardiac Rhythm Strips Authored Date: Hospital Progress note * Uche Whaley RN: VERIFY, PERFORM, MODIFY, SIGN Event Display: Progress Note Hospital Authored Date: Patient: ZAID WHALEY Age: 77 years Sex: Female : 1945 Associated Diagnoses: None Author: Uche Whaley RN Findings Problem Related to Alteration in Tissue Perfusion : Alteration in Tissue Perfusion 11/03/2023 4:00 EST Alteration Tissue Perfusion related to Anemia Goals & Outcomes: Tissue perfusion Pt will maintain optimal perfusion to vital organs, Pt will resume/maintain adequate peripheral circulation, Pt will experience improved tissue perfusion, Pt will return to baseline respiratory function Interventions: Tissue Perfusion Assess for s/s of infection of lines, drains, incisions, Assess/Monitor activity tolerance, Assess/Monitor cardiac dysrhythmias, Assess/Monitor CMS to affected extremity, Assess/Monitor mental status, Assess/Monitor peripheral pulses & capillary refill, Assess/Monitor presence & degree of edema, Assess/Monitor secretions & drainage for s/s of infection,Assess/Monitor tolerance of enteral feeds, Assess/Monitor vital signs per unit standard & prn, Discuss discharge needs with transplant case manager, Ensure case management or social service consult, Maintain precautions per Infection Control Standards, Monitor blood loss, Monitor Intake & Output, Monitor labs & report variances to provider, Monitor response to fluid replacement, Monitor size & character of hematoma, Elevate limbs, Physical assessment per unit standards, Position for comfort BH Goals/Interventions, Tissue Perfusion Yes Tissue Perfusion, Problem Start 11/02/2023 6:57 Reviewed Plan with, Tissue Perfusion Patient Patient Progression, Tissue Perfusion Pt progressing according to plan . Evaluation PATIENT IS AOx3, RISE AND FALL OF CHEST WALL NOTED. PATIENT IS ON TELE VPACED/PACED. PATIENT IS ON 2L NC WITH DIMI LS. PATIENT HAS INTACT SKIN. PATIENT IS BEDFAST- BED IN LOWEST POSITION, CALL LENZ IN REACH AND BED ALARM ON. . * Gloria White RN: PERFORM, SIGN, VERIFY Event Display: Progress Note Hospital Authored Date: Patient: ZAID WHALEY Age: 77 years Sex: Female : 1945 Associated Diagnoses: None Author: Gloria White RN Findings Nursing Data Vital Signs : VITAL SIGNS SECTION 11/02/2023 17:50 EST Temperature 98.2 DegF Temperature Route Oral Pulse Rate 70 bpm Respiratory Rate 20 br/min Systolic Blood Pressure 104 mm Hg Diastolic Blood Pressure 46 mm Hg L Blood pressure sites Arm, right Mean Arterial Pressure 65 mm Hg Pulse Pressure 58 mm Hg Oxygen Saturation 100 % Liters per Minute 2 L/min Mode of Delivery (Oxygen) Nasal cannula . Narrative/Incidental Pt AOx4, able to make needs known effectively. Lung dim on 2L, sating well. no c/o of SOB. Pt HR was at high 30's this evening; pt asymptomatic MD made aware. Pt's HR back to normal when replacing the strips and tele wires. Pt had an EGD and colonoscopy completed this shift; tolerated appropriately. Pt c/o of back pain which is being managed with scheduled PO Morphine with mild effect. Pt back oncardiac diet. Plan to monitor H+H closely since pt initiating back on Eliquis.. * Dionicio ASHFORD, Ana: PERFORM, MODIFY, MODIFY, MODIFY Event Display: Progress Note Hospital Authored Date: Patient: ??ZAID WHALEY ? Age:??77 Years?Sex:??Female?:??1945?? Subjective Overnight: No acute events , Hgb stable , No events on tele?? This AM: Seen after EGD/ileoscopy, feels tired. Otherwise denies any complains. EGD with no??sourceidentified.??Denies any back pain or bruising. Eats a varied diet. We discussed with patient risk vs benefit of being on eliquis and??she is agreeable to trialing eliquis again an monitoring her??H+H. She is also looking forwards to outpatient cards follow-up to discuss watchman procedure. ?? Review of Systems Full ROS has been performed and is otherwise negative asides form what has been mentioned above.?? Objective Vital Signs?? Temperature: 98.2 DegF (11/02/23 14:33:00) Temperature Route: Oral (11/02/23 14:33:00) Pulse Rate: 71 bpm (11/02/23 14:33:00) Heart Rate Monitored: 70 bpm (11/02/23 11:37:00) Respiratory Rate: 20 br/min (11/02/23 14:33:00) Systolic Blood Pressure: 109 mm Hg (11/02/23 14:33:00) Diastolic Blood Pressure:??49 mm Hg??Low (11/02/23 14:33:00) Blood pressure sites: Arm, right (11/02/23 14:33:00) Mean Arterial Pressure: 69 mm Hg (11/02/23 14:33:00) Pulse Pressure: 60 mm Hg (11/02/23 14:33:00) Oxygen Saturation: 99 % (11/02/23 14:33:00) Liters per Minute: 2 L/min (11/02/23 14:33:00) Mode of Delivery (Oxygen): Nasal cannula (11/02/23 14:33:00) Early Warning Score: 1 (11/02/23 14:35:02) ? Intake/Output? 10/28 22:09 11/01 07:00 03/ 07:00 10/30 07:00 03 07:00 ?? 11/01 15:04 03/05 15:04 11/01 06:59 10/31 06:59 03/ 06:59 Intake ? 2393 ?0 ?480 ? 1080 ?240 Output ? 5935 ?0 ? 2935 ? 1700 ? 1000 Net Total ?-3542 ?0 ?-2455 ? -620 ? -760 ? Urine Count ?1 ?0 ?1 ?0 ?0 ? Physical Exam General: Patient in no acute pain or distress on 2L O2 HEENT: normocephalic, atraumatic Respiratory: bilateral equal air entry, clear to auscultation with no wheezes or crackles. CVS: regular rate and rhythm, S1 and S2 present, MR murmur present very loud. No JVD.?? Abdomen: soft, mildly??tender, non distended, bowel sounds present. Extremities: No edema noted bilaterally. Pulses intact. Neuro: alert and oriented x3. Moving all extremities spontaneously. Following simple commands. Assessment/Plan 77-year-old with PMHx of CAD s/p CABG, MVR and ventricular aneurysm repair, ischemic cardiomyopathyEF 20 to 25%, VT s/p ablation and AICD, paroxysmal A-fib on Eliquis, colon cancer s/p resection with ileostomy, chronic hypoxic respiratory failure secondary to COPD on 2 L at baseline, hypothyroid, HLD, RA, chronic lower back pain s/p stimulator, GERD, admitted for management of severe symptomaticanemia requiring PRBCs.?? Seen by GI s/p EGD/ileoscopy on 11/01 with no source identified being worke-up for hemolysis.?? Course complicated by symptomatic NSVT seen by cardiology recommended resumption of Coreg. Eliquis will be resumed tonight with monitoring of H+H. ?? Symptomatic anemia (D64.9):? Presents with??worsening MEYER??over 4 days,??pica Anemia microcytic??concerning for??MONSTER Initially presented with a hemoglobin of 5.8 States post units PRBCs. Concern for??GI source. Patient denies??GI symptoms aside from abdominal pain. CTA performed with no concern for??extravasation. Patient seen by GI plan??s/p??EGD/ileoscopy??on 11/01 with no source identified. No further GI eval recommended by GI. Patient's hemoglobin has been stable. MCV is low suggesting blood loss. We will work-up for hemolysis given her heart murmur. No concern for retroperitoneal bleed. Discussed with patient resumption of eliquis and risk of bleed vs d/c Eliquis and risk of stroke and she is agreeable??to restarting eliquis and monitoring CBC. If no cause identified we will treat??conservatively ??and discharge??for outpatient F/U. ?? Plan: -??Resume diet - DIC panel - B12 , folate level - Iron panel - Rtc count?? - Resume home eliquis tonight?? - Monitor H+H, Transfuse for Hgb<7 - D/C eliquis if hgb drops - Continue aspirin -??Resume home aspirin??(okay to continue per GI ) ??-IV pantoprazole 40 mg BID changed to PO ??-Holding Entresto and IMDUR due to soft??BP - Outpatient GI follow-up ?? Non-sustained ventricular tachycardia (I47.29) ?Palpitations (R00.2) Patient's cardiac medications??including Coreg was held during this admission due to soft blood pressure. Patient had 2 episodes of NSVT??5 beats and 7 beats respectively on 10/31??and was symptomatic??as and felt the palpitations. GI team requested cardiology evaluation Cardiology team saw patient and evaluated??recommendations appreciated ?? Plan: - Resume home Coreg 6.25 BID - Hold Entresto - Attempted to introduce low-dose Entresto prior to DC - Resume Eliquis - Patiwnt will likely be referred for outpatient consideration of elective Watchman procedure - Material Crew Supervisor ?? Intermittent sinus bradycardia Asymptomatic Patient with intermittent sinus bradycardia while asleep symptomatic Vitally stable Was recently started on Coreg??6.25 resumed from home dose. ?? Plan: -traffic monitor specialist ?? Acute on chronic congestive heart failure (I50.9):??-RESOLVED COPD without exacerbation (J44.9):? Patient with ejection fraction of 20 to 25%. PMHx of COPD on 2 L O2 at baseline CXR concerning for pulmonary edema Initially requiring 3 L during this hospitalization but satting 100% currently. Patient diuresed with 1 dose of IV Lasix 80 mg upon admission. Patient takes at home 80 mg in the a.m. and 40 mg p.m. ?? Plan: -At O2 baseline -Continue p.o. Lasix 80 mg in a.m. -reassess if BP tolerates addition of home dose 40 mg Lasix at nighttime -CHF meds adjusted per above. - Monitor I's and O's and daily weight. ? 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 Chronic pain syndrome (G89.4):??Patient with a spinal cord stimulator in place. ??She is chronically on morphine extended release 30 mg p.o. every 8 hours. Continue ?? Paroxysmal atrial fibrillation (I48.0):??-??Resume Eliquis. ?? phototypesetting equipment monitor ?? VTE Prophylaxis:??PCBs, Chemical held due to GIB ?VTE Prophylaxis Assessment:??VTE Prophylaxis Ordered ?? Code Status:??Full Code ?Order Code Status:??Code Status Ordered ?? This case has been??reviewed and discussed with .??Moses Greenberg MD Internal Medicine PGY-2 Pager: [phone] * Yamilka Lopes MD: PERFORM Event Display: Progress Note Hospital Authored Date: I have seen and evaluated the patient on the day of service. I have discussed the case and its management with medical staff director and I agree with assessment and plan as documented in resident's note If remains bradycardic consider to decrease dose of coreg to 3.125 mg BID Note * Anastasiia Elaine RN: PERFORM Event Display: Discharge/Transfer Note Hospital Authored Date: [id number] Nursing Discharge Note Entered On: 11/03/2023 16:14 EST Performed On: 11/03/2023 16:13 EST by Anastasiia Elaine RN Nursing Discharge Note 2 Discharge Time : 11/03/2023 16:46 EST Anastasiia Elaine RN - 11/03/2023 16:48 EST Discharge Level of Care at Discharge : Homehealth/VNA Discharge VNA/Hospice/Home Care(v001) : [facility] [phone] Patient Left Unit Via : Wheelchair Patient Accompanied Off Unit with : Responsible adult DC Instructions Provided & Signed by Pt : Yes Patient Understands D/C Instructions : Yes Verbalized Understanding of D/C Plan By : Patient Patient Instructions Discharge Signed : Yes Did Pt have Specialty Bed or Wound Vac : No Anastasiia Elaine RN - 11/03/2023 16:13 EST * Dionicio ASHFORD, Ana: MODIFY, MODIFY, PERFORM Event Display: Discharge/Transfer Note Hospital Authored Date: Patient: ??ZAID WHALEY ? Age:??77 Years?Sex:??Female?:??1945?? Patient Information Discharge Location: [facility]4 Primary Care Physician: Riki Bridges III, MD Admit Date/Time: 10/29/23 22:09 Discharge Disposition Discharge Disposition: Home with Home Health Discharge Diagnosis Symptomatic anemia (D64.9) Acute on chronic congestive heart failure (I50.9) COPD without exacerbation (J44.9) Chest pain (R07.9) Chronic kidney disease (CKD), stage II (mild) (N18.2) Chronic pain syndrome (G89.4) Elevated troponin (R79.89) Paroxysmal atrial fibrillation (I48.0) Non-sustained ventricular tachycardia (I47.29) Palpitations (R00.2) Iron deficiency anemia (D50.9) ?? _ Discharge Medications Albuterol (albuterol CFC free 90 mcg/inh inhalation aerosol)?2?puff(s)?Inhalation?Every4 hours?as needed?for 30?Days?Wheezing/Shortness of Breath alirocumab (Praluent Pen 150 mg/mL subcutaneous solution)?150?Milligram?Subcutaneous Infusion?every 2 weeks apixaban (apixaban 5 mg oral tablet)?1?tab(s)?5?Milligram?By Mouth?2 times a day Aspirin (aspirin 81 mg oral tablet)?81?Milligram?By Mouth?Daily?for 30?Days Carvedilol (Coreg 6.25 mg oral tablet)?6.25?Milligram?1?tablet?By Mouth?2 times aday Cinacalcet (Sensipar 30 mg oral tablet)?1?tab(s)?30?Milligram?By Mouth?Daily Digoxin (digoxin 0.125 mg oral tablet)?125?Microgram?1?tablet?By Mouth?Every Wednesday, Wednesday and Wednesday Ferrous Sulfate (ferrous sulfate 325 mg oral enteric coated tablet)?325?Milligram?By Mouth?Every Wednesday, Wednesday and Wednesday?for 90?Days Fluticasone (Flovent Diskus 250 mcg/inh inhalation powder)?2?puff(s)?Inhalation?2 timesa day Furosemide (furosemide 80 mg oral tablet)?80?Milligram?1?tablet?By Mouth?Daily Levothyroxine (levothyroxine 0.025 mg oral tablet)?1.5?tab(s)?37.5?Microgram?By Mouth?Daily Magnesium Oxide (magnesium oxide 400 mg oral tablet)?400?Milligram?By Mouth?2 times a day?for 14?Days Morphine (morphine 30 mg oral capsule, extended release)?30?Milligram?By Mouth?3 times a day Nitroglycerin (nitroglycerin 0.4 mg sublingual spray)?1?spray(s)?0.4?Milligram?Sublingual?Every 5 minutes?as needed?as needed for chest pain?not to exceed 3 doses/15 min--if pain persists, seek medical attention Omeprazole (omeprazole 20 mg oral delayed release tablet)?1?tab(s)?20?Milligram?By Mouth?2 times a day sacubitril-valsartan (Entresto 24 mg-26 mg oral tablet)?1?tab(s)?By Mouth?2 times a day Sodium Bicarbonate-Sodium Citrate?650?Milligram?By Mouth?2 times a day Sucralfate (sucralfate 1 gm oral tablet)?1?gram?1?tablet?By Mouth?4 times a day ? Medications Started Ferrous Sulfate (ferrous sulfate 325 mg oral enteric coated tablet)?325?Milligram?By Mouth?Every Wednesday, Wednesday and Wednesday?for 90?Days ?? Medications Discontinued Imdur 90mg Lasix 40mg at bedtime Doses Changed sacubitril-valsartan (Entresto 24 mg-26 mg oral tablet)?1?tab(s)?By Mouth?2 times a day(dose changed from prior dose of 97mg-103mg 2 times a day) Allergies Allergies ?(Active and Proposed Allergies Only) Pollen? (Severity: Mild, Onset: Unknown) ?Reactions: sneezing, watery eyes sulfADIAZINE? (Severity: Mild, Onset: Unknown) ?Reactions: rash predniSONE? (Severity: Mild, Onset: Unknown) Nuts? (Severity: Mild, Onset: Unknown) ?Reactions: walnuts, hard time breathing Latex? (Severity: Mild, Onset: Unknown) ?Reactions: rash, trouble breathing heparin? (Severity: Mild, Onset: Unknown) ?Comments: I go crazy atorvastatin? (Severity: Mild, Onset: Unknown) ?Reactions: rash ? PCP Follow-Up/Heads-Up - Repeat CBC in 1 to 2 weeks to monitor for resolution of leukocytosis as well as check hemoglobin level. -If patient's hemoglobin drops consider discontinuation of Eliquis and??needs cardiology referral for discussion of Watchman??procedure. Hospital Course ??77-year-old with PMHx of CAD s/p CABG, MVR and ventricular aneurysm repair, ischemic cardiomyopathy EF 20 to 25%, VT s/p ablation and AICD, paroxysmal A-fib on Eliquis, colon cancer s/p resection with ileostomy, chronic hypoxic respiratory failure secondary to COPD on 2 L at baseline, hypothyroid, HLD, RA, chronic lower back pain s/p stimulator, GERD, admitted for management of severe symptomatic anemia requiring PRBCs.?? Seen by GI s/p EGD/ileoscopy on 11/01 with no source identified. ??Hemolysis workup negative. ??Most likely??this is in the setting of severe iron deficiency anemia. ??Course complicated by symptomatic NSVT seen by cardiology recommended resumption of Coreg.?? Patient's Eliquis was resumed at patient's blood??levels have been stable. ??She was also??started on??low-dose??Entresto per cards recommendation??and??tolerating it well. ??Patient is stable and ready to be discharged for outpatient follow-up.?? Objective Assessment and Plan Symptomatic anemia (D64.9):? Iron deficiency anemia (D50.9) Presents with??worsening MEYER??over 4 days,??pica Anemia microcytic??concerning for??MONSTER Initially presented with a hemoglobin of 5.8 States post units PRBCs. Concern for??GI source. Patient denies??GI symptoms aside from abdominal pain. CTA performed with no concern for??extravasation. Patient seen by GI plan??s/p??EGD/ileoscopy??on 11/01 with no source identified. No further GI eval recommended by GI. Patient's hemoglobin has been stable. MCV is low suggesting blood loss. work-up??negative for??hemolysis given her heart murmur. No concern for retroperitoneal bleed. Iron panel with very low level and saturation of 8.?? We think this patient's presentation is most likely in the setting of severe iron deficiency anemia. Patient centered discussion??regarding resumption of Eliquis??occurred on 11/01??and patient agreeable to resumption of Eliquis.?? Eliquis was resumed and patient's hemoglobin remained stable. Patient is stable and ready to be discharged home with??home health. ?? Recommendations: -Repeat CBC in??1 to 2 weeks to monitor hemoglobin -Follow-up with outpatient gastroenterology??for workup of??anemia -Consider discontinuation of Eliquis??if patient's hemoglobin drops again -Can continue home aspirin -Follow-up with PCP as an outpatient. -Prescribed ferrous sulfate supplements. -Recheck??outpatient iron levels in 3 months. ? Non-sustained ventricular tachycardia (I47.29) ?Palpitations (R00.2) Patient's cardiac medications??including Coreg was held during this admission due to soft blood pressure. Patient had 2 episodes of NSVT??5 beats and 7 beats respectively on 10/31??and was symptomatic??as and felt the palpitations. GI team requested cardiology evaluation Cardiology team saw patient and evaluated??and recommended resumption of patient's Coreg. ?? Recommendations: - Resume home Coreg 6.25 BID ? Intermittent sinus bradycardia Asymptomatic Patient with intermittent sinus bradycardia while asleep asymptomatic Vitally stable Was recently started on Coreg??6.25 resumed from home dose. Recommendations: -PCP follow-up -Consider workup for MONA as an outpatient ?? Acute on chronic congestive heart failure (I50.9):??-RESOLVED COPD without exacerbation (J44.9):?? Paroxysmal atrial fibrillation (I48.0):?? Patient with ejection fraction of 20 to 25%. PMHx of COPD on 2 L O2 at baseline CXR concerning for pulmonary edema Initially requiring 3 L during this hospitalization but satting 100% currently. Patient diuresed with 1 dose of IV Lasix 80 mg upon admission. Patient takes at home 80 mg in the a.m. and 40 mg p.m. ?? Recommendations: -Discontinue 40 mg Lasix at bedtime -PCP to reassess need for??bedtime Lasix dose -Patient counseled on??weight measurement and??discussion with PCP on??resumption of Lasix -Patient's??Imdur was discontinued due to soft pressures -Patient's Entresto dose was lowered -Patient seen by cardiology during this hospitalization and patient will likely be referred for outpatient consideration of elective Watchman procedure -Please follow-up with outpatient cardiology. -Please follow-up with PCP as an outpatient. ?? 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 Chronic pain syndrome (G89.4):??Patient with a spinal cord stimulator in place. ??She is chronically on morphine extended release 30 mg p.o. every 8 hours. Continue ?? Vital Signs?? Temperature: 97.7 DegF (11/03/23 07:28:00) Temperature Route: Oral (11/03/23 07:28:00) Pulse Rate: 70 bpm (11/03/23 07:28:00) Respiratory Rate: 17 br/min (11/03/23 08:36:00) Systolic Blood Pressure: 117 mm Hg (11/03/23 07:28:00) Diastolic Blood Pressure:??46 mm Hg??Low (11/03/23 07:28:00) Blood pressure sites: Arm, right (11/03/23 07:28:00) Mean Arterial Pressure: 70 mm Hg (11/03/23 07:28:00) Pulse Pressure: 71 mm Hg (11/03/23 07:28:00) Oxygen Saturation: 100 % (11/03/23 07:28:00) Liters per Minute: 2 L/min (11/03/23 07:28:00) Mode of Delivery (Oxygen): Nasal cannula (11/03/23 07:28:00) Early Warning Score: 3 (11/03/23 11:02:34) ? . Physical Exam General: Patient in no acute pain or distress on 2L O2 HEENT: normocephalic, atraumatic Respiratory: bilateral equal air entry, clear to auscultation with no wheezes or crackles. CVS: regular rate and rhythm, S1 and S2 present, MR murmur present very loud. No JVD.?? Abdomen: soft, mildly??tender, non distended, bowel sounds present. Extremities: No edema noted bilaterally. Pulses intact. Neuro: alert and oriented x3. Moving all extremities spontaneously. Following simple commands Surgical Procedures Ileoscopy with Dilation 11/02/2023 09:33 Gastroscopy (EGD) Diagnostic 11/02/2023 09:33 Patient Education Titles WebMD Ignite Patient Education - Tracking Symptoms of Heart Failure?? Follow-Up Appointments Added Follow Up ?Time Frame ?Comments Cyrus MAX MD, Riki Grace?3-5 day: call to discuss follow up visit?Please call your PCP office within 3 to 5 days to schedule follow-up appointment. Patient Instructions You presented to our emergency department with complaints of shortness of breath,??weakness,??and severe fatigue. Initially you you wear??requiring??oxygen??supplementation??in addition to your baseline oxygen requirement. Your labs showed very low??blood level??and you required??blood transfusion. You are diagnosed with??severe anemia as well as??an exacerbation of your heart failure. You received IV??medication to help??get rid of the excess fluids in your body and your??oxygen requirement??improved and you are now at your baseline oxygen requirement. A CT of your abdomen was performed and did not show any??source for bleeding. You were seen??by our gastrointestinal team??and underwent an??esophagogastroduodenoscopy??and ileoscopy procedure??to try to identify a source for your??blood loss. Your EGD and ileoscopy??were normal with no??source identified for your bleeding. Analysis of your??blood showed that you have??severe deficiency of your iron??levels. We think this is the most likely cause of your low blood levels. You were started on iron supplements. We also did some adjustments??to your medications??given??your soft/low blood pressures. We did the following changes to your medication regimen: ?? Medications Started Ferrous Sulfate (ferrous sulfate 325 mg oral enteric coated tablet)?325?Milligram?By Mouth?Every Wednesday, Wednesday and Wednesday?for 90?Days ?? Medications Discontinued Imdur 90mg Lasix 40mg at bedtime ?? Doses Changed sacubitril-valsartan (Entresto 24 mg-26 mg oral tablet)?1?tab(s)?By Mouth?2 times a day(dose changed from prior dose of 97mg-103mg 2 times a day) ?? Please monitor your weight and if you noticed??more than 5 pound weight gain??over 1 to 2 weeks??call your PCP office to consider resumption of your nighttime Lasix dose. Please take all your medications as prescribed. Please follow-up with outpatient gastroenterology??for further workup of your??anemia. Please call your PCP to schedule follow-up appointment within 3 to 5 days of your discharge for repeat labs. If you experience severe chest pain or shortness of breath please call your PCP office or present to the nearest emergency department. It was a pleasure being part of your care team. Dr. Ana Greenberg?? Post Discharge Care Diet: ??Cardiac diet ?? Activity: ??Ambulate with assistance 3 times a day unless otherwise specified ?? Code Status: ??Full Resuscitation ?? Condition: ??Fair ?? Prognosis: ??Fair ?? Home Health Face to Face *Denotes mandatory jain ?? *I certify that this patient is under my care and that I or an allowed non- physician working with me had a face to face encounter with the patient on this date:??11/03/2023 13:10 ?? *The encounter with the patient was in whole, or in part, for the following medical condition, which is the primary diagnosis(es) for home health care:??Symptomatic anemia (D64.9) Acute on chronic congestive heart failure (I50.9) COPD without exacerbation (J44.9) Chest pain (R07.9) Chronic kidney disease (CKD), stage II (mild) (N18.2) Chronic pain syndrome (G89.4) Elevated troponin (R79.89) Paroxysmal atrial fibrillation (I48.0) Non-sustained ventricular tachycardia (I47.29) Palpitations (R00.2) Iron deficiency anemia (D50.9) ? *Select the indications for the discipline/s that are being arranged for this patient. Nursing (select all that apply): [_] None [x_] Medication management (reconciliation, teaching)?? [x_] Chronic disease management?? [_] Wound care and treatment?? [_x] Home safety evaluation [_] Administer SQ/IM/IV medications?? [_] Cath care?? [_] Drain care?? [_] Trach or GT care?? Other _ Occupation Therapy (select all that apply): [_] None [_] ADL Management [_] Fall prevention training [_] Energy conservation [_] Cognitive training Other _ Physical Therapy (select all that apply): [_] None [_x] Functional mobility training [x_] Home exercise program to strengthen [x_] Increase ROM?? [x_] Falls prevention training [_] Home maintenance program for chronic disease Other _ Speech Therapy (select all that apply): [_] None [_] Swallow evaluation and training [_] Speech and language training [_] Cognitive training to process, organize, and/or recall information Other _ ? *Homebound due to (select all that apply): [x_] Inability to leave home without assistance/supervision [_] Inability to ambulate without assistance [_] Pain [x_] Decreased strength and endurance [_] Unsteady gait [_x] Severe SOB and fatigue [_] Impaired transfers [_] Inability to negotiate stairs [_] Limited weight bearing [_] Mental status change? *Physician Signature:??Ana Greenberg MD ?? *By signing this, I certify that I have personally evaluated the patient and agree with the findings and recommendations as documented above. ?? Results Discharge Labs BLOOD BANK Blood Type O Positive ()?? 10/29/2023 18:49 Antibody Screen Negative ()?? 10/29/2023 18:49 RBC Unit ID [id number] ()?? 10/29/2023 21:18 RBC Available PT ()?? 10/29/2023 21:18 ?? BLOOD COUNT & DIFF WBC 11.9 k/mm3 (High)?? 11/03/2023 10:40 RBC 4.05 m/mm3 (Low)?? 11/03/2023 10:40 Hgb 9.0 Gm/dL (Low)?? 11/03/2023 10:40 Hct 31.5 % (Low)?? 11/03/2023 10:40 MCV 77.8 femtoliters (Low)?? 11/03/2023 10:40 MCH 22.2 pg (Low)?? 11/03/2023 10:40 MCHC 28.6 g/dL (Low)?? 11/03/2023 10:40 Platelet Count 184 k/mm3 ()?? 11/03/2023 10:40 RDW-SD 59.0 femtoliters (High)?? 11/03/2023 10:40 MPV 10.5 femtoliters ()?? 11/03/2023 10:40 Nucleated RBC (Automated) 0.0 #/100 WBC'S ()?? 11/03/2023 10:40 Abs. NRBC 0.0 k/mm3 ()?? 11/03/2023 10:40 Abs. Neut 13.2 k/mm3 (High)?? 11/03/2023 00:35 Abs. Lymph 0.9 k/mm3 ()?? 11/03/2023 00:35 Abs. [place] 0.7 k/mm3 ()?? 11/03/2023 00:35 Abs. Eo 0.1 k/mm3 ()?? 11/03/2023 00:35 Abs. Baso 0.0 k/mm3 ()?? 11/03/2023 00:35 Neut % 88.4 % (High)?? 11/03/2023 00:35 Lymph % 6.0 % (Low)?? 11/03/2023 00:35 [place] % 4.7 % ()?? 11/03/2023 00:35 Eos % 0.5 % ()?? 11/03/2023 00:35 Baso % 0.1 % ()?? 11/03/2023 00:35 Retic Count 2.7 % (High)?? 11/02/2023 12:47 Retic Count Corrected 1.8 % ()?? 11/02/2023 12:47 Retic Production Index 1.2 % ()?? 11/02/2023 12:47 Imm Gran 0.3 % ()?? 11/03/2023 00:35 Abs. Imm Gran 0.1 k/mm3 ()?? 11/03/2023 00:35 ? CARDIAC High Sensitivity Troponin (HSTnT) 55 ng/L (Critical)?? 10/29/2023 20:59 ? CHEM GENERAL Sodium 135 mmol/L ()?? 11/03/2023 00:35 Potassium 3.8 mmol/L ()?? 11/03/2023 00:35 Chloride 95 mmol/L (Low)?? 11/03/2023 00:35 Bicarbonate Level 27 mmol/L ()?? 11/03/2023 00:35 Anion Gap 13 ()?? 11/03/2023 00:35 Glucose Level 184 mg/dL (High)?? 11/03/2023 00:35 BUN 13 mg/dL ()?? 11/03/2023 00:35 Creatinine-Blood 1.1 mg/dL (High)?? 11/03/2023 00:35 Estimated GFR Creatinine 53 ML/MIN/1.73 M2 ()?? 11/03/2023 00:35 Calcium 9.5 mg/dL ()?? 11/03/2023 00:35 Phosphorus 2.8 mg/dL ()?? 11/03/2023 00:35 Magnesium 1.9 mg/dL ()?? 11/03/2023 00:35 Protein, Total 5.9 Gm/dL (Low)?? 10/30/2023 02:22 Albumin 4.1 Gm/dL ()?? 10/30/2023 02:22 LDH 250 units/L ()?? 11/02/2023 12:47 Alkaline Phosphatase 91 units/L ()?? 10/30/2023 02:22 AST (SGOT) 14 units/L ()?? 10/30/2023 02:22 ALT (SGPT) 14 units/L ()?? 10/30/2023 02:22 Bilirubin, Total 0.9 mg/dL ()?? 11/02/2023 12:47 Bilirubin, Direct 0.3 mg/dL ()?? 11/02/2023 12:47 Bilirubin, Indirect 0.6 mg/dL ()?? 11/02/2023 12:47 Vitamin B12 Level 1195 pg/mL ()?? 11/02/2023 12:47 Folic Acid Level >40.0 ng/mL (High)?? 11/02/2023 12:47 Iron Level 29 mcg/dL (Low)?? 11/02/2023 12:47 Iron Binding Capacity, Unsaturated 353 mcg/dL ()?? 11/02/2023 12:47 Iron Binding Capacity, Estimated Total 382 mcg/dL ()?? 11/02/2023 12:47 % Iron Saturation 8 % (Low)?? 11/02/2023 12:47 Ferritin Level 48 ng/mL ()?? 11/02/2023 12:47 ?? HEME OTHER Hold Lavender Top SPECIMEN DISCARDED AFTER 24 HOURS. ()?? 10/31/2023 02:38 ? IMMUNOLOGY GENERAL Transferrin 292 mg/dL ()?? 10/29/2023 18:53 Haptoglobin 129 mg/dL ()?? 11/02/2023 12:47 ?? MISC. CHEMISTRY 25 OH-Vitamin D Level 23.6 ng/mL ()?? 10/30/2023 02:22 Hold Gel Top SPECIMEN DISCARDED AFTER 1 WEEK ()?? 10/31/2023 20:23 ?? TOXICOLOGY/TDM Digoxin Level <0.4 ng/mL (Low)?? 11/01/2023 04:42 ? UA/URINALYSIS Appear/Color, Urine COLORLESS ()?? 10/30/2023 05:18 Specific [place], Urine 1.008 ()?? 10/30/2023 05:18 pH, Urine 7.5 ()?? 10/30/2023 05:18 Albumin, Urine NEGATIVE ()?? 10/30/2023 05:18 Glucose, Urine NEGATIVE ()?? 10/30/2023 05:18 Ketones, Urine NEGATIVE ()?? 10/30/2023 05:18 Bilirubin, Urine NEGATIVE ()?? 10/30/2023 05:18 Hemoglobin, Urine NEGATIVE ()?? 10/30/2023 05:18 Nitrite, Urine NEGATIVE ()?? 10/30/2023 05:18 Leukocyte, Urine NEGATIVE ()?? 10/30/2023 05:18 Urobilinogen NORMAL mg/dL ()?? 10/30/2023 05:18 WBC's, Urine <1 /HPF ()?? 10/30/2023 05:18 RBC's, Urine <1 /HPF ()?? 10/30/2023 05:18 Bacteria SLIGHT HPF (Abnormal)?? 10/30/2023 05:18 Hold Urine Culture Testing available 48 hours from time of collection. ()?? 10/30/2023 05:18 ? URINE OTHER Est Creatinine Clearance 39.70 mL/min ()?? 11/02/2023 01:49 ?This case has been??reviewed and discussed with ??Moses Greenberg MD Internal Medicine PGY-2 Pager: [phone] ? 60_ minutes spent on discharge * Yamilka Lopes MD: PERFORM Event Display: Discharge/Transfer Note Hospital Authored Date: I have seen and evaluated the patient on the day of service. I have discussed the case and its management with medical staff director and I agree with assessment and plan as documented in resident's note * Mayra Baxter RN: VERIFY, PERFORM, SIGN Event Display: Case Management Discharge Plan Authored Date: [id number] Patient: ZAID WHALEY Age: 77 years Sex: Female : 1945 Associated Diagnoses: None Author: Mayra Baxter RN Discharge Plan Case Management Discharge Plan : Case Management Discharge Plan Data 11/03/2023 13:51 EST Discharge Level of Care at Discharge Homehealth/VNA Discharge VNA/Hospice/Home Care [facility] [phone] Name of Agency #1 [facility] Service Categories #1 Home health aide, Occupational Therapy, Physical Therapy, Retirement Service Comments #1 The above agency will be providing visiting home services. They should contact you within 24 ??? 48 hours of returning home. If they do not, please contact the company at the above number. * Chele BERNARD, Anastasiia Estrella: PERFORM Event Display: Patient Education/Instruction Authored Date: Inpatient Adult Discharge Instructions. [address] [address] Name: ZAID WHALEY : 1945?? Visit: 10/29/2023 22:09?? Current Date: 11/03/2023 16:04 ?? Account: [id number]?? Inpatient Adult Discharge Instructions We would like [...] and their families. Surveys are administered by [employer] ?? If further treatment with your primary care physician or another doctor is recommended, it is important for you to keep the appointment. Call your primary care physician or return to the Emergency Department immediately if your condition worsens, fails to improve, or new symptoms develop. If you need to find a doctor, you can call [facility] Link for a referral at [phone] or toll free at [phone]) or log in to [email or web address].. ?? [facility], in keeping with [facility] guidance, no longer requires face masks for [...] a health care bette of your choosing. [email or web address] is a website that allows you to securely view your medical information including your hospital discharge summary, office visit summaries, medications and follow-up visits. You can also request appointments, renew medications, and request access to your medical information using a health care bette of your choosing, or just ask a question. You can enroll at [email or web address] or register during your next office visit. You have been discharged from [facility], Patient Care Unit: S3??. If you have any questions regarding these instructions, including results of studies pending, afteryou leave, please call us and we will be happy to assist you 22/03. [facility] Your Care Team Attending Physician Yamilka Lopes MD?? Consulting Providers Yamilka Lopes MD?? Discharging Providers Ana Greenberg MD Reason for Your Visit coming from home. was seen at PCP, H&H extremly ??low per outpt labs. using nitro x3 at home for CP, denies CP at this time. 2L NC baseline?? Your Diagnosis Acute on chronic congestive heart failure Chronic kidney disease (CKD), stage II (mild) Chronic pain syndrome COPD without exacerbation General medical Iron deficiency anemia Non-sustained ventricular tachycardia Palpitations Paroxysmal atrial fibrillation Symptomatic anemia Tests Performed Below is a partial list of the tests performed during your hospitalization. You may have had other tests and procedures not included in this list. Please discuss all test results with your provider. [id number] 25OH VITAMIN D B12 Vitamin Level Basic Metabolic Panel Bilirubin Total + Direct BUN Calcium Level CBC CBC w/ Differential Creatinine DIFFERENTIAL DIGOXIN Electrolytes Ferritin Folate Level Glucose Level H + H Haptoglobin HEMOGLOBIN AND HEMATOCRIT HEPATIC FUNCTION PANEL High??Sensitivity??Troponin T HOLD GEL TUBE HOLD LAVENDER TUBE Iron + Iron Binding Capacity LDH Magnesium Level Phosphorus Level Reticulocyte Ct TRANSFERRIN Type and Screen Urinalysis w/hold for Urine Culture VITAMIN B12 CT Abdomen and Pelvis W/O Contrast CT Head/Brain W/O Contrast XR Chest 2 Views Frontal and Lat Add On Lab Order?? Transfuse RBCs?? Primary Care Provider Cyrus MAX MD, Riki Grace? Advance Directive Health Care Proxy on File Yes - Health Care Proxy Discharge Vitals Temperature: 97.9 DegF Height: 165 cm Pulse Rate: 70 bpm Weight: 57 kg Respiratory Rate: 18 br/min Body Mass Index: 20.94 kg/m2 Systolic Blood Pressure: 102 mm Hg Body surface area: 1.62 Diastolic Blood Pressure:??48 mm Hg??Low ?? Oxygen Saturation: 99 % ?? Studies Pending All studies ordered during this hospital stay have been completed unless listed below. Please discuss all pending results with your provider listed above in these instructions. ?? Add On Lab Order?? Transfuse RBCs?? What to do next Instructions From Your Doctor You presented to our emergency department with complaints of shortness of breath,??weakness,??and severe fatigue. Initially you you wear??requiring??oxygen??supplementation??in addition to your baseline oxygen requirement. Your labs showed very low??blood level??and you required??blood transfusion. You are diagnosed with??severe anemia as well as??an exacerbation of your heart failure. You received IV??medication to help??get rid of the excess fluids in your body and your??oxygen requirement??improved and you are now at your baseline oxygen requirement. A CT of your abdomen was performed and did not show any??source for bleeding. You were seen??by our gastrointestinal team??and underwent an??esophagogastroduodenoscopy??and ileoscopy procedure??to try to identify a source for your??blood loss. Your EGD and ileoscopy??were normal with no??source identified for your bleeding. Analysis of your??blood showed that you have??severe deficiency of your iron??levels. We think this is the most likely cause of your low blood levels. You were started on iron supplements. We also did some adjustments??to your medications??given??your soft/low blood pressures. We did the following changes to your medication regimen: ?? Medications Started Ferrous Sulfate (ferrous sulfate 325 mg oral enteric coated tablet)?325?Milligram?By Mouth?Every Wednesday, Wednesday and Wednesday?for 90?Days ?? Medications Discontinued Imdur 90mg Lasix 40mg at bedtime ?? Doses Changed sacubitril-valsartan (Entresto 24 mg-26 mg oral tablet)?1?tab(s)?By Mouth?2 times a day(dose changed from prior dose of 97mg-103mg 2 times a day) ?? Please monitor your weight and if you noticed??more than 5 pound weight gain??over 1 to 2 weeks??call your PCP office to consider resumption of your nighttime Lasix dose. Please take all your medications as prescribed. Please follow-up with outpatient gastroenterology??for further workup of your??anemia. Please call your PCP to schedule follow-up appointment within 3 to 5 days of your discharge for repeat labs. If you experience severe chest pain or shortness of breath please call your PCP office or present to the nearest emergency department. It was a pleasure being part of your care team. Dr. Ana Greenberg? Orders??:Cardiac diet :Ambulate with assistance ??3 times a day ??unless otherwise specified Status: ??Full Resuscitation :Fair :Fair? 11/03/23 13:12:00 EST?? You Need to Schedule the Following Appointments Follow Up with??Cyrus MAX MD, Riki Grace When:??Within 3-5 day: call to discuss follow up visit Why: Please call your PCP office within 3 to 5 days to schedule follow-up appointment. Where: [address] [place] [address] [place] [phone]- Discharge Medications NAEEM WHALEYJeevan :1945 Visit Date:10/29/2023 Medications: Please continue your medications until treatment is completed or stopped by your provider. Medications not listed below should be discontinued. Discuss any questions related to medications with your provider. What How Much When Instructions Next Dose New Ferrous Sulfate (ferrous sulfate 325 mg oral enteric coated tablet) 325 Milligram Oral Wednesday, Wednesday and Wednesday Duration: 90 Days Pickup at [place] [address] 11/04 on Wednesday Changed Furosemide (furosemide 80 mg oral tablet) 1 tab(s) Oral Daily 11/03 tomorrow morning Changed sacubitril-valsartan (Entresto 24 mg-26 mg oral tablet) 1 tab(s) Oral Twice a day Pickup at [place] [address] 11/03 tonight Unchanged Albuterol (albuterol CFC free 90 mcg/ inh inhalation aerosol) 2 puff(s) Inhalation Every 4 hours as needed for Wheezing/Shortness of Breath Duration: 30 Days as needed Unchanged alirocumab (Praluent Pen 150 mg/ mL subcutaneous solution) 150 Milligram Subcutaneous Infusion every 2 weeks ?? resume home schedule Unchanged apixaban (apixaban 5 mg oral tablet) 1 tab(s) Oral Twice a day 11/02 tonight Unchanged Aspirin (aspirin 81 mg oral tablet) 81 Milligram Oral Daily Duration: 30 Days 11/03 tomorrow morning Unchanged Carvedilol (Coreg 6.25 mg oral tablet) 1 tab(s) Oral Twice a day 11/02 tonight Unchanged Cinacalcet (Sensipar 30 mg oral tablet) 1 tab(s) Oral Daily 11/03 tomorrow morning Unchanged Digoxin (digoxin 0.125 mg oral tablet) 1 tab(s) Oral Wednesday, Wednesday and Thursday 11/02 today at 5pm Unchanged Fluticasone (Flovent Diskus 250 mcg/ inh inhalation powder) 2 puff(s) Inhalation Twice a day 11/02 tonight Unchanged Levothyroxine (levothyroxine 0.025 mg oral tablet) 1.5 tab(s) Oral Daily 11/03 tomorrow morning Unchanged Magnesium Oxide (magnesium oxide 400 mg oral tablet) 400 Milligram Oral Twice a day Duration: 14 Days 3 tonight Unchanged Morphine (morphine 30 mg oral capsule, extended release) 30 Milligram Oral 3 times a day 11/02 tonight Unchanged Nitroglycerin (nitroglycerin 0.4 mg sublingual spray) 1 spray(s) Sublingual Every 5 minutes as needed for as needed for chest pain not to exceed 3 doses/ 15 min--if pain persists, seek medical attention ?? as needed Unchanged Omeprazole (omeprazole 20 mg oral delayed release tablet) 1 tab(s) Oral Twice a day 11/02 tonight Unchanged Sodium Bicarbonate-Sodium Citrate 650 Milligram Oral Twice a day 11/02 tonight Unchanged Sucralfate (sucralfate 1 gm oral tablet) 1 tab(s) Oral 4 times a day resume home schedule Pharmacy Information [facility] [address]: [address], [place] [id number] [phone] ?? What How Much When Comments Stop Taking Cephalexin (cephalexin monohydrate 500 mg oral capsule) 1 capsule Oral Every 12 hours Duration: 3 Days Stop Taking Isosorbide Mononitrate (isosorbide mononitrate 60 mg oral tablet, extended release) 1.5 tab(s) Oral Daily in the morning Prescription Given During Visit Ferrous Sulfate (ferrous sulfate 325 mg oral enteric coated tablet) - 325 mg, By Mouth, Every Wednesday, Wednesday and Wednesday, # 45 tablet, 0 Refills, [facility] [address], [address] [place] [address] [phone]?? sacubitril-valsartan (Entresto 24 mg-26 mg oral tablet) - 1 tablet, By Mouth, 2 times a day, # 60 tablet, 0 Refills, [facility] [address], [address] [place] [address] [phone]?? Laboratory Results Below is a partial list of the most recent Laboratory test results done prior to this discharge. You may have had other tests and procedures not included in this list. Please discuss all test resultswith your provider. Est Creatinine Clearance - 39.70 mL/min (11/02/2023) RBC Available - PT (10/29/2023) RBC Unit ID - [id number] (10/29/2023) [id number] (11/02/2023) ? ?Surgical Pathology - Patient Name: ZAID WHALEY
Lab
Patient : 1945 (Age: 77)
Collection Date: 11/02/2023
Accession Date: 11/02/2023
Sign Out Date: 11/03/2023

Tissue Source:
1:DUODENAL POLYPS X2

Final Diagnosis:
Duodenum, polyps (x2),biopsies:
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

Primary Pathologist:James Henriquez MD<br/&g t;electronically signed out by: James Henriquez MD / [facility]

<br/&gt ;Clinical History:
Acute anemia
Evaluate for adenoma

Gross Description:
Labeled duodenal polyps x 2 . Received in formalin are 2 alvarado-pink polypoid tissue pieces measuring 0.4 x 0.4 x 0.3 cm and 0.6x 0.5 x 0.4 cm. The specimen is differentially inked and sectioned. The specimen is entirely submitted.
1-4 pieces x 2 EOE. ()*

Phone #: [phone], On-Call Pathologist: [id number] 25OH VITAMIN D (10/30/2023) ???25 OH-Vitamin D Level - 23.6 ng/mL B12 Vitamin Level (11/02/2023) ???Vitamin B12 Level - 1195 pg/mL Basic Metabolic Panel (10/29/2023) ???Sodium - 136 mmol/L???Potassium - 3.6 mmol/L???Chloride - 95 mmol/L???Bicarbonate Level - 27 mmol/L???Anion Gap - 14???Glucose Level - 161 mg/dL???BUN - 21 mg/dL???Creatinine-Blood - 1.3 mg/dL???Estimated GFR Creatinine - 44 ML/MIN/1.73 M2???Calcium - 9.6 mg/dL Bilirubin Total + Direct (11/02/2023) ???Bilirubin, Total - 0.9 mg/dL???Bilirubin, Direct - 0.3 mg/dL???Bilirubin, Indirect - 0.6 mg/dL BUN (11/03/2023) ???BUN - 13 mg/dL Calcium Level (11/03/2023) ???Calcium - 9.5 mg/dL CBC (11/03/2023) ???WBC - 11.9 k/mm3???RBC - 4.05 m/mm3???Hgb - 9.0 Gm/dL???Hct - 31.5 %???MCV - 77.8 femtoliters???MCH - 22.2 pg???MCHC - 28.6 g/dL???Platelet Count - 184 k/mm3???RDW-SD - 59.0 femtoliters???MPV - 10.5 femtoliters???Nucleated RBC (Automated) - 0.0 #/100 WBC'S???Abs. NRBC - 0.0 k/mm3 CBC w/ Differential (10/29/2023) ???WBC - 12.3 k/mm3???RBC - 3.01 m/mm3???Hgb - 5.8 Gm/dL???Hct - 21.0 %???MCV - 69.8 femtoliters???MCH - 19.3 pg???MCHC - 27.6 g/dL???Platelet Count - 203 k/mm3???RDW-SD - 42.3 femtoliters???MPV - 11.0 femtoliters???Nucleated RBC (Automated) - 0.0 #/100 WBC'S???Abs. NRBC - 0.0 k/mm3???Abs. Neut - 10.9 k/mm3???Abs. Lymph - 0.6 k/mm3???Abs. [place] - 0.6 k/mm3???Abs. Eo - 0.1 k/mm3???Abs. Baso - 0.0 k/mm3???Neut % - 88.9 %???Lymph % - 5.2 %???[place] % - 4.7 %???Eos % - 0.6 %???Baso % - 0.2 %???Imm Gran - 0.4 %???Abs. Imm Gran - 0.1 k/mm3 Creatinine (11/03/2023) ???Creatinine-Blood - 1.1 mg/dL???Estimated GFR Creatinine - 53 ML/MIN/1.73 M2 DIFFERENTIAL (11/03/2023) ???Abs. Neut - 13.2 k/mm3???Abs. Lymph - 0.9 k/mm3???Abs. [place] - 0.7 k/mm3???Abs. Eo - 0.1 k/mm3???Abs. Baso - 0.0 k/mm3???Neut % - 88.4 %???Lymph % - 6.0 %???[place] % - 4.7 %???Eos % - 0.5 %???Baso % - 0.1 %???Imm Gran - 0.3 %???Abs. Imm Gran - 0.1 k/mm3 DIGOXIN (11/01/2023) ? ?Digoxin Level - <0.4 ng/mL Electrolytes (11/03/2023) ???Sodium - 135 mmol/L???Potassium - 3.8 mmol/L???Chloride - 95 mmol/L???Bicarbonate Level - 27 mmol/L???Anion Gap - 13 Ferritin (11/02/2023) ???Ferritin Level - 48 ng/mL Folate Level (11/02/2023) ? ?Folic Acid Level - >40.0 ng/mL Glucose Level (11/03/2023) ???Glucose Level - 184 mg/dL H + H (10/30/2023) ???Hgb - 7.8 Gm/dL???Hct - 26.2 % Haptoglobin (11/02/2023) ???Haptoglobin - 129 mg/dL HEMOGLOBIN AND HEMATOCRIT (10/30/2023) ???Hgb - 8.0 Gm/dL???Hct - 25.9 % HEPATIC FUNCTION PANEL (10/30/2023) ???Protein, Total - 5.9 Gm/dL???Albumin - 4.1 Gm/dL???Alkaline Phosphatase - 91 units/L???AST (SGOT) - 14 units/L???ALT (SGPT) - 14 units/L???Bilirubin, Total - 1.2 mg/dL???Bilirubin, Direct - 0.3 mg/dL???Bilirubin, Indirect - 0.9 mg/dL High??Sensitivity??Troponin T (10/29/2023) ???High Sensitivity Troponin (HSTnT) - 55 ng/L HOLD GEL TUBE (10/31/2023) ???Hold Gel Top - SPECIMEN DISCARDED AFTER 1 WEEK HOLD LAVENDER TUBE (10/31/2023) ???Hold Lavender Top - SPECIMEN DISCARDED AFTER 24 HOURS. Iron + Iron Binding Capacity (11/02/2023) ???Iron Level - 29 mcg/dL???Iron Binding Capacity, Unsaturated - 353 mcg/dL???Iron Binding Capacity, Estimated Total - 382 mcg/dL???% Iron Saturation - 8 % LDH (11/02/2023) ???LDH - 250 units/L Magnesium Level (11/03/2023) ???Magnesium - 1.9 mg/dL Phosphorus Level (11/03/2023) ???Phosphorus - 2.8 mg/dL Reticulocyte Ct (11/02/2023) ???Retic Count - 2.7 %???Retic Count Corrected - 1.8 %???Retic Production Index - 1.2 % TRANSFERRIN (10/29/2023) ???Transferrin - 292 mg/dL Type and Screen (10/29/2023) ???Blood Type - O Positive???Antibody Screen - Negative Urinalysis w/hold for Urine Culture (10/30/2023) ???Appear/Color, Urine - COLORLESS???Specific [place], Urine - 1.008???pH, Urine - 7.5???Albumin, Urine - NEGATIVE???Glucose, Urine - NEGATIVE???Ketones, Urine - NEGATIVE???Bilirubin, Urine - NEGATIVE???Hemoglobin, Urine - NEGATIVE???Nitrite, Urine - NEGATIVE???Leukocyte, Urine - NEGATIVE???Urobilin ogen - NORMAL? ?WBC's, Urine - <1 /HPF? ?RBC's, Urine - <1 /HPF? ?Bacteria - SLIGHT? ?Hold Urine Culture - Testing available 48 hours from time of collection. VITAMIN B12 (10/30/2023) ???Vitamin B12 Level - 896 pg/mL Allergies (NKA means No Known Allergies) Latex??(rash, [...] Discharge Instructions. [employer] Patient Education - Ferrous Sulfate Extended Release Oral Tablet?? [employer] Patient Education - Iron-Deficiency Anemia (Adult)?? [employer] Patient Education - Tracking Symptoms of Heart Failure?? Valuables and Belongings I fully understand and agree that [facility] accepts no responsibility for all my [...] patient Date for Pt to Sign Valuables/Belongings: 11/03/23 15:39:00 ?? Other Discharge Information ? Case Management Discharge Plan?? Discharge Plan?? Discharge Agency Information?? Discharge Level of Care at Discharge: Homehealth/VNA Name of Agency #1: [facility] Dis[facility] V[facility]/Hospice/Home Care: [facility] [phone] Service Categories #1: Home health aide, Occupational Therapy, Physical Therapy, Retirement ?? Service Comments #1: The above agency will be providing visiting home services. They should contactyou within 24 ??? 48 hours of returning home. If they do not, please contact the company at the above number. ?? Pulmonary Rehab Status?? Pulmonary Rehab Discharge [...] are strongly encouraged to quit. Please call [facility] at [phone] or [phone] ([phone]) or log in to [email or web address] for referrals to smoking cessation programs. ?? 937 Suicide & Crisis Lifeline is available 22/03 if you or someone you know needs to find a reason to keep living. By calling 051 you'll be connected to a skilled, trained counselor at a crisis center in your area. INPATIENT DISCHARGE INSTRUCTIONS SIGNATURE PAGE ZAID WHALEY Location:[facility] Registration Date and Time:10/29/2023 22:09 EST Primary Care Physician: Riki Bridges III, MD, Attending Physician: Moses ASHFORD, Yamilka, I ZAID WHALEY, have received the above patient education materials/instructions and have verbalized understanding. If ambulance or transport services are being used I further acknowledge being given a choice of service. ?? If you need to contact me, please call me at this number: . Patient/Crate Builder Name: Patient/Crate Builder Signature: Relationship to Patient: Witness Name/Signature: Date: Anastasiia Banda RN: PERFORM Event Display: Patient Education Leaflets Authored Date: [id number] Ferrous Sulfate Delayed Release Oral Tablet ?? 70183-34 Ferrous Sulfate Delayed Release Oral Tablet Uses For anemia. ?? Instructions Swallow the medicine without crushing or chewing it. Take the medicine with 250 mL (1 cup) of water. Take on empty stomach - 1 hour before or 2 hours after eating. Sit or stand upright for 10 minutes after taking the medicine. Do not lie down. After taking other medicines, wait at least 2 hours before taking this medicine. Do not take any other medicines for 2 hours after this medicine. You may take with food to prevent stomach upset. Keep the medicine at room temperature. Avoid heat and direct light. Drink plenty of water while on this medicine. Avoid dairy products, coffee, tea or products containing caffeine within 2 hours before or after taking this medicine. Do not take this medicine with antacids. It may take several weeks for this medicine to fully work. If you forget to take a dose on time, take it as soon as you remember. If it is almost time for thenext dose, do not take the missed dose. Return to your normal schedule. Do not take 2 doses at one time. Tell your doctor and pharmacist about all your medicines. Include prescription and [id number]-ctqxmcwdhdzddyub, vitamins, and herbal medicines. Speak with your doctor or pharmacist before starting any other vitamins. The foods you eat can change how well this medicine works. Tell your doctor about the types of foodyou normally eat. Ask your doctor for a list of foods that can affect this medicine. Do not significantly change the foods you normally eat while on this medicine. It is very important that you follow your doctor's instructions for all blood tests. This medicine may cause a positive result on some tests that check for blood in the stool. Please tell your doctor or nurse that you are taking this medicine before they perform these tests. ?? Cautions Tell your doctor and pharmacist if you ever had an allergic reaction to a medicine. Do not use the medication any more than instructed. Tell the doctor or pharmacist if you are , planning to be , or . Do not start or stop any other medicines without first speaking to your doctor or pharmacist. Do not share this medicine with anyone who has not been prescribed this medicine. ?? Side Effects The following is a list of some common side effects from this medicine. Please speak with your doctor about what you should do if you experience these or other side effects. ??? decreased appetite ??? constipation ??? stomach upset or abdominal pain ??? dark, tarry stool If you have any of the following side effects, you may be getting too much medicine. Please contactyour doctor to let them know about these side effects. ??? diarrhea A few people may have an allergic reaction to this medicine. Symptoms can include difficulty breathing, skin rash, itching, swelling, or severe dizziness. If you notice any of these symptoms, seek medical help quickly. ?? Extra Please speak with your doctor, nurse, or pharmacist if you have any questions about this medicine. ?? [email or web address] IMPORTANT NOTE: This document tells you briefly how to take your medicine, but it does not tell youall there is to know about it. Your doctor or pharmacist may give you other documents about your medicine. Please talk to them if you have any questions. Always follow their advice. There is a more complete description of this medicine available in Bulgarian. Scan this code on your smartphone or tablet or use the web address below. You can also ask your pharmacist for a printout. If you have any questions, please ask your pharmacist. The display and use of this drug information is subject to Terms of Use. Copyright(c) 2022 [employer]. ?? [employer]. All rights reserved. This information is not intended as a substitute for professional medical care. Always follow your healthcare professional's instructions. ?? * Chele BERNARD, Anastasiia Estrella: PERFORM Event Display: Patient Education Leaflets Authored Date: [id number] Anemia ?? 45232 Anemia Anemia is a condition that occurs when your body doesn't have enough healthy red blood cells (RBCs). RBCs are the parts of your blood that carry oxygen all over your body. A protein called hemoglobinallows your RBCs to absorb and release oxygen. Without enough RBCs or hemoglobin, your body doesn'tget enough oxygen. Symptoms of anemia may then occur. What are the symptoms of anemia? Some people with anemia have no symptoms. But most people have symptoms that range from mild to severe. These can include: ??? Extreme tiredness (fatigue) ??? Weakness ??? Pale skin ??? Shortness of breath ??? Feeling dizzy or fainting ??? Rapid or irregular heartbeat ??? Trouble doing normal amounts of activity ??? Yellowing of your eyes, skin, or mouth and dark urine (jaundice) ??? Headache ???Cold hands or feet ??? Chest pain ??? Pounding or whooshing sound in your ears ?? What causes anemia? Anemia can occur when your body: ??? Loses too much blood ??? Doesn't make enough RBCs ??? Destroys your RBCs at a faster rate than it can replace them ??? Doesn't make a normal amount of hemoglobin in your RBCs These problems can occur for many reasons, including: ??? A condition that you're born with (congenital or inherited), such as sickle cell disease or thalassemia ??? Heavy bleeding for any reason, including injury, surgery, childbirth, or even heavy menstrual periods ??? Being low in certain nutrients, such as iron, folate, or vitamin B-12 ??? Certainlong-term (chronic) conditions such as diabetes, arthritis, or kidney disease ??? Certain chronic in fections such as tuberculosis or HIV ??? Exposure to certain medicines, such as those used for chemotherapy There are different types of anemia. Your healthcare provider can tell you more about the type of anemia you have and what may have caused it. ?? How is anemia diagnosed? To diagnose anemia, your healthcare provider orders blood tests. These can include: ??? Complete blood cell count (CBC). This test measures the amounts of the different types of blood cells. ??? Blood smear. This test checks the size and shape of your blood cells. To do the test, a drop of your blood is looked at under a microscope. A stain is used to make the blood cells easier to see. ??? Iron studies. These tests measure the amount of iron in your blood. Your body needs iron to make hemoglobin in your RBCs. ??? Vitamin B-12 and folate studies. These tests check for some of the components that help give RBCs a normal size and shape. ??? Reticulocyte count. This test measures the amount ofnew RBCs that your bone marrow makes. ??? Hemoglobin electrophoresis. This test checks for problemswith your hemoglobin in RBCs. ??? Lactate dehydrogenase (LDH) and haptoglobin levels. These tests check the amount of substances in your blood called LDH and haptoglobin. Both LDH and haptoglobin levels can be abnormal with a type of anemia that destroys red blood cells (hemolytic anemia). ??? Bone marrow biopsy. This test evaluates the bone marrow where RBCs are made. ?? How is anemia treated? Treatment for anemia is based on the type of anemia, its cause, and the severity of your symptoms. Treatments may include: ??? Diet changes. This includes increasing the amount of certain nutrients in your diet, such as iron, vitamin B-12, or folate. Your healthcare provider may also prescribe nutrient supplements. ??? Medicines. Certain medicines treat the cause of your anemia. Others help buildnew RBCs or ease symptoms. If a medicine is the cause of your anemia, you may need to stop or change it. ??? Blood transfusions. Replacing some of your blood can increase the number of healthy RBCs in your body. ??? Surgery. In some cases, your healthcare provider may do surgery to treat the underlying cause of anemia. If you need surgery, your healthcare provider will explain the procedure and outline the risks and benefits for you. ?? What are the long-term concerns? If you have a certain type of anemia, you can expect a full recovery after treatment. If you have other types of anemia (especially a type you're born with), you'll need to manage it for life. Your healthcare provider can tell you more. ?? Last Reviewed Date: 2021 ?? [employer]. All rights reserved. This information is not intended as a substitute for professional medical care. Always follow your healthcare professional's instructions. ?? * Ana Greenberg MD: PERFORM Event Display: Patient Education Leaflets Authored Date: [id number] Ferrous Sulfate Extended Release Oral Tablet ?? 95745-06 Ferrous Sulfate Extended Release Oral Tablet Brands: Slow-Fe Uses For anemia. ?? Instructions Swallow the medicine without crushing or chewing it. It is better to take this medicine on an empty stomach. However, if the medicine is not tolerated well, it may be taken with food. Sit or stand upright for 10 minutes after taking the medicine. Do not lie down. After taking other medicines, wait at least 2 hours before taking this medicine. Do not take any other medicines for 2 hours after this medicine. Empty stomach means waiting at least 2 hours after a meal. Swallow with a full glass (8 oz) of water unless your doctor gives you different instructions. Store at room temperature away from heat, light, and moisture. Do not keep in the bathroom. Drink plenty of water while on this medicine. To reduce constipation, eat high fiber foods, drink plenty of water and exercise. Avoid dairy products, coffee, tea or products containing caffeine within 2 hours before or after taking this medicine. Do not take antacids 2 hours before or 2 hours after taking this medicine. It may take several weeks for this medicine to fully work. If you forget to take a dose on time, take it as soon as you remember. If it is almost time for thenext dose, do not take the missed dose. Return to your normal schedule. Do not take 2 doses at one time. Tell your doctor and pharmacist about all your medicines. Include prescription and zdbk-ojf-gqrpqmvymmrzpfls, vitamins, and herbal medicines. Speak with your doctor or pharmacist before starting any other vitamins. The foods you eat can change how well this medicine works. Tell your doctor about the types of foodyou normally eat. Ask your doctor for a list of foods that can affect this medicine. Do not significantly change the foods you normally eat while on this medicine. It is very important that you follow your doctor's instructions for all blood tests. This medicine may cause a positive result on some tests that check for blood in the stool. Please tell your doctor or nurse that you are taking this medicine before they perform these tests. ?? Cautions Tell your doctor and pharmacist if you ever had an allergic reaction to a medicine. Do not use the medication any more than instructed. If you drink more than a few alcoholic beverages each day, ask your doctor whether you should be onthis medicine. Tell the doctor or pharmacist if you are , planning to be , or . Do not start or stop any other medicines without first speaking to your doctor or pharmacist. Do not share this medicine with anyone who has not been prescribed this medicine. ?? Side Effects The following is a list of some common side effects from this medicine. Please speak with your doctor about what you should do if you experience these or other side effects. ??? decreased appetite ??? constipation ??? dark, tarry stool If you have any of the following side effects, you may be getting too much medicine. Please contactyour doctor to let them know about these side effects. ??? diarrhea ??? nausea and vomiting ??? stomach pain A few people may have an allergic reaction to this medicine. Symptoms can include difficulty breathing, skin rash, itching, swelling, or severe dizziness. If you notice any of these symptoms, seek medical help quickly. ?? Extra Please speak with your doctor, nurse, or pharmacist if you have any questions about this medicine. ?? [email or web address] IMPORTANT NOTE: This document tells you briefly how to take your medicine, but it does not tell youall there is to know about it. Your doctor or pharmacist may give you other documents about your medicine. Please talk to them if you have any questions. Always follow their advice. There is a more complete description of this medicine available in Bulgarian. Scan this code on your smartphone or tablet or use the web address below. You can also ask your pharmacist for a printout. If you have any questions, please ask your pharmacist. The display and use of this drug information is subject to Terms of Use. Copyright(c) 2022 [employer]. ?? 1480-8556 [employer]. All rights reserved. This information is not intended as a substitute for professional medical care. Always follow your healthcare professional's instructions. ?? * Event Display: Provider Clarification Note Please click on pdf link to open report Consult note * Sander ASHFORD, Remy Hurtado: MODIFY Event Display: Consultation Note Authored Date: [id number] CONSULTATION DATE: 11/01/2023 ATTENDING PHYSICIAN: Yamilka Lopes M.D. PRIMARY CONTRACT TECHNICAL WRITER: Patrice Novoa M.D. REASON FOR CONSULTATION: Palpitations. HISTORY OF PRESENT ILLNESS: The patient is a 77-year-old female with past medical history includingCABG with mitral valve ring, COPD on chronic oxygen, history of VT with failed ablation, status post ICD with biventricular upgrade in 2019, chronic systolic heart failure, history of TIA, paroxysmalatrial fibrillation on Eliquis, hypertension, hyperlipidemia. Recent history is pertinent for the patient called our office around 5 days ago for chest pain, palpitations and frequent nitroglycerin use. In anticipation of an office visit, she had routine blood work check. This demonstrated hemoglobin of 5.3. She was then referred to the hospital. She presented on 10/30/2023. Initial hemoglobin 5.8, she has been transfused. Current hemoglobin 7.8. Creatinine 1.2. She has had symptoms of worsening shortness of breath. She was evaluated by gastroenterology. Eliquis was held in anticipation for endoscopy today. The patient complained of palpitations and the endoscopy was deferred.. CT abdomen and pelvis on 10/30/2023 demonstrated no acute intra-abdominal pathology. His abdominal pain similar to her chronic pain. She is on a PPI twice a day. Review of telemetry demonstrates 2 episodes of NSVT 1 at around 2:40 AM 7 beats and 1 around 4:28 AM around 5 beats. None since. REVIEW OF SYSTEMS: Completed, negative except as noted above. ALLERGIES: As listed in [facility]. PAST MEDICAL HISTORY: As detailed above. SOCIAL HISTORY: Former smoker, no significant alcohol use. FAMILY HISTORY: Hypertension. CURRENT MEDICATIONS: In our office include Imdur 60 mg a day, carvedilol 3.125 twice a day, digoxin0.125 mg a day, Lasix 80 mg a day, carvedilol 6.25 mg twice a day, Eliquis 5 mg twice a day, Entresto 97/103 twice a day and aspirin 81 mg a day. Present medications include carvedilol 3.125 twice a day, this was dose reduced from 6.25. Aspirin 81 mg a day, digoxin, Lasix 80 mg a day. Entresto was held due to low blood pressures. PHYSICAL EXAMINATION: VITAL SIGNS: Current, temperature 97.6, heart rate 70, blood pressure 119/50, oxygen saturation 100% on 2 L of nasal cannula. GENERAL: Elderly woman in no apparent distress. HEENT: NC/AT. Eyes: PERRLA. NECK: Supple, no JVD. HEART: Regular rate and rhythm, midsystolic ejection murmur. ABDOMEN: Obese. Colostomy bag noted. Nontender, nondistended. NEUROLOGIC: Alert and oriented x3. No gross neurological deficit. SKIN: Warm and dry. PSYCHIATRIC: Affect appropriate. Mood calm. EXTREMITIES: No significant edema. Distal pulses are intact. LABORATORY DATA: Reviewed as above. EKG reviewed demonstrates paced rhythm at 70 beats per minute. Most recent echocardiogram in 2019 demonstrated EF of 25%- 30%. Mitral valve annuloplasty ring with amean gradient of 3. Otherwise, no significant abnormalities were reported. The patient also had echocardiogram in 2019 with similar ejection fraction and moderate mitral valve regurgitation. IMPRESSION: 1. Acute anemia. 2. Chronic heart failure. 3. Atrial fibrillation, on oral anticoagulation. RECOMMENDATIONS: The patient presented with symptomatic anemia, which undoubtedly is contributing to her symptoms of chest pain requiring nitroglycerin. She has been transfused and is going to undergo endoscopy. I suspect that her inability to tolerate some of her usual cardiac medications are related to her anemia. While awaiting definitive assessment and treatment of her anemia, agree with resuming reduced dose coreg 3.125 BID. I reassured the patient that 5-7 beats of NSVT is not life threatening and likely related to the interruption of her usual cardiac medications and also that she has an ICD to protect her from any serious arrhythmias. Continue low dose of aspirin. Okay to hold Entresto. Would attempt to reintroduce a low dose of Entresto prior to discharge. Hold oral anticoagulation for atrial fibrillation. Whether to restart it will depend on if there is a clearly identified and treatable pathology as a cause of her anemia. If we believe that her risk of bleeding remains high, then the Eliquis can be indefinitely held and we will refer the patient for consideration of a elective Watchman procedure. I appreciate the opportunity to participate in the care of this patient. Please feel free to contact me with any questions or concerns. Dictated by: Remy Boucher M.D. Signing Clinician: Remy Boucher M.D. Dictated: 11/01/2023 11:57:39 Transcribed: 06:33:10 AM Transcribed by: ROMAN DocID: [id number] PRELIMINARY REPORT UNLESS MANUALLY/ELECTRONICALLY SIGNED cc: Yamilka Lopes M.D. [address], [address] * Citlali ASHFORD, Remy Torres: PERFORM, MODIFY Event Display: Consultation Note Authored Date: [id number] Patient: ??ZAID WHALEY ? Age:??77 Years?Sex:??Female?:??1945?? Referrring Provider Mono Escamilla MD Chief Complaint Outpatient anemia Reason for Consultation Anemia History of Present Illness 77-year-old woman with history of CAD s/p CABG on Aspirin alone, HFrEF??(EF 20- 25%), v. tach s/p pacemaker/AICD, afib on??Eliquis COPD on 2L O2, colon cancer s/p colectomy with ileostomy, chronic back pain on opiates, GERD, dyslipidemia and hypothyroidism who we are asked to see for anemia. ?? Patient was sent to the hospital for a hemoglobin of 5.3 from 10.2 in January 2023. She reports 4 daysof SOB but is not aware of any blood or melena in her ostomy. No nausea, vomiting, hematemesis, or abdominal pain. No NSAID or heavy alcohol use. EGD in 2014 showed??a 3cm hiatal hernia only. No prior history of ileostomy per [facility]. She denies rectal output.? She is vitally stable. She was transfused 2 units RBC and repeat hemoglobin is 6.5. MCV is low at??69. Iron level 13, ferritin 15, % iron saturation??4 suggestive??of iron deficiency.??BUN 21. Creatinine 1.3. Rest of labs notable for a mild leukocytosis and normal platelet of 203. She has not had abdominal imaging. Review of Systems ROS per HPI Physical Exam Vitals & Measurements T:??98.2?F?? TMIN:??98.1?F?? TMAX:??98.6?F?? HR:??69??(Peripheral)?? RR:??16?? BP:??104/39?? SpO2:??100%?? WT:??57??kg?? General:??No acute distress. Well developed HEENT:??Moist mucus membranes. Anicteric sclera Respiratory:??Speaking comfortably. Not dyspneic Cardiovascular:??Normal rate, regular rhythm, no murmurs?? GI/Abdomen:??Normal active bowel sounds, soft, non-tender, non-distended. Ileostomy bag examined, brown stool appreciated Extremities:??No edema. No clubbing or cyanosis. Skin:??No jaundice. No rash Neurologic:??Alert & Oriented. Moves all extremities.?? Psychiatric:??Mood and affect appropriate Assessment/Plan Assessment:??77-year-old woman with history of CAD s/p CABG on Aspirin alone, HFrEF??(EF 20-25%), v. tach s/p pacemaker/AICD, afib on??Eliquis, COPD on 2L O2, colon cancer s/p colectomy with ileostomy, chronic back pain on opiates, GERD, dyslipidemia and hypothyroidism who presents with??an outpatient??acute on chronic iron deficiency anemia (Hgb 5.3 from 10.2 in 01/2023) and shortness of breath. She has no??known??overt GI bleed symptoms. GI is consulted for further management. ?? Acute on chronic iron deficiency anemia ?? Recommendations: -EGD/ileoscopy Wednesday -Clear liquid diet Wednesday followed by??NPO after MN -Continue to hold??Eliquis (last dose 10/28). OK to continue Aspirin -Monitor H&H; keep hemoglobin above 7 -IV pantoprazole 40 mg BID ?? Patient discussed with??attending physician??Dr. Draper ?? Remy Godwin MD?? Gastroenterology Fellow - PGY 5 ?? Problem List/Past Medical History Ongoing Chronic GERD Chronic pain Chronic systolic heart failure Chronic, continuous use of opioids COPD mixed type History of colon cancer Hx of CABG Hx of mitral valve repair Hyperlipidemia Hyperparathyroidism Hypothyroidism ICD (implantable cardioverter-defibrillator) in place Ileostomy present Ischemic cardiomyopathy Mitral regurgitation NSVT (nonsustained ventricular tachycardia) OP (osteoporosis) Rheumatoid arthritis Procedure/Surgical History ???Endoscopy of GI tract (03/18/2015)???Appendectomy???CABG (Coronary artery bypass grafting) planned???Cholecystectomy???Complete resection of colon???History of hysterectomy???History of mitral valve repair???History of shoulder surgery???occipital lobe Venous malformation surgery Medications Inpatient Acetaminophen Tablet, 650 mg, By Mouth, Every 4 hours, PRN albuterol CFC free 90 mcg/inh inhalation aerosol, 180 mcg= 2 puffs, Inhalation, Every 4 hours, PRN aspirin 81 mg oral tablet, chewable, 81 mg, By Mouth, Daily Coreg 6.25 mg oral tablet, 6.25 mg, By Mouth, 2 times a day digoxin 0.125 mg oral tablet, 125 mcg, By Mouth, Every Wednesday, Wednesday and Wednesday Docusate Sodium Capsule, 100 mg= 1 capsule, By Mouth, 2 times a day, PRN furosemide 80 mg oral tablet, 80 mg, By Mouth, Daily isosorbide mononitrate 30 mg oral tablet, extended release, 90 mg, By Mouth, Daily in AM levothyroxine 0.025 mg oral tablet, 37.5 mcg, By Mouth, Daily magnesium oxide 400 mg oral tablet, 400 mg, By Mouth, 2 times a day Melatonin Tablet, 3 mg, By Mouth, Daily at bedtime, PRN MiraLax Powder, 17 Gm= 1 pack/packet, By Mouth, Daily, PRN MorPHINE CR Tablet, 30 mg, By Mouth, 3 times a day NaCL 0.9% Flush, 3 mL, IV Push, Every 8 hours NaCL 0.9% Flush, 3 mL, IV Push, Every 8 hours, PRN Protonix 40 mg oral delayed release tablet, 40 mg, By Mouth, 2 times a day Sensipar 30 mg oral tablet, 30 mg, By Mouth, Daily Simethicone Tablet, 80 mg, Chew, 3 times a day, PRN sodium bicarbonate 650 mg oral tablet, 650 mg, By Mouth, 2 times a day Home albuterol CFC free 90 mcg/inh inhalation aerosol, 2 puffs, Inhalation, Every 4 hours, PRN, 2 refills apixaban 5 mg oral tablet, 5 mg= 1 tablet, By Mouth, 2 times a day aspirin 81 mg oral tablet, 81 mg, By Mouth, Daily, 2 refills cephalexin monohydrate 500 mg oral capsule, 500 mg= 1 capsule, By Mouth, Every 12 hours Coreg 6.25 mg oral tablet, 6.25 mg= 1 tablet, By Mouth, 2 times a day digoxin 0.125 mg oral tablet, 125 mcg= 1 tablet, By Mouth, Every Wednesday, Wednesday and Wednesday Entresto 97 mg-103 mg oral tablet, 1 tablet, By Mouth, 2 times a day Flovent Diskus 250 mcg/inh inhalation powder, 2 puffs, Inhalation, 2 times a day furosemide 80 mg oral tablet, 80 mg= 1 tablet, By Mouth, Daily isosorbide mononitrate 60 mg oral tablet, extended release, 90 mg= 1.5 tablet, By Mouth, Daily in AM Lasix 40 mg oral tablet, 40 mg= 1 tablet, By Mouth, Daily at supper levothyroxine 0.025 mg oral tablet, 37.5 mcg= 1.5 tablet, By Mouth, Daily magnesium oxide 400 mg oral tablet, 400 mg, By Mouth, 2 times a day morphine 30 mg oral capsule, extended release, 30 mg, By Mouth, 3 times a day nitroglycerin 0.4 mg sublingual spray, 0.4 mg= 1 sprays, Sublingual, Every 5 minutes, PRN omeprazole 20 mg oral delayed release tablet, 20 mg= 1 tablet, By Mouth, 2 times a day Praluent Pen 150 mg/mL subcutaneous solution, 150 mg, Subcutaneous Infusion Sensipar 30 mg oral tablet, 30 mg= 1 tablet, By Mouth, Daily Sodium Bicarbonate-Sodium Citrate, 650 mg, By Mouth, 2 times a day sucralfate 1 gm oral tablet, 1 Gm= 1 tablet, By Mouth, 4 times a day Allergies Latex??(rash, trouble breathing) Nuts??(hard time breathing, walnuts) Pollen??(sneezing, watery eyes) atorvastatin??(rash) heparin predniSONE sulfADIAZINE??(rash) Social History Alcohol Use: Past. Employment/School Status: Retired. Exercise Self assessment: Fair condition. Other: states not anymore other than physical therapy. Regular exercise: Yes. Exercise frequency: Daily. Home/Environment Living situation: Home with assistance. Lives with: Children. Nutrition/Health Diet: Low sodium, cardiac. Substance Abuse Use: Never. Tobacco Former smoker, Other: pt states stopped smoking 2 months ago. Type: Cigarettes. Family History Heart attack: Father. Hypertension: Mother. Lab Results Test Name Test Result Date/Time Hgb 6.5 Gm/dL 10/30/2023 02:21 EST Sodium 139 mmol/L 10/30/2023 02:22 EST Potassium 3.8 mmol/L 10/30/2023 02:22 EST Glucose Level 158 mg/dL 10/30/2023 02:22 EST BUN 22 mg/dL 10/30/2023 02:22 EST Creatinine-Blood 1.3 mg/dL 10/30/2023 02:22 EST Estimated GFR Creatinine 42 ML/MIN/1.73 M2 10/30/2023 02:22 EST Alkaline Phosphatase 91 units/L 10/30/2023 02:22 EST AST (SGOT) 14 units/L 10/30/2023 02:22 EST ALT (SGPT) 14 units/L 10/30/2023 02:22 EST * Baron ASHFORD, Rochelle Barroso: PERFORM Event Display: Consultation Note Authored Date: Attending Attestation:??I have seen and evaluated this patient. I have discussed the case and its management with the fellow and agree with the findings and plan as documented in the fellow's note. ?? Rochelle Draper MD [facility] Gastroenterology Patient Care team information Care Team Personnel Name: Dasia Perkins RN Position: [facility] RN Member Role: Primary Care Nurse Name: Fauzia Griffin Position: [facility] SN Support Member Role: Lifetime Consulting Physician Name: Darrick Yañez MD Position: [facility] PCO w/OE and EZ Script Member Role: Lifetime Consulting Physician Name: Dory Stack RN Position: [facility] RN Member Role: Primary Care Nurse Name: Riki Bridges III, MD Position: Reference Physician Member Role: PCP Address: Address: [address] [place] [id number] Name: Elizabeth López RN Position: [facility] MR W/ Merge Member Role: Primary Care Nurse Name: Twila Torres MD Position: [facility] Physician - Primary Care Member Role: Lifetime Consulting Physician Address: Address: [address] [place] [address] [facility] [place], [place] [address] [place] Name: Nirali Wisdom RN Position: [facility] RN Member Role: Primary Care Nurse Name: Janice Anton NP Position: [facility] Associate Professional Member Role: Primary Care Nurse Address: Address: [address] [place] [address] [place] [address]- Name: Joe Pathak DO Position: [facility] Renal MD Member Role: Lifetime Consulting Physician Address: Address: [address] [place], [place] [address] [place] [address]- Name: Alyssa Brenner RN Position: [facility] OB RN Member Role: Primary Care Nurse Name: Diego Chaney RN Position: S RN Member Role: Primary Care Nurse Name: Walker Mendez RN Position: S RN Member Role: Primary Care Nurse Name: Kristen Vu RN Position: [facility] SN RN Member Role: Primary Care Nurse Name: Barbara Tapia RN Position: S RN Member Role: Primary Care Nurse Name: Yaquelin Londono NP Position: Reference Physician Member Role: Primary Care Nurse Address: Address: [address] [place] [id number] Name: Amira Farah RN Position: [facility] SN RN Member Role: Primary Care Nurse Name: Uche Whaley RN Position: S RN Member Role: Primary Care Nurse Name: Manasa Mojica RN Position: S RN Member Role: Primary Care Nurse Care Team Related Persons Name: ROBERT MARROQUIN Address: home [address] [place] [address] Name: BRITTNEY SHEFFIEDL Address: home [address] [place] [address]
[2024-04-03] MEDS: Albuterol Sulfate 2.5 MG, Albuterol/Iprat 2.5/0.5MG 3 ML 3 ML INHALE (11:33)
--- NOTE | 2024-04-03 11:36 | ED_ITS ---
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 Hx of palpitations in the past that responds to SL nitro she reports overnight she had tachycardia all night and fast heart rate did not check on device but could feel it. She was take to her PCP yesterday and started on unknown antibiotic for a cough. She notes the SL nitro did not make her palpitations go away and she could not sleep she also felt short of breath and they only resolved with EMS duoneb. She denies fevers, chills, chest pain. Has chronic pain that is present. Doxycycline antibiotics and prednisone prescription per her daughter - Wednesday MD complaint: rapid heart beat Onset (ago): hour(s) (3am) Duration: now resolved Severity: severe Context: occurred during rest Arrhythmia history: AICD Associated symptoms: shortness of breath Treatments prior to arrival: other (SL nitro and duoneb) Related Data Home Medications ?Medication ?Instructions ?Recorded ?Confirmed albuterol sulfate 90 mcg/actuation 2 puff inhalation Q4H PRN 09/21/22 06/30/23 aerosol inhaler (Ventolin HFA) Shortness Of Breath cinacalcet 30 mg tablet 1 tab PO DAILY 09/21/22 06/30/23 digoxin 125 mcg (0.125 mg) tablet 0.125 mg PO MOWEFR@0900 09/21/22 06/30/23 fluticasone propionate 250 2 puff inhalation DAILY 09/21/22 06/30/23 mcg/actuation blister powder for inhalation (Flovent Diskus) furosemide 80 mg tablet 40 mg PO DAILY@1700 09/21/22 06/30/23 furosemide 80 mg tablet 80 mg PO DAILY 09/21/22 06/30/23 isosorbide mononitrate 60 mg 90 mg PO DAILY 09/21/22 06/30/23 tablet,extended release 24 hr levothyroxine 25 mcg tablet 37.5 mcg PO DAILY 09/21/22 06/30/23 magnesium oxide 400 mg (241.3 mg 1 tab PO BID 09/21/22 06/30/23 magnesium) tablet morphine 30 mg tablet,extended 1 tab PO TID 09/21/22 06/30/23 release nitroglycerin 400 mcg/spray 1 - 2 spray sublingual Q5M PRN 09/21/22 06/30/23 translingual PALPATATIONS omeprazole 20 mg capsule,delayed 20 mg PO BID 09/21/22 06/30/23 release sodium bicarbonate 650 mg tablet 1 tab PO BID 09/21/22 06/30/23 sucralfate 1 gram tablet 1 tab PO QID 09/21/22 06/30/23 alirocumab 150 mg/mL subcutaneous 150 mg subcut Q14D 06/30/23 06/30/23 pen injector (Praluent Pen) diclofenac sodium 1 % topical gel 1 g topical 5XD PRN Pain 06/30/23 06/30/23 carvedilol 3.125 mg tablet 3.125 mg PO BID 11/24/23 fluticasone furoate 100 1 inh inhalation DAILY 11/24/23 mcg/actuation blister powder for inhalation (Arnuity Ellipta) sacubitril 24 mg-valsartan 26 mg 1 tab PO BID 11/24/23 tablet (Entresto) clopidogrel 75 mg tablet 75 mg PO DAILY 03/10/24 Previous Rx's ?Medication ?Instructions ?Recorded aspirin 81 mg tablet,delayed 81 mg PO DAILY #30 tabs 09/23/22 release Allergies Allergy/AdvReac Type Severity Reaction Status Date / Time latex [LATEX] Allergy Severe ANAPHYLAXIS Verified 04/03/24 10:42 Sulfa (Sulfonamide Allergy Severe ANAPHYLAXIS Verified 04/03/24 10:42 Antibiotics) [SULFA (SULFONAMIDE ANTIBIOTICS)] walnut Allergy Severe ANAPHYLAXIS Verified 04/03/24 10:42 heparin [HEPARIN] Allergy Intermediate HIVES Verified 04/03/24 10:42 prednisone [PREDNISONE] Allergy Unknown Hives Verified 04/03/24 10:42 Review of Systems 2 Review of Systems: Constitutional : No Fever, No Chills ENT/Mouth : No sore throat, No Rhinorrhea, No Swallowing Difficulty Eyes: No Eye Pain, No Swelling, No Redness Cardiovascular : No Chest Pain, positive SOB, No Orthopnea, no Edema, pos palpitations Respiratory : pos Cough, No Sputum, No Wheezing, positive dyspnea Gastrointestinal : No Nausea, No Vomiting, No Diarrhea, No abdominal Pain, No Hematochezia, No Melena Genitourinary : No Dysuria, No Urinary Frequency, No Hematuria Musculoskeletal : No joint pain, No Myalgias Skin : No Skin Lesions, No rash Neuro : No Weakness, No Numbness, No Dizziness, No Headache Psych : No Anxiety/Panic, No Depression All other systems reviewed and are negative PMFSH Past Medical History Attestation statement: The following information was validated with the patient. Source: old records reviewed Medical History Carotid artery stenosis Former smoker Opioid dependence Osteoarthritis Cavernous hemangioma Hypothyroidism Hypoparathyroidism History of colon cancer History of sustained ventricular tachycardia CHF (congestive heart failure) CAD (coronary artery disease) HLD (hyperlipidemia) HTN (hypertension) Cerebrovascular accident Surgical History S/P ileostomy AICD (automatic cardioverter/defibrillator) present S/P CABG (coronary artery bypass graft) S/P aneurysm repair Social History Social History Household Members: Family Household Members Other:: Daughter Housing: [facility] Do you presently have visiting nurse or other home services: Yes (home health aides 5 days a week, 2 hours a day) Alcohol intake: never Patient Tobacco Use Status: Never used Tobacco Smoked in Last 30 Days: No Use of substances other than those prescribed or required for medical reasons: No Advance Directives: No Advance Directives Information Provided: No service: No Current occupational status: retired Physical Exam 2 Vital Signs: Vital Signs: Last Vital Signs Temp 97.7 F 04/03/24 11:50 Pulse 66 04/03/24 11:50 Resp 18 04/03/24 11:50 BP 139/63 04/03/24 11:50 Pulse Ox 97 04/03/24 11:50 O2 Del Method Room Air 04/03/24 11:50 BMI result Body Mass Index 22.4 Appearance: Alert. Oriented X3. Mild acute distress. Eyes: Pupils equal, round and reactive to light. ENT: Pharynx normal. Neck: Normal inspection. Neck supple. CVS: Normal heart rate and rhythm. Pulses normal. Respiratory: Mild respiratory distress - mild tachypnea. Breath sounds diminished and coarse Abdomen: Soft and non-tender. External area around stoma is c/d/i no redness Skin: Skin warm and dry. pale skin color. Normal skin turgor. Extremities: No lower extremity edema. Neuro: Oriented X 3. No motor deficit. No sensory deficit. 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 TSH ordered as well. She is not on any increased O2 from baseline. Has hx of same in past doubt VTE, atypical for ACS. Recent prescription for doxycycline and prednisone as well as tessalon Daughter felt she was doing well until last night Differential Diagnosis Differential Diagnoses: The differential diagnosis associated with the presentation includes CHF, anemia, palpitations, arrhythmia Admission/Observation Consideration of admission/observation: Escalation of care including admission/observation considered given CHF and worsening symptoms will admit for further management Consult Healthcare Provider Management of the patient was discussed with: Hospitalist (will admit) Lab Data [facility] Lab Attestation statement: I reviewed the patient's lab results. 04/03/24 11:49 04/03/24 11:49 Labs: Lab Results 04/03/24 04/03/24 Range/Units 11:49 11:59 WBC 14.1 H (4.8-10.8) X10*3/uL RBC 3.91 L (4.20-5.50) X10*6/uL Hgb 10.4 L D (12.0-16.0) g/dl Hct 33.3 L D (37.0-47.0) % MCV 85.2 (80.0-98.0) fL MCH 26.6 L (27.0-33.0) pg MCHC 31.2 (31.0-35.0) g/dl RDW 15.2 (11.0-16.0) % Plt Count 176 (160-400) X10*3/uL MPV 10.5 (9.4-12.3) fL Immature Gran % (Auto) 0.6 H (0.0-0.4) % Neut % (Auto) 91.3 H (45-73) % Lymph % (Auto) 3.3 L (20-40) % [place] % (Auto) 4.6 (2-11) % Eos % (Auto) 0.1 (0-4) % Baso % (Auto) 0.1 (0-2) % Lymph # (Auto) 0.5 L (1.2-4.9) X10*3/uL [place] # (Auto) 0.7 (0.1-1.2) X10*3/uL Eos # (Auto) 0.0 (0.0-0.4) X10*3/uL Baso # (Auto) 0.0 (0.0-0.2) X10*3/uL Abs Immat Gran (auto) 0.08 H (0.00-0.03) X10*3/uL Absolute Neuts (auto) 12.9 H (2.0-8.3) x10*3/uL Absolute Nucleated RBC 0.000 (0.0-0.012) X10*3/uL Nucleated RBC % (auto) 0.0 (0.0-0.2) /100WBC Smear Tech's Comments VERIFIED VBG pH 7.43 (7.32-7.43) VBG pCO2 55 mmHg VBG pO2 44 mmHg VBG HCO3 37 H (22-26) mmol/L VBG O2 Saturation 71.0 % VBG Base Excess 11.5 mmol/L Sodium 137 (135-145) mmol/L Potassium 4.2 (3.3-5.1) mmol/L Chloride 98 (96-108) mmol/L Carbon Dioxide 35 H (22-29) mmol/L Anion Gap 8 L (12-20) BUN 26 H (9-16) mg/dL Creatinine 1.06 (0.5-1.4) mg/dL Estim Creat Clear Calc 35.7 Estimated GFR 50 Random Glucose 118 H (60-115) mg/dL Calcium 11.0 H D (8.4-10.2) mg/dL Magnesium 2.0 (1.6-2.6) mg/dL Total Bilirubin 0.6 (0.0-1.0) mg/dL Direct Bilirubin 0.2 (0.0-0.5) mg/dL AST 45 H (5-31) U/L ALT 36 H (0-31) U/L Alkaline Phosphatase 112 (39-117) U/L Troponin I High Sens 14.1 D (<3.5-17.0) ng/L B-Natriuretic Peptide 903 H (<100) pg/mL Total Protein 7.1 (6.5-8.0) g/dL Albumin 4.2 (3.5-5.0) g/dL Lipase 6 L (8-78) U/L Digoxin 0.3 L (0.8-2.0) ng/mL Influenza Type A (PCR) NEGATIVE (Negative) Influenza Type B (PCR) NEGATIVE (Negative) RSV RNA Qual (PCR) NEGATIVE (Negative) SARS-CoV-2 RNA (RT-PCR) NEGATIVE (Negative) Independent Interpretation I performed an independent interpretation of an: EKG and Plain X-Ray (CHF) Interpretation: Rate: 70 Rhythm: a paced Alex: left wide QRS complex. ST T wave : no HARRY, flat t waves V1-V2 qTC: 479 prior studies: no change from Apr 2023 The study has been interpreted contemporaneously by me. . Radiology Impression Discussion of test interpretation with radiology: I have reviewed the radiologist's reading. Independent Historian Clinical information obtained from an independent historian. History obtained from or confirmed by: EMS External Record Review External record reviewed: Inpatient record Discharge Plan Discharge Clinical Impression: Heart palpitations, Congestive heart failure Patient Disposition: Admitted As Inpatient Prescriptions: No Action sucralfate 1 gram tablet 1 tab PO QID morphine 30 mg tablet extended release 1 tab PO TID levothyroxine 25 mcg tablet 37.5 mcg PO DAILY isosorbide mononitrate 60 mg tablet extended release 24 hr 90 mg PO DAILY magnesium oxide 400 mg (241.3 mg magnesium) tablet 1 tab PO BID furosemide 80 mg tablet 80 mg PO DAILY furosemide 80 mg tablet 40 mg PO DAILY@1700 sodium bicarbonate 650 mg tablet 1 tab PO BID nitroglycerin 400 mcg/spray spray,non-aerosol 1 - 2 spray sublingual Q5M PRN (Reason: PALPATATIONS) omeprazole 20 mg capsule,delayed release(DR/EC) 20 mg PO BID digoxin 125 mcg (0.125 mg) tablet 0.125 mg PO MOWEFR@0900 albuterol sulfate [Ventolin HFA] 90 mcg/actuation Hfa Aerosol Inhaler 2 puff INHALATION Q4H PRN (Reason: Shortness Of Breath) Flovent Diskus 250 mcg/actuation blister with device 2 puff inhalation DAILY cinacalcet 30 mg tablet 1 tab PO DAILY aspirin 81 mg Tablet,Delayed Release (Dr/Ec) 81 mg PO DAILY Qty: 30 0RF diclofenac sodium 1 % gel 1 g topical 5XD PRN (Reason: Pain) Praluent Pen 150 mg/mL pen injector 150 mg subcut Q14D clopidogrel 75 mg tablet 75 mg PO DAILY Entresto 24-26 mg tablet 1 tab PO BID Arnuity Ellipta 100 mcg/actuation blister with device 1 inh inhalation DAILY carvedilol 3.125 mg tablet 3.125 mg PO BID Print Language: Belgian
[2024-04-03 12:06] LABS: VBG Base Excess 11.5 mmol/L; VBG HCO3 37 mmol/L (22-26); VBG pCO2 55 mmHg; VBG pH 7.43 (7.32-7.43); VBG pO2 44 mmHg
[2024-04-03 12:07] LABS: Basophils Percent Auto 0.1 % (0-2); Eosinophils Percent Auto 0.1 % (0-4); Hematocrit 33.3 % (37.0-47.0); Hemoglobin 10.4 g/dl (12.0-16.0); Imm Gran Abs Auto 0.08 X10*3/uL (0.00-0.03); Imm Gran Pct Auto 0.6 % (0.0-0.4); Lymphocytes Absolute Auto 0.5 X10*3/uL (1.2-4.9); Lymphocytes Percent Auto 3.3 % (20-40); MANUAL DIFF FLAG SCAN; Mean Corpuscular HGB Conc 31.2 g/dl (31.0-35.0); Mean Corpuscular Hemoglobin 26.6 pg (27.0-33.0); Mean Corpuscular Volume 85.2 fL (80.0-98.0); Mean Platelet Volume 10.5 fL (9.4-12.3); Monocytes Absolute Auto 0.7 X10*3/uL (0.1-1.2); Monocytes Percent Auto 4.6 % (2-11); Neutrophils Absolute Auto 12.9 x10*3/uL (2.0-8.3); Neutrophils Percent Auto 91.3 % (45-73); Platelet Count 176 X10*3/uL (160-400); Red Blood Count 3.91 X10*6/uL (4.20-5.50); Red Cell Distribution Width 15.2 % (11.0-16.0); SCAN SMEAR FLAG 1; Venous Blood Gas Refer to POC result; White Blood Count 14.1 X10*3/uL (4.8-10.8)
[2024-04-03 12:32] LABS: B Type Natriuretic Peptide 903 pg/mL (<100); SLIDE REVIEW VERIFIED
[2024-04-03 12:46] LABS: Digoxin 0.3 ng/mL (0.8-2.0)
[2024-04-03 12:49] LABS: Influenza A PCR NEGATIVE (Negative); Influenza B PCR NEGATIVE (Negative); Resp Syncy Virus RNA Qual PCR NEGATIVE (Negative); SARS COV2 PCR INHOUSE NEGATIVE (Negative)
[2024-04-03 12:51] LABS: Troponin-I High Sensitivity 14.1 ng/L (<3.5-17.0)
[2024-04-03 12:58] LABS: Alanine Aminotransferase 36 U/L (0-31); Albumin Level 4.2 g/dL (3.5-5.0); Alkaline Phosphatase 112 U/L (39-117); Anion Gap 8 (12-20); Aspartate Amino Transferase 45 U/L (5-31); Bilirubin Direct 0.2 mg/dL (0.0-0.5); Bilirubin Total 0.6 mg/dL (0.0-1.0); Blood Urea Nitrogen 26 mg/dL (9-16); Carbon Dioxide 35 mmol/L (22-29); Chloride 98 mmol/L (96-108); Creatinine Clr Calc Pharmacy 35.7; Estimated Glomerular Filt Rate 50; Glucose Random 118 mg/dL (60-115); Lipase 6 U/L (8-78); Potassium 4.2 mmol/L (3.3-5.1); Sodium 137 mmol/L (135-145); Total Protein 7.1 g/dL (6.5-8.0)
[2024-04-03] MEDS: Furosemide 40 MG/4 ML VIAL IVPUSH ×2 (13:03→20:43)
--- NOTE | 2024-04-03 14:08 | P.HPHOSP_ITS ---
History of Present Illness Date of Service: 04/03/24 Chief Complaint: Acute shortness of breath 78 yo female with PMH of CHF EF 20%, CAD s/p CABG, sustained VTach AICD in place, colon cancer s/p ileostomy, HTN, HLD, hypthyroidism, CVA, depression, anxiety, arthritis on chronic morphine, afib on digoxin s/p watchman device currently on plavix, carotid artery stenosis, chronic respiratory failure on 2L NC former smoker with neb machine at home. Hx of palpitations in the past that responds to SL nitro she reports overnight she had tachycardia all night and fast heart rate did not check on device but could feel it. She states she had a recent upper respiratory infection for which she saw her primary and was prescribed doxycycline and prednisone taper. Over the last 24 hours her breathing has gotten markedly worse similar to past episodes of acute exacerbation. In ER found to be in acute CHF by x-ray/BNP/exam. Admission requested Review of Systems 2 Review of Systems: Denies chest pain and denies palpitations Denies nausea vomiting diarrhea Denies fever chills Admits shortness of breath [facility] Medical History (Updated 04/03/24 @ 14:14 by Remy Riley DO) Carotid artery stenosis Former smoker Opioid dependence Osteoarthritis Cavernous hemangioma Hypothyroidism Hypoparathyroidism History of colon cancer History of sustained ventricular tachycardia CHF (congestive heart failure) CAD (coronary artery disease) HLD (hyperlipidemia) HTN (hypertension) Cerebrovascular accident Surgical History S/P ileostomy AICD (automatic cardioverter/defibrillator) present S/P CABG (coronary artery bypass graft) S/P aneurysm repair Social History Household Members: Family Household Members Other:: Daughter Housing: Condominium Do you presently have visiting nurse or other home services: Yes (home health aides 5 days a week, 2 hours a day) Alcohol intake: never Patient Tobacco Use Status: Never used Tobacco Smoked in Last 30 Days: No Use of substances other than those prescribed or required for medical reasons: No Advance Directives: No Advance Directives Information Provided: No service: No Current occupational status: retired Meds Allergies Allergy/AdvReac Type Severity Reaction Status Date / Time latex [LATEX] Allergy Severe ANAPHYLAXIS Verified 04/03/24 10:42 Sulfa (Sulfonamide Allergy Severe ANAPHYLAXIS Verified 04/03/24 10:42 Antibiotics) [SULFA (SULFONAMIDE ANTIBIOTICS)] walnut Allergy Severe ANAPHYLAXIS Verified 04/03/24 10:42 heparin [HEPARIN] Allergy Intermediate HIVES Verified 04/03/24 10:42 prednisone [PREDNISONE] Allergy Unknown Hives Verified 04/03/24 10:42 Active Medications: Current Medications Calcium Carbonate (Calcium Carbonate 750 Mg Tab.Chew) 750 mg PO Q4H PRN PRN Reason: Heartburn Furosemide (Furosemide 40 Mg/4 Ml Vial) 40 mg IVPUSH BID TYLER; Protocol Magnesium Hydroxide (Milk Of Magnesia 30 Ml Oral.Susp) 30 ml PO DAILY PRN PRN Reason: Constipation Melatonin (Melatonin 3 Mg Tablet) 6 mg PO BEDTIME PRN PRN Reason: Insomnia Ondansetron HCl (Ondansetron Hcl 4 Mg/2 Ml Vial) 4 mg IVPUSH Q8H PRN PRN Reason: Nausea and Vomiting Sodium Chloride (0.9 % Sodium Chloride Flush 3 Ml Syringe) 3 ml IVFLUSH QSHIFT [facility] Home Medications ?Medication ?Instructions ?Recorded ?Confirmed ?Last Taken ?Type albuterol sulfate 90 mcg/actuation 2 puff inhalation Q4H PRN 09/21/22 06/30/23 Unknown History aerosol inhaler (Ventolin HFA) Shortness Of Breath cinacalcet 30 mg tablet 1 tab PO DAILY 09/21/22 06/30/23 09/21/22 History digoxin 125 mcg (0.125 mg) tablet 0.125 mg PO MOWEFR@0900 09/21/22 06/30/23 09/21/22 History fluticasone propionate 250 2 puff inhalation DAILY 09/21/22 06/30/23 09/21/22 History mcg/actuation blister powder for inhalation (Flovent Diskus) furosemide 80 mg tablet 40 mg PO DAILY@1700 09/21/22 06/30/23 09/20/22 History furosemide 80 mg tablet 80 mg PO DAILY 09/21/22 06/30/23 09/21/22 History isosorbide mononitrate 60 mg 90 mg PO DAILY 09/21/22 06/30/23 09/21/22 History tablet,extended release 24 hr levothyroxine 25 mcg tablet 37.5 mcg PO DAILY 09/21/22 06/30/23 09/21/22 History magnesium oxide 400 mg (241.3 mg 1 tab PO BID 09/21/22 06/30/23 09/21/22 History magnesium) tablet morphine 30 mg tablet,extended 1 tab PO TID 09/21/22 06/30/23 09/21/22 History release nitroglycerin 400 mcg/spray 1 - 2 spray sublingual Q5M PRN 09/21/22 06/30/23 Unknown History translingual PALPATATIONS omeprazole 20 mg capsule,delayed 60 mg PO BID 09/21/22 06/30/23 09/21/22 History release sodium bicarbonate 650 mg tablet 1 tab PO BID 09/21/22 06/30/23 09/21/22 History sucralfate 1 gram tablet 1 tab PO QID 09/21/22 06/30/23 09/21/22 History alirocumab 150 mg/mL subcutaneous 150 mg subcut Q14D 06/30/23 06/30/23 Unknown History pen injector (Praluent Pen) diclofenac sodium 1 % topical gel 1 g topical 5XD PRN Pain 06/30/23 06/30/23 Unknown History carvedilol 3.125 mg tablet 3.125 mg PO BID 11/24/23 Unknown History fluticasone furoate 100 1 inh inhalation DAILY 11/24/23 Unknown History mcg/actuation blister powder for inhalation (Arnuity Ellipta) sacubitril 24 mg-valsartan 26 mg 1 tab PO BID 11/24/23 Unknown History tablet (Entresto) clopidogrel 75 mg tablet 75 mg PO DAILY 03/10/24 Unknown History benzonatate 100 mg capsule 100 mg PO DAILY PRN Cough 04/03/24 Unknown History doxycycline monohydrate 100 mg 100 mg PO BID 04/03/24 Unknown History tablet prednisone 20 mg tablet 20 mg PO TID 04/03/24 Unknown History tamsulosin 0.4 mg capsule 0.4 mg PO 04/03/24 Unknown History Physical Exam 2 Vital Signs and Narrative: Vital Signs: Last Vital Signs Temp 97 F 04/03/24 13:40 Pulse 69 04/03/24 13:40 Resp 15 04/03/24 13:40 BP 146/60 H 04/03/24 13:40 Pulse Ox 98 04/03/24 13:40 O2 Del Method Nasal Cannula 04/03/24 13:40 O2 Flow Rate 2 04/03/24 13:40 BMI result Body Mass Index 22.4 Const: Other: Awake alert no acute distress Resp: Other: Bilateral basilar crackles to inferior scapular border Cardio: Other: Positive S1-S2. . . Loud holosystolic murmur GI: Other: Soft nontender nondistended normoactive bowel sounds Extrem: Other: No edema bilaterally Results Labs 04/03/24 11:49 04/03/24 11:49 Labs: Laboratory Results - last 24 hr 04/03/24 04/03/24 11:49 11:59 MCV 85.2 MCH 26.6 L MCHC 31.2 RDW 15.2 Plt Count 176 MPV 10.5 Immature Gran % (Auto) 0.6 H Neut % (Auto) 91.3 H Lymph % (Auto) 3.3 L [place] % (Auto) 4.6 Eos % (Auto) 0.1 Baso % (Auto) 0.1 Lymph # (Auto) 0.5 L [place] # (Auto) 0.7 Eos # (Auto) 0.0 Baso # (Auto) 0.0 Abs Immat Gran (auto) 0.08 H Absolute Neuts (auto) 12.9 H Absolute Nucleated RBC 0.000 Nucleated RBC % (auto) 0.0 Smear Tech's Comments VERIFIED VBG pH 7.43 VBG pCO2 55 VBG pO2 44 VBG HCO3 37 H VBG O2 Saturation 71.0 VBG Base Excess 11.5 Anion Gap 8 L Estim Creat Clear Calc 35.7 Estimated GFR 50 Random Glucose 118 H Calcium 11.0 H D Magnesium 2.0 Total Bilirubin 0.6 Direct Bilirubin 0.2 AST 45 H ALT 36 H Alkaline Phosphatase 112 Troponin I High Sens 14.1 D B-Natriuretic Peptide 903 H Total Protein 7.1 Albumin 4.2 Lipase 6 L Digoxin 0.3 L Influenza Type A (PCR) NEGATIVE Influenza Type B (PCR) NEGATIVE RSV RNA Qual (PCR) NEGATIVE SARS-CoV-2 RNA (RT-PCR) NEGATIVE Imaging Radiologist's Impressions: Impressions Chest X-Ray 04/03/24 11:22 IMPRESSION: Cardiomegaly with pulmonary vascular congestion and increased interstitial markings. Findings are suggestive of CHF with interstitial edema. Assessment and Plan (1) Acute systolic CHF (congestive heart failure): Status: Acute (2) CAD (coronary artery disease): Qualifiers: Coronary Disease-Associated Artery/Lesion type: unspecified vessel or lesion type [place] vs. transplanted heart: [place] heart Associated angina: u nspecified whether angina present Qualified Code(s): I25.10 - Atherosclerotic heart disease of [place] coronary artery without angina pectoris Status: Acute Plan 78 yo female with PMH of CHF EF 20%, CAD s/p CABG, 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 Workup in ER consistent with acute CHF. 1. Acute on chronic systolic CHF -IV Lasix 40 b.i.d. -continue outpatient therapies including Coreg, digoxin, isosorbide -cardiology consult in a.m.. . . Defer echo as patient states she had when at [facility] 3 months ago -monitor on telemetry -follow renal/divalents 2. Coronary artery disease -as per 1. -denies chest pain throughout episode -AICD interrogation as per Cardiology 3. Chronic abdominal pain -continue outpatient opiate regimen -adjust as indicated 4. Hypothyroidism -continue outpatient supplements Full code Pneumatic boots (allergy to heparin products) Requires at least 2 midnights going forward of inpatient hospital stay to treat acute systolic CHF with IV diuresis and specialty consultation. This can not be achieved a lesser acute setting Quality Stroke Does the patient have a stroke diagnosis?: No VTE Prior VTE?: No VTE Risk Level:: Medical - moderate - high VTE Device Contraindication: Treatment Not Indicated VTE Drug Contraindication: N/A - Med Ordered
[2024-04-03 14:54] LABS: TSH reflex Free T4 1.03 uIU/mL (0.32-4.0)
--- NOTE | 2024-04-03 15:31 | PHA.MEDREC ---
Addendum entered by Cristian Kramer [facility] 04/03/24 16:46: med rec doubled checked by [facility] Original Note: Pharmacy Consult ? Medication Reconciliation Pharmacy has completed the medication reconciliation. Patient confirmed meds the best she could but also had a list from home. Patient is taking a Prednisone 20mg taper regimen for 9 days; she does 3 tabs for 2 days then 2 tabs for 3 days then 1 tab for 3 days, she started that on Sunday 04/01, is on day 3 and took it this morning. Patient also started the Doxycycline 100mg 2 tabs daily for 7 day regimen on Sunday 04/01 and she took that this AM. She started her Benzonate 100mg on Wednesday as needed for cough.
[2024-04-03] MEDS: Magnesium Oxide 400 MG TABLET PO (20:42)
[2024-04-03] MEDS: carvediloL 3.125 MG TABLET PO (20:42)
[2024-04-03] MEDS: Sacubitril/Valsartan 24/26 1 TAB TABLET PO (20:42)
[2024-04-03] MEDS: Sodium Bicarbonate 650 MG TABLET PO (20:42)
[2024-04-03] MEDS: Sucralfate 1 GM TABLET PO (20:42)
[2024-04-03] MEDS: Morphine Sulfate ER 30 MG TABLET.ER PO (20:42)
[2024-04-03] MEDS: 0.9 % Sodium Chloride Flush 3 ML SYRINGE IVFLUSH (20:46)
[2024-04-04] VITALS (7 sets, daily range): BP systolic 122–145; BP diastolic 57–69; PULSE 66–71; RESP 16–20; TEMP 36.1–36.6; O2SAT 95–99
[2024-04-04] MEDS: Morphine Sulfate ER 30 MG TABLET.ER PO ×3 (05:40→20:20)
[2024-04-04] MEDS: Pantoprazole Sodium 20 MG TABLET.DR 40 MG PO ×2 (05:40→15:25)
[2024-04-04 08:12] LABS: Hematocrit 31.1 % (37.0-47.0); Hemoglobin 10.1 g/dl (12.0-16.0); Mean Corpuscular HGB Conc 32.5 g/dl (31.0-35.0); Mean Corpuscular Volume 83.2 fL (80.0-98.0); Mean Platelet Volume 10.7 fL (9.4-12.3); Platelet Count 169 X10*3/uL (160-400); Red Blood Count 3.74 X10*6/uL (4.20-5.50); Red Cell Distribution Width 15.2 % (11.0-16.0); White Blood Count 11.4 X10*3/uL (4.8-10.8)
[2024-04-04 08:25] LABS: Alanine Aminotransferase 31 U/L (0-31); Albumin Level 3.9 g/dL (3.5-5.0); Alkaline Phosphatase 100 U/L (39-117); Anion Gap 13 (12-20); Aspartate Amino Transferase 22 U/L (5-31); Bilirubin Total 0.5 mg/dL (0.0-1.0); Blood Urea Nitrogen 29 mg/dL (9-16); Calcium 11.4 mg/dL (8.4-10.2); Carbon Dioxide 33 mmol/L (22-29); Chloride 95 mmol/L (96-108); Creatinine Clr Calc Pharmacy 35.4; Estimated Glomerular Filt Rate 50; Glucose Random 121 mg/dL (60-115); Potassium 4.1 mmol/L (3.3-5.1); Sodium 137 mmol/L (135-145); Total Protein 6.5 g/dL (6.5-8.0)
--- NOTE | 2024-04-04 08:45 | MHC.CM.PN ---
Addendum entered by Erna Sparrow 04/04/24 08:52: Patient is active with [facility]. Original Note: CM met with Patient at bedside and assisted Patient with the completion of a HCP; she named her Daughter Stephanie as her Agent. IMM was addressed with Patient and CM provided her with the original and a copy has been placed on the chart. Patient lives in a condo with her Daughter and she uses a rollator to assist with mobility. Patient is active with [facility] services but she is unsure of which agency. O2 is supplied by [facility] [place]. Home/resume said services is the goal and CM has initiated and will follow for dc planning. PCP is Dr. Riki Bridges.
[2024-04-04] MEDS: Cinacalcet HCl 30 MG TABLET PO (09:01)
[2024-04-04] MEDS: Tamsulosin HCL 0.4 MG CAPSULE PO (09:01)
[2024-04-04] MEDS: Levothyroxine Sodium 25 MCG TABLET 37.5 MCG PO (09:01)
[2024-04-04] MEDS: Clopidogrel Bisulfate 75 MG TABLET PO (09:01)
[2024-04-04] MEDS: Sacubitril/Valsartan 24/26 1 TAB TABLET PO (09:01)
[2024-04-04] MEDS: Sucralfate 1 GM TABLET PO ×4 (09:01→21:27)
[2024-04-04] MEDS: carvediloL 3.125 MG TABLET PO ×2 (09:02→20:22)
[2024-04-04] MEDS: Furosemide 40 MG TABLET 80 MG PO (09:02)
[2024-04-04] MEDS: Sodium Bicarbonate 650 MG TABLET PO ×2 (09:02→20:22)
[2024-04-04] MEDS: Magnesium Oxide 400 MG TABLET PO ×2 (09:02→20:26)
[2024-04-04] MEDS: Aspirin Enteric Coated 81 MG TABLET.DR PO (09:02)
[2024-04-04] MEDS: 0.9 % Sodium Chloride Flush 3 ML SYRINGE IVFLUSH ×3 (09:02→23:58)
--- NOTE | 2024-04-04 10:22 | PM.CNCAR ---
History of Present Illness History of Present Illness Date of Service: 04/04/24 Requesting physician: Remy Riley Consult reason: congestive heart failure Chief complaint: Acute CHF Narrative: I was consulted to see Marilu in cardiology consultation today for acute congestive heart failure. Patient with complicated past medical history with history of coronary artery disease status post coronary artery bypass grafting and mitral valve repair in 2005, systolic congestive heart failure, with Medtronic biventricular ICD, permanent atrial fibrillation anticoagulation with Eliquis, chronic respiratory failure on home oxygen, prior CVA with carotid artery disease, colon cancer status post ileostomy, status post Watchman device for recurrent anemia and bleeding as per her, hypothyroidism, hypertension, hyperlipidemia, anxiety. Patient came to the hospital after she said she noticed palpitation which has been her symptoms since she says she had a 3rd lead placed in her heart. Patient said the palpitation pretty frightening to her and says that she felt that the night before she started feeling unwell. She had no chest pain but then she started feeling more and more short of breath and feeling lightheaded. She came to the hospital and then she was noted to have elevated BNP in the 900 range, chest x-ray consistent with pulmonary edema and therefore was admitted. EKG shows ventricular pacing with underlying atrial fibrillation. Overnight she has been diuresed negative balance is-550 cc and she says she still has shortness of breath. Hemodynamically remained stable. She says she has been very compliant with the medications. Review of Systems Constitutional: Constitutional: Reports no additional constitutional complaints Cardiovascular: Cardiovascular: Reports Abdominal Distension, Denies chest pain, Denies leg edema, Reports lightheadedness, Denies Loss of Consciousness, Reports palpitations and Reports dyspnea Respiratory: Respiratory: Reports dyspnea Genitourinary: Genitourinary: Reports no additional female genitourinary complaints Integumentary/Breasts: Skin/Breast: Reports system reviewed and no additional complaints, except as docu Neurologic: Reports system reviewed and no additional complaints, except as documented Psychiatric: Psychiatric: Reports no additional psychiatric complaints Endocrine: Endocrine: Reports palpitations PMFSH Past Medical History Medical History Carotid artery stenosis Former smoker Opioid dependence Osteoarthritis Cavernous hemangioma Hypothyroidism Hypoparathyroidism History of colon cancer History of sustained ventricular tachycardia CHF (congestive heart failure) CAD (coronary artery disease) HLD (hyperlipidemia) HTN (hypertension) Cerebrovascular accident Surgical History Surgical History S/P ileostomy AICD (automatic cardioverter/defibrillator) present S/P CABG (coronary artery bypass graft) S/P aneurysm repair Social History Social History Household Members: Children Household Members Other:: Daughter Housing: Condominium Do you presently have visiting nurse or other home services: Yes Alcohol intake: never Patient Tobacco Use Status: Never used Tobacco e-Cigarette/Vaping Use: Never Used service: No Current occupational status: retired Meds Allergies Allergy/AdvReac Type Severity Reaction Status Date / Time latex [LATEX] Allergy Severe ANAPHYLAXIS Verified 04/03/24 10:42 Sulfa (Sulfonamide Allergy Severe ANAPHYLAXIS Verified 04/03/24 10:42 Antibiotics) [SULFA (SULFONAMIDE ANTIBIOTICS)] walnut Allergy Severe ANAPHYLAXIS Verified 04/03/24 10:42 heparin [HEPARIN] Allergy Intermediate HIVES Verified 04/03/24 10:42 prednisone [PREDNISONE] Allergy Unknown Hives Verified 04/03/24 10:42 Active Medications: Current Medications Aspirin (Aspirin Enteric Coated 81 Mg Tablet.Dr) 81 mg PO DAILY [facility] Last Admin: 04/04/24 09:02 Dose: 81 mg Calcium Carbonate (Calcium Carbonate 750 Mg Tab.Chew) 750 mg PO Q4H PRN PRN Reason: Heartburn Carvedilol (Carvedilol 3.125 Mg Tablet) 3.125 mg PO BID [facility]; Protocol Last Admin: 04/04/24 09:02 Dose: 3.125 mg Cinacalcet (Cinacalcet Hcl 30 Mg Tablet) 30 mg PO DAILY [facility] Last Admin: 04/04/24 09:01 Dose: 30 mg Clopidogrel Bisulfate (Clopidogrel Bisulfate 75 Mg Tablet) 75 mg PO DAILY [facility] Last Admin: 04/04/24 09:01 Dose: 75 mg Furosemide (Furosemide 40 Mg Tablet) 80 mg PO DAILY [facility]; Protocol Last Admin: 04/04/24 09:02 Dose: 80 mg Levothyroxine Sodium (Levothyroxine Sodium 25 Mcg Tablet) 37.5 mcg PO DAILY [facility] Last Admin: 04/04/24 09:01 Dose: 37.5 mcg Magnesium Hydroxide (Milk Of Magnesia 30 Ml Oral.Susp) 30 ml PO DAILY PRN PRN Reason: Constipation Magnesium Oxide (Magnesium Oxide 400 Mg Tablet) 400 mg PO BID [facility] Last Admin: 04/04/24 09:02 Dose: 400 mg Melatonin (Melatonin 3 Mg Tablet) 6 mg PO BEDTIME PRN PRN Reason: Insomnia Morphine Sulfate (Morphine Sulfate Er 30 Mg Tablet.Er) 30 mg PO TID [facility] Last Admin: 04/04/24 05:40 Dose: 30 mg Ondansetron HCl (Ondansetron Hcl 4 Mg/2 Ml Vial) 4 mg IVPUSH Q8H PRN PRN Reason: Nausea and Vomiting Pantoprazole Sodium (Pantoprazole Sodium 20 Mg Tablet.Dr) 40 mg PO BID@0630,1630 [facility] Last Admin: 04/04/24 05:40 Dose: 40 mg Sacubitril/Valsartan (Sacubitril/Valsartan 1 Tab Tablet) 1 tab PO BID [facility]; Protocol Last Admin: 04/04/24 09:01 Dose: 1 tab Sodium Bicarbonate (Sodium Bicarbonate 650 Mg Tablet) 650 mg PO BID [facility] Last Admin: 04/04/24 09:02 Dose: 650 mg Sodium Chloride (0.9 % Sodium Chloride Flush 3 Ml Syringe) 3 ml IVFLUSH QSHIFT [facility] Last Admin: 04/04/24 09:02 Dose: 3 ml Sucralfate (Sucralfate 1 Gm Tablet) 1 gm PO QID [facility] Last Admin: 04/04/24 09:01 Dose: 1 gm Tamsulosin HCl (Tamsulosin Hcl 0.4 Mg Capsule) 0.4 mg PO DAILY [facility] Last Admin: 04/04/24 09:01 Dose: 0.4 mg Home Medications ?Medication ?Instructions ?Recorded ?Confirmed ?Last Taken ?Type albuterol sulfate 90 mcg/actuation 2 puff inhalation Q4H PRN 09/21/22 04/03/24 Unknown History aerosol inhaler (Ventolin HFA) Shortness Of Breath cinacalcet 30 mg tablet 1 tab PO DAILY 09/21/22 04/03/24 04/03/24 08:00 History digoxin 125 mcg (0.125 mg) tablet 0.125 mg PO MOWEFR@0900 09/21/22 04/03/24 04/03/24 08:00 History furosemide 80 mg tablet 80 mg PO DAILY 09/21/22 04/03/24 04/03/24 08:00 History levothyroxine 25 mcg tablet 37.5 mcg PO DAILY 09/21/22 04/03/24 04/03/24 08:00 History magnesium oxide 400 mg (241.3 mg 1 tab PO BID 09/21/22 04/03/24 04/03/24 08:00 History magnesium) tablet morphine 30 mg tablet,extended 1 tab PO TID 09/21/22 04/03/24 04/03/24 08:00 History release nitroglycerin 400 mcg/spray 1 - 2 spray sublingual Q5M PRN 09/21/22 04/03/24 Unknown History translingual PALPATATIONS omeprazole 20 mg capsule,delayed 40 mg PO DAILY 09/21/22 04/03/24 04/03/24 08:00 History release sodium bicarbonate 650 mg tablet 1 tab PO BID 09/21/22 04/03/24 04/03/24 08:00 History sucralfate 1 gram tablet 1 tab PO QID 09/21/22 04/03/24 04/03/24 08:00 History alirocumab 150 mg/mL subcutaneous 150 mg subcut Q14D 06/30/23 04/03/24 2 Weeks Ago History pen injector (Praluent Pen) ~03/20/24 carvedilol 3.125 mg tablet 3.125 mg PO BID 11/24/23 04/03/24 04/03/24 08:00 History sacubitril 24 mg-valsartan 26 mg 1 tab PO BID 11/24/23 04/03/24 04/03/24 08:00 History tablet (Entresto) clopidogrel 75 mg tablet 75 mg PO DAILY 03/10/24 04/03/24 04/03/24 08:00 History albuterol sulfate 2.5 mg/3 mL 2.5 mg inhalation Q4H PRN 04/03/24 04/03/24 Unknown History (0.083 %) solution for nebulization Wheezing/SOB/Cough benzonatate 100 mg capsule 100 mg PO DAILY PRN Cough 04/03/24 04/03/24 04/03/24 08:00 History doxycycline monohydrate 100 mg 100 mg PO BID 04/03/24 04/03/24 04/03/24 08:00 History tablet prednisone 20 mg tablet See Taper PO TID 04/03/24 04/03/24 04/03/24 08:00 History tamsulosin 0.4 mg capsule 0.4 mg PO DAILY 04/03/24 04/03/24 04/03/24 08:00 History Physical Exam Vital Signs: Vital Signs: Last Vital Signs Temp 97.1 F 04/04/24 07:05 Pulse 70 04/04/24 07:05 Resp 20 04/04/24 07:05 BP 132/69 04/04/24 07:05 Pulse Ox 98 04/04/24 07:05 O2 Del Method Nasal Cannula 04/04/24 07:05 O2 Flow Rate 2.5 04/04/24 07:05 BMI result Body Mass Index 22.4 Const: General: cooperative, comfortable, no acute distress, alert, awake and in distress mild and respiratory Nutritional Appearance: thin Orientation/consciousness: patient oriented x3 HEENT: Head: Yes normocephalic and Yes atraumatic Neck: Neck: Yes trachea midline, Yes supple and Yes JVD Resp: Effort & Inspection: normal respiratory effort Auscultation: crackles, no wheezes and diminished lung sounds Cardio: Jugular venous distension: no JVD Rate: regular rate Rhythm: regular rhythm Heart sounds: S1 normal heart sound present, S2 normal heart sound present and Murmur heart sound present ([place] systolic murmur) GI: Auscultation: normal bowel sounds Skin: General skin exam: no rashes or lesions noted Neuro: General: patient oriented x3 and no focal motor deficits Extrem: General: Yes no clubbing, cyanosis or edema Objective Labs and Meds 04/04/24 07:54 04/04/24 07:54 Lab results: Laboratory Results - last 24 hr 04/03/24 04/03/24 04/04/24 11:49 11:59 07:54 WBC 14.1 H 11.4 H RBC 3.91 L 3.74 L Hgb 10.4 L D 10.1 L Hct 33.3 L D 31.1 L MCV 85.2 83.2 MCH 26.6 L 27.0 MCHC 31.2 32.5 RDW 15.2 15.2 Plt Count 176 169 MPV 10.5 10.7 Immature Gran % (Auto) 0.6 H Neut % (Auto) 91.3 H Lymph % (Auto) 3.3 L [place] % (Auto) 4.6 Eos % (Auto) 0.1 Baso % (Auto) 0.1 Lymph # (Auto) 0.5 L [place] # (Auto) 0.7 Eos # (Auto) 0.0 Baso # (Auto) 0.0 Abs Immat Gran (auto) 0.08 H Absolute Neuts (auto) 12.9 H Absolute Nucleated RBC 0.000 0.000 Nucleated RBC % (auto) 0.0 0.0 Smear Tech's Comments VERIFIED VBG pH 7.43 VBG pCO2 55 VBG pO2 44 VBG HCO3 37 H VBG O2 Saturation 71.0 VBG Base Excess 11.5 Sodium 137 137 Potassium 4.2 4.1 Chloride 98 95 L Carbon Dioxide 35 H 33 H Anion Gap 8 L 13 BUN 26 H 29 H Creatinine 1.06 1.07 Estim Creat Clear Calc 35.7 35.4 Estimated GFR 50 50 Random Glucose 118 H 121 H Calcium 11.0 H D 11.4 H Magnesium 2.0 Total Bilirubin 0.6 0.5 Direct Bilirubin 0.2 AST 45 H 22 ALT 36 H 31 Alkaline Phosphatase 112 100 Troponin I High Sens 14.1 D B-Natriuretic Peptide 903 H Total Protein 7.1 6.5 Albumin 4.2 3.9 Lipase 6 L TSH 1.03 Digoxin 0.3 L Influenza Type A (PCR) NEGATIVE Influenza Type B (PCR) NEGATIVE RSV RNA Qual (PCR) NEGATIVE SARS-CoV-2 RNA (RT-PCR) NEGATIVE Cardiac ICD interrogation: Patient has Medtronic biventricular ICD programmed in DDDR, was reprogrammed to VVIR as patient is in permanent atrial fibrillation. RV sensing was excellent. RV pacing thresholds adequate. LV pacing thresholds are slightly elevated and reprogrammed to enhance safety. Pacing and shock lead impedance is stable. No ventricular arrhythmias noted corresponding with patient's symptoms of palpitations. Battery life is at about 12 months. OptiVol also suggest decompensation. Imaging Radiologist's impression: Impressions Chest X-Ray 04/03/24 11:22 IMPRESSION: Cardiomegaly with pulmonary vascular congestion and increased interstitial markings. Findings are suggestive of CHF with interstitial edema. Assessment and Plan (1) Acute systolic CHF (congestive heart failure): Status: Acute Acute CHF in this elderly woman without any obvious precipitating factor. No significant arrhythmias has permanent atrial fibrillation underlying. Her symptoms of palpitation did not correlate even with rapid ventricular response with ventricular arrhythmias. She has been using her medications regularly. Avoid salt intake. Myocardial ischemia can be possible. However she has no current ischemic symptoms. Continue IV diuresis. Strict intake and output chart needs to be pursued. Continue to monitor renal function closely. Continue to replace electrolytes as needed. I would add Jardiance 10 mg to her regimen. Also uptitrate Entresto for heart failure management. Eventually may require ischemic workup with her own security inspector. Will follow with you. Greater than 45 minutes was spent in managing her care Procedures Date of Service Date of Service: 04/04/24
--- NOTE | 2024-04-04 13:46 | HO.PM.IMPN ---
Subjective Subjective Date of Service: 04/04/24 Interval History: Diuresing well without acute issues. Shortness of breath has improved Review of Systems Denies chest pain and denies palpitations Denies nausea vomiting diarrhea Denies fever chills Admits shortness of breath Physical Exam Vital Signs: Vital Signs: Last Vital Signs Temp 97.9 F 04/04/24 10:54 Pulse 71 04/04/24 10:54 Resp 20 04/04/24 10:54 BP 145/66 H 04/04/24 10:54 Pulse Ox 99 04/04/24 10:54 O2 Del Method Nasal Cannula 04/04/24 10:54 O2 Flow Rate 2.5 04/04/24 10:54 BMI result Body Mass Index 22.4 Const: Other: Awake alert no acute distress Resp: Other: Bilateral basilar crackles to inferior scapular border Cardio: Other: Positive S1-S2. . . Loud holosystolic murmur GI: Other: Soft nontender nondistended normoactive bowel sounds Extrem: Other: No edema bilaterally Objective Data Active Medications Aspirin (Aspirin Enteric Coated 81 Mg Tablet.) 81 mg PO DAILY [facility] Last Admin: 04/04/24 09:02 Dose: 81 mg Documented By: VINCENT Calcium Carbonate (Calcium Carbonate 750 Mg Tab.Chew) 750 mg PO Q4H PRN PRN Reason: Heartburn Carvedilol (Carvedilol 3.125 Mg Tablet) 3.125 mg PO BID [facility]; Protocol Last Admin: 04/04/24 09:02 Dose: 3.125 mg Documented By: VINCENT Cinacalcet (Cinacalcet Hcl 30 Mg Tablet) 30 mg PO DAILY [facility] Last Admin: 04/04/24 09:01 Dose: 30 mg Documented By: VINCENT Clopidogrel Bisulfate (Clopidogrel Bisulfate 75 Mg Tablet) 75 mg PO DAILY [facility] Last Admin: 04/04/24 09:01 Dose: 75 mg Documented By: VINCENT Furosemide (Furosemide 40 Mg Tablet) 80 mg PO DAILY [facility]; Protocol Last Admin: 04/04/24 09:02 Dose: 80 mg Documented By: VINCENT Levothyroxine Sodium (Levothyroxine Sodium 25 Mcg Tablet) 37.5 mcg PO DAILY [facility] Last Admin: 04/04/24 09:01 Dose: 37.5 mcg Documented By: VINCENT Magnesium Hydroxide (Milk Of Magnesia 30 Ml Oral.Susp) 30 ml PO DAILY PRN PRN Reason: Constipation Magnesium Oxide (Magnesium Oxide 400 Mg Tablet) 400 mg PO BID [facility] Last Admin: 04/04/24 09:02 Dose: 400 mg Documented By: VINCENT Melatonin (Melatonin 3 Mg Tablet) 6 mg PO BEDTIME PRN PRN Reason: Insomnia Morphine Sulfate (Morphine Sulfate Er 30 Mg Tablet.Er) 30 mg PO TID [facility] Last Admin: 04/04/24 05:40 Dose: 30 mg Documented By: LIZZY Morphine Sulfate (Morphine Sulfate 4 Mg/Ml Cartridge) 4 mg IVPUSH Q4H PRN; Protocol PRN Reason: Pain, Severe (Pain Scale 7-10) Ondansetron HCl (Ondansetron Hcl 4 Mg/2 Ml Vial) 4 mg IVPUSH Q8H PRN PRN Reason: Nausea and Vomiting Pantoprazole Sodium (Pantoprazole Sodium 20 Mg Tablet.Dr) 40 mg PO BID@0630,1630 [facility] Last Admin: 04/04/24 05:40 Dose: 40 mg Documented By: LIZZY Sodium Bicarbonate (Sodium Bicarbonate 650 Mg Tablet) 650 mg PO BID [facility] Last Admin: 04/04/24 09:02 Dose: 650 mg Documented By: VINCENT Sodium Chloride (0.9 % Sodium Chloride Flush 3 Ml Syringe) 3 ml IVFLUSH QSHIFT [facility] Last Admin: 04/04/24 09:02 Dose: 3 ml Documented By: VINCENT Sucralfate (Sucralfate 1 Gm Tablet) 1 gm PO QID [facility] Last Admin: 04/04/24 09:01 Dose: 1 gm Documented By: VINCENT Tamsulosin HCl (Tamsulosin Hcl 0.4 Mg Capsule) 0.4 mg PO DAILY [facility] Last Admin: 04/04/24 09:01 Dose: 0.4 mg Documented By: VINCENT Labs 04/04/24 07:54 04/04/24 07:54 Labs: Laboratory Results - last 24 hr 04/03/24 04/04/24 11:49 07:54 MCV 83.2 MCH 27.0 MCHC 32.5 RDW 15.2 Plt Count 169 MPV 10.7 Absolute Nucleated RBC 0.000 Nucleated RBC % (auto) 0.0 Anion Gap 13 Estim Creat Clear Calc 35.4 Estimated GFR 50 Random Glucose 121 H Calcium 11.4 H Total Bilirubin 0.5 AST 22 ALT 31 Alkaline Phosphatase 100 Total Protein 6.5 Albumin 3.9 TSH 1.03 Assessment and Plan (1) Acute systolic CHF (congestive heart failure): Status: Acute (2) CAD (coronary artery disease): Status: Acute Plan 78 yo female with PMH of CHF EF 20%, CAD s/p CABG, 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 Workup in ER consistent with acute CHF. 1. Acute on chronic systolic CHF -IV Lasix 40 b.i.d. -continue outpatient therapies including Coreg, digoxin, isosorbide -increase Entresto 49/51; add Jardiance 10 mg daily -monitor on telemetry -follow renal/divalents 2. Coronary artery disease -as per 1. -denies chest pain throughout episode -AICD interrogation as per Cardiology 3. Chronic abdominal pain -continue outpatient opiate regimen -adjust as indicated 4. Hypothyroidism -continue outpatient supplements Full code Pneumatic boots (allergy to heparin products) Quality Stroke Does the patient have a stroke diagnosis?: No VTE Prior VTE?: No VTE Risk Level:: Medical - moderate - high VTE Device Contraindication: Treatment Not Indicated VTE Drug Contraindication: N/A - Med Ordered
[2024-04-04] MEDS: Sacubitril/Valsartan 49/51 1 TAB TABLET PO (20:22)
[2024-04-05] VITALS: BP 138/63; PULSE 71; RESP 20; TEMP 36.1; O2SAT 100
[2024-04-05 03:56] VITALS: BP 133/62; PULSE 69; RESP 20; TEMP 36.1; O2SAT 100
[2024-04-05] MEDS: Pantoprazole Sodium 20 MG TABLET.DR 40 MG PO ×2 (05:39→16:02)
[2024-04-05 06:35] LABS: Alanine Aminotransferase 28 U/L (0-31); Alkaline Phosphatase 108 U/L (39-117); Anion Gap 13 (12-20); Aspartate Amino Transferase 19 U/L (5-31); Bilirubin Total 0.8 mg/dL (0.0-1.0); Blood Urea Nitrogen 30 mg/dL (9-16); Calcium 11.1 mg/dL (8.4-10.2); Carbon Dioxide 38 mmol/L (22-29); Chloride 95 mmol/L (96-108); Creatinine Clr Calc Pharmacy 32.6; Estimated Glomerular Filt Rate 45; Glucose Random 92 mg/dL (60-115); Potassium 4.7 mmol/L (3.3-5.1); Sodium 141 mmol/L (135-145); Total Protein 6.8 g/dL (6.5-8.0)
[2024-04-05 06:45] LABS: Hematocrit 37.8 % (37.0-47.0); Hemoglobin 11.4 g/dl (12.0-16.0); Mean Corpuscular HGB Conc 30.2 g/dl (31.0-35.0); Mean Corpuscular Hemoglobin 26.5 pg (27.0-33.0); Mean Corpuscular Volume 87.7 fL (80.0-98.0); Mean Platelet Volume 10.8 fL (9.4-12.3); Platelet Count 179 X10*3/uL (160-400); Red Blood Count 4.31 X10*6/uL (4.20-5.50); Red Cell Distribution Width 15.4 % (11.0-16.0); White Blood Count 10.3 X10*3/uL (4.8-10.8)
[2024-04-05 07:05] VITALS: BP 124/60; PULSE 72; RESP 20; TEMP 36.5; O2SAT 98
[2024-04-05] MEDS: Morphine Sulfate ER 30 MG TABLET.ER PO ×3 (07:54→20:03)
[2024-04-05] MEDS: Sucralfate 1 GM TABLET PO ×4 (07:54→20:03)
[2024-04-05] MEDS: Aspirin Enteric Coated 81 MG TABLET.DR PO (07:55)
[2024-04-05] MEDS: carvediloL 3.125 MG TABLET PO ×2 (07:55→20:03)
[2024-04-05] MEDS: Cinacalcet HCl 30 MG TABLET PO (07:55)
[2024-04-05] MEDS: Furosemide 40 MG TABLET 80 MG PO (07:55)
[2024-04-05] MEDS: Clopidogrel Bisulfate 75 MG TABLET PO (07:55)
[2024-04-05] MEDS: Sodium Bicarbonate 650 MG TABLET PO ×2 (07:55→20:03)
[2024-04-05] MEDS: Magnesium Oxide 400 MG TABLET PO ×2 (07:55→20:03)
[2024-04-05] MEDS: Levothyroxine Sodium 25 MCG TABLET 37.5 MCG PO (07:55)
[2024-04-05] MEDS: Sacubitril/Valsartan 49/51 1 TAB TABLET PO ×2 (07:56→20:03)
[2024-04-05] MEDS: Empagliflozin 10 MG TABLET PO (07:56)
[2024-04-05] MEDS: Tamsulosin HCL 0.4 MG CAPSULE PO (07:56)
[2024-04-05] MEDS: 0.9 % Sodium Chloride Flush 3 ML SYRINGE IVFLUSH ×3 (07:59→20:03)
--- NOTE | 2024-04-05 10:34 | MHC.CM.PN ---
Per ROUNDS discussion, Patient is not yet medically cleared for dc (CHF); home/resume vna is the goal and CM will continue to follow.
--- NOTE | 2024-04-05 10:59 | P.PNIM_ITS ---
Subjective Subjective Date of Service: 04/05/24 Interval History: Being followed for acute CHF. Complaining of generalized weakness, denies shortness of breath, no PND, no orthopnea, no chest pain no other acute issues overnight. Review of Systems All other system reviewed and are negative. Physical Exam 2 Vital Signs: Vital Signs: Last Vital Signs Temp 97.7 F 04/05/24 07:05 Pulse 72 04/05/24 07:05 Resp 20 04/05/24 07:05 BP 124/60 04/05/24 07:05 Pulse Ox 98 04/05/24 07:05 O2 Del Method Nasal Cannula 04/05/24 07:05 O2 Flow Rate 2.5 04/05/24 07:05 BMI result Body Mass Index 22.4 Const: Other: General awake alert x3, in no acute distress. Neck no JVD. CVS regular rate rhythm, Respiratory lungs clear to auscultation, no respiratory distress, no wheeze, no crackles Gastrointestinal abdomen soft, non tender, bowel sounds audible Extremities no edema. Neuro non focal Skin no rash Psych appropriate affect Objective Data Active Medications Aspirin (Aspirin Enteric Coated 81 Mg Tablet.) 81 mg PO DAILY [facility] Last Admin: 04/05/24 07:55 Dose: 81 mg Documented By: SANGITA Calcium Carbonate (Calcium Carbonate 750 Mg Tab.Chew) 750 mg PO Q4H PRN PRN Reason: Heartburn Carvedilol (Carvedilol 3.125 Mg Tablet) 3.125 mg PO BID [facility]; Protocol Last Admin: 04/05/24 07:55 Dose: 3.125 mg Documented By: SANGITA Cinacalcet (Cinacalcet Hcl 30 Mg Tablet) 30 mg PO DAILY [facility] Last Admin: 04/05/24 07:55 Dose: 30 mg Documented By: SANGITA Clopidogrel Bisulfate (Clopidogrel Bisulfate 75 Mg Tablet) 75 mg PO DAILY [facility] Last Admin: 04/05/24 07:55 Dose: 75 mg Documented By: SANGITA Empagliflozin (Empagliflozin 10 Mg Tablet) 10 mg PO DAILY [facility] Last Admin: 04/05/24 07:56 Dose: 10 mg Documented By: SANGITA Furosemide (Furosemide 40 Mg Tablet) 80 mg PO DAILY [facility]; Protocol Last Admin: 04/05/24 07:55 Dose: 80 mg Documented By: SANGITA Levothyroxine Sodium (Levothyroxine Sodium 25 Mcg Tablet) 37.5 mcg PO DAILY [facility] Last Admin: 04/05/24 07:55 Dose: 37.5 mcg Documented By: SANGITA Magnesium Hydroxide (Milk Of Magnesia 30 Ml Oral.Susp) 30 ml PO DAILY PRN PRN Reason: Constipation Magnesium Oxide (Magnesium Oxide 400 Mg Tablet) 400 mg PO BID [facility] Last Admin: 04/05/24 07:55 Dose: 400 mg Documented By: SANGITA Melatonin (Melatonin 3 Mg Tablet) 6 mg PO BEDTIME PRN PRN Reason: Insomnia Morphine Sulfate (Morphine Sulfate Er 30 Mg Tablet.Er) 30 mg PO TID [facility] Last Admin: 04/05/24 07:54 Dose: 30 mg Documented By: SANGITA Morphine Sulfate (Morphine Sulfate 4 Mg/Ml Cartridge) 4 mg IVPUSH Q4H PRN; Protocol PRN Reason: Pain, Severe (Pain Scale 7-10) Ondansetron HCl (Ondansetron Hcl 4 Mg/2 Ml Vial) 4 mg IVPUSH Q8H PRN PRN Reason: Nausea and Vomiting Pantoprazole Sodium (Pantoprazole Sodium 20 Mg Tablet.Dr) 40 mg PO BID@0630,1630 [facility] Last Admin: 04/05/24 05:39 Dose: 40 mg Documented By: THAIS Sacubitril/Valsartan (Sacubitril/Valsartan 49/51 1 Tab Tablet) 1 tab PO BID [facility]; Protocol Last Admin: 04/05/24 07:56 Dose: 1 tab Documented By: SANGITA Sodium Bicarbonate (Sodium Bicarbonate 650 Mg Tablet) 650 mg PO BID [facility] Last Admin: 04/05/24 07:55 Dose: 650 mg Documented By: SANGITA Sodium Chloride (0.9 % Sodium Chloride Flush 3 Ml Syringe) [facility] Last Admin: 04/05/24 07:59 Dose: 3 ml Documented By: SANGITA Sucralfate (Sucralfate 1 Gm Tablet) 1 gm PO QID [facility] Last Admin: 04/05/24 07:54 Dose: 1 gm Documented By: SANGITA Tamsulosin HCl (Tamsulosin Hcl 0.4 Mg Capsule) 0.4 mg PO DAILY [facility] Last Admin: 04/05/24 07:56 Dose: 0.4 mg Documented By: SANGITA Labs 04/05/24 05:50 04/05/24 05:50 Labs: Laboratory Results - last 24 hr 04/05/24 05:50 MCV 87.7 MCH 26.5 L MCHC 30.2 L RDW 15.4 Plt Count 179 MPV 10.8 Absolute Nucleated RBC 0.000 Nucleated RBC % (auto) 0.0 Anion Gap 13 Estim Creat Clear Calc 32.6 Estimated GFR 45 Random Glucose 92 Calcium 11.1 H Total Bilirubin 0.8 AST 19 ALT 28 Alkaline Phosphatase 108 Total Protein 6.8 Albumin 4.0 Assessment and Plan (1) Acute systolic CHF (congestive heart failure): Status: Acute (2) CAD (coronary artery disease): Status: Acute Plan 78 yo female with PMH of CHF EF 20%, CAD s/p CABG, 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 Workup in ER consistent with acute CHF. 1. Acute on chronic systolic CHF -feeling tired otherwise no shortness of breath, no PND or orthopnea -greater than 2 L negative -continue Lasix 80 mg, dose of Entresto increased to 49/51, Jardiance 10 mg added, outpatient therapies including Coreg, digoxin, isosorbide -case discussed with Cardiology they recommend to continue current treatment -monitor on telemetry -follow BMP and BNP 2. Coronary artery disease -denies chest pain throughout episode -AICD interrogated by Cardiology 3. Chronic abdominal pain -continue outpatient opiate regimen, no acute worsening 4. Hypothyroidism -continue outpatient supplements Generalized weakness recommend ambulation with walker unable to walk will obtain PT eval Full code Pneumatic boots (allergy to heparin products) Patient will require continued inpatient hospitalization for treatment of acute systolic CHF requiring close monitoring of electrolytes and renal function. Quality Stroke Does the patient have a stroke diagnosis?: No VTE Prior VTE?: No VTE Risk Level:: Medical - moderate - high VTE Device Contraindication: Treatment Not Indicated VTE Drug Contraindication: N/A - Med Ordered
[2024-04-05 11:00] VITALS: BP 110/58; PULSE 72; RESP 20; TEMP 36.3; O2SAT 97
--- NOTE | 2024-04-05 11:35 | PM.PNCARD ---
Subjective Subjective Date of Service: 04/05/24 Principal diagnosis: CHF, cardiomyopathy, atrial fibrillation Interval history: Patient has diuresed about 2.2 L. Says shortness of breath is improved but complains of weakness. Blood pressure is still in the normal range. Medicines read as yesterday including Jardiance and increased Entresto therapy. Patient denies any chest pain. No palpitations. Review of Systems Constitutional: Reports fatigue and Reports weakness Cardiovascular: Reports no additional cardiovascular complaints Respiratory: Reports no additional respiratory complaints Gastrointestinal: Reports no additional gastrointestinal complaints Musculoskeletal: Reports no additional musculoskeletal complaints Reports weakness Endocrine: Reports fatigue Physical Exam Vital Signs: Last Vital Signs Temp 97.3 F 04/05/24 11:00 Pulse 72 04/05/24 11:00 Resp 20 04/05/24 11:00 BP 110/58 L 04/05/24 11:00 Pulse Ox 97 04/05/24 11:00 O2 Del Method Nasal Cannula 04/05/24 11:00 O2 Flow Rate 2.5 04/05/24 11:00 BMI result Body Mass Index 22.4 Const General: cooperative, comfortable, alert and awake Nutritional Appearance: thin Orientation/consciousness: patient oriented x3 Neck Neck: Yes trachea midline, Yes supple and Yes no JVD Resp Effort & Inspection: normal respiratory effort Auscultation: crackles on the left at the base (Cleared with coughing and SVT) Cardio Jugular venous distension: no JVD Rhythm: regular rhythm Heart sounds: S1 normal heart sound present, S2 normal heart sound present, no click, no gallops and Murmur heart sound present GI Auscultation: normal bowel sounds Skin General skin exam: no rashes or lesions noted Neuro General: patient oriented x3 and no focal motor deficits Extrem General: Yes no clubbing, cyanosis or edema Objective Labs and Meds 04/05/24 05:50 04/05/24 05:50 Lab results: Laboratory Results - last 24 hr 04/05/24 05:50 WBC 10.3 RBC 4.31 Hgb 11.4 L Hct 37.8 D MCV 87.7 MCH 26.5 L MCHC 30.2 L RDW 15.4 Plt Count 179 MPV 10.8 Absolute Nucleated RBC 0.000 Nucleated RBC % (auto) 0.0 Sodium 141 Potassium 4.7 Chloride 95 L Carbon Dioxide 38 H Anion Gap 13 BUN 30 H Creatinine 1.16 Estim Creat Clear Calc 32.6 Estimated GFR 45 Random Glucose 92 Calcium 11.1 H Total Bilirubin 0.8 AST 19 ALT 28 Alkaline Phosphatase 108 Total Protein 6.8 Albumin 4.0 Progress Note: A&P Assessment and plan (1) Acute systolic CHF (congestive heart failure): Status: Acute Assessment and Plan: Acute systolic heart failure in this elderly woman which has improved with diuresis. Clinically doing well, tolerating uptitration of medications. Continue monitor blood pressure. Consider physical therapy evaluation. Continue current neurohormonal modulation with carvedilol, Entresto, additional Jardiance. Continue with diuretic therapy. Patient has underlying chronic atrial fibrillation and Bi V ICD was reprogrammed to VVIR mode. Device is working well. Status post Watchman device. Continue Plavix therapy. 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 Will sign of the case Time Spent With Patient Time: Total time managing care of this patient today ____ minutes. Progress Note: Quality Stroke Does the patient have a stroke diagnosis?: No Procedures Date of Service Date of Service: 04/05/24
[2024-04-05 15:32] VITALS: BP 111/52; PULSE 70; RESP 18; TEMP 36.2; O2SAT 97
[2024-04-05 19:33] VITALS: BP 126/60; PULSE 75; RESP 20; TEMP 36.4; O2SAT 96
[2024-04-06] VITALS: BP 110/52; PULSE 72; RESP 20; TEMP 36.1; O2SAT 98
[2024-04-06 03:33] VITALS: BP 108/52; PULSE 69; RESP 20; TEMP 36.1; O2SAT 99
[2024-04-06] MEDS: Pantoprazole Sodium 20 MG TABLET.DR 40 MG PO (06:05)
[2024-04-06 06:35] LABS: B Type Natriuretic Peptide 154 pg/mL (<100)
[2024-04-06 06:43] LABS: Anion Gap 12 (12-20); Blood Urea Nitrogen 24 mg/dL (9-16); Calcium 10.3 mg/dL (8.4-10.2); Carbon Dioxide 34 mmol/L (22-29); Chloride 95 mmol/L (96-108); Creatinine Clr Calc Pharmacy 36.4; Estimated Glomerular Filt Rate 52; Glucose Random 110 mg/dL (60-115); Potassium 3.6 mmol/L (3.3-5.1); Sodium 137 mmol/L (135-145)
[2024-04-06 07:40] VITALS: BP 128/61; PULSE 71; RESP 18; TEMP 36.6; O2SAT 100
[2024-04-06] MEDS: Sodium Bicarbonate 650 MG TABLET PO (07:54)
[2024-04-06] MEDS: Tamsulosin HCL 0.4 MG CAPSULE PO (07:54)
[2024-04-06] MEDS: carvediloL 3.125 MG TABLET PO (07:55)
[2024-04-06] MEDS: Sucralfate 1 GM TABLET PO ×2 (07:55→12:46)
[2024-04-06] MEDS: Furosemide 40 MG TABLET 80 MG PO (07:55)
[2024-04-06] MEDS: Empagliflozin 10 MG TABLET PO (07:55)
[2024-04-06] MEDS: Morphine Sulfate ER 30 MG TABLET.ER PO (07:55)
[2024-04-06] MEDS: Magnesium Oxide 400 MG TABLET PO (07:55)
[2024-04-06] MEDS: Cinacalcet HCl 30 MG TABLET PO (07:55)
[2024-04-06] MEDS: Clopidogrel Bisulfate 75 MG TABLET PO (07:55)
[2024-04-06] MEDS: Levothyroxine Sodium 25 MCG TABLET 37.5 MCG PO (07:56)
[2024-04-06] MEDS: Sacubitril/Valsartan 49/51 1 TAB TABLET PO (07:56)
[2024-04-06] MEDS: Aspirin Enteric Coated 81 MG TABLET.DR PO (07:56)
[2024-04-06] MEDS: 0.9 % Sodium Chloride Flush 3 ML SYRINGE IVFLUSH (07:57)
--- NOTE | 2024-04-06 10:14 | PM.PNCARD ---
Subjective Subjective Date of Service: 04/06/24 Principal diagnosis: CHF, cardiomyopathy, atrial fibrillation Interval history: Patient is breathing a lot better. Complains of weakness. Hemodynamically stable. BNP is significantly improved. Review of Systems Constitutional: Reports lethargy Eyes: Reports no additional eye complaints Cardiovascular: Reports no additional cardiovascular complaints Respiratory: Reports no additional respiratory complaints Reports system reviewed and no additional complaints, except as documented Physical Exam Vital Signs: Last Vital Signs Temp 97.9 F 04/06/24 07:40 Pulse 71 04/06/24 07:40 Resp 18 04/06/24 07:40 BP 128/61 04/06/24 07:40 Pulse Ox 100 04/06/24 07:40 O2 Del Method Nasal Cannula 04/06/24 07:40 O2 Flow Rate 2 04/06/24 07:40 BMI result Body Mass Index 22.4 Const General: cooperative, comfortable, alert and awake Nutritional Appearance: thin Orientation/consciousness: patient oriented x3 Neck Neck: Yes trachea midline, Yes supple and Yes no JVD Resp Effort & Inspection: normal respiratory effort Auscultation: crackles on the left at the base (Cleared with coughing and SVT) Cardio Jugular venous distension: no JVD Rhythm: regular rhythm Heart sounds: S1 normal heart sound present, S2 normal heart sound present, no click, no gallops and Murmur heart sound present GI Auscultation: normal bowel sounds Skin General skin exam: no rashes or lesions noted Neuro General: patient oriented x3 and no focal motor deficits Extrem General: Yes no clubbing, cyanosis or edema Objective Labs and Meds 04/05/24 05:50 04/06/24 05:52 Lab results: Laboratory Results - last 24 hr 04/06/24 05:52 Sodium 137 Potassium 3.6 D Chloride 95 L Carbon Dioxide 34 H Anion Gap 12 BUN 24 H Creatinine 1.04 Estim Creat Clear Calc 36.4 Estimated GFR 52 Random Glucose 110 Calcium 10.3 H D B-Natriuretic Peptide 154 H Progress Note: A&P Assessment and plan (1) Acute systolic CHF (congestive heart failure): Status: Acute Assessment and Plan: Patient admitted with acute congestive heart failure. Clinically doing extremely well at this point time. Has diuresed well. Probably with addition of Jardiance. Will reduce Lasix to 40 mg daily. Heart failure management discussed daily weight monitoring additional diuretics as need be. Continue current neurohormonal modulation with carvedilol, Entresto as well as Jardiance. Potential discharge. (2) Chronic atrial fibrillation: Status: Acute Assessment and Plan: Chronic atrial fibrillation. Continue rate control with digoxin and carvedilol therapy. Quarterly digoxin assay should be performed. Status post Watchman device. Currently on dual antiplatelet therapy being followed by [facility]. (3) Biventricular ICD (implantable cardioverter-defibrillator) in place: Status: Acute Assessment and Plan: Biventricular ICD in place which was reprogrammed this admission from DDDR to VVIR given chronic atrial fibrillation. LV lead thresholds were increase as well to enhance LV pacing. Will sign of the case from cardiac perspective. Thank you for allowing me to partake in her care Time Spent With Patient Time: Total time managing care of this patient today ____ minutes. Progress Note: Quality Stroke Does the patient have a stroke diagnosis?: No Procedures Date of Service Date of Service: 04/06/24
[2024-04-06 11:51] VITALS: BP 92/73; PULSE 76; RESP 20; TEMP 36.6; O2SAT 97
--- NOTE | 2024-04-06 11:55 | MHC.CM.PN ---
Patient has been medically cleared for dc to home today with services. Patient is active with Greg MUNGUIA, who has been notified of today's dc. Last IMM was addressed on 04/04/2024. CM spoke with Patient's Daughter/Stephanie, who will be here at 1PM, with a portable O2 tank, to transport Patient home. MD & RN are aware.
--- NOTE | 2024-04-06 12:07 | P.DS_ITS ---
DS: Providers Provider Date of Service: 04/06/24 Date of admission: 04/03/24 14:01 Primary care physician: Riki Bridges III, MD Consults: 04/03/24 14:05 Consult to Cardiology Routine Consulting Provider: [facility] Reason for consultation: Acute CHF Has provider been notified: Yes DS: Diagnosis Discharge Diagnosis (1) Acute systolic CHF (congestive heart failure): Status: Acute (2) Chronic atrial fibrillation: Status: Acute (3) Biventricular ICD (implantable cardioverter-defibrillator) in place: Status: Acute DS: Summary Hospital Course Hospital Course: History presenting illness: Date of Service: 04/03/24 Chief Complaint: Acute shortness of breath 78 yo female with PMH of CHF EF 20%, CAD s/p CABG, 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 Hx of palpitations in the past that responds to SL nitro she reports overnight she had tachycardia all night and fast heart rate did not check on device but could feel it. She states she had a recent upper respiratory infection for which she saw her primary and was prescribed doxycycline and prednisone taper. Over the last 24 hours her breathing has gotten markedly worse similar to past episodes of acute exacerbation. In ER found to be in acute CHF by x-ray/BNP/exam. 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, colon cancer s/p ileostomy, HTN, HLD, hypthyroidism, CVA, depression, anxiety, arthritis on chronic morphine, afib on digoxin s/p watchman device currently on plavix, carotid artery stenosis, chronic respiratory failure on 2L NC former smoker with neb machine at home presents with little more than 24 hours of acute onset shortness of breath, patient diagnosed to have acute on chronic systolic congestive heart failure with an elevated BNP and chest x-ray showing cardiomegaly with pulmonary vascular congestion and increased interstitial markings, she was treated with Lasix, dose of Entresto was increased to 49/51 and Jardiance 10 mg was added as per Cardiology recommendation, patient responded well to above treatment ,her shortness of breath resolved, she had no episodes of chest pain or palpitations her AICD was interrogated by Cardiology and Bi V ICD was reprogrammed to VVIR mode, device is working well, BNP improved from 903-154, she is being discharged home now on all of the above medication except dose of Lasix has been reduced to 40 mg daily and she is recommended to use extra dose of Lasix if noted to have 2-3 lb weight gain and to continue low salt diet. In regard to her chronic abdominal pain and hypothyroidism she is recommended to continue her baseline medications. Time Attestation Discharge Coordination Time (in mins): 36 Quality: Safe Use of Opioids Does Pt have an Active Cancer Diagnosis on the Problem List?: No Quality: Stroke Does the patient have a stroke diagnosis?: No Physical Exam Vital Signs: Vital Signs: Last Vital Signs Temp 97.8 F 04/06/24 11:51 Pulse 76 04/06/24 11:51 Resp 20 04/06/24 11:51 BP 92/73 04/06/24 11:51 Pulse Ox 97 04/06/24 11:51 O2 Del Method Nasal Cannula 04/06/24 11:51 O2 Flow Rate 2 04/06/24 11:51 BMI result Body Mass Index 22.4 Const: Other: General awake alert x3, in no acute distress. Neck no JVD. CVS regular rate rhythm, Respiratory lungs clear to auscultation, no respiratory distress, no wheeze, no crackles Gastrointestinal abdomen soft, non tender, bowel sounds audible Extremities no edema. Neuro non focal Skin no rash Psych appropriate affect DS: Data Data Completed and Pending Labs on day of discharge: Laboratory Results - last 24 hr 04/06/24 05:52 Sodium 137 Potassium 3.6 D Chloride 95 L Carbon Dioxide 34 H Anion Gap 12 BUN 24 H Creatinine 1.04 Estim Creat Clear Calc 36.4 Estimated GFR 52 Random Glucose 110 Calcium 10.3 H D B-Natriuretic Peptide 154 H Discharge Plan Discharge Anticipated Discharge Date/Time: 04/06/24 11:59 Patient Disposition: Home Health Service Discharge Diagnosis: Acute on chronic systolic congestive heart failure Referrals: Greg Jackson [Outside] - 1 Week Riki Bridges III, MD [Primary Care Provider] - 1 Week Discharge Medications: New Entresto 49-51 mg Tablet 1 tab PO BID Qty: 60 0RF Protocol: Hold for SBP< HOLD for SBP < : 90 Jardiance 10 mg Tablet 10 mg PO DAILY Qty: 30 0RF Continued sucralfate 1 gram tablet 1 tab PO QID morphine 30 mg tablet extended release 1 tab PO TID levothyroxine 25 mcg tablet 37.5 mcg PO DAILY magnesium oxide 400 mg (241.3 mg magnesium) tablet 1 tab PO BID sodium bicarbonate 650 mg tablet 1 tab PO BID nitroglycerin 400 mcg/spray spray,non-aerosol 1 - 2 spray sublingual Q5M PRN (Reason: PALPATATIONS) omeprazole 20 mg capsule,delayed release(DR/EC) 40 mg PO DAILY digoxin 125 mcg (0.125 mg) tablet 0.125 mg PO MOWEFR@0900 albuterol sulfate [Ventolin HFA] 90 mcg/actuation Hfa Aerosol Inhaler 2 puff INHALATION Q4H PRN (Reason: Shortness Of Breath) cinacalcet 30 mg tablet 1 tab PO DAILY aspirin 81 mg Tablet,Delayed Release (Dr/Ec) 81 mg PO DAILY Qty: 30 0RF Praluent Pen 150 mg/mL pen injector 150 mg subcut Q14D tamsulosin 0.4 mg capsule 0.4 mg PO DAILY benzonatate 100 mg capsule 100 mg PO DAILY PRN (Reason: Cough) albuterol sulfate 2.5 mg /3 mL (0.083 %) solution for nebulization 2.5 mg inhalation Q4H PRN (Reason: Wheezing/SOB/Cough) clopidogrel 75 mg tablet 75 mg PO DAILY carvedilol 3.125 mg tablet 3.125 mg PO BID Changed furosemide 80 mg tablet 40 mg PO DAILY Qty: 10 0RF Discontinued prednisone 20 mg tablet See Taper PO TID Taper: Prednisone 60 mg daily for 2 Days and 0 Hour 40 mg daily for 3 Days and 0 Hour 30 mg daily for 3 Days and 0 Hour Patient Comments: patient on day 2 got 3 days of each. doxycycline monohydrate 100 mg tablet 100 mg PO BID Entresto 24-26 mg tablet 1 tab PO BID Discharge Orders: Discharge Order (Routine); Ordered 04/06/24 Ordered By: Sirisha Whitten Diet: Low salt diet Activity on Discharge: As tolerated Stand Alone Forms: Patient Portal Discharge page Print Language: Greenlandic Care Plan Goals: Acute heart failure resolved Dose of Entresto increased as above Dose of Lasix reduced to 40 mg daily (half tablet of 80 mg) Take new medication Jardiance 10 mg daily Take extra dose of Lasix 40 mg for weight gain 2-3 lb as previously directed. Health Concerns: Take all home medications as above Plan of Treatment: Outpatient follow-up with primary care physician and Cardiology call for appointment in 2-3 weeks. Assessment: as above
== END 2024-04-06 13:16 | disposition home health service (06) | DRG 291 ==
LOC: HO.ED 13:04 → HO.EDOVER 14:06 → HO.IMC 14:50
PROVIDERS: Admitting Provider Hospitalist; Emergency Provider Emergency Medicine; PCP Internal Medicine; Visit Provider Hospitalist
DX: I11.0 Hypertensive heart disease with heart failure (principal); I50.23 Acute on chronic systolic (congestive) heart failure; I48.21 Permanent atrial fibrillation; I47.20 Ventricular tachycardia, unspecified; F11.20 Opioid dependence, uncomplicated; J96.10 Chronic respiratory failure, unspecified whether with hypoxia or hypercapnia; Z45.02 Encounter for adjustment and management of automatic implantable cardiac defibrillator; R10.9 Unspecified abdominal pain; G89.29 Other chronic pain; Z99.81 Dependence on supplemental oxygen; I25.10 Atherosclerotic heart disease of native coronary artery without angina pectoris; E03.9 Hypothyroidism, unspecified; Z20.822 Contact with and (suspected) exposure to COVID-19; Z95.1 Presence of aortocoronary bypass graft; Z91.040 Latex allergy status; Z87.891 Personal history of nicotine dependence; Z85.038 Personal history of other malignant neoplasm of large intestine; Z79.02 Long term (current) use of antithrombotics/antiplatelets; Z79.82 Long term (current) use of aspirin; Z79.890 Hormone replacement therapy; Z79.899 Other long term (current) drug therapy
CPT/HCPCS: 0241U; 36415; 71045; 80048; 80053; 80076; 80162; 82803; 83690; 83735; 83880; 84443; 84484; 85025; 85027; 93005; 94640; 99285; J1940

== ENCOUNTER → 2024-04-03 10:32 | Outpatient (BNV) | payer MEDICARE, OTHER, SELFPAY | PROVIDERS: Admitting Provider Hospitalist; Emergency Provider Emergency Medicine; PCP Internal Medicine; Visit Provider Internal Medicine Cardiovascular Disease | DX: R94.31 Abnormal electrocardiogram [ECG] [EKG] (principal) | CPT/HCPCS: 93010 ==

== ENCOUNTER → 2024-04-03 14:01 | Outpatient (BNV) | payer MEDICARE, OTHER, SELFPAY | PROVIDERS: Admitting Provider Hospitalist; Emergency Provider Emergency Medicine; PCP Internal Medicine; Visit Provider Internal Medicine Cardiovascular Disease | DX: I50.21 Acute systolic (congestive) heart failure (principal); I48.20 Chronic atrial fibrillation, unspecified; Z95.810 Presence of automatic (implantable) cardiac defibrillator | CPT/HCPCS: 99223; 99233 ==

== ENCOUNTER → 2024-04-03 14:01 | Outpatient (BNV) | payer MEDICARE, OTHER, SELFPAY | PROVIDERS: Admitting Provider Hospitalist; Emergency Provider Emergency Medicine; PCP Internal Medicine; Visit Provider Hospitalist | DX: I50.21 Acute systolic (congestive) heart failure (principal); I25.10 Atherosclerotic heart disease of native coronary artery without angina pectoris | CPT/HCPCS: 99223; 99232; 99239 ==

== ENCOUNTER 2024-04-18 14:32 | Outpatient (AMB) | payer MEDICARE, OTHER, SELFPAY ==
--- NOTE | 2024-04-18 15:01 | AM.OFFVISNUR ---
Intake Visit Reasons: PVR/UA Allergies latex [LATEX] Allergy (Severe, Verified 04/03/24 10:42) ANAPHYLAXIS Sulfa (Sulfonamide Antibiotics) [SULFA (SULFONAMIDE ANTIBIOTICS)] Allergy (Severe, Verified 04/03/24 10:42) ANAPHYLAXIS walnut Allergy (Severe, Verified 04/03/24 10:42) ANAPHYLAXIS heparin [HEPARIN] Allergy (Intermediate, Verified 04/03/24 10:42) HIVES prednisone [PREDNISONE] Allergy (Unknown, Verified 04/03/24 10:42) Hives Office Procedures Post Void Residual Post Residual Void Details: Patient presents to office for urinalysis and PVR. Patient able to provide urine, urinalysis run- unremarkable. Bladder scanned patient for 197mls. Reviewed with Stacy MORALES- have patient increase tamsulosin to BID or two tabs at bedtime if patient gets dizzy or does not want to take twice daily, call office if not noticing improvement or symptoms do not get better, follow up in 3 months. Let pt know that medication has been increased and to take BID or the two tablets at bedtime if preferred. Patient stated understanding of dosage change. Advised patient to call office with any questions or concerns that she may have or patient daughter., if patient does not feel better with increase of medication or feels worse with increase of medication. Patient understood all information. PAtient to schedule 3 month follow up with tSacy MORALES at checkout. Patient agreeable with plan at this time Post Void Residual (PVR): 197 [id number] Void Residual by ultrasound Results AMB Urinalysis, Automated UA Leukoctes 0 Niharika/uL Last Edit by Hernán Galindo LPN on 04/18/24 15:16 UA Nitrite Negative Last Edit by Hernán Galindo LPN on 04/18/24 15:16 UA Urobilinogen 0.2 mg/dL Last Edit by Hernán Galindo LPN on 04/18/24 15:16 UA Protein 0 mg/dL Last Edit by Hernán Galindo LPN on 04/18/24 15:16 UA pH 7.0 Last Edit by Hernán Galindo LPN on 04/18/24 15:16 UA Blood 0 Francisco/uL Last Edit by Hernán Galindo LPN on 04/18/24 15:16 UA Specific [place] 1.005 Last Edit by Hernán Galindo LPN on 04/18/24 15:16 UA Ketone Negative Last Edit by Hernán Galindo LPN on 04/18/24 15:16 UA Bilirubin 0 mg/dL Last Edit by Hernán Galindo LPN on 04/18/24 15:16 UA Glucose 0 mg/dL Last Edit by Hernán Galindo LPN on 04/18/24 15:16 Assessment & Plan Assessment & Plan Orders: Orders AMB Urinalysis Automated Today R33.9 - Retention of urine, unspecified AMB Post Void Residual by ultrasound Today R33.9 - Retention of urine, unspecified Medications: Changed From tamsulosin 0.4 mg PO BEDTIME 30 days 30 caps 1RF N40.1 - Benign prostatic hyperplasia with lower urinary tract symptoms, R35.1 - Nocturia To tamsulosin change in dose 0.4 mg PO BID 30 days 60 caps 1RF N40.1 - Benign prostatic hyperplasia with lower urinary tract symptoms, R35.1 - Nocturia
== END 2024-04-18 15:45 | disposition home or self-care (01) ==
PROVIDERS: PCP Internal Medicine; Visit Provider Nurse Practitioner Family
DX: R33.9 Retention of urine, unspecified (principal)

== ENCOUNTER → 2024-04-18 14:32 | Outpatient (BNVA) | payer MEDICARE, OTHER, SELFPAY | PROVIDERS: PCP Internal Medicine; Visit Provider Nurse Practitioner Family | DX: R33.9 Retention of urine, unspecified (principal) | CPT/HCPCS: 51798; 81003 ==